=== PATIENT | male | born 1945 | race Caucasian/White ===

== ENCOUNTER → 2016-08-15 | Outpatient (CLI) | payer MEDICARE, BC ==
--- NOTE | 2016-08-15 13:26 | CT ---
EXAMINATION TYPE: CT chest wo con DATE OF EXAM: 08/15/2016 COMPARISON: NONE HISTORY: Excess calcium on coronary CT DLP: [address] of the chest was performed with lung and mediastinal window settings submitted. The la ck of contrast limits evaluation of the vascular, mediastinal and parenchymal structures including th e upper abdomen. LUNGS: The lungs are clear and free of infiltrate. No atelectasis. No pulmonary nodule or mass is de tected. No pleural effusion. No CT evidence of interstitial lung disease. MEDIASTINUM/ED: Thoracic aorta is of normal caliber with limited evaluation given lack of contrast . Mild atheromatous change of the thoracic aorta. No aneurysm. The heart is not enlarged. Mild LAD calcification is noted. No evidence for mediastinal mass. No lymph nodes greater than 1cm. UPPER ABDOMEN: No significant abnormality is seen. OTHER: No significant other abnormality. IMPRESSION: 1. No significant abnormality.
== END | disposition home or self-care (01) ==
LOC: RADCTMAIN 12:49
PROVIDERS: ATTEND Family Medicine
DX: I77.89 Other specified disorders of arteries and arterioles (principal)
CPT/HCPCS: 71250

== ENCOUNTER 2017-08-09 13:50 | Observation (INO) | payer MEDICARE, BC ==
[2017-08-09] MEDS ORDERED: SODIUM CHLORIDE 0.9% 500 ML IV STA (14:56)
[2017-08-09] MEDS ORDERED: ONDANSETRON 4 MG/2 ML VIAL IVP STA (14:56)
--- NOTE | 2017-08-09 15:01 | ED ---
General Adult HPI - General Chief complaint: Abdominal Pain Stated complaint: Abd Pain Time Seen by Provider: 08/09/17 14:22 Source: patient, family, RN notes reviewed, old records reviewed Mode of arrival: ambulatory Limitations: no limitations - History of Present Illness Initial comments: Chief complaint and history of present illness is a 71-year-old male here with his . The patient reports that for the past 5 days been on Cipro because he thought he had diverticulitis and was prescribed by his family physician. Patient states that he had 2 bowel movements today. No blood in the bowel movement and was not dark. He reports did not have a bowel movement and one half days prior to this. He also complains of some flank pain on the left side. This time minimal to no pain. Appetite decreased secondary nausea but no vomiting. - Related Data Home Medications Medication Instructions Recorded Confirmed Ciprofloxacin HCl [Cipro] 500 mg PO BID 08/09/17 08/09/17 Allergies Allergy/AdvReac Type Severity Reaction Status Date / Time Tetracyclines Allergy Rash/Hives Verified 08/09/17 17:19 erythromycin base AdvReac Nausea & Verified 08/09/17 17:19 Vomiting hydromorphone [From Dilaudid] AdvReac hallucinati Verified 08/09/17 17:19 on morphine AdvReac hallunicati Verified 08/09/17 17:19 on oxycodone AdvReac Nausea & Verified 08/09/17 17:19 Vomiting Review of Systems ROS Statement: Those systems with pertinent positive or pertinent negative responses have been documented in the HPI. Review of systems patient denies any headache or visual acuity changes no chest pain or shortness of breath. He has discomfort on again off again from the left lateral abdomen to the mid abdomen lower left quadrant. No vomiting but he has been mildly nauseated. He had 2 bowel movements today. Denies any change in color of the stool or urine. Denies previous kidney stones or kidney pathology. Patient has had diverticulitis multiple times. At one time he had to have 8 inches of colon removed because of an abscess associated with his diverticulitis. All systems are reviewed. Past medical problems diverticulitis. Surgeries left total knee and 8 inches of his colon associated with diverticulitis and abscess. Family history his father had prostate cancer when he was in his 90s. The patient has ALLERGIES to tetracycline causes a rash. Erythromycin base hydromorphone morphine and oxycodone cause nausea. Patient does not smoke drink alcohol very rarely socially. ROS Other: All systems not noted in ROS Statement are negative. Past Medical History Additional Past Medical History / Comment(s): diverticultis History of Any Multi-Drug Resistant Organisms: None Reported Past Surgical History: Joint Replacement Additional Past Surgical History / Comment(s): colon resection Past Psychological History: No Psychological Hx Reported Smoking Status: Current every day smoker Past Alcohol Use History: None Reported Past Drug Use History: None Reported General Exam - General Exam Comments Initial Comments: General: The patient is awake and alert, here because discomfort comes and goes to the left flank area and left lower quadrant. Being treated for the past 5 days for diverticulitis. Vital signs shows temperature 98.2 pulse 75 respiratory rate 18 pulse ox 97% room air blood pressure 138/75 Eye: Pupils are equal, round and reactive to light, extra-ocular movements are intact ; there is normal conjunctiva bilaterally. No signs of icterus. Ears, nose, mouth and throat: There are moist mucous membranes and no oral lesions. Neck: The neck is supple, there is no tenderness, no anterior cervical lymphadenopathy. Cardiovascular: There is a regular rate and rhythm. No murmur, rub or gallop is appreciated. Respiratory: Lungs are clear to auscultation, respirations are non-labored, breath sounds are equal. No wheezes, stridor, rales, or rhonchi. Gastrointestinal: Soft, states he feels slightly bloated, minimally tender abdomen without masses or organomegaly noted. There is no rebound or guarding present. No CVA tenderness. Bowel sounds are unremarkable. Back: There is no tenderness to palpation in the midline. There is no obvious deformity. No rashes noted. Musculoskeletal: Normal ROM, no tenderness, There is no pedal edema. There is no calf tenderness or swelling. Sensation intact. Neurological: No complaint of a neuro deficits, no balance problems. Alert and oriented Skin: Skin is warm and dry and no rashes or lesions are noted. Psychiatric: Cooperative, appropriate mood & affect, normal judgment. Limitations: no limitations Course Vital Signs 08/09/17 14:08 Temperature 98.2 F Pulse Rate 75 Respiratory 18 Rate Blood Pressure 138/75 O2 Sat by Pulse 97 Oximetry Medical Decision Making - Medical Decision Making Medical decision making; this is a 71-year-old male here with his . The patient's been on 5 days of Cipro for a possible diagnosis of diverticulitis. Patient came in today because he had left flank area pain. Nausea but no sweats no vomiting. Possibility of kidney stone is being entertained as well as diverticulitis. The patient's labs show white count of 8.3 hemoglobin 15 hematocrit 44 with a potassium 4.0. BUN 26 creatinine 1.1 GFR 67. Glucose 99. Urine shows small amount of blood and [address] abdomen without IV oral contrast rule out the possibility of kidney stone. X-rays of the abdomen were done and reviewed by radiologist his final impression is unremarkable abdomen. As read by Dr. Daniel CT of the abdomen was done without contrast because the patient had possibility of a kidney stone. The radiologist's impressions include kidneys no masses are evident. No hydronephrosis is present. Minimal left hydroureter may be present. This appears more prominent on the coronal plane images.This of present renal stones are not identified. Loops of bowel within the abdomen and pelvis are normal. Appendix normal as visualized. Urinary bladder there is a 4 mm calcification within the posterior lateral left a urinary bladder. Some wall thickening through this region is not excluded. Additional workup was recommended. Prostate appears unremarkable. Impression; suggestion of mild left hydroureter with a ureteral vesicle junction stone measuring 0.4 cm. Number to the ureteral vesicle junction stone appears to be within an area of asymmetric urinary bladder wall thickening. Additional workup was recommended. Underlying neoplasm should be considered. As read by Dr. Daniel I discussed the case with Dr. Zhong. Patient be admitted to his service for rehydration, IV antibiotics for presumptive diverticulitis. Dr. Zhong states he will decide when to consult urology for the radiologist's report after his examination. - Lab Data Result diagrams: 08/09/17 15:15 08/09/17 15:15 Lab Results 08/09/17 08/09/17 08/09/17 Range/Units 15:15 15:15 15:15 WBC 8.3 (3.8-10.6) k/uL RBC 4.86 (4.30-5.90) m/uL Hgb 15.0 (13.0-17.5) gm/dL Hct 44.7 (39.0-53.0) % MCV 92.0 (80.0-100.0) fL MCH 30.9 (25.0-35.0) pg MCHC 33.6 (31.0-37.0) g/dL RDW 13.5 (11.5-15.5) % Plt Count 246 (150-450) k/uL Neutrophils % 63 % Lymphocytes % 24 % Monocytes % 7 % Eosinophils % 4 % Basophils % 1 % Neutrophils # 5.3 (1.3-7.7) k/uL Lymphocytes # 2.0 (1.0-4.8) k/uL Monocytes # 0.6 (0-1.0) k/uL Eosinophils # 0.3 (0-0.7) k/uL Basophils # 0.1 (0-0.2) k/uL Sodium 143 (137-145) mmol/L Potassium 4.0 (3.5-5.1) mmol/L Chloride 109 H (98-107) mmol/L Carbon Dioxide 21 L (22-30) mmol/L Anion Gap 13 mmol/L BUN 26 H (9-20) mg/dL Creatinine 1.10 (0.66-1.25) mg/dL Est GFR (CKD-EPI)AfAm 77 (>60 ml/min/1.73 sqM) Est GFR (CKD-EPI)NonAf 67 (>60 ml/min/1.73 sqM) Glucose 99 (74-99) mg/dL Plasma Lactic Acid Maxime 0.8 (0.7-2.0) mmol/L Calcium 9.3 (8.4-10.2) mg/dL Total Bilirubin 0.5 (0.2-1.3) mg/dL AST 28 (17-59) U/L ALT 25 (21-72) U/L Alkaline Phosphatase 69 (38-126) U/L Total Protein 7.0 (6.3-8.2) g/dL Albumin 4.1 (3.5-5.0) g/dL Amylase 54 (30-110) U/L Lipase 127 (23-300) U/L Urine Color Urine Appearance (Clear) Urine pH (5.0-8.0) Ur Specific [place] (1.001-1.035) Urine Protein (Negative) Urine Glucose (UA) (Negative) Urine Ketones (Negative) Urine Blood (Negative) Urine Nitrite (Negative) Urine Bilirubin (Negative) Urine Urobilinogen (<2.0) mg/dL Ur Leukocyte Esterase (Negative) Urine RBC (0-5) /hpf Urine WBC (0-5) /hpf Urine Mucus (None) /hpf 08/09/17 Range/Units 15:33 WBC (3.8-10.6) k/uL RBC (4.30-5.90) m/uL Hgb (13.0-17.5) gm/dL Hct (39.0-53.0) % MCV (80.0-100.0) fL MCH (25.0-35.0) pg MCHC (31.0-37.0) g/dL RDW (11.5-15.5) % Plt Count (150-450) k/uL Neutrophils % % Lymphocytes % % Monocytes % % Eosinophils % % Basophils % % Neutrophils # (1.3-7.7) k/uL Lymphocytes # (1.0-4.8) k/uL Monocytes # (0-1.0) k/uL Eosinophils # (0-0.7) k/uL Basophils # (0-0.2) k/uL Sodium (137-145) mmol/L Potassium (3.5-5.1) mmol/L Chloride (98-107) mmol/L Carbon Dioxide (22-30) mmol/L Anion Gap mmol/L BUN (9-20) mg/dL Creatinine (0.66-1.25) mg/dL Est GFR (CKD-EPI)AfAm (>60 ml/min/1.73 sqM) Est GFR (CKD-EPI)NonAf (>60 ml/min/1.73 sqM) Glucose (74-99) mg/dL Plasma Lactic Acid Maxime (0.7-2.0) mmol/L Calcium (8.4-10.2) mg/dL Total Bilirubin (0.2-1.3) mg/dL AST (17-59) U/L ALT (21-72) U/L Alkaline Phosphatase (38-126) U/L Total Protein (6.3-8.2) g/dL Albumin (3.5-5.0) g/dL Amylase (30-110) U/L Lipase (23-300) U/L Urine Color Yellow Urine Appearance Clear (Clear) Urine pH 5.5 (5.0-8.0) Ur Specific [place] 1.010 (1.001-1.035) Urine Protein Negative (Negative) Urine Glucose (UA) Negative (Negative) Urine Ketones Negative (Negative) Urine Blood Small H (Negative) Urine Nitrite Negative (Negative) Urine Bilirubin Negative (Negative) Urine Urobilinogen <2.0 (<2.0) mg/dL Ur Leukocyte Esterase Negative (Negative) Urine RBC 7 H (0-5) /hpf Urine WBC 1 (0-5) /hpf Urine Mucus Rare H (None) /hpf Disposition Clinical Impression: Ureterolithiasis, History of diverticulitis of colon Disposition: ADMITTED IP TO THIS HOSP Condition: Stable Is patient prescribed a controlled substance at d/c from ED?: No Referrals: Gucci Zhong MD [Primary Care Provider] - 1-2 days
[2017-08-09 15:30] LABS: Basophils # (A) 0.1 k/uL (0-0.2); Basophils % (A) 1 %; Eosinophils # (A) 0.3 k/uL (0-0.7); Eosinophils % (A) 4 %; HCT 44.7 % (39.0-53.0); Lymphocytes % (A) 24 %; MCH 30.9 pg (25.0-35.0); MCHC 33.6 g/dL (31.0-37.0); Mean Platelet Volume 6.5; Monocytes # (A) 0.6 k/uL (0-1.0); Monocytes % (A) 7 %; Neutrophils # (A) 5.3 k/uL (1.3-7.7); Neutrophils % (A) 63 %; Platelet Count 246 k/uL (150-450); RBC 4.86 m/uL (4.30-5.90); RDW 13.5 % (11.5-15.5); WBC 8.3 k/uL (3.8-10.6)
[2017-08-09 15:39] LABS: Albumin 4.1 g/dL (3.5-5.0); Calcium 9.3 mg/dL (8.4-10.2); Total Bilirubin 0.5 mg/dL (0.2-1.3)
[2017-08-09 15:50] LABS: Appearance,Urine Clear (Clear); Bilirubin,Urine Negative (Negative); Blood,Urine Small (Negative); Color,Urine Yellow; Glucose,Urine (UA) Negative (Negative); Ketones,Urine Negative (Negative); Leukocyte Esterase,Urine Negative (Negative); Mucus,Urine Rare /hpf; Nitrite,Urine Negative (Negative); PH, Urine 5.5 (5.0-8.0); Protein,Urine Negative (Negative); RBC,Urine 7 /hpf (0-5); Urobilinogen,Urine <2.0 mg/dL (<2.0); WBC,Urine 1 /hpf (0-5)
--- NOTE | 2017-08-09 16:08 | XR ---
EXAMINATION TYPE: XR abdomen 2V DATE OF EXAM: 08/09/2017 COMPARISON: NONE INDICATION: Abdominal pain history of diverticulitis TECHNIQUE: Single view abdomen upright view FINDINGS: There is a normal bowel gas pattern. Psoas margins are normal. No suspicious air-fluid levels or differential air-fluid levels are present . No free air is evident. Some nonspecific small bowel gas is present. No organomegaly is present. IMPRESSION: 1. Unremarkable Abdomen
--- NOTE | 2017-08-09 16:42 | CT ---
EXAMINATION TYPE: CT abdomen pelvis wo con DATE OF EXAM: 08/09/2017 COMPARISON: NONE INDICATION: Lower abdominal pain, hematuria DLP: 426.8 mGycm, Automated exposure control for dose reduction was used. CONTRAST: 0 mL of Isovue 300. Study performed without Oral Contrast TECHNIQUE: Axial images were obtained from above the diaphragm to the pubic rami in the axial plane a t 5 mm thick sections. Reconstructed images are reviewed on the computer in the coronal plane. FINDINGS: Limited CT sections are obtained the lung bases. The lung bases are clear. CT ABDOMEN: Liver: Normal Spleen: Normal Pancreas: Normal Adrenal glands: The adrenal glands are normal. Gallbladder: Normal Kidneys: No masses are evident. No hydronephrosis is present. Minimal left hydroureter may be present . This appears more prominent on the coronal plane images. No cysts are present. Renal stones are n ot identified. Aorta: Vascular calcification is within the aorta. Inferior vena cava: Normal. CT PELVIS: Loops of bowel within the abdomen and pelvis are normal. Postsurgical changes are evident within the lower sigmoid colon. Few scattered diverticuli are present within the sigmoid colon. Study is darden ited without oral contrast. Appendix: Normal as visualized. Urinary bladder: There is a 0.4 cm calcification within the posterior lateral left urinary bladder. S ome wall thickening through this region is not excluded. Additional workup is recommended. Genitourinary structures: Prostate appears unremarkable. Osseous structures: No suspicious lytic or sclerotic lesions. IMPRESSIONS: 1. Suggestion of mild left hydroureter with a ureteral vesicle junction stone measuring 0.4 cm. 2. The ureteral vesicle junction stone appears to be within an area of asymmetric urinary bladder wal l thickening. Additional workup is recommended. Underlying neoplasm should be considered.
[2017-08-09] MEDS ORDERED: ONDANSETRON 4 MG/2 ML VIAL IVP PRN (18:14)
[2017-08-09] MEDS ORDERED: KETOROLAC 30 MG/ML 1 ML VIAL IVP PRN (18:14)
[2017-08-09] MEDS ORDERED: NALOXONE 0.4 MG/ML 1 ML VIAL IV PRN (18:14)
[2017-08-09] MEDS ORDERED: ACETAMINOPHEN TAB 325 MG TAB PO PRN (18:14)
[2017-08-09] MEDS ORDERED: LEVOFLOXACIN 500MG-D5W PMX 500 MG in DEXTROSE/WATER 1 100ML.BAG IVPB SCH (20:00)
[2017-08-09] MEDS: metroNIDAZOLE-NS PMX 500 MG in SALINE 1 100ML.BAG IVPB SCH (22:11)
[2017-08-10] MEDS: metroNIDAZOLE-NS PMX 500 MG in SALINE 1 100ML.BAG IVPB SCH ×2 (01:39→08:03)
[2017-08-10] MEDS: SODIUM CHLORIDE 0.9% 1,000 ML IV SCH ×2 (06:55→15:23)
[2017-08-10 07:39] VITALS: RESP 16
[2017-08-10 12:09] VITALS: BP 135/65; PULSE 67; TEMP 97.9
--- NOTE | 2017-08-10 23:27 | HP ---
HISTORY AND PHYSICAL CHIEF COMPLAINT: 71-year-old white male with acute left flank pain. HISTORY OF PRESENT ILLNESS: 71-year-old white male with acute left flank pain. Been on Cipro for diverticulitis colitis for the last 5 days. Brought to the hospital. He has had 2 bowel movements. No blood in the stools. Some pain in the left side. CT of the abdomen showed ureteral stone 0.4 mm possible block in the with mild hydronephrosis admitted for acute renal colic and hydronephrosis. IV fluids were given overnight. The patient stabilized, possibly passed stone overnight. He has been taking Cipro at home at home 500 mg b.i.d. ALLERGIES: TETRACYCLINE AND ERYTHROMYCIN, DILAUDID, MORPHINE, OXYCODONE, NAUSEA. REVIEW OF SYSTEMS: Fourteen point review of systems negative except for mentioned in HPI. SOCIAL HISTORY: Does not smoke. Drinks socially alcohol. PAST MEDICAL HISTORY: Joint replacement, diverticulitis. Current everyday smoker. PHYSICAL EXAM: The pain is left flank pain on GI exam. CARDIOVASCULAR S1-S2. LUNGS: Clear. HEMATOLOGY negative Homans. PSYCH: Fair mood and affect. NEUROLOGIC: Alert and oriented x3. INTEGUMENT: Does not look he has any rashes. Fair skin turgor. ABDOMEN: Benign. LABORATORY DATA: BUN 26, creatinine 1.1, GFR 67, UA shows 7 red blood cells. ASSESSMENT: 1. Mild left hydronephrosis. 2. Ureteral vesicular junction stone. 3. Abnormal CT scan with bladder wall thickening. Follow up with Urology as an outpatient. Underlying neoplasm needs to be ruled out. He will have a cystoscopy with Urology as an outpatient. The patient understands this and will make appoint with urologist as soon as possible. As mentioned negative. passed renal stone overnight. He will discharged home to follow up as outpatient. MMODL / IJN: [id number] /
== END 2017-08-10 15:57 | disposition home or self-care (01) ==
LOC: EC 13:50 → 4MS4W 18:15 → 3OBS 08-10 11:26
PROVIDERS: ADMIT Family Medicine; ATTEND Family Medicine
DX: N13.2 Hydronephrosis with renal and ureteral calculous obstruction (principal); N32.89 Other specified disorders of bladder; K57.92 Diverticulitis of intestine, part unspecified, without perforation or abscess without bleeding; F17.200 Nicotine dependence, unspecified, uncomplicated; Z88.1 Allergy status to other antibiotic agents; Z88.5 Allergy status to narcotic agent; Z80.42 Family history of malignant neoplasm of prostate
CPT/HCPCS: 99285; 96375 ×2; 96361 ×2; 96365; 96366; 36415; 80053; 82150; 83605; 83690; 85025; 81001; 87086; 74019; 74176; G0378 ×2; J2405; J1956

== ENCOUNTER 2017-11-14 12:08 | Emergency (ER) | payer MEDICARE, BC ==
[2017-11-14 12:25] VITALS: RESP 16
--- NOTE | 2017-11-14 12:47 | ED ---
General Adult HPI - General Chief complaint: Extremity Problem,Nontraumatic Stated complaint: finger infection Time Seen by Provider: 11/14/17 12:29 Source: patient, RN notes reviewed Mode of arrival: ambulatory Limitations: no limitations - History of Present Illness Initial comments: Patient is a 71-year-old male presented to the emergency room today with a chief complaint of increased redness and some swelling to the left index finger. Patient states that he has a history of having a arthritic cyst to this area. He states he saw a revenue research analyst who drained. Patient states that 3 days ago woke up he noticed some swelling beginning to this finger. States it was worse than previous. He had gone back to his revenue research analyst who started him on some antibiotics. States that they did try to drain but not a lot of drainage came out. Patient states that the area of redness swelling has decreased now just below the DIP joint. Patient denies any other complaints on antibiotics of Keflex. Patient denies any recent fever, chills, shortness of breath, chest pain, back pain, numbness or tingling, headaches or visual changes , or any other complaints. - Related Data Home Medications Medication Instructions Recorded Confirmed Cephalexin [Keflex] 500 mg PO Q8HR 11/14/17 11/14/17 Previous Rx's Medication Instructions Recorded Sulfamethox-Tmp 800-160Mg [Bactrim 1 tab PO Q12HR #20 tab 11/14/17 DS 800-160 mg] Allergies Allergy/AdvReac Type Severity Reaction Status Date / Time Tetracyclines Allergy Rash/Hives Verified 11/14/17 12:25 erythromycin base AdvReac Nausea & Verified 11/14/17 12:25 Vomiting hydromorphone [From Dilaudid] AdvReac hallucinati Verified 11/14/17 12:25 on morphine AdvReac hallunicati Verified 11/14/17 12:25 on oxycodone AdvReac Nausea & Verified 11/14/17 12:25 Vomiting Review of Systems ROS Statement: Those systems with pertinent positive or pertinent negative responses have been documented in the HPI. ROS Other: All systems not noted in ROS Statement are negative. Past Medical History Past Medical History: Osteoarthritis (OA) Additional Past Medical History / Comment(s): diverticultis History of Any Multi-Drug Resistant Organisms: None Reported Past Surgical History: Joint Replacement Additional Past Surgical History / Comment(s): colon resection knee replace Past Anesthesia/Blood Transfusion Reactions: Postoperative Nausea & Vomiting ( PONV) Past Psychological History: No Psychological Hx Reported Smoking Status: Never smoker Past Alcohol Use History: None Reported Past Drug Use History: None Reported General Exam - General Exam Comments Initial Comments: General: The patient is awake and alert, in no distress, and does not appear acutely ill. Neck: The neck is supple, there is no tenderness or JVD. Cardiovascular: There is a regular rate and rhythm. No murmur, rub or gallop is appreciated. Respiratory: Lungs are clear to auscultation, respirations are non-labored, breath sounds are equal. No wheezes, stridor, rales, or rhonchi. Musculoskeletal/skin: Patient does have redness and erythema below the DIP joint of the second digit left hand consistent with a paronychia. Local tenderness. Cap refill less than 2 seconds. Sensations intact. Strength 5/5. No lymphangitic streaking. Neurological: A&O x 3. CN II-XII intact, There are no obvious motor or sensory deficits. Coordination appears grossly intact. Speech is normal. Psychiatric: Normal mood and affect. Limitations: no limitations Course Vital Signs 11/14/17 12:22 Temperature 97.4 F L Pulse Rate 73 Respiratory 16 Rate Blood Pressure 120/79 O2 Sat by Pulse 97 Oximetry Procedures - Procedures Initial comment: Patient's left index finger was prepped and cleaned with Betadine. An 11 blade was used to make small incision running parallel to the nail bed. Small amount of purulent drainage was removed. Patient tolerated procedure well. Medical Decision Making - Medical Decision Making The patient's x-ray reviewed negative for any acute abnormalities. Results were discussed with the patient. Patient said paronychia on exam was drained here in the emergency room. Patient tolerated well. Patient advised continue Keflex will be started on Bactrim. He is advised to do warm soaks or warm compresses over the next 2-3 days. Advised following up with family doctor return if symptoms increase or worsen. Disposition Clinical Impression: Paronychia Disposition: HOME SELF-CARE Condition: Good Instructions: Paronychia (ED) Additional Instructions: Please use medication as discussed. Please continue warm soaks or compresses as discussed. Please follow-up with family doctor in the next 2 days of symptoms have not improved. Please return to emergency room if the symptoms increase or worsen or for any other concerns. Prescriptions: Sulfamethox-Tmp 800-160Mg [Bactrim DS 800-160 mg] 1 tab PO Q12HR #20 tab Is patient prescribed a controlled substance at d/c from ED?: No Referrals: Gucci Zhong MD [Primary Care Provider] - 1-2 days Time of Disposition: 13:55
--- NOTE | 2017-11-14 13:05 | XR ---
EXAMINATION TYPE: XR finger LT DATE OF EXAM: 11/14/2017 COMPARISON: NONE HISTORY: 71-year-old male with redness and swelling, DIP joint, pain TECHNIQUE: 3 views coned down left second digit FINDINGS: There is degenerative joint space narrowing at the second DIP joint with soft tissue swelling. No mar ginal erosions or soft tissue calcifications. IMPRESSION: Degenerative joint space narrowing in the second DIP joint. Additional soft tissue swelling. No acute osseous abnormality seen.
[2017-11-14 14:07] VITALS: BP 115/79; PULSE 79; TEMP 97.8
== END 2017-11-14 14:06 | disposition home or self-care (01) ==
LOC: EC 12:08
DX: L03.012 Cellulitis of left finger (principal); Z88.1 Allergy status to other antibiotic agents; Z88.5 Allergy status to narcotic agent
CPT/HCPCS: 10060; 99284

== ENCOUNTER 2018-06-23 12:06 | Observation (INO) | payer MEDICARE, BC ==
[2018-06-23 13:32] VITALS: BMI 24.5
[2018-06-23] MEDS ORDERED: BISMUTH SUBSALICYLATE 4,192 MG/240 ML BOTTLE PO PRN (14:45)
--- NOTE | 2018-06-23 15:13 | XR ---
EXAMINATION TYPE: XR chest 2V DATE OF EXAM: 06/23/2018 COMPARISON: Chest CT August 15, 2016 HISTORY: Chest pain. TECHNIQUE: Frontal and lateral views of the chest are obtained. FINDINGS: There is no focal air space opacity, pleural effusion, or pneumothorax seen. The cardiac silhouette size is within normal limits. The osseous structures are intact. IMPRESSION: No acute process.
[2018-06-23 16:03] LABS: Basophils # (A) 0.1 k/uL (0-0.2); Basophils % (A) 1 %; Eosinophils # (A) 0.2 k/uL (0-0.7); Eosinophils % (A) 3 %; HCT 50.4 % (39.0-53.0); HGB 15.8 gm/dL (13.0-17.5); Lymphocytes # (A) 1.8 k/uL (1.0-4.8); Lymphocytes % (A) 24 %; MCH 29.8 pg (25.0-35.0); MCHC 31.4 g/dL (31.0-37.0); Mean Platelet Volume 6.6; Monocytes # (A) 0.4 k/uL (0-1.0); Monocytes % (A) 5 %; Neutrophils # (A) 4.9 k/uL (1.3-7.7); Neutrophils % (A) 66 %; Platelet Count 244 k/uL (150-450); RBC 5.31 m/uL (4.30-5.90); RDW 13.4 % (11.5-15.5); WBC 7.5 k/uL (3.8-10.6)
[2018-06-23] MEDS: SODIUM CHLORIDE 0.9% 1,000 ML IV SCH (16:20)
[2018-06-23] MEDS: IOPAMIDOL-300 CONTRAST 30 ML VIAL (ORAL USE) PO PRN ×2 (16:20→17:15)
[2018-06-23 16:38] LABS: Albumin 4.1 g/dL (3.5-5.0); Calcium 9.5 mg/dL (8.4-10.2); Potassium 4.2 mmol/L (3.5-5.1); Total Bilirubin 0.5 mg/dL (0.2-1.3); Total Protein 7.4 g/dL (6.3-8.2)
[2018-06-23 16:48] LABS: Appearance,Urine Clear (Clear); Bilirubin,Urine Negative (Negative); Blood,Urine Negative (Negative); Color,Urine Yellow; Glucose,Urine (UA) Negative (Negative); Ketones,Urine Negative (Negative); Leukocyte Esterase,Urine Negative (Negative); Nitrite,Urine Negative (Negative); PH, Urine 5.5 (5.0-8.0); Protein,Urine Negative (Negative); Urobilinogen,Urine <2.0 mg/dL (<2.0)
--- NOTE | 2018-06-23 18:23 | CT ---
EXAMINATION TYPE: CT abdomen pelvis wo con DATE OF EXAM: 06/23/2018 COMPARISON: 08/02/1717 HISTORY: Abdominal pain and diarrhea. CT DLP: 484.6 mGycm Automated exposure control for dose reduction was used. TECHNIQUE: Helical acquisition of images was performed from the lung bases through the pelvis. FINDINGS: Lung bases are clear. There is no pleural effusion. Heart size is normal. There is no pericardial eff usion. Liver shows no focal defect. Gallbladder appears normal. Bile ducts are not dilated. Spleen appears n ormal. Stomach appears normal. There is no evidence of pancreatic mass. There is no adrenal mass. Kidneys have normal size and contour. There is no hydronephrosis. There is no retroperitoneal adenopathy. Bladder distends smoothly. There is no free fluid in the pelvis. There is anastomosis in the rectosigmoid colon. There is no evidence of a bowel obstruction. There is no f ree air. There is no mesenteric edema. There is no inguinal hernia. Appendix is not definitely seen. There is no evidence of a thickened appendix. There is no free air. There is no ascites. There is no sign of a bowel obstruction. The bony structur es appear intact. IMPRESSION: NEGATIVE CT SCAN ABDOMEN AND PELVIS. THERE IS CLEARING OF THE SMALL CALCULUS IN THE DISTAL LEFT URETE R COMPARED TO OLD EXAM. NO HYDRONEPHROSIS. THERE IS CLEARING OF MILD LEFT-SIDED HYDRONEPHROSIS COMPAR ED TO OLD EXAM.
[2018-06-24 00:33] LABS: Cancer Antigen 19-9 7.1 U/mL (0.0-34.9)
[2018-06-24 00:40] LABS: Gliadin AB IgA, Unit <0.2 U/mL
[2018-06-24] MEDS: SODIUM CHLORIDE 0.9% 1,000 ML IV SCH ×2 (07:05→16:24)
[2018-06-24 07:19] LABS: Basophils # (A) 0.1 k/uL (0-0.2); Basophils % (A) 1 %; Eosinophils # (A) 0.4 k/uL (0-0.7); Eosinophils % (A) 5 %; HCT 45.7 % (39.0-53.0); HGB 14.4 gm/dL (13.0-17.5); Lymphocytes # (A) 2.1 k/uL (1.0-4.8); Lymphocytes % (A) 29 %; MCH 29.9 pg (25.0-35.0); MCHC 31.6 g/dL (31.0-37.0); MCV 94.7 fL (80.0-100.0); Mean Platelet Volume 6.3; Monocytes # (A) 0.4 k/uL (0-1.0); Monocytes % (A) 6 %; Neutrophils # (A) 4.1 k/uL (1.3-7.7); Neutrophils % (A) 56 %; Platelet Count 239 k/uL (150-450); RBC 4.82 m/uL (4.30-5.90); RDW 13.4 % (11.5-15.5); WBC 7.3 k/uL (3.8-10.6)
[2018-06-24 07:29] LABS: Albumin 3.6 g/dL (3.5-5.0); Calcium 8.9 mg/dL (8.4-10.2); Total Bilirubin 0.8 mg/dL (0.2-1.3); Total Protein 6.5 g/dL (6.3-8.2)
--- NOTE | 2018-06-24 12:06 | P.GSCN ---
<Sary Oliver - Last Filed: 06/24/18 12:02> History of Present Illness Consult date: 06/24/18 Reason for Consult: EGD colonoscopy worsening diarrhea Requesting physician: Gucci Zhong History of present illness: CHIEF COMPLAINT: nausea, diarrhea HISTORY OF PRESENT ILLNESS: 72-year-old male who was directed admitted from Dr. Rizvi office yesterday due to nausea and diarrhea. Patient reports nonbloody diarrhea x 1 week. He states he has been having intermittent diarrhea for the last 6 months. Denies any trigger foods with the exception of red sauces . He reports nausea over the past week as well but denies episodes of emesis. He reports a history of reflux and takes Zantac PRN. Denies hematemesis, hematochezia, or melena. He reports history of a bowel resection approximately 4 years ago at [facility] due to a colonic abscess. He reports his last colonoscopy was approximately 4 years ago revealing diverticulosis. PAST MEDICAL HISTORY: See list. PAST SURGICAL HISTORY: See list. SOCIAL HISTORY: No illicit drug use. REVIEW OF SYSTEMS: CONSTITUTIONAL: Denies fever or chills. HEENT: Denies blurred vision, vision changes, or eye pain. Denies hemoptysis CARDIOVASCULAR: Denies chest pain or pressure. RESPIRATORY: No shortness of breath. GASTROINTESTINAL: Refer to HPI for pertinent findings HEMATOLOGIC: Denies bleeding disorders. GENITOURINARY: Denies any blood in urine. SKIN: Denies pruitis. Denies rash. PHYSICAL EXAM: VITAL SIGNS: Reviewed. GENERAL: Well-developed in no acute distress. HEENT: No sclera icterus. Extraocular movements grossly intact. Moist buccal mucosa. Head is atraumatic, normocephalic. ABDOMEN: Soft. Nondistended. Tenderness upon palpation of left lower quadrant. NEUROLOGIC: Alert and oriented. Cranial nerves II through XII grossly intact. IMAGING: CT abdomen and pelvis: No free fluid in the pelvis. There is anastomosis in the rectosigmoid colon. No evidence of bowel obstruction. No free air. No mesenteric edema. No inguinal hernia. ASSESSMENT: 1. Diarrhea x 1 week, with intermittent episodes x 6 months 2. Nausea without emesis 3. GERD 4. History of diverticulosis 5. history of bowel resection due to abscess approximately 4 years ago PLAN: 1. Clear liquid diet. NPO after midnight 2. GoLYTELY bowel prep 3. Continue IV fluids 4. Protonix 40 mg IV daily 5. EGD/colonoscopy tomorrow Nurse practitioner note has been reviewed by physician. Signing provider agrees with the documented findings, assessment, and plan of care. Past Medical History Past Medical History: GERD/Reflux, Hyperlipidemia, Osteoarthritis (OA), Pneumonia, Renal Disease Additional Past Medical History / Comment(s): Diverticultis, L nephrolithiasis with mild hydronephrosis-pt states he passed stone on his own, occasional sinus headache. History of Any Multi-Drug Resistant Organisms: None Reported Past Surgical History: Bowel Resection, Hernia Repair, Joint Replacement Additional Past Surgical History / Comment(s): Colon resection d/t abscess/necrotic bowel, colonoscopy, L total knee replacement, bilateral inguinal hernia repairs. Past Anesthesia/Blood Transfusion Reactions: Postoperative Nausea & Vomiting (PONV) Additional Past Anesthesia/Blood Transfusion Reaction / Comm: Pt received blood with bowel resection without reaction. Smoking Status: Never smoker - Past Family History Mother Family Medical History: Cancer, CVA/TIA Additional Family Medical History / Comment(s): Mother had skin cancer in her groin area and a pacemaker and had a cardiac valve replaced. She at the age of 98yrs. Father Family Medical History: Dementia Additional Family Medical History / Comment(s): Father at the age of 91 yrs from alzheimer's. Medications and Allergies Home Medications Medication Instructions Recorded Confirmed Type No Known Home Medications 06/23/18 06/23/18 History Allergies Allergy/AdvReac Type Severity Reaction Status Date / Time Tetracyclines Allergy Rash/Hives Verified 06/23/18 13:06 erythromycin base AdvReac Nausea & Verified 06/23/18 13:06 Vomiting hydromorphone [From Dilaudid] AdvReac hallucinati Verified 06/23/18 13:06 on morphine AdvReac hallunicati Verified 06/23/18 13:06 on oxycodone AdvReac Nausea & Verified 06/23/18 13:06 Vomiting Surgical - Exam Vital Signs Temp Pulse Resp BP Pulse Ox 97.6 F 71 18 130/84 98 06/23/18 12:47 06/23/18 12:47 06/23/18 12:47 06/23/18 12:47 06/23/18 12:47 Results - Labs 06/24/18 06:55 06/24/18 06:55 Abnormal Lab Results - Last 24 Hours (Table) 06/23/18 06/24/18 Range/Units 15:23 06:55 Chloride 108 H 112 H (98-107) mmol/L Glucose 101 H (74-99) mg/dL Lipase 446 H (23-300) U/L Microbiology - Last 24 Hours (Table) 06/23/18 17:36 Stool Culture - Preliminary Stool Diabetes panel 06/23/18 06/24/18 Range/Units 15:23 06:55 Sodium 140 140 (137-145) mmol/L Potassium 4.2 4.0 (3.5-5.1) mmol/L Chloride 108 H 112 H (98-107) mmol/L Carbon Dioxide 24 23 (22-30) mmol/L BUN 20 15 (9-20) mg/dL Creatinine 1.03 1.01 (0.66-1.25) mg/dL Glucose 101 H 91 (74-99) mg/dL Calcium 9.5 8.9 (8.4-10.2) mg/dL AST 23 21 (17-59) U/L ALT 21 31 (21-72) U/L Alkaline Phosphatase 69 60 (38-126) U/L Total Protein 7.4 6.5 (6.3-8.2) g/dL Albumin 4.1 3.6 (3.5-5.0) g/dL Thyroid panel 06/23/18 Range/Units 15:23 TSH 2.540 (0.465-4.680) mIU/L Calcium panel 06/23/18 06/24/18 Range/Units 15:23 06:55 Calcium 9.5 8.9 (8.4-10.2) mg/dL Albumin 4.1 3.6 (3.5-5.0) g/dL Pituitary panel 06/23/18 06/24/18 Range/Units 15:23 06:55 Sodium 140 140 (137-145) mmol/L Potassium 4.2 4.0 (3.5-5.1) mmol/L Chloride 108 H 112 H (98-107) mmol/L Carbon Dioxide 24 23 (22-30) mmol/L BUN 20 15 (9-20) mg/dL Creatinine 1.03 1.01 (0.66-1.25) mg/dL Glucose 101 H 91 (74-99) mg/dL Calcium 9.5 8.9 (8.4-10.2) mg/dL TSH 2.540 (0.465-4.680) mIU/L Adrenal panel 06/23/18 06/24/18 Range/Units 15:23 06:55 Sodium 140 140 (137-145) mmol/L Potassium 4.2 4.0 (3.5-5.1) mmol/L Chloride 108 H 112 H (98-107) mmol/L Carbon Dioxide 24 23 (22-30) mmol/L BUN 20 15 (9-20) mg/dL Creatinine 1.03 1.01 (0.66-1.25) mg/dL Glucose 101 H 91 (74-99) mg/dL Calcium 9.5 8.9 (8.4-10.2) mg/dL Total Bilirubin 0.5 0.8 (0.2-1.3) mg/dL AST 23 21 (17-59) U/L ALT 21 31 (21-72) U/L Alkaline Phosphatase 69 60 (38-126) U/L Total Protein 7.4 6.5 (6.3-8.2) g/dL Albumin 4.1 3.6 (3.5-5.0) g/dL <Ricky Sebastian - Last Filed: 06/24/18 17:21> History of Present Illness History of present illness: As above. Patient with intermittent diarrhea and worsening reflux symptoms. The patient states when his diarrhea is quite bad he will go up to 20 times per day. Denies rectal bleeding or melena. We'll proceed with upper and lower endoscopy tomorrow. CAT scan reviewed and shows no definite abnormalities. Surgical - Exam Vital Signs Temp Pulse Resp BP Pulse Ox 97.6 F 71 18 130/84 98 06/23/18 12:47 06/23/18 12:47 06/23/18 12:47 06/23/18 12:47 06/23/18 12:47 Results - Labs 06/24/18 06:55 06/24/18 06:55 Abnormal Lab Results - Last 24 Hours (Table) 06/24/18 Range/Units 06:55 Chloride 112 H (98-107) mmol/L Microbiology - Last 24 Hours (Table) 06/23/18 17:36 Stool Culture - Preliminary Stool Diabetes panel 06/24/18 Range/Units 06:55 Sodium 140 (137-145) mmol/L Potassium 4.0 (3.5-5.1) mmol/L Chloride 112 H (98-107) mmol/L Carbon Dioxide 23 (22-30) mmol/L BUN 15 (9-20) mg/dL Creatinine 1.01 (0.66-1.25) mg/dL Glucose 91 (74-99) mg/dL Calcium 8.9 (8.4-10.2) mg/dL AST 21 (17-59) U/L ALT 31 (21-72) U/L Alkaline Phosphatase 60 (38-126) U/L Total Protein 6.5 (6.3-8.2) g/dL Albumin 3.6 (3.5-5.0) g/dL Calcium panel 06/24/18 Range/Units 06:55 Calcium 8.9 (8.4-10.2) mg/dL Albumin 3.6 (3.5-5.0) g/dL Pituitary panel 06/24/18 Range/Units 06:55 Sodium 140 (137-145) mmol/L Potassium 4.0 (3.5-5.1) mmol/L Chloride 112 H (98-107) mmol/L Carbon Dioxide 23 (22-30) mmol/L BUN 15 (9-20) mg/dL Creatinine 1.01 (0.66-1.25) mg/dL Glucose 91 (74-99) mg/dL Calcium 8.9 (8.4-10.2) mg/dL Adrenal panel 06/24/18 Range/Units 06:55 Sodium 140 (137-145) mmol/L Potassium 4.0 (3.5-5.1) mmol/L Chloride 112 H (98-107) mmol/L Carbon Dioxide 23 (22-30) mmol/L BUN 15 (9-20) mg/dL Creatinine 1.01 (0.66-1.25) mg/dL Glucose 91 (74-99) mg/dL Calcium 8.9 (8.4-10.2) mg/dL Total Bilirubin 0.8 (0.2-1.3) mg/dL AST 21 (17-59) U/L ALT 31 (21-72) U/L Alkaline Phosphatase 60 (38-126) U/L Total Protein 6.5 (6.3-8.2) g/dL Albumin 3.6 (3.5-5.0) g/dL
[2018-06-24] MEDS: PANTOPRAZOLE 40 MG/10 ML VIAL IVP SCH (13:08)
[2018-06-24] MEDS ORDERED: PEG 3350-NA SULF,BICARB,CL/KCL 4,000 ML BOTTLE PO ONE (14:00)
--- NOTE | 2018-06-24 16:07 | HP ---
HISTORY AND PHYSICAL Aldo Brown is a 72-year-old male who presented to [facility]. He had been seen by Dr. Zhong in his office and had been having diarrhea off and on for a few months. This time he had been having it for about 4 days. He subsequently was seen and admitted for further evaluation and management. He has been having some nausea, but denies episodes of emesis. PAST MEDICAL HISTORY: Negative for COPD or asthma. She had a history of diverticulitis and previously underwent resection of part I believe of his large colon because of diverticulitis and abscess formation. He did not need an ostomy at that time. He has also had previous orthopedic surgery. SOCIAL HISTORY: Patient is a nonsmoker. Does not drink alcohol excessively. Family history is noncontributory. REVIEW OF SYSTEMS: Is negative other than for what is described in the history of present illness and past medical history. MEDICATIONS: Prior to admission were not known. ALLERGIC: TO TETRACYCLINE AND ERYTHROMYCIN, DILAUDID, MORPHINE, AND OXYCODONE. PHYSICAL EXAMINATION: Respiratory rate is 18, pulse rate is 75, temperature 97.6, blood pressure 152/81, O2 saturation on room air is 98%. HEENT: Unremarkable. Chest is clear. Cardiovascular system is S1, S2. Abdomen is soft. There is no edema. LABORATORY DATA: White count of 7.3, hemoglobin of 14.4. Sodium 140, potassium 4, chloride 112, bicarb 23, BUN 15, creatinine of 1.01. Abdominal and pelvis CT shows evidence of clearing of the previous small calculus in the distal left ureter with clearing of the left-sided hydronephrosis, but otherwise no specific abnormality. Chest x-ray shows no acute process. IMPRESSION: At this time: 1. Abdominal pain, etiology which is unclear. 2. Diarrhea which seems to be somewhat chronic, though would manifest intermittently. At this point in time, the patient has been seen by surgery. The plan is for bowel prep and EGD and colonoscopy within the next 18 hours. Surgery has been consulted and we appreciate their input. Depending on how he does we should make further changes to his care as an. MMODL / IJN: [id number] /
[2018-06-25] MEDS: SODIUM CHLORIDE 0.9% 1,000 ML IV SCH ×2 (06:18→14:34)
[2018-06-25] MEDS: PANTOPRAZOLE 40 MG/10 ML VIAL IVP SCH (07:33)
[2018-06-25] MEDS ORDERED: LIDOCAINE 1% INJ 10MG/ML (20 ML MDV) ONE (13:28)
[2018-06-25] MEDS ORDERED: IV FLUID CONTINUATION 1,000 ML IV ONE (13:28)
[2018-06-25] MEDS ORDERED: PROPOFOL 10 MG/ML 20 ML VIAL IV ONE (13:28)
--- NOTE | 2018-06-25 14:14 | P.PCN ---
Date of Procedure: 06/25/18 Procedure(s) Performed: PREOPERATIVE DIAGNOSIS: GERD, intractable diarrhea, change in bowel habits POSTOPERATIVE DIAGNOSIS: Mild duodenitis, small hiatal hernia, mild distal esophagitis, minimal gastritis, diverticulosis PROCEDURE: 1. EGD with biopsy 2. Colonoscopy with random biopsy [place] [facility] [place] [place]: Ricky Sebastian M.D. SPECIMENS: Duodenum, antrum, distal esophagus, random colon ENDOSCOPIC PROCEDURE: The patient was on the endoscopy table in the left decubitus position. The Olympus gastroscope was inserted into the oropharynx and passed under direct visualization to the region of the third portion of the duodenum. From that point the scope was slowly withdrawn inspecting all surfaces carefully. There was mild duodenitis present. A biopsy took place. No ulcers were seen. The pylorus was widely patent. Minimal gastritis was identified. Retroflexion revealed a small sliding hiatal hernia. There was distal esophagitis present. Non-circumferential linear ulcerations were seen measuring less than 1 cm. The remainder the esophagus appear normal. The patient was kept on the endoscopy table in the left decubitus position. The Olympus colonoscope was inserted into the anus and passed under direct visualization to the base of the cecum. The appendiceal orifice was visualized. From that point the scope was slowly withdrawn inspecting all surfaces carefully. There were no neoplastic inflammatory or polypoid lesions throughout the cecum, ascending, transverse, descending, and rectum. The colorectal anastomosis was widely patent. The patient had minimal diverticulosis present in the colon. There were no inflammatory changes. Random colon biopsies took place. Stool sample was obtained for culture, C. diff, ova and parasites. Digital rectal examination was normal. The patient was taken to the recovery room in stable condition per anesthesia guidelines. RECOMMENDATIONS: Resume diet. May discharge today. Begin antiacid therapy. Follow-up in the outpatient setting 2-3 weeks.
[2018-06-25 14:24] VITALS: BP 133/76; PULSE 64; RESP 18; TEMP 98.9
[2018-06-25] MEDS ORDERED: FAMOTIDINE 20 MG/2 ML VIAL IV SCH (21:00)
--- NOTE | 2018-06-26 06:53 | DS ---
DISCHARGE SUMMARY Gómez Brown is a 72-year-old male who presented to [facility] with some abdominal pain, diarrhea off and on for a few months, but worse for 4 days. Past medical history is positive for diverticulitis, previously underwent resection of part of his large colon because of diverticulitis and abscess formation. Social history: Patient is a nonsmoker. On physical examination, vitals were stable. He is afebrile. His chest was clear. Cardiovascular system is S1, S2. Abdomen is soft. There is no edema. INITIAL IMPRESSION: 1. Abdominal pain. 2. Diarrhea. The patient was admitted, underwent a bowel prep, subsequently underwent an EGD and colonoscopy by Dr. Ricky Sebastian from surgery. Postoperatively, patient was thought to have mild duodenitis with hiatal hernia. Mild distal esophagitis and minimal gastritis with diverticulosis. He did undergo EGD with biopsy as well as colonoscopy with random biopsy. The patient was doing well today postprocedure. He is hemodynamically stable. He has no complaints and will be discharged. On physical examination, vitals were stable. He is afebrile. His chest was clear. Cardiovascular system is S1, S2. Abdomen is soft. There is no edema. The patient was discharged home. DISCHARGE DIAGNOSES: 1. Gastritis. 2. Esophagitis. 3. Gastroenteritis. CONDITION: Stable. DIET: Regular. ACTIVITY: Was as tolerated. He was to resume his home medications and follow up with Dr. Gucci Zhong in 1 weeks time. MMODL / IJN: [id number] /
== END 2018-06-25 16:11 | disposition home or self-care (01) ==
LOC: OBSVTOIN 12:27 → 4MS4W 12:27 → INTOOBSV 12:27
PROVIDERS: ADMIT Family Medicine; ATTEND Family Medicine
DX: K29.50 Unspecified chronic gastritis without bleeding (principal); K21.0 Gastro-esophageal reflux disease with esophagitis; K52.9 Noninfective gastroenteritis and colitis, unspecified; Z90.49 Acquired absence of other specified parts of digestive tract; E78.5 Hyperlipidemia, unspecified; M19.90 Unspecified osteoarthritis, unspecified site; K57.90 Diverticulosis of intestine, part unspecified, without perforation or abscess without bleeding; K29.80 Duodenitis without bleeding; K44.9 Diaphragmatic hernia without obstruction or gangrene; Z87.01 Personal history of pneumonia (recurrent); Z87.442 Personal history of urinary calculi; Z87.19 Personal history of other diseases of the digestive system; Z88.1 Allergy status to other antibiotic agents; Z88.5 Allergy status to narcotic agent; Z80.8 Family history of malignant neoplasm of other organs or systems; Z82.49 Family history of ischemic heart disease and other diseases of the circulatory system; Z82.0 Family history of epilepsy and other diseases of the nervous system; Z82.3 Family history of stroke
CPT/HCPCS: 96360; 96361 ×2; 93005; 88305; 80053 ×2; 84443; 83690; 85025 ×2; 81003; 87324; 82105; 86301; 83516 ×4; 87045 ×2; 87329; 87328; 87046 ×2; 71046; 74176; 45380; 43239; G0379; G0378 ×3; J2001; J2704; C9113 ×2; 96374

== ENCOUNTER → 2018-07-09 | Outpatient (CLI) | payer MEDICARE, BC ==
--- NOTE | 2018-07-10 10:06 | NM ---
EXAMINATION TYPE: NM hepatobiliary w EF DATE OF EXAM: 07/09/2018 COMPARISON: CT 06/23/2018 HISTORY: Right upper quadrant pain TECHNIQUE: After the intravenous administration of 5.01 mCi Tc 99m Mebrofenin hepatobiliary scintigra phy is performed. Immediate images post injection. FINDINGS: There is satisfactory initial accumulation of tracer by the liver. The gallbladder is visualized wit hin 12 minutes. The small bowel activity is noted within 8 minutes. At one hour 8 ounces of oral en sure plus is given to mimic CCK and gallbladder ejection fraction is calculated at 69 %, in the leny l range. Therefore there is no scintigraphic evidence of cystic or common bile duct obstruction to s uggest acute cholecystitis or gallbladder dyskinesia. IMPRESSION: Exam is within normal limits.
== END | disposition home or self-care (01) ==
LOC: RADNMMAIN 14:44
PROVIDERS: ATTEND Family Medicine
DX: R10.11 Right upper quadrant pain (principal)
CPT/HCPCS: 78226; A9537

== ENCOUNTER 2019-04-01 03:04 | Inpatient (IN) | payer MEDICARE, BC ==
[2019-04-01] MEDS ORDERED: ASPIRIN 81 MG PO STA (03:20)
[2019-04-01] MEDS ORDERED: NITROGLYCERIN SL TABS 0.4 MG TAB SUBLINGUAL PRN ×2 (03:20→05:41)
[2019-04-01] MEDS ORDERED: HEPARIN SODIUM,PORCINE 5,000 UNIT/ML 1 ML VIAL IV ONE (03:27)
[2019-04-01] MEDS ORDERED: HEPARIN SODIUM,PORCINE 5,000 UNIT/ML 1 ML VIAL IV PRN (03:27)
[2019-04-01] MEDS ORDERED: NITROGLYCERIN OINT 1 INCH/GM PACKET TOPICAL STA (03:27)
[2019-04-01] MEDS ORDERED: HEPARIN SOD,PORK IN 0.45% NACL 25,000 UNIT in 0.45% NACL 1 250ML.BAG IV SCH (03:30)
[2019-04-01] MEDS ORDERED: ATORVASTATIN 80 MG TAB PO STA (03:32)
--- NOTE | 2019-04-01 03:32 | ED ---
Chest Pain HPI - General Chief Complaint: Chest Pain Stated Complaint: Chest Pain Source: patient, family Mode of arrival: ambulatory Limitations: no limitations - History of Present Illness Initial Comments: This patient is a 73-year-old man who presents to be evaluated for chest pain that woke him from sleep approximately 30 minutes before he came in. Patient describes it as a heavy or aching. It is constant. He is also feeling short of breath. He did have nausea and vomited once. MD Complaint: chest pain Onset/Timin -: minutes(s) Onset: awoke with symptoms Pain Location: substernal Pain Radiation: jaw/teeth Severity: severe Quality: aching Consistency: constant Improves With: nothing Worsens With: nothing Anginal Symptoms: nausea, vomiting, dyspnea Treatments Prior to Arrival: none - Related Data Home Medications Medication Instructions Recorded Confirmed No Known Home Medications 06/23/18 06/23/18 Allergies Allergy/AdvReac Type Severity Reaction Status Date / Time Tetracyclines Allergy Rash/Hives Verified 04/01/19 03:09 erythromycin base AdvReac Nausea & Verified 04/01/19 03:09 Vomiting hydromorphone [From Dilaudid] AdvReac hallucinati Verified 04/01/19 03:09 on morphine AdvReac hallunicati Verified 04/01/19 03:09 on oxycodone AdvReac Nausea & Verified 04/01/19 03:09 Vomiting Review of Systems ROS Statement: Those systems with pertinent positive or pertinent negative responses have been documented in the HPI. ROS Other: All systems not noted in ROS Statement are negative. Constitutional: Denies: fever, chills Respiratory: Reports: as per HPI, dyspnea. Denies: cough, hemoptysis Cardiovascular: Reports: as per HPI, chest pain. Denies: palpitations, edema, syncope Gastrointestinal: Reports: nausea, vomiting. Denies: abdominal pain, diarrhea, melena, hematochezia Genitourinary: Denies: dysuria, hematuria Musculoskeletal: Denies: back pain Skin: Denies: rash Neurological: Denies: headache, weakness, numbness EKG Findings - EKG Results: EKG: interpreted by LAURENT, sinus rhythm (Rate 64 bpm), normal axis, normal QRS - NH, Pacemaker, Normal: Myocardial infarction: anterior NH (acute or recent) Past Medical History Past Medical History: GERD/Reflux, Hyperlipidemia, Osteoarthritis (OA), Pneumonia, Renal Disease Additional Past Medical History / Comment(s): Diverticultis, L nephrolithiasis with mild hydronephrosis-pt states he passed stone on his own, occasional sinus headache. History of Any Multi-Drug Resistant Organisms: None Reported Past Surgical History: Bowel Resection, Hernia Repair, Joint Replacement Additional Past Surgical History / Comment(s): Colon resection d/t abscess /necrotic bowel, colonoscopy, L total knee replacement, bilateral inguinal hernia repairs. Past Anesthesia/Blood Transfusion Reactions: Postoperative Nausea & Vomiting (PONV) Additional Past Anesthesia/Blood Transfusion Reaction / Comment(s): Pt received blood with bowel resection without reaction. Past Psychological History: No Psychological Hx Reported Smoking Status: Never smoker Past Alcohol Use History: None Reported Past Drug Use History: None Reported - Past Family History Mother Family Medical History: Cancer, CVA/TIA Additional Family Medical History / Comment(s): Mother had skin cancer in her groin area and a pacemaker and had a cardiac valve replaced. She at the age of 98yrs. Father Family Medical History: Dementia Additional Family Medical History / Comment(s): Father at the age of 91 yrs from alzheimer's. General Exam Limitations: no limitations General appearance: alert, in no apparent distress Head exam: Present: atraumatic, normocephalic Eye exam: Present: normal appearance. Absent: scleral icterus, conjunctival injection Neck exam: Present: normal inspection Respiratory exam: Present: normal lung sounds bilaterally. Absent: respiratory distress, wheezes, rales, rhonchi, stridor Cardiovascular Exam: Present: regular rate, normal rhythm, normal heart sounds. Absent: systolic murmur, diastolic murmur, rubs, gallop GI/Abdominal exam: Present: soft. Absent: distended, tenderness, guarding, rebound, rigid, mass Extremities exam: Present: normal inspection, normal capillary refill. Absent: pedal edema, calf tenderness Back exam: Present: normal inspection. Absent: CVA tenderness (R), CVA tender ness (L) Neurological exam: Present: alert Skin exam: Present: warm, dry, intact, normal color. Absent: rash Course Vital Signs 04/01/19 04/01/19 04/01/19 03:08 03:27 03:29 Temperature 97.2 F L Pulse Rate 61 Pulse Rate [ 73 Retail Sales Associate ] Respiratory 20 Rate Blood Pressure 111/69 O2 Sat by Pulse 100 Oximetry 04/01/19 04/01/19 03:41 03:55 Temperature Pulse Rate 63 64 Pulse Rate [ Retail Sales Associate ] Respiratory 18 18 Rate Blood Pressure 101/74 104/67 O2 Sat by Pulse 99 100 Oximetry Critical Care Time Critical Care Time: Yes (45 minutes) Disposition Clinical Impression: ST elevation myocardial infarction (STEMI) Disposition: ADMITTED IP TO [facility] Condition: Critical Is patient prescribed a controlled substance at d/c from ED?: No Referrals: Gucci Zhong MD [Primary Care Provider] - 1-2 days
[2019-04-01] MEDS ORDERED: NITROGLYCERIN SL TABS 0.4 MG TAB SUBLINGUAL STA (03:33)
[2019-04-01] MEDS ORDERED: SODIUM CHLORIDE 0.9% 500 ML 500 ML IV STA (03:34)
[2019-04-01 03:37] LABS: Basophils # (A) 0.2 k/uL (0-0.2); Basophils % (A) 2 %; Eosinophils # (A) 0.8 k/uL (0-0.7); Eosinophils % (A) 6 %; HCT 45.4 % (39.0-53.0); HGB 14.8 gm/dL (13.0-17.5); Lymphocytes # (A) 4.8 k/uL (1.0-4.8); Lymphocytes % (A) 42 %; MCH 30.3 pg (25.0-35.0); MCHC 32.6 g/dL (31.0-37.0); MCV 93.1 fL (80.0-100.0); Mean Platelet Volume 7.3; Monocytes # (A) 0.6 k/uL (0-1.0); Monocytes % (A) 5 %; Neutrophils # (A) 4.9 k/uL (1.3-7.7); Neutrophils % (A) 42 %; Platelet Count 266 k/uL (150-450); RBC 4.87 m/uL (4.30-5.90); RDW 13.7 % (11.5-15.5); WBC 11.6 k/uL (3.8-10.6)
[2019-04-01 03:44] LABS: Albumin 4.1 g/dL (3.5-5.0); Potassium 3.5 mmol/L (3.5-5.1); Total Bilirubin 0.4 mg/dL (0.2-1.3); Total Protein 7.4 g/dL (6.3-8.2)
[2019-04-01 03:45] LABS: Prothrombin Time 10.2 sec (9.0-12.0)
--- NOTE | 2019-04-01 03:57 | XR ---
EXAMINATION TYPE: XR chest 1V portable DATE OF EXAM: 04/01/2019 COMPARISON: 06/23/2018 HISTORY: Chest pain TECHNIQUE: FINDINGS: Heart is normal. There is some linear density at the left lung base. There is no hilar mass es. There are chest leads. Bony thorax is intact. IMPRESSION: There is some minimal subsegmental atelectasis left lung base that is new compared to ol d exam. Normal heart.
[2019-04-01 04:06] LABS: Creatine Kinase MB 2.3 ng/mL (0.0-2.4)
[2019-04-01] MEDS ORDERED: LIDOCAINE 1% INJ 10MG/ML (20 ML MDV) ONE (04:13)
[2019-04-01 04:16] LABS: Troponin I 0.166 ng/mL (0.000-0.034)
[2019-04-01] MEDS ORDERED: LIDOCAINE 1% INJ 10MG/ML (20 ML MDV) SQ ONE ×2 (04:16→04:17)
[2019-04-01] MEDS ORDERED: MIDAZOLAM 2 MG/2 ML VIAL IVP ONE (04:16)
[2019-04-01] MEDS ORDERED: BIVALIRUDIN BOLUS 250 MG/50 ML IV ONE (04:27)
[2019-04-01] MEDS ORDERED: IV FLUID CONTINUATION 1,000 ML IV ONE (04:27)
[2019-04-01] MEDS ORDERED: BIVALIRUDIN 250 MG in SODIUM CHLORIDE 0.9% 50 ML IV ONE (04:27)
[2019-04-01] MEDS ORDERED: FUROSEMIDE 10 MG/ML 4 ML VIAL IV ONE ×2 (04:40→05:46)
[2019-04-01] MEDS ORDERED: ATROPINE SULFATE 0.1 MG/ML 10ML SYRINGE IV ONE (04:53)
[2019-04-01] MEDS ORDERED: DOPamine DRIP 800 MG in DEXTROSE/WATER 1 250ML.BAG IV ONE (04:53)
[2019-04-01] MEDS ORDERED: ONDANSETRON 4 MG/2 ML VIAL IVP ONE (04:53)
[2019-04-01] MEDS ORDERED: ONDANSETRON 4 MG/2 ML VIAL ONE (04:54)
[2019-04-01] MEDS ORDERED: FUROSEMIDE 10 MG/ML 4 ML VIAL ONE ×2 (04:54→05:29)
[2019-04-01] MEDS ORDERED: NOREPINEPHRINE 4 MG in SODIUM CHLORIDE 0.9% 250 ML IV ONE (05:04)
[2019-04-01] MEDS ORDERED: IOPAMIDOL-370 125ML BTL INJ ONE (05:06)
[2019-04-01] MEDS ORDERED: TICAGRELOR 90 MG TAB ONE (05:07)
[2019-04-01] MEDS ORDERED: TICAGRELOR 90 MG TAB PO ONE (05:10)
[2019-04-01] MEDS ORDERED: HEPARIN SODIUM 1,000 UN/ML (10ML VL) ONE (05:34)
[2019-04-01] MEDS ORDERED: ZOLPIDEM 5 MG TAB PO PRN (05:41)
[2019-04-01] MEDS ORDERED: ATROPINE SULFATE 0.1 MG/ML 10ML SYRINGE IV PRN (05:41)
[2019-04-01] MEDS ORDERED: RX INFO: IV CONTRAST WAS GIVEN 1 EACH MISC MISCELLANE PRN (05:41)
[2019-04-01] MEDS ORDERED: SODIUM CHLORIDE 0.9% 1,000 ML IV SCH (05:45)
[2019-04-01] MEDS ORDERED: IV FLUID CONTINUATION 500 ML IV ONE (05:46)
[2019-04-01] MEDS ORDERED: IOPAMIDOL-370 100ML BTL INJ ONE (05:46)
--- NOTE | 2019-04-01 06:32 | CONS ---
CONSULTATION CHIEF COMPLAINT: Chest pain. Gómez is a 73-year-old gentleman with no significant past medical history who presented to hospital complaining of chest pain. He describes it as a moderate to severe precordial chest pressure that woke him up from sleep an hour ago. The patient has had similar intensity chest pain yesterday morning that lasted for a short time and resolved spontaneously. EKG done in the ER shows sinus rhythm with ST-segment elevation from V2 to V6. This is very subtle ST elevation. At the time of my evaluation in the labor trainer, patient is still having chest pain, but comfort appears comfortable at rest. Hemodynamically is stable and is not in respiratory distress. There is no prior cardiac history. The patient has history of dyslipidemia, but does not take any medications. MEDICATIONS: None. ALLERGIES: None. FAMILY HISTORY: Negative for premature coronary artery disease. SOCIAL HISTORY: Negative for current smoking, EtOH abuse or drug abuse. REVIEW OF SYSTEMS: HEENT is unremarkable. CARDIAC: As described above. RESPIRATORY: Negative. GI: Negative. GENITOURINARY: Negative. ALLERGY/IMMUNOLOGY: Negative. SKIN: Negative. MUSCULOSKELETAL: Significant for arthritis. PSYCHOSOCIAL: Negative. ENDOCRINE: Negative. HEMATOLOGICAL: Negative. DERM: Negative. CONSTITUTIONAL: Negative. ONCOLOGICAL: Negative. ELECTROMECHANICAL EQUIPMENT ASSEMBLER: Negative. Rest of the system review is not relevant. PHYSICAL EXAMINATION: On exam, patient is comfortable at rest. Vital signs are stable. There is no jugular venous distention. Carotid upstroke is normal. There is no bruit. Chest exam reveals good air entry bilaterally. Heart exam reveals first and second heart sounds. No gallop. No murmur. No rub. Abdomen is soft, nontender. Examination of extremities did not reveal any edema. Peripheral pulses are felt. ELECTROMECHANICAL EQUIPMENT ASSEMBLER exam did not reveal focal neurological deficits. EKG is as described above. Labs are pending. ASSESSMENT: Acute anterior wall myocardial infarction. PLAN: Patient will undergo emergent cardiac catheterization with the to performing primary angioplasty. MMODL / IJN: [id number] /
--- NOTE | 2019-04-01 06:35 | LTR ---
April 01, 2019 Re: Gómez Brown Dear Gucci: I performed cardiac catheterization on Gómez Brown. A detailed catheterization note is enclosed for your records. In brief, this gentleman presents to hospital with acute anterior wall myocardial infarction and has subtotal occlusion of the proximal LAD with significant ostial left main stenosis. The patient will undergo angioplasty of the LAD and if necessary, the left main. Thank you for giving us the privilege to participate in the care of this pleasant gentleman. Sincerely, MD MALCOM Moss / BERNABE: [id number] /
--- NOTE | 2019-04-01 06:35 | CC ---
CARDIAC CATHETERIZATION REPORT INDICATION: Acute anterior wall myocardial infarction. PROCEDURE NOTE: After obtaining informed consent, left heart catheterization and coronary angiogram were performed via the right femoral artery using standard Enriqueta catheters. The patient tolerated the procedure well without any obvious immediate complications. Patient was somewhat hypotensive during this study, but otherwise tolerated the procedure well. FINDINGS: 1. HEMODYNAMICS: Left ventricular end-diastolic pressure is 18 mm. There is no significant gradient across the aortic valve. 2. LEFT VENTRICULOGRAM: Left ventriculogram is not performed. 3. ANGIOGRAPHIC DATA: Left main coronary artery has more than 50% ostial stenosis. There is damping of the pressure wave on engaging the left main. LAD has a 95% stenosis in the proximal part with delayed filling of the mid to distal LAD. Circumflex coronary artery shows a 50% to 60% stenosis. It is a nondominant vessel. Right coronary artery shows mild nonobstructive disease in its midportion. There was damping on engaging the right coronary artery. CONCLUSION: Significant ostial left main stenosis with subtotal occlusion of the proximal left anterior descending artery. PLAN: Patient will undergo angioplasty of the LAD and if necessary, patient may undergo stenting of the left main. Dr. Gupta, the on-call orthopaedic general is here and will proceed with surgery expeditiously. Patient received moderate conscious sedation. Total sedation time was 11 minutes. MMODL / IJN: [id number] /
[2019-04-01 06:52] LABS: Glucose,Whole Blood 100 mg/dL (75-99)
--- NOTE | 2019-04-01 06:56 | PTCA ---
PERCUTANEOUSTRANS CORORONARY ANGIOGRAPHY DATE OF SERVICE: April 01, 2019. PERFORMING PHYSICIAN: Eleuterio Gupta MD. PROCEDURE PERFORMED: 1. Aspiration thrombectomy. 2. Successful stenting of the proximal left anterior descending artery using 3.5 x 18 mm and 3.5 x 12 mm Xience KG with excellent angiographic results and reduction of stenosis from 100% to 0%. 3. Successful stenting of the mid left anterior descending artery using 3.0 x 12 mm Xience KG with an excellent angiographic results and reduction of stenosis from 100% to 0%. 4. Intravascular ultrasound, IVUS, of the left anterior descending artery and left main coronary artery. 5. Left heart catheterization. INDICATION: This is a 73-year-old gentleman with no prior medical history, who presented to the hospital with chest discomfort. The EKG revealed acute anterior ST-elevation myocardial infarction. He was seen and evaluated by Dr. Mcclure who performed an emergent heart catheterization on the patient and that revealed intermediate to severe disease involving the ostial left main with occluded LAD in the proximal portion. The decision was made toward percutaneous coronary intervention. APPROACH: Right common femoral artery. COMPLICATION: None. LEVEL OF SEDATION: Moderate with sedation length of 1 hour and 10 minutes. Door to balloon is 92 minutes. PROCEDURE DESCRIPTION: Please refer to diagnostic heart catheterization that was performed by Dr. Mcclure earlier today. Anticoagulation was initiated using Angiomax. Subsequently the left main was engaged using JL4 with a short tip guide. I did wire the left main and then the wire advanced to the LAD where I crossed acute total occlusion using a run-through wire. The wire was positioned in the very distal portion of the LAD. After that I did an aspiration thrombectomy from the left anterior descending artery using the [place] catheter with extraction of thrombus. Subsequently, I did balloon angioplasty of the LAD using 3.0 x 12 mm balloon which was inflated under 14 atmospheres for 20 seconds. After that I placed in the ostial/proximal LAD 3.5 x 18 mm Xience KG where the stent was positioned under fluoroscopy guidance and deployed under about 12 atmospheres for 20 seconds. The following angiogram showed an area distal to the stent appeared to be hazy and likely represent edge dissection and because of that I decided to cover that area with another short stent. I deployed 3.5 x 12 mm Xience just distal to the first stent. The area of overlap between the 2 stents was dilated using stent balloon. At that point, the following angiogram revealed no flow in the LAD. The flow was stopped just distal to the second stent. Because of that I decided to place another stent distal to the second one. I placed 3 0 x 12 mm Xience KG with about 2 mm overlap between the second and third stents. The third stent was deployed under 10 atmospheres for 20 seconds. Then the area of overlap was dilated using stent balloon. The following angiogram showed good angiographic results, but I had some suspicious that the very first stent was not well apposed to the wall and because of the left main disease as well, I did decide to pursue with the intravascular ultrasound. I did perform an intravascular ultrasound, IVUS, of the LAD and left main coronary artery. The intravascular ultrasound of the LAD revealed good position of the second and third stent in the LAD, but the very proximal stent appeared to be not well apposed to the wall. Because of that, I post dilated the stent using 3.75 x 12 mm NC balloon which was inflated under 20 atmospheres for 20 seconds. The following angiogram showed excellent angiographic results. The intravascular ultrasound, IVUS, of the left main revealed a minimal luminal area of 6.1 mm2 with an area stenosis of 51%. By the end, we achieved ZO 2 flow in the ZO 2 to ZO 3 flow in the LAD and the procedure was completed without any complication. After that I did advance a pigtail catheter to the left ventricle just to assess the LVEDP because the patient was desatting and I was suspecting that the EDP to be elevated and at that point, the EDP came into be at 28 mmHg. We gave the patient a total of 80 mg of Lasix IV and Gilliam catheter was placed. Throughout the procedure, the patient was hypotensive and we gave the patient Levophed with improvement in the blood pressure. CONCLUSION: 1. Acute anterior ST-elevation myocardial infarction complicated by cardiogenic shock and pulmonary edema. 2. Successful stenting of the proximal and mid left anterior descending artery as described above. 3. Intravascular ultrasound, IVUS, of the left main revealed minimal luminal area of 6.1 mm2 and area of stenosis of 51%. POSTPROCEDURE MANAGEMENT: 1. Dual antiplatelet therapy. 2. Try to wean the patient from vasopressors. 3. Start the patient on a small dose of beta jose luis as well as MITZY inhibitor. 4. Aggressive cholesterol control with high intensity statin. 5. Echocardiogram with Doppler to assess the LV function. 6. Address the left main coronary artery down the line. 7. ICU admission. 8. Follow up with the patient. MALCOM / ISHANN: [id number] /
--- NOTE | 2019-04-01 07:02 | LTR ---
April 01, 2019 Re: Gómez Brown Dear Dr. Zhong: MrJade Brown presented to the hospital with chest discomfort and was diagnosed with acute anterior ST-elevation myocardial infarction. An emergent heart catheterization was performed by Dr. Mcclure and that revealed acute total occlusion of the LAD which I did perform successful stenting on it. I want to thank you for allowing us to participate in his care and please do not hesitate to call if you have any question or concern. Sincerely, MD MALCOM Otero / ISHANN: [id number] /
[2019-04-01] MEDS: MAG HYDROX/AL HYDROX/SIMETH 30 ML CUP PO PRN (08:16)
[2019-04-01] MEDS ORDERED: LISINOPRIL 10 MG TAB PO SCH (09:00)
[2019-04-01] MEDS ORDERED: METOPROLOL TARTRATE 25 MG TAB PO SCH (09:00)
[2019-04-01] MEDS ORDERED: Potassium Replacement Protocol 1 EACH MISC MISCELLANE PRN (09:07)
--- NOTE | 2019-04-01 09:41 | PN ---
PROGRESS NOTE Mr. Brown is a gentleman who had an acute anterior GA, underwent stenting of LAD performed by Dr. Gupta. The patient was seen by Dr. Mcclure. Also has an ostial left main, but the left main apparently is long. I will review the films. He is hemodynamically stable, resting comfortably. He is on a very small dose of Levophed. Vitals are stable. The sheath in the groin will be pulled shortly. S1, S2 heard normally. No significant rub, murmur or gallop. Lungs revealed decent air entry. Abdomen and lower extremity exam is unchanged. Plan is to continue current medications. I will review the angiograms and will then make further recommendations. MMODL / IJN: [id number] /
[2019-04-01] MEDS: ASPIRIN 81 MG PO SCH (09:54)
[2019-04-01] MEDS: POTASSIUM CHLORIDE ER 20 MEQ TAB.ER PO SCH ×2 (09:54→11:46)
[2019-04-01] MEDS: TICAGRELOR 90 MG TAB PO SCH ×2 (09:54→21:34)
[2019-04-01] MEDS: METOPROLOL TARTRATE 25 MG TAB PO SCH ×2 (09:55→21:34)
[2019-04-01] MEDS: ONDANSETRON 4 MG/2 ML VIAL IVP PRN (11:46)
--- NOTE | 2019-04-01 12:01 | ECHOF ---
Referral Reason:STEMI MEASUREMENTS -------- HEIGHT: 180.3 cm WEIGHT: 81.6 kg BP: RVIDd: 2.7 cm (< 3.3) IVSd: 1.0 cm (0.6 - 1.1) LVIDd: 4.3 cm (3.9 - 5.3) LVPWd: 1.0 cm (0.6 - 1.1) IVSs: 1.0 cm LVIDs: 3.2 cm LVPWs: 0.8 cm Ao Diam: 2.4 cm (2.0 - 3.7) AV Cusp: 1.6 cm (1.5 - 2.6) LA Diam: 2.3 cm (2.7 - 3.8) MV EXCURSION: 13.550 mm (> 18.000) MV EF SLOPE: 98 mm/s (70 - 150) EPSS: 1.2 cm MV E Ovidio: 0.58 m/s MV DecT: 130 ms MV A Ovidio: 0.85 m/s MV E/A Ratio: 0.68 AR PHT: 579 ms RAP: 5.00 mmHg RVSP: 9.82 mmHg FINDINGS -------- Sinus rhythm. This was a technically difficult study with suboptimal views. The left ventricular size is normal. Left ventricular wall thickness is normal. There is severe g lobal hypokinesis of LV . Overall left ventricular systolic function is severely impaired with, an EF between 20 - 25 %. Mid to basal inferiorlateral moving only. The right ventricle is normal in size. The left atrial size is normal. The right atrial size is normal. 5.0mg of Lumason was utilized for enhancement of images The aortic valve is trileaflet and appears structurally normal. Trace amount of aortic regurgitatio n. The mitral valve is normal. There is trace mitral regurgitation. The tricuspid valve appears structurally normal. Trace tricuspid regurgitation present. Right karolina tricular systolic pressure is normal at < 35 mmHg. There is no pulmonic regurgitation present. The aortic root size is normal. Normal inferior vena cava with normal inspiratory collapse consistent with estimated right atrial pre ssure of 5 mmHg. There is no pericardial effusion. CONCLUSIONS -------- 1. Sinus rhythm. 2. This was a technically difficult study with suboptimal views. 3. The left ventricular size is normal. 4. Left ventricular wall thickness is normal. 5. There is severe global hypokinesis of LV . 6. Overall left ventricular systolic function is severely impaired with, an EF between 20 - 25 %. 7. Mid to basal inferiorlateral moving only. 8. The right ventricle is normal in size. 9. The left atrial size is normal. 10. The right atrial size is normal. 11. 5.0mg of Lumason was utilized for enhancement of images 12. The aortic valve is trileaflet and appears structurally normal. 13. Trace amount of aortic regurgitation. 14. The mitral valve is normal. 15. There is trace mitral regurgitation. 16. The tricuspid valve appears structurally normal. 17. Trace tricuspid regurgitation present. 18. Right ventricular systolic pressure is normal at < 35 mmHg. 19. There is no pulmonic regurgitation present. 20. The aortic root size is normal. 21. Normal inferior vena cava with normal inspiratory collapse consistent with estimated right atrial pressure of 5 mmHg. 22. There is no pericardial effusion. FARE COLLECTOR: Kenna Drake RDCS
[2019-04-01] MEDS ORDERED: PROCHLORPERAZINE 5 MG TAB PO PRN (14:37)
--- NOTE | 2019-04-01 14:47 | P.HPIM ---
History of Present Illness Patient a pleasant 73-year-old male came with complaints of chest pressure like sensation started yesterday AV aching along with the excessive sweating patient had an EKG which showed ST elevation myocardial infarction in the anterior leads found to have occlusion of LAD patient underwent stenting of LAD patient had an EF of 20-25% patient is not in heart failure exacerbation was on norepinephrine which was discontinued subsequently was started on low-dose of lisinopril. Patient is having severe nausea and vomiting. Patient was already received Zofran patient was started on Protonix and the patient will be symptomatically treated with Compazine as well for nausea. I'll obtain abdominal x-ray to make sure patient doesn't have a bowel obstruction bowel sounds are sluggish and exam. Review of Systems REVIEW OF SYSTEMS: CONSTITUTIONAL: No fever, no malaise, no fatigue. HEENT: No recent visual problems or hearing problems. Denied any sore throat. CARDIOVASCULAR: No PND, no palpitations, no syncope. PULMONARY: No shortness of breath, no cough, no hemoptysis. GASTROINTESTINAL: As mentioned in HPI NEUROLOGICAL: No headaches, no weakness, no numbness. HEMATOLOGICAL: Denies any bleeding or petechiae. GENITOURINARY: Denies any burning micturition, frequency, or urgency. MUSCULOSKELETAL/RHEUMATOLOGICAL: Denies any joint pain, swelling, or any muscle pain. ENDOCRINE: Denies any polyuria or polydipsia. The rest of the 14-point review of systems is negative. Past Medical History Past Medical History: GERD/Reflux, Hyperlipidemia, Osteoarthritis (OA), Pneumonia Additional Past Medical History / Comment(s): Diverticultis, L nephrolithiasis with mild hydronephrosis-pt states he passed stone on his own, occasional sinus headache. History of Any Multi-Drug Resistant Organisms: None Reported Past Surgical History: Bowel Resection, Hernia Repair, Joint Replacement Additional Past Surgical History / Comment(s): Colon resection d/t absce ss/necrotic bowel, colonoscopy, L total knee replacement, bilateral inguinal hernia repairs. Past Anesthesia/Blood Transfusion Reactions: Postoperative Nausea & Vomiting (PONV) Additional Past Anesthesia/Blood Transfusion Reaction / Comment(s): Pt received blood with bowel resection without reaction. Past Psychological History: No Psychological Hx Reported Additional Psychological History / Comment(s): Pt resides with his spouse. He is independent. Smoking Status: Never smoker Past Alcohol Use History: None Reported Past Drug Use History: None Reported - Past Family History Mother Family Medical History: Cancer, CVA/TIA Additional Family Medical History / Comment(s): Mother had skin cancer in her groin area and a pacemaker and had a cardiac valve replaced. She at the age of 98yrs. Father Family Medical History: Dementia Additional Family Medical History / Comment(s): Father at the age of 91 yrs from alzheimer's. Medications and Allergies Home Medications Medication Instructions Recorded Confirmed Type Omeprazole [PriLOSEC] 20 mg PO DAILY 04/01/19 04/01/19 History Allergies Allergy/AdvReac Type Severity Reaction Status Date / Time Tetracyclines Allergy Rash/Hives Verified 04/01/19 08:03 erythromycin base AdvReac Nausea & Verified 04/01/19 08:03 Vomiting hydromorphone [From Dilaudid] AdvReac hallucinati Verified 04/01/19 08:03 on morphine AdvReac hallunicati Verified 04/01/19 08:03 on oxycodone AdvReac Nausea & Verified 04/01/19 08:03 Vomiting Physical Exam Vitals: Vital Signs Temp Pulse Pulse Resp BP Pulse Ox 04/01/19 14:00 78 15 100/69 96 04/01/19 13:01 100 15 101/69 97 04/01/19 12:00 98.2 F 93 14 97/66 96 04/01/19 11:15 88 11 L 97/66 97 04/01/19 10:45 85 21 98/40 95 04/01/19 10:30 19 92/57 92 L 04/01/19 10:15 86 21 92/57 94 L 04/01/19 10:00 103 H 18 107/66 96 04/01/19 09:45 105 H 14 107/76 95 04/01/19 09:30 85 21 101/72 92 L 04/01/19 09:15 81 21 109/79 94 L 04/01/19 09:00 106 H 21 117/66 96 04/01/19 08:45 108 H 22 110/74 96 04/01/19 08:30 87 15 112/68 93 L 04/01/19 08:15 103 H 16 107/87 93 L 04/01/19 08:00 98.1 F 101 H 12 116/68 92 L 04/01/19 07:45 104 H 14 114/82 95 04/01/19 07:30 96 22 101/73 93 L 04/01/19 07:15 98 22 110/84 93 L 04/01/19 07:00 104 H 18 123/73 93 L 04/01/19 06:45 90 21 117/80 93 L 04/01/19 06:30 96 19 103/71 97 04/01/19 05:16 97.8 F 18 95 04/01/19 04:00 61 10 L 104/67 100 04/01/19 03:55 64 18 104/67 100 04/01/19 03:45 68 10 L 101/74 99 04/01/19 03:41 63 18 101/74 99 04/01/19 03:30 67 11 L 118/84 04/01/19 03:29 97.2 F L 04/01/19 03:27 73 04/01/19 03:24 110/75 04/01/19 03:08 61 20 111/69 100 Intake and Output 03/31/19 04/01/19 04/01/19 22:59 06:59 14:59 Intake Total 649 247.03 Output Total 1600 2575 Balance -361 -7382.97 Intake: IV 649 200 Sodium Chloride 0.9% 1, 200 000 ml @ 50 mls/hr IV . Q20H NUNU Rx#:[id number] Intake, IV Titration 47.03 Amount Heparin Sod,Pork in 0.45% 47.03 NaCl 25,000 unit In 0.45 % NaCl 1 250ml.bag @ 12 UNITS/KG/HR 9.798 mls/hr IV .Q24H NUNU Rx#: [id number] Output: Urine 1600 2575 Other: Weight 82 kg 82 kg PHYSICAL EXAMINATION: GENERAL: The patient is alert and oriented x3, patient is in distress because of nausea. Well developed, well nourished. HEENT: Pupils are round and equally reacting to light. EOMI. No scleral icterus. No conjunctival pallor. Normocephalic, atraumatic. No pharyngeal erythema. No thyromegaly. CARDIOVASCULAR: S1 and S2 present. No murmurs, rubs, or gallops. PULMONARY: Chest is clear to auscultation, no wheezing or crackles. ABDOMEN: Soft, nontender, nondistended, bowel sounds are sluggish. No palpable organomegaly. MUSCULOSKELETAL: No joint swelling or deformity. EXTREMITIES: No cyanosis, clubbing, or pedal edema. NEUROLOGICAL: Gross neurological examination did not reveal any focal deficits. SKIN: No rashes. Results CBC & Chem 7: 04/01/19 03:27 04/01/19 03:27 Labs: Abnormal Lab Results - Last 24 Hours (Table) 04/01/19 04/01/19 04/01/19 Range/Units 03:27 03:27 03:27 WBC 11.6 H (3.8-10.6) k/uL Eosinophils # 0.8 H (0-0.7) k/uL Chloride 109 H (98-107) mmol/L BUN 24 H (9-20) mg/dL Creatinine 1.40 H (0.66-1.25) mg/dL Glucose 117 H (74-99) mg/dL POC Glucose (mg/dL) (75-99) mg/dL Troponin I 0.166 H* (0.000-0.034) ng/mL 04/01/19 Range/Units 06:30 WBC (3.8-10.6) k/uL Eosinophils # (0-0.7) k/uL Chloride (98-107) mmol/L BUN (9-20) mg/dL Creatinine (0.66-1.25) mg/dL Glucose (74-99) mg/dL POC Glucose (mg/dL) 100 H (75-99) mg/dL Troponin I (0.000-0.034) ng/mL Thrombosis Risk Factor Assmnt - Choose All That Apply Each Risk Factor Represents 2 Points: Age 61-74 years Thrombosis Risk Factor Assessment Total Risk Factor Score: 2 Thrombosis Risk Factor Assessment Level: Low Risk Assessment and Plan Plan: -Acute ST elevation microinfarction: Patient is status post radical catheterization and stenting of LAD continued dual antiplatelet therapy beta jose luis lisinopril low-dose -Acute systolic dysfunction, heart failure not in heart failure exacerbation. Continue with lisinopril patient presently doesn't require any Lasix -Nausea vomiting we'll rule out bowel obstruction probably secondary to medications and stress-induced ulcerations patient will be started on Protonix and Compazine -Hyperlipidemia -Gastroesophageal reflux disease
[2019-04-01] MEDS: LISINOPRIL 2.5 MG TAB PO SCH (15:03)
--- NOTE | 2019-04-01 15:25 | XR ---
EXAMINATION TYPE: XR abdomen acute w cxr DATE OF EXAM: 04/01/2019 COMPARISON: 04/01/2019 chest x-ray HISTORY: Chest pain TECHNIQUE: Chest is examined in the frontal projection. Abdomen is examined in the upright and supine views. FINDINGS: Heart size is normal. Pulmonary vasculature is normal. There is some blunting left costophr enic angle. A small left pleural effusion could be considered. Lungs are otherwise clear. No free air is under the diaphragm Normal colonic bowel gas is present. Postsurgical changes are within the pelvis. Catheter is present within the urinary bladder. Psoas margins are normal. Organomegaly is not evident. No mass effect is evident. IMPRESSION: 1. Minimal left pleural effusion. 2. Nonspecific abdomen
--- NOTE | 2019-04-01 17:06 | CT ---
EXAMINATION TYPE: CT abdomen pelvis wo con DATE OF EXAM: 04/01/2019 COMPARISON: 06/23/2018 HISTORY: Abdominal pain, nausea and vomiting. Post heart cath. CT DLP: 570.7 mGycm Automated exposure control for dose reduction was used. Multiple axial sections were obtained from the diaphragm to the floor the pelvis with no contrast. There is some patchy atelectasis at the lung bases. Heart size is normal. There is no pericardial eff usion. There is small hiatal hernia. There is contrast in the gallbladder. Liver shows no focal defec t. Spleen is intact. There is no pancreatic mass. There is no adrenal mass. There is contrast in the kidneys. There is no hydronephrosis. Ureters are n ot dilated. There is no retroperitoneal adenopathy. Bladder distends smoothly without contrast. There is no inguinal hernia there is no free fluid in the pelvis. There is no mesenteric edema. There is n o ascites or free air. There is no sign of a bowel obstruction. Lumbar vertebra have normal alignment . There is no compression fracture. Posterior elements are intact. Bony pelvis appears intact. There is very small appendix. Impression: There are new small pleural effusions and basilar pleural reaction and atelectasis compared to old ex am. There is contrast in the urinary tract and gallbladder consistent with recent contrast injection. No acute abnormality within the abdomen pelvis.
--- NOTE | 2019-04-01 18:51 | P.GSCN ---
History of Present Illness Consult date: 04/01/19 Reason for Consult: Acute ST elevation myocardial infarction this admission, multivessel coronary artery disease, evaluation for myocardial revascularization surgery. Requesting physician: Maria Fernanda Pineda History of present illness: This is a 73-year-old gentleman who is followed by Dr. Gucci Zhong on an outpatient basis. He has a past medical history significant for hyperlipidemia, gastroesophageal reflux disease, diverticulitis with history of bowel resection, hard of hearing, osteoarthritis, remote history of pneumonia, bladder cysts and kidney stones. The patient presented to the emergency room this morning around 2 AM as he woke up from a deep sleep with complaints of chest pain which radiated to his jaw and to his bilateral upper extremities, became very diaphoretic and was also associated with some shortness of breath. The patient denies any complaints of nausea, vomiting, presyncope, syncope or palpitations. He also reports that yesterday , 03/31/2020 you got out of bed he did have some generalized discomfort over his whole body which was self-limiting, and reports he did have a few episodes throughout the day similar to the episode in the morning. The patient states that he has been having some generalized feeling of fatigue over the past 2 or 3 months but just related to his age. A chest x-ray was completed in the emergency department which showed some minimal segmental atelectasis to his left lung base. A 12-lead EKG was completed which showed normal sinus rhythm with ST elevation to his anterior lateral leads with a heart rate of 64 BPM. His initial lab results showed a WBC count of 11.6, hemoglobin 14.8, BUN 24, creatinine 1.40, random glucose 117 and positive troponin of 0.166. Due to his presenting symptoms, 12-lead EKG results and positive troponins a consult was placed to Dr. Cowan from [facility]. Subsequently, the patient was taken to the cardiac catheterization lab where he underwent a cardiac catheterization which demonstrated a 50% ostial stenosis to his left main coronary artery, a 95% stenosis to his proximal left anterior descending coronary artery, a 50-60% stenosis to his circumflex coronary artery and mild nonobstructive disease to its midportion of the right coronary artery. The due to the cardiac catheterization results the patient underwent a successful stenting of the proximal left anterior descending coronary artery and mid left anterior descending coronary artery performed by Dr. Simon. Also during heart catheterization and intravascular ultrasound was completed of the left main which revealed minimal luminal area of 6.1 mm and an area of stenosis of 51%. For further evaluation a 2-D echocardiogram was completed which showed him to have an overall left ventricular systolic function to be severely impa ired with an ejection fraction between 20 and 25%, trace aortic valve regurgitation, trace mitral valve regurgitation, trace tricuspid valve regurgitation and normal pulmonic valve regurgitation. Subsequently due to the patient's presenting symptoms and cardiac catheterization findings a consult was placed to Dr. Aldo Reyes from cardiothoracic surgery for further evaluation and treatment recommendations for possible myocardial revascularization surgery. Review of Systems A 14 point review of systems was completed and was negative except as mentioned in the HPI. Past Medical History Past Medical History: GERD/Reflux, Hyperlipidemia, Osteoarthritis (OA), Pneumonia Additional Past Medical History / Comment(s): Diverticultis with previous bowel resection, L nephrolithiasis with mild hydronephrosis-pt states he passed stone on his own, occasional sinus headache. History of bladder cyst. History of Any Multi-Drug Resistant Organisms: None Reported Past Surgical History: Bowel Resection, Hernia Repair, Joint Replacement Additional Past Surgical History / Comment(s): Colon resection d/t abscess/necrotic bowel, colonoscopy, L total knee replacement, bilateral inguinal hernia repairs. Past Anesthesia/Blood Transfusion Reactions: Postoperative Nausea & Vomiting (PONV) Additional Past Anesthesia/Blood Transfusion Reaction / Comm: Pt received blood with bowel resection without reaction. Past Psychological History: No Psychological Hx Reported Additional Psychological History / Comment(s): Pt resides with his spouse. He is independent. Smoking Status: Never smoker Past Alcohol Use History: Rare Past Drug Use History: None Reported - Past Family History Mother Family Medical History: Cancer, CVA/TIA Additional Family Medical History / Comment(s): Mother had skin cancer in her groin area and a pacemaker and had a cardiac valve replaced. She at the age of 98yrs. Father Family Medical History: Dementia Additional Family Medical History / Comment(s): Father at the age of 91 yrs from alzheimer's. Medications and Allergies Home Medications Medication Instructions Recorded Confirmed Type Omeprazole [PriLOSEC] 20 mg PO DAILY 04/01/19 04/01/19 History Allergies Allergy/AdvReac Type Severity Reaction Status Date / Time Tetracyclines Allergy Rash/Hives Verified 04/01/19 08:03 erythromycin base AdvReac Nausea & Verified 04/01/19 08:03 Vomiting hydromorphone [From Dilaudid] AdvReac hallucinati Verified 04/01/19 08:03 on morphine AdvReac hallunicati Verified 04/01/19 08:03 on oxycodone AdvReac Nausea & Verified 04/01/19 08:03 Vomiting Surgical - Exam Vital Signs Pulse Resp BP Pulse Ox 61 20 111/69 100 04/01/19 03:08 04/01/19 03:08 04/01/19 03:08 04/01/19 03:08 - General well developed, well nourished, no distress, no pain - Eyes PERRL, normal ocular movement - ENT normal pinna, normal nares, normal mucosa, no hearing loss, no congestion, poor long-term - Neck Neck is supple, no lymphadenopathy. no masses, no bruits, trachea midline, no venous distension - Respiratory Lung sounds are essentially clear throughout. No wheezes, rhonchi or crackles present. Respirations are symmetrical and nonlabored. - Cardiovascular Regular rhythm and rate. S1 and S2 present, negative for S3, gallop or murmur. - Abdomen Abdomen is soft, nontender and nondistended. Active bowel sounds present all 4 abdominal quadrants. No guarding or rigidity. No palpable organomegaly. - Genitourinary Deferred - Rectum Deferred - Integumentary no rash, no growths, no abnormal pigmentation - Neurologic Cranial nerves II through XII intact. No gross neurological deficits. normal coordination, normal sensation - Musculoskeletal normal gait, normal posture - Psychiatric oriented to time, oriented to person, oriented to place, speech is normal, memory intact Results - Labs 04/01/19 03:27 04/01/19 14:15 Abnormal Lab Results - Last 24 Hours (Table) 04/01/19 04/01/19 04/01/19 Range/Units 03:27 03:27 03:27 WBC 11.6 H (3.8-10.6) k/uL Eosinophils # 0.8 H (0-0.7) k/uL Chloride 109 H (98-107) mmol/L BUN 24 H (9-20) mg/dL Creatinine 1.40 H (0.66-1.25) mg/dL Glucose 117 H (74-99) mg/dL POC Glucose (mg/dL) (75-99) mg/dL Troponin I 0.166 H* (0.000-0.034) ng/mL 04/01/19 Range/Units 06:30 WBC (3.8-10.6) k/uL Eosinophils # (0-0.7) k/uL Chloride (98-107) mmol/L BUN (9-20) mg/dL Creatinine (0.66-1.25) mg/dL Glucose (74-99) mg/dL POC Glucose (mg/dL) 100 H (75-99) mg/dL Troponin I (0.000-0.034) ng/mL Diabetes panel 04/01/19 04/01/19 Range/Units 03:27 14:15 Sodium 139 (137-145) mmol/L Potassium 3.5 4.1 (3.5-5.1) mmol/L Chloride 109 H (98-107) mmol/L Carbon Dioxide 22 (22-30) mmol/L BUN 24 H (9-20) mg/dL Creatinine 1.40 H (0.66-1.25) mg/dL Glucose 117 H (74-99) mg/dL Calcium 9.0 (8.4-10.2) mg/dL AST 26 (17-59) U/L ALT 13 (4-49) U/L Alkaline Phosphatase 66 (38-126) U/L Total Protein 7.4 (6.3-8.2) g/dL Albumin 4.1 (3.5-5.0) g/dL Calcium panel 04/01/19 Range/Units 03:27 Calcium 9.0 (8.4-10.2) mg/dL Albumin 4.1 (3.5-5.0) g/dL Pituitary panel 04/01/19 04/01/19 Range/Units 03:27 14:15 Sodium 139 (137-145) mmol/L Potassium 3.5 4.1 (3.5-5.1) mmol/L Chloride 109 H (98-107) mmol/L Carbon Dioxide 22 (22-30) mmol/L BUN 24 H (9-20) mg/dL Creatinine 1.40 H (0.66-1.25) mg/dL Glucose 117 H (74-99) mg/dL Calcium 9.0 (8.4-10.2) mg/dL Adrenal panel 04/01/19 04/01/19 Range/Units 03:27 14:15 Sodium 139 (137-145) mmol/L Potassium 3.5 4.1 (3.5-5.1) mmol/L Chloride 109 H (98-107) mmol/L Carbon Dioxide 22 (22-30) mmol/L BUN 24 H (9-20) mg/dL Creatinine 1.40 H (0.66-1.25) mg/dL Glucose 117 H (74-99) mg/dL Calcium 9.0 (8.4-10.2) mg/dL Total Bilirubin 0.4 (0.2-1.3) mg/dL AST 26 (17-59) U/L ALT 13 (4-49) U/L Alkaline Phosphatase 66 (38-126) U/L Total Protein 7.4 (6.3-8.2) g/dL Albumin 4.1 (3.5-5.0) g/dL - Imaging Chest x-ray: report reviewed, image reviewed EKG: image reviewed Additional studies: Cardiac catheterization films reviewed by Dr. Aldo Reyes along with Dr. AIMEE Pineda from cardiology. Assessment and Plan Assessment: 1. Coronary artery disease with left main disease, status post successful stent placement to his proximal left anterior descending coronary artery and his mid left anterior descending coronary artery 2. Acute anterior ST elevation myocardial infarction complicated by cardiogenic shock and pulmonary edema 3. Acute systolic dysfunction, with an ejection fraction of 20-25% per 2-D echocardiogram 4. Hyperlipidemia 5. Gastroesophageal reflux disease 6. Elevated creatinine on admission of 1.40 Plan: The patient was seen and examined at his bedside in the intensive care unit. His chart diagnostics were reviewed. His case was discussed in detail with Dr. Aldo Reyes from cardiothoracic surgery. Dr. Reyes and Dr. Pineda both reviewed the cardiac catheterization films together. Due to the patient's eleva chip troponins with diagnosis of ST elevated myocardial infarction with stent placement to his proximal and mid left anterior descending coronary artery this admission, we will allow him to recover from this event and follow the patient for possible PCI versus myocardial revascularization surgery. Continue to maximize his medical management with aspirin, statin, beta jose luis and MITZY inhibitor. Medical management and other comorbidities per primary care service and cardiology. Thank you Dr. Pineda for this consult and we will look forward to working with you in the care of this patient. Time with Patient: Greater than 30
[2019-04-01] MEDS ORDERED: PANTOPRAZOLE 40 MG/10 ML VIAL IVP SCH (21:00)
[2019-04-01] MEDS: ATORVASTATIN 80 MG TAB PO SCH (21:34)
[2019-04-02 01:41] LABS: Glucose,Whole Blood 141 mg/dL (75-99)
[2019-04-02] MEDS ORDERED: SODIUM CHLORIDE 0.9% 500 ML 500 ML IV ONE (04:27)
[2019-04-02] MEDS: SODIUM CHLORIDE 0.9% 1,000 ML IV SCH ×3 (05:19→16:45)
[2019-04-02 05:44] LABS: Basophils % (A) 0 %; Eosinophils # (A) 0.1 k/uL (0-0.7); Eosinophils % (A) 0 %; HCT 41.3 % (39.0-53.0); HGB 13.8 gm/dL (13.0-17.5); Lymphocytes # (A) 1.5 k/uL (1.0-4.8); Lymphocytes % (A) 8 %; MCH 31.4 pg (25.0-35.0); MCHC 33.5 g/dL (31.0-37.0); MCV 93.8 fL (80.0-100.0); Mean Platelet Volume 7.2; Monocytes # (A) 1.2 k/uL (0-1.0); Monocytes % (A) 7 %; Neutrophils # (A) 14.2 k/uL (1.3-7.7); Neutrophils % (A) 83 %; Platelet Count 245 k/uL (150-450); RDW 13.8 % (11.5-15.5); WBC 17.2 k/uL (3.8-10.6)
[2019-04-02 05:57] LABS: Albumin 3.5 g/dL (3.5-5.0); Calcium 8.4 mg/dL (8.4-10.2); Potassium 4.1 mmol/L (3.5-5.1); Total Protein 6.5 g/dL (6.3-8.2)
[2019-04-02] MEDS: NOREPINEPHRINE 4 MG in SODIUM CHLORIDE 0.9% 250 ML IV SCH ×3 (06:29→16:45)
[2019-04-02] MEDS ORDERED: DEXTROSE/WATER 1 250ML.BAG with DOPamine DRIP 800 MG IV SCH (06:30)
[2019-04-02] MEDS: TICAGRELOR 90 MG TAB PO SCH ×2 (08:38→21:23)
[2019-04-02] MEDS: PANTOPRAZOLE 40 MG/10 ML VIAL IVP SCH (08:39)
[2019-04-02] MEDS: ASPIRIN 81 MG PO SCH (08:39)
[2019-04-02 08:41] LABS: Appearance,Urine Cloudy (Clear); Bilirubin,Urine Negative (Negative); Blood,Urine Moderate (Negative); Color,Urine Yellow; Glucose,Urine (UA) Negative (Negative); Ketones,Urine Trace (Negative); Leukocyte Esterase,Urine Moderate (Negative); Mucus,Urine Many /hpf; Nitrite,Urine Negative (Negative); PH, Urine 5.5 (5.0-8.0); Protein,Urine 1+ (Negative); RBC,Urine 11 /hpf (0-5); Urobilinogen,Urine <2.0 mg/dL (<2.0); WBC,Urine 13 /hpf (0-5)
[2019-04-02] MEDS: METOPROLOL TARTRATE 25 MG TAB PO SCH (08:42)
[2019-04-02] MEDS: LISINOPRIL 2.5 MG TAB PO SCH (08:42)
[2019-04-02 08:47] LABS: Specific Gravity,Urine 1.049 (1.001-1.035)
--- NOTE | 2019-04-02 12:08 | XR ---
EXAMINATION TYPE: XR chest 1V portable DATE OF EXAM: 04/02/2019 HISTORY: crackles heard in lung bases. REFERENCE: Previous study dated 04/01/2019. FINDINGS: There is some scarring in the left lung base. The lungs are otherwise clear. Pleural space are clear. Heart size upper limits of normal. IMPRESSION: SCARRING VERSUS ATELECTASIS, LEFT LUNG BASE.
--- NOTE | 2019-04-02 13:13 | P.PN ---
Subjective Progress Note Date: 04/02/19 Principal diagnosis: Acute coronary syndrome This is a pleasant 73-year-old gentleman who presented to the hospital with chest discomfort and was diagnosed with acute anterior ST vision myocardial infarction. An emergent heart catheterization was performed by Dr. Mcclure and that revealed subtotally occluded LAD in the proximal portion with intermediate to severe disease involving the ostial/proximal left main coronary artery as well as severe disease involving the left circumflex and RCA. The patient underwent successful stenting of the LAD with an excellent angiographic results and without any complications. He was seen this morning. Clinically he is looking good and he is asymptomatic. Hemodynamically he continues to be unstable and requiring small dose of norepi nephrine. I asked the nurse to hold the metoprolol as well as lisinopril and to continue dual antiplatelet therapy along with high intensity statin and try to wean the patient from the norepinephrine. If we are unable, we might need to bring the patient back to the cardiac brine room laborer to place and [place] with or without stenting of the left main coronary artery at this stage. The creatinine continues to be stable. Also I would get the chest x-ray and also BNP. Objective - Vital Signs Vital signs: Vital Signs Temp 97.7 F 04/02/19 12:00 Pulse 61 04/02/19 13:00 Resp 24 04/02/19 13:00 BP 92/67 04/02/19 13:00 Pulse Ox 97 04/02/19 13:00 Intake & Output 04/01/19 04/02/19 04/02/19 18:59 06:59 18:59 Intake Total 347.03 707.174 1267.532 Output Total 2850 200 240 Balance -2502.97 381.728 942.532 Weight 82 kg 81.5 kg Intake: IV 300 75 700 Sodium Chloride 0.9% 1, 75 700 000 ml @ 100 mls/hr IV . Q10H [facility] Rx#:[id number] Sodium Chloride 0.9% 1, 300 000 ml @ 50 mls/hr IV . Q20H [facility] Rx#:[id number] Intake, IV Titration 47.03 506.728 182.532 Amount Heparin Sod,Pork in 0.45% 47.03 NaCl 25,000 unit In 0.45 % NaCl 1 250ml.bag @ 12 UNITS/KG/HR 9.798 mls/hr IV .Q24H [facility] Rx#: [id number] Norepinephrine 4 mg In 6.728 182.532 Sodium Chloride 0.9% 250 ml @ 0.05 MCG/KG/MIN 15. 526 mls/hr IV .[id number] [facility] Rx#:[id number] Sodium Chloride 0.9% 500 500 ml 500 ml @ 999 mls/hr IV .Q31M [facility] Rx#:[id number] Oral 300 Output: Urine 2850 200 240 Other: Voiding Method Urinal Urinal Indwelling Catheter # Bowel Movements 1 - Constitutional General appearance: Present: no acute distress - Respiratory Respiratory: bilateral: CTA - Cardiovascular Rhythm: regular Heart sounds: normal: S1, S2 - Labs CBC & Chem 7: 04/02/19 05:12 04/02/19 05:12 Labs: Abnormal Lab Results - Last 24 Hours (Table) 04/02/19 04/02/19 04/02/19 Range/Units 01:26 05:12 05:12 WBC 17.2 H (3.8-10.6) k/uL Neutrophils # 14.2 H (1.3-7.7) k/uL Monocytes # 1.2 H (0-1.0) k/uL BUN 30 H (9-20) mg/dL Creatinine 1.31 H (0.66-1.25) mg/dL Glucose 119 H (74-99) mg/dL POC Glucose (mg/dL) 141 H (75-99) mg/dL AST 501 H (17-59) U/L ALT 71 H (4-49) U/L Ur Specific [place] (1.001-1.035) Urine Protein (Negative) Urine Ketones (Negative) Urine Blood (Negative) Ur Leukocyte Esterase (Negative) Urine RBC (0-5) /hpf Urine WBC (0-5) /hpf Urine Mucus (None) /hpf 04/02/19 Range/Units 08:10 WBC (3.8-10.6) k/uL Neutrophils # (1.3-7.7) k/uL Monocytes # (0-1.0) k/uL BUN (9-20) mg/dL Creatinine (0.66-1.25) mg/dL Glucose (74-99) mg/dL POC Glucose (mg/dL) (75-99) mg/dL AST (17-59) U/L ALT (4-49) U/L Ur Specific [place] 1.049 H (1.001-1.035) Urine Protein 1+ H (Negative) Urine Ketones Trace H (Negative) Urine Blood Moderate H (Negative) Ur Leukocyte Esterase Moderate H (Negative) Urine RBC 11 H (0-5) /hpf Urine WBC 13 H (0-5) /hpf Urine Mucus Many H (None) /hpf Assessment and Plan Assessment: Assessment #[address] elevation myocardial infarction #2 severe disease involving the left main coronary artery and also severe triple-vessel CAD #3 severe cardiomyopathy #4 shock, likely to be cardiogenic, rule out sepsis as well #5 multiple comorbid conditions Plan #1 try to wean the patient from norepinephrine #2 continue dual antiplatelet therapy along with high intensity statin #3 continue holding the beta jose luis as well as MITZY inhibitor #4 monitor the kidney function and electrolytes #5 if he continues to be hypotensive I am going to bring the patient back to the [facility] Delivery System Maintainer to placed an Impella with or without stenting of the left main
[2019-04-02] MEDS ORDERED: FUROSEMIDE 10 MG/ML 2 ML VIAL IV ONE (14:20)
--- NOTE | 2019-04-02 14:27 | P.PN ---
Subjective 69-year-old male admitted the first elevation microinfarction underwent stenting of LAD patient had EF of 20-25% patient is hypotensive on Levophed at this time. Patient's lisinopril was discontinued patient doesn't have any urine output patient will be given 1 dose of Lasix patient BNP is elevated patient has elevated JVD on the chest x-ray did not show any pneumonic process. Although patient feels good Constitutional: Denied any fatigue denied any fever. Cardio vascular: denied any chest pain, palpitations Gastrointestinal denied any nausea vomiting Pulmonary: Denied any shortness of breath cough Neurologic denied any new focal deficits All inpatient medications were reviewed and appropriate changes in these medications as dictated in the interval history and assessment and plan. Objective - Vital Signs Vital signs: Vital Signs Temp 97.7 F 04/02/19 12:00 Pulse 61 04/02/19 13:00 Resp 24 04/02/19 13:00 BP 92/67 04/02/19 13:00 Pulse Ox 97 04/02/19 13:00 Intake & Output 04/01/19 04/02/19 04/02/19 18:59 06:59 18:59 Intake Total 347.03 117.633 0108.829 Output Total 2850 200 240 Balance -2502.97 381.728 980.829 Weight 82 kg 81.5 kg Intake: IV 300 75 700 Sodium Chloride 0.9% 1, 75 700 000 ml @ 100 mls/hr IV . Q10H [facility] Rx#:[id number] Sodium Chloride 0.9% 1, 300 000 ml @ 50 mls/hr IV . Q20H [facility] Rx#:[id number] Intake, IV Titration 47.03 506.728 220.829 Amount Heparin Sod,Pork in 0.45% 47.03 NaCl 25,000 unit In 0.45 % NaCl 1 250ml.bag @ 12 UNITS/KG/HR 9.798 mls/hr IV .Q24H [facility] Rx#: [id number] Norepinephrine 4 mg In 6.728 220.829 Sodium Chloride 0.9% 250 ml @ 0.05 MCG/KG/MIN 15. 526 mls/hr IV .[id number] [facility] Rx#:[id number] Sodium Chloride 0.9% 500 500 ml 500 ml @ 999 mls/hr IV .Q31M [facility] Rx#:[id number] Oral 300 Output: Urine 2850 200 240 Other: Voiding Method Urinal Urinal Indwelling Catheter # Bowel Movements 1 - Exam PHYSICAL EXAMINATION: GENERAL: The patient is alert and oriented x3, not in any acute distress. Well developed, well nourished. HEENT: Pupils are round and equally reacting to light. EOMI. No scleral icterus. No conjunctival pallor. Normocephalic, atraumatic. No pharyngeal erythema. No thyromegaly. CARDIOVASCULAR: S1 and S2 present. No murmurs, rubs, or gallops. Does have elevated JVD PULMONARY: Bibasilar crackles ABDOMEN: Soft, nontender, nondistended, normoactive bowel sounds. No palpable organomegaly. MUSCULOSKELETAL: No joint swelling or deformity. EXTREMITIES: No cyanosis, clubbing, or pedal edema. NEUROLOGICAL: Gross neurological examination did not reveal any focal deficits. SKIN: No rashes. - Labs CBC & Chem 7: 04/02/19 05:12 04/02/19 05:12 Labs: Abnormal Lab Results - Last 24 Hours (Table) 04/02/19 04/02/19 04/02/19 Range/Units 01:26 05:12 05:12 WBC 17.2 H (3.8-10.6) k/uL Neutrophils # 14.2 H (1.3-7.7) k/uL Monocytes # 1.2 H (0-1.0) k/uL BUN 30 H (9-20) mg/dL Creatinine 1.31 H (0.66-1.25) mg/dL Glucose 119 H (74-99) mg/dL POC Glucose (mg/dL) 141 H (75-99) mg/dL AST 501 H (17-59) U/L ALT 71 H (4-49) U/L Ur Specific [place] (1.001-1.035) Urine Protein (Negative) Urine Ketones (Negative) Urine Blood (Negative) Ur Leukocyte Esterase (Negative) Urine RBC (0-5) /hpf Urine WBC (0-5) /hpf Urine Mucus (None) /hpf 04/02/19 Range/Units 08:10 WBC (3.8-10.6) k/uL Neutrophils # (1.3-7.7) k/uL Monocytes # (0-1.0) k/uL BUN (9-20) mg/dL Creatinine (0.66-1.25) mg/dL Glucose (74-99) mg/dL POC Glucose (mg/dL) (75-99) mg/dL AST (17-59) U/L ALT (4-49) U/L Ur Specific [place] 1.049 H (1.001-1.035) Urine Protein 1+ H (Negative) Urine Ketones Trace H (Negative) Urine Blood Moderate H (Negative) Ur Leukocyte Esterase Moderate H (Negative) Urine RBC 11 H (0-5) /hpf Urine WBC 13 H (0-5) /hpf Urine Mucus Many H (None) /hpf Assessment and Plan Plan: -Acute ST elevation microinfarction: Patient is status post cardiac catheterization and stenting of LAD continued dual antiplatelet therapy beta jose luis lisinopril low-dose -Acute systolic dysfunction, heart failure not in heart failure exacerbation. Patient is hypotensive patient appears to be in mild pulmonary edema patient will be started on a single dose of Lasix patient doesn't have any urine output at this time, if needed we may need to consult nephrology. -Acute renal failure renal azotemia most probably from heart failure and myocardial infarction. Patient is presently anuric, patient will be given a dose of Lasix will monitor urine output -Hypotension, cardiac shock: Harjeet support as mentioned above -Nausea vomiting secondary to stress-induced gap gastritis which improved now nausea vomiting improved -Hyperlipidemia -Gastroesophageal reflux disease
[2019-04-02] MEDS: ATORVASTATIN 80 MG TAB PO SCH (21:23)
[2019-04-03] MEDS ORDERED: FUROSEMIDE 10 MG/ML 2 ML VIAL IV ONE (00:28)
[2019-04-03] MEDS: SODIUM CHLORIDE 0.9% 1,000 ML IV SCH ×2 (00:46→08:14)
[2019-04-03] MEDS: MAG HYDROX/AL HYDROX/SIMETH 30 ML CUP PO PRN (00:51)
[2019-04-03 05:32] LABS: Basophils # (A) 0.1 k/uL (0-0.2); Basophils % (A) 0 %; Eosinophils # (A) 0.2 k/uL (0-0.7); Eosinophils % (A) 1 %; HCT 39.7 % (39.0-53.0); HGB 13.3 gm/dL (13.0-17.5); Lymphocytes # (A) 2.1 k/uL (1.0-4.8); Lymphocytes % (A) 12 %; MCH 31.2 pg (25.0-35.0); MCHC 33.4 g/dL (31.0-37.0); MCV 93.3 fL (80.0-100.0); Mean Platelet Volume 7.4; Monocytes # (A) 1.3 k/uL (0-1.0); Monocytes % (A) 7 %; Neutrophils # (A) 14.4 k/uL (1.3-7.7); Neutrophils % (A) 79 %; Platelet Count 229 k/uL (150-450); RBC 4.26 m/uL (4.30-5.90); RDW 13.7 % (11.5-15.5); WBC 18.2 k/uL (3.8-10.6)
[2019-04-03 05:41] LABS: Potassium 3.9 mmol/L (3.5-5.1)
[2019-04-03] MEDS ORDERED: POTASSIUM CHLORIDE ER 20 MEQ TAB.ER PO STA (07:24)
--- NOTE | 2019-04-03 07:29 | P.PN ---
Subjective Progress Note Date: 04/03/19 Principal diagnosis: Acute coronary syndrome This is a pleasant 73-year-old gentleman who presented to the hospital with chest discomfort and was diagnosed with acute anterior ST vision myocardial infarction. An emergent heart catheterization was performed by Dr. Mcclure and that revealed subtotally occluded LAD in the proximal portion with intermediate to severe disease involving the ostial/proximal left main coronary artery as well as severe disease involving the left circumflex and RCA. The patient underwent successful stenting of the LAD with an excellent angiographic results and without any complications. The patient was seen this morning, April [id number]. Clinically he is asymptomatic from a cardiovascular standpoint overview. The urine output was marginal yesterday and he was given 20 mg IV Lasix with significant improvement in the urine output. The creatinine is back to normal. He continues to be on norepinephrine. The chest x-ray showed possible pneumonia. The urine analysis showed possible UTI. The WBC is elevated. I am concerned about a component of sepsis contributing to his low blood pressure and I will suggest consulting Dr. Arredondo to place to help us managing the patient. Otherwise he continues to be on dual antiplatelet therapy along with a statin. We are holding any beta jose luis or MITZY inhibitor at this point Objective - Vital Signs Vital signs: Vital Signs Temp 98 F 04/03/19 04:00 Pulse 73 04/03/19 07:15 Resp 16 04/03/19 07:15 BP 107/69 04/03/19 07:15 Pulse Ox 96 04/03/19 07:15 Intake & Output 04/02/19 04/03/19 04/03/19 18:59 06:59 18:59 Intake Total 2029.817 1203.623 100 Output Total 1260 1500 45 Balance 769.817 -296.377 55 Weight 84.1 kg Intake: IV 1200 1200 100 Sodium Chloride 0.9% 1, 1200 1200 100 000 ml @ 100 mls/hr IV . Q10H [facility] Rx#:[id number] Intake, IV Titration 329.817 3.623 Amount Norepinephrine 4 mg In 329.817 3.623 Sodium Chloride 0.9% 250 ml @ 0.05 MCG/KG/MIN 15. 526 mls/hr IV .[id number] [facility] Rx#:[id number] Oral 500 Output: Urine 1260 1500 45 Other: Voiding Method Indwelling Catheter Indwelling Catheter # Bowel Movements 1 - Constitutional General appearance: Present: no acute distress - Respiratory Respiratory: bilateral: CTA - Cardiovascular Rhythm: regular Heart sounds: normal: S1, S2 - Labs CBC & Chem 7: 04/03/19 05:18 04/03/19 05:18 Labs: Abnormal Lab Results - Last 24 Hours (Table) 04/02/19 04/03/19 04/03/19 Range/Units 08:10 05:18 05:18 WBC 18.2 H (3.8-10.6) k/uL RBC 4.26 L (4.30-5.90) m/uL Neutrophils # 14.4 H (1.3-7.7) k/uL Monocytes # 1.3 H (0-1.0) k/uL BUN 24 H (9-20) mg/dL Glucose 131 H (74-99) mg/dL Calcium 8.0 L (8.4-10.2) mg/dL Ur Specific [place] 1.049 H (1.001-1.035) Urine Protein 1+ H (Negative) Urine Ketones Trace H (Negative) Urine Blood Moderate H (Negative) Ur Leukocyte Esterase Moderate H (Negative) Urine RBC 11 H (0-5) /hpf Urine WBC 13 H (0-5) /hpf Urine Mucus Many H (None) /hpf Microbiology - Last 24 Hours (Table) 04/02/19 08:10 Urine Culture - Preliminary Urine,Voided Assessment and Plan Assessment: Assessment #[address] elevation myocardial infarction #2 severe disease involving the left main coronary artery and also severe triple-vessel CAD #3 severe cardiomyopathy #4 shock, likely to be cardiogenic, rule out sepsis as well #5 multiple comorbid conditions Plan #1 try to wean the patient from norepinephrine #2 continue dual antiplatelet therapy along with high intensity statin #3 continue holding the beta jose luis as well as MITZY inhibitor #4 monitor the kidney function and electrolytes #5 if he continues to be hypotensive I am going to bring the patient back to the Inside Sales Assistant to placed an Impella with or without stenting of the left main
[2019-04-03] MEDS: ASPIRIN 81 MG PO SCH (08:06)
[2019-04-03] MEDS: PANTOPRAZOLE 40 MG/10 ML VIAL IVP SCH (08:06)
[2019-04-03] MEDS: TICAGRELOR 90 MG TAB PO SCH ×2 (08:06→23:25)
[2019-04-03] MEDS: NOREPINEPHRINE 4 MG in SODIUM CHLORIDE 0.9% 250 ML IV SCH ×2 (08:12→12:20)
[2019-04-03] MEDS ORDERED: DEXTROSE 5% IN WATER 100 ML with AMIODARONE 150 MG IV ONE (10:16)
[2019-04-03] MEDS ORDERED: AMIODARONE 360 MG in DEXTROSE 5% IN WATER 200 ML IV ONE ×2 (10:16)
[2019-04-03] MEDS ORDERED: DILTIAZEM 125 MG in SODIUM CHLORIDE 0.9% 100 ML IV SCH (12:00)
--- NOTE | 2019-04-03 13:42 | P.PN ---
Subjective 69-year-old male admitted the first elevation microinfarction underwent stenting of LAD patient had EF of 20-25% patient is hypotensive on Levophed at this time. Patient's lisinopril was discontinued patient doesn't have any urine output patient will be given 1 dose of Lasix patient BNP is elevated patient has elevated JVD on the chest x-ray did not show any pneumonic process. Although patient feels good 04/03/2019 Patient is on Levothroid but we're able to will bring that the dose down today. Patient went into A. fib and up on amiodarone patient also received Cardizem briefly which was subsequently discontinued because of hypotension. Patient although denies any complains at this time feeling better Constitutional: Denied any fatigue denied any fever. Cardio vascular: denied any chest pain, palpitations Gastrointestinal denied any nausea vomiting Pulmonary: Denied any shortness of breath cough Neurologic denied any new focal deficits All inpatient medications were reviewed and appropriate changes in these medications as dictated in the interval history and assessment and plan. Objective - Vital Signs Vital signs: Vital Signs Temp 98 F 04/03/19 04:00 Pulse 73 04/03/19 07:15 Resp 16 04/03/19 07:15 BP 107/69 04/03/19 07:15 Pulse Ox 96 04/03/19 07:15 Intake & Output 04/02/19 04/03/19 04/03/19 18:59 06:59 18:59 Intake Total 2029.817 1203.623 409.583 Output Total 1260 1500 45 Balance 769.817 -296.377 364.583 Weight 84.1 kg Intake: IV 1200 1200 100 Sodium Chloride 0.9% 1, 1200 1200 100 000 ml @ 100 mls/hr IV . Q10H NUNU Rx#:[id number] Intake, IV Titration 329.817 3.623 309.583 Amount Norepinephrine 4 mg In 329.817 3.623 309.583 Sodium Chloride 0.9% 250 ml @ 0.05 MCG/KG/MIN 15. 526 mls/hr IV .[id number] NUNU Rx#:[id number] Oral 500 Output: Urine 1260 1500 45 Other: Voiding Method Indwelling Catheter Indwelling Catheter # Bowel Movements 1 - Exam PHYSICAL EXAMINATION: GENERAL: The patient is alert and oriented x3, not in any acute distress. Well developed, well nourished. HEENT: Pupils are round and equally reacting to light. EOMI. No scleral icterus. No conjunctival pallor. Normocephalic, atraumatic. No pharyngeal erythema. No thyromegaly. CARDIOVASCULAR: S1 and S2 present. No murmurs, rubs, or gallops. Does have elevated JVD PULMONARY: Bibasilar crackles ABDOMEN: Soft, nontender, nondistended, normoactive bowel sounds. No palpable organomegaly. MUSCULOSKELETAL: No joint swelling or deformity. EXTREMITIES: No cyanosis, clubbing, or pedal edema. NEUROLOGICAL: Gross neurological examination did not reveal any focal deficits. SKIN: No rashes. - Labs CBC & Chem 7: 04/03/19 05:18 04/03/19 05:18 Labs: Abnormal Lab Results - Last 24 Hours (Table) 04/03/19 04/03/19 Range/Units 05:18 05:18 WBC 18.2 H (3.8-10.6) k/uL RBC 4.26 L (4.30-5.90) m/uL Neutrophils # 14.4 H (1.3-7.7) k/uL Monocytes # 1.3 H (0-1.0) k/uL BUN 24 H (9-20) mg/dL Glucose 131 H (74-99) mg/dL Calcium 8.0 L (8.4-10.2) mg/dL Microbiology - Last 24 Hours (Table) 04/02/19 08:10 Urine Culture - Preliminary Urine,Voided Assessment and Plan Plan: -Acute ST elevation microinfarction: Patient is status post cardiac catheterization and stenting of LAD continued dual antiplatelet therapy lisinopril and beta ojse luis is on hold because of hypotension -New-onset atrial fibrillation: Patient is on IV amiodarone is also on Levothroid for the hypotension and cardiac shock. Patient received arterial line today -Acute systolic dysfunction, heart failure not in heart failure exacerbation. Patient is hypotensive patient is fairly euvolemic and patient has good urine output today creatinine improved to 1.05 -Acute renal failure renal azotemia most probably from heart failure and my ocardial infarction. -Hypotension, cardiac shock: Pressor support as mentioned above -Nausea vomiting secondary to stress-induced gap gastritis which improved now nausea vomiting improved -Hyperlipidemia -Gastroesophageal reflux disease
--- NOTE | 2019-04-03 13:55 | P.CNPUL ---
History of Present Illness Consult date: 04/03/19 Requesting physician: Eleuterio Gupta Reason for consult: other (ICU management.) Chief complaint: Chest pain History of present illness: This is a 73-year-old white male with history of multiple medical problems including hyperlipidemia, GERD, nephrolithiasis, remote history of pneumonia, patient presented to the ER on 04/01/2019, mostly with anginal symptoms/severe chest pain. Patient was diagnosed as having acute ST elevation myocardial infarction. And he was seen by cardiology on consultation. Patient underwent aspiration thrombectomy, successful stenting of proximal LAD, successful sten ting of mid LAD, and intravascular ultrasound of the left anterior descending artery and left main coronary artery. Echocardiogram showed severe LV dysfunction. Patient was also found to have the significant left main coronary artery lesion, and that is supposed to be addressed in the near future by cardiology. Since his cardiac catheterization, patient required pressors in the form of norepinephrine. He was placed on dual antiplatelet therapy, his beta blockers and MITZY inhibitor's remain on hold. The mechanical cad designer was concerned about the possibility of underlying sepsis, however the clinical history is mostly cardiac history. His urinalysis is suggestive of a minimal urinary tract infection, and a chest x-ray showed no evidence of infiltrate. Plus the patient had no symptoms to suggest pneumonia. His urinalysis showed 13 WBCs, and moderate urine leukocyte esterase. Patient had no active renal symptoms whatsoever. He had no active pulmonary symptoms whatsoever. His white count since admission was noted to rise, he presented with a WBC count of 11.6, and now it is 18.2. Considering the leukocytosis, and considering the concern of a possible urinary tract infection, I would recommend empirically Rocephin until cultures are available Review of Systems Constitutional: Denies fever chills or weight loss. Respiratory: Denies cough wheezing , denies hemoptysis. Cardiovascular: As noted in HPI. Gastrointestinal: Reports: nausea, vomiting. Denies: abdominal pain, diarrhea, melena, hematochezia Genitourinary: Denied dysuria frequency urgency hematuria. Musculoskeletal: Denies any limitation in range of motion, denies any pain. Except for his chest pain on presentation. Skin: Denies: rash denies pruritus. Neurological: Denies: headache, weakness, numbness Psychiatric: Denies symptoms of active depression. Hematologic: Denies clotting bleeding or bruising. Past Medical History Past Medical History: GERD/Reflux, Hyperlipidemia, Osteoarthritis (OA), Pneumoni a Additional Past Medical History / Comment(s): Diverticultis with previous bowel resection, L nephrolithiasis with mild hydronephrosis-pt states he passed stone on his own, occasional sinus headache. History of bladder cyst. History of Any Multi-Drug Resistant Organisms: None Reported Past Surgical History: Bowel Resection, Hernia Repair, Joint Replacement Additional Past Surgical History / Comment(s): Colon resection d/t abscess/necrotic bowel, colonoscopy, L total knee replacement, bilateral inguinal hernia repairs. Past Anesthesia/Blood Transfusion Reactions: Postoperative Nausea & Vomiting (PONV) Additional Past Anesthesia/Blood Transfusion Reaction / Comment(s): Pt received blood with bowel resection without reaction. Past Psychological History: No Psychological Hx Reported Additional Psychological History / Comment(s): Pt resides with his spouse. He is independent. Smoking Status: Never smoker Past Alcohol Use History: Rare Past Drug Use History: None Reported - Past Family History Mother Family Medical History: Cancer, CVA/TIA Additional Family Medical History / Comment(s): Mother had skin cancer in her groin area and a pacemaker and had a cardiac valve replaced. She at the age of 98yrs. Father Family Medical History: Dementia Additional Family Medical History / Comment(s): Father at the age of 91 yrs from alzheimer's. Medications and Allergies Home Medications Medication Instructions Recorded Confirmed Type Omeprazole [PriLOSEC] 20 mg PO DAILY 04/01/19 04/01/19 History Allergies Allergy/AdvReac Type Severity Reaction Status Date / Time Tetracyclines Allergy Rash/Hives Verified 04/01/19 08:03 erythromycin base AdvReac Nausea & Verified 04/01/19 08:03 Vomiting hydromorphone [From Dilaudid] AdvReac hallucinati Verified 04/01/19 08:03 on morphine AdvReac hallunicati Verified 04/01/19 08:03 on oxycodone AdvReac Nausea & Verified 04/01/19 08:03 Vomiting Physical Exam Vitals: Vital Signs Temp Pulse Resp BP Pulse Ox 04/03/19 07:15 73 16 107/69 96 04/03/19 07:00 90 13 108/74 94 L 04/03/19 06:45 72 19 98/69 95 04/03/19 06:30 66 20 115/62 97 04/03/19 06:15 56 L 26 H 101/69 96 04/03/19 06:00 60 20 114/58 98 04/03/19 05:45 61 23 104/72 96 04/03/19 05:30 71 22 107/63 95 04/03/19 05:15 81 16 107/65 97 04/03/19 05:00 83 20 103/70 96 04/03/19 04:45 58 L 16 95/62 97 04/03/19 04:30 70 20 104/58 95 04/03/19 04:15 58 L 26 H 94/53 98 04/03/19 04:00 98 F 66 27 H 105/54 96 04/03/19 03:45 61 12 91/69 98 04/03/19 03:30 63 6 L 99/59 99 04/03/19 03:15 56 L 25 H 105/61 98 04/03/19 03:00 71 21 105/60 97 04/03/19 02:45 70 24 113/54 95 04/03/19 02:30 66 5 L 98/55 96 04/03/19 02:15 64 25 H 114/59 96 04/03/19 02:00 64 14 117/63 98 04/03/19 01:45 71 12 107/77 98 04/03/19 01:30 64 12 108/70 96 04/03/19 01:15 70 16 125/72 98 04/03/19 01:00 72 16 108/72 97 04/03/19 00:45 76 9 L 109/72 97 04/03/19 00:30 64 7 L 113/61 98 04/03/19 00:15 64 19 104/64 97 04/03/19 00:00 98.2 F 68 14 93/61 97 04/02/19 23:45 60 25 H 105/65 97 04/02/19 23:30 69 15 110/66 99 04/02/19 23:20 84 7 L 110/66 98 04/02/19 23:15 78 9 L 107/67 99 04/02/19 23:00 13 92/65 95 04/02/19 22:45 67 8 L 97/64 95 04/02/19 22:30 68 11 L 99/68 95 04/02/19 22:15 80 15 105/67 96 04/02/19 22:00 81 12 100/70 96 1820 21:45 70 25 H 100/65 97 04/02/19 21:30 73 17 105/62 97 04/02/19 21:15 67 8 L 112/56 98 20 21:00 61 14 96/64 97 20 20:45 68 23 97/64 97 04/02/19 20:30 70 17 100/61 96 04/02/19 20:15 72 20 98/57 96 04/02/19 20:04 98 04/02/19 20:00 98.2 F 59 L 14 102/57 98 04/02/19 19:45 68 20 95/68 95 04/02/19 19:30 61 14 97/63 98 04/02/19 19:15 56 L 23 87/58 97 04/02/19 19:00 60 12 85/57 98 04/02/19 18:45 61 23 89/57 97 04/02/19 18:30 68 26 H 96/61 98 04/02/19 18:15 76 15 105/62 98 04/02/19 18:00 86 16 126/115 97 04/02/19 17:45 81 13 107/71 97 04/02/19 17:30 71 11 L 90/77 97 04/02/19 17:15 84 17 103/73 98 04/02/19 17:00 88 7 L 101/65 97 04/02/19 16:45 70 7 L 100/67 97 04/02/19 16:30 71 7 L 104/76 98 04/02/19 16:15 68 25 H 107/66 98 04/02/19 16:00 97.8 F 65 8 L 105/70 99 04/02/19 15:45 67 21 102/70 20 15:30 68 16 103/73 99 04/02/19 15:15 68 21 100/78 99 04/02/19 15:00 71 17 94/64 97 04/02/19 14:45 59 L 8 L 101/68 97 04/02/19 14:30 65 17 102/69 99 04/02/19 14:15 71 22 96/63 97 04/02/19 14:00 66 16 102/69 99 04/02/19 13:45 72 11 L 94/66 97 Intake and Output 04/02/19 04/03/19 04/03/19 22:59 06:59 14:59 Intake Total 1112.611 800 409.583 Output Total 1245 1255 45 Balance -132.389 -455 364.583 Intake: IV 800 800 100 Sodium Chloride 0.9% 1, 800 800 100 000 ml @ 100 mls/hr IV . Q10H NUNU Rx#:[id number] Intake, IV Titration 112.611 309.583 Amount Norepinephrine 4 mg In 112.611 309.583 Sodium Chloride 0.9% 250 ml @ 0.05 MCG/KG/MIN 15. 526 mls/hr IV .[id number] NUNU Rx#:[id number] Oral 200 Output: Urine 1245 1255 45 Other: Voiding Method Indwelling Catheter Indwelling Catheter Weight 84.1 kg General appearance: Revealed 73-year-old white male in no distress, very pleasant. Head exam: Present: atraumatic, normocephalic Eye exam: PERRLA, EOMI, no icterus, Neck exam: Present: normal inspection Respiratory exam: Present: normal lung sounds bilaterally. Absent: respiratory distress, wheezes, rales, rhonchi, stridor Cardiovascular Exam: Present: regular rate, normal rhythm, normal heart sounds. Absent: systolic murmur, diastolic murmur, rubs, gallop GI/Abdominal exam: Present: soft. Absent: distended, tenderness, guarding, rebound, rigid, mass Extremities exam: Present: normal inspection, normal capillary refill. Absent: pedal edema, calf tenderness Back exam: Present: normal inspection. Absent: CVA tenderness (R), CVA tenderness (L) Neurological exam: Present: alert Skin exam: Present: warm, dry, intact, normal color. Absent: rash Results - Laboratory Findings CBC and BMP: 04/03/19 05:18 04/03/19 05:18 PT/INR, D-dimer PT 10.2 sec (9.0-12.0) 04/01/19 03:27 INR 1.0 (<1.2) 04/01/19 03:27 Abnormal lab findings: Abnormal Labs 04/01/19 04/01/19 04/01/19 03:27 03:27 03:27 WBC 11.6 H RBC Neutrophils # Monocytes # Eosinophils # 0.8 H Chloride 109 H BUN 24 H Creatinine 1.40 H Glucose 117 H POC Glucose (mg/dL) Calcium AST ALT Troponin I 0.166 H* Ur Specific [place] Urine Protein Urine Ketones Urine Blood Ur Leukocyte Esterase Urine RBC Urine WBC Urine Mucus 04/01/19 04/02/19 04/02/19 06:30 01:26 05:12 WBC 17.2 H RBC Neutrophils # 14.2 H Monocytes # 1.2 H Eosinophils # Chloride BUN Creatinine Glucose POC Glucose (mg/dL) 100 H 141 H Calcium AST ALT Troponin I Ur Specific [place] Urine Protein Urine Ketones Urine Blood Ur Leukocyte Esterase Urine RBC Urine WBC Urine Mucus 04/02/19 04/02/19 04/03/19 05:12 08:10 05:18 WBC 18.2 H RBC 4.26 L Neutrophils # 14.4 H Monocytes # 1.3 H Eosinophils # Chloride BUN 30 H Creatinine 1.31 H Glucose 119 H POC Glucose (mg/dL) Calcium AST 501 H ALT 71 H Troponin I Ur Specific [place] 1.049 H Urine Protein 1+ H Urine Ketones Trace H Urine Blood Moderate H Ur Leukocyte Esterase Moderate H Urine RBC 11 H Urine WBC 13 H Urine Mucus Many H 04/03/19 05:18 WBC RBC Neutrophils # Monocytes # Eosinophils # Chloride BUN 24 H Creatinine Glucose 131 H POC Glucose (mg/dL) Calcium 8.0 L AST ALT Troponin I Ur Specific [place] Urine Protein Urine Ketones Urine Blood Ur Leukocyte Esterase Urine RBC Urine WBC Urine Mucus - Diagnostic Findings Chest x-ray: image reviewed (Chest x-ray showed mostly minimal left basilar atelectasis or scarring no evidence of infiltrate) Assessment and Plan Assessment: Impression: Acute anterior ST elevation myocardial infarction, status post stenting. Severe triple-vessel coronary artery disease. Including left main disease. Severe cardiomyopathy, most likely ischemic in nature. And severe LV dysfunction. Cardiogenic shock, clearly not septic in nature. Possible urinary tract infection, asymptomatic. Multiple comorbidities including GERD, dyslipidemia, acute kidney injury, degenerative joint disease, history of nephrolithiasis, Recommendation: Continue present treatment plan as per cardiology. Would recommend Rocephin empirically until the final urine culture is available. And then decide whether to continue or discontinue. Continue norepinephrine for hypotension. Continue duel antiplatelet therapy. Continue aspirin and statin therapy Start beta blockers and mitzy inhibitors once blood pressure allows. We'll continue to follow. Right radial arterial line was placed as requested by cardiology on the case this is mostly for hemodynamic monitoring Time with Patient: Greater than 30
[2019-04-03] MEDS: AMIODARONE 300 MG in DEXTROSE 5% IN WATER 250 ML IV SCH ×2 (16:25)
--- NOTE | 2019-04-03 16:59 | PCN ---
PROCEDURE NOTE OPERATIVE REPORT: Placement of a right radial arterial line. PREOPERATIVE DIAGNOSIS: Acute myocardial infarction and hypotension. POSTOPERATIVE DIAGNOSIS: Acute myocardial infarction and hypotension. ANESTHESIA: None deployed. PROCEDURE DESCRIPTION: The right wrist was prepared in sterile fashion and drapes were applied. Then, the right radial artery was palpated, cannulated, and a guidewire was placed. A Cook catheter was inserted over the guidewire, the guidewire was removed. Good blood flow and good waveform were noted. No evidence of any immediate complications. Line was secured using 3.0 silk sutures. MMODL / IJN: [id number] /
--- NOTE | 2019-04-03 17:00 | ECHOF ---
Referral Reason:hypotension MEASUREMENTS -------- HEIGHT: 182.9 cm WEIGHT: 81.6 kg BP: RVIDd: 3.2 cm (< 3.3) IVSd: 1.3 cm (0.6 - 1.1) LVIDd: 4.5 cm (3.9 - 5.3) LVPWd: 1.4 cm (0.6 - 1.1) IVSs: 1.4 cm LVIDs: 3.6 cm LVPWs: 1.8 cm LA Diam: 4.6 cm (2.7 - 3.8) LAESV Index (A-L): 30.47 ml/m Ao Diam: 3.1 cm (2.0 - 3.7) AV Cusp: 1.5 cm (1.5 - 2.6) LA Diam: 3.4 cm (2.7 - 3.8) MV EXCURSION: 18.048 mm (> 18.000) MV EF SLOPE: 140 mm/s (70 - 150) EPSS: 1.2 cm MV E Ovidio: 0.69 m/s MV DecT: 124 ms MV A Ovidio: 0.43 m/s MV E/A Ratio: 1.60 AR PHT: 482 ms RAP: 5.00 mmHg RVSP: 27.57 mmHg FINDINGS -------- Sinus rhythm. This was a technically good study. The left ventricular size is normal. There is mild concentric left ventricular hypertrophy. There is severe global hypokinesis of LV . Overall left ventricular systolic function is severely impair ed with, an EF < 20%. The right ventricle is normal in size. The left atrium is moderately dilated. LA is moderately dilated 34-39 ml/m2 The right atrial size is normal. There is mild aortic valve sclerosis. There is mild aortic regurgitation. Mild mitral annular calcification present. Mild mitral regurgitation is present. Mild tricuspid regurgitation present. Right ventricular systolic pressure is normal at < 35 mmHg. There is no evidence of pulmonary hypertension. Trace/mild (physiologic) pulmonic regurgitation. The aortic root size is normal. There is no pericardial effusion. CONCLUSIONS -------- 1. Sinus rhythm. 2. This was a technically good study. 3. The left ventricular size is normal. 4. There is mild concentric left ventricular hypertrophy. 5. There is severe global hypokinesis of LV . 6. Overall left ventricular systolic function is severely impaired with, an EF < 20%. 7. The right ventricle is normal in size. 8. The left atrium is moderately dilated. 9. LA is moderately dilated 34-39 ml/m2 10. The right atrial size is normal. 11. There is mild aortic valve sclerosis. 12. There is mild aortic regurgitation. 13. Mild mitral annular calcification present. 14. Mild mitral regurgitation is present. 15. Mild tricuspid regurgitation present. 16. Right ventricular systolic pressure is normal at < 35 mmHg. 17. There is no evidence of pulmonary hypertension. 18. Trace/mild (physiologic) pulmonic regurgitation. 19. The aortic root size is normal. 20. There is no pericardial effusion. CARD GRINDER: Ibis Morin RDCS
[2019-04-03] MEDS ORDERED: LIDOCAINE 1% INJ 10MG/ML (20 ML MDV) ONE ×2 (18:46→20:02)
[2019-04-03] MEDS ORDERED: fentaNYL (PF) 50 MCG/ML 2 ML AMP ONE (18:46)
[2019-04-03] MEDS ORDERED: ONDANSETRON 4 MG/2 ML VIAL ONE ×2 (18:55→19:10)
[2019-04-03] MEDS ORDERED: ONDANSETRON 4 MG/2 ML VIAL IVP ONE ×2 (19:05→19:11)
[2019-04-03] MEDS ORDERED: fentaNYL (PF) 50 MCG/ML 2 ML AMP IV ONE (19:08)
[2019-04-03] MEDS ORDERED: BENZOCAINE SPRAY 1 CAN MUCOUS MEM ONE (19:08)
[2019-04-03] MEDS ORDERED: MIDAZOLAM 2 MG/2 ML VIAL IVP ONE ×2 (19:08→19:12)
[2019-04-03] MEDS ORDERED: SODIUM CHLORIDE 0.9% 500 ML 500 ML IV ONE (19:11)
[2019-04-03] MEDS ORDERED: NOREPINEPHRINE IV ONE ×2 (19:24)
[2019-04-03] MEDS ORDERED: FLUID CONTINUATION IV ONE ×2 (19:24)
[2019-04-03] MEDS ORDERED: NOREPINEPHRINE 4 MG in SODIUM CHLORIDE 0.9% 250 ML IV ONE (19:27)
--- NOTE | 2019-04-03 19:43 | PN ---
PROGRESS NOTE DATE OF SERVICE: April 03, 2019. HISTORY: I was called by the nurse about 15 minutes ago to evaluate the patient again because he was not feeling well. Earlier today, he went into atrial fibrillation with RVR and was started on amiodarone IV with bolus and drip per protocol and apparently converted to normal sinus mechanism. For the last hour, we have been increasing the dose of norepinephrine because he is requiring more to support his blood pressure. I came into the room and evaluated the patient with his in the room. The patient stated that he is just not feeling well. He is not experiencing any symptoms of chest pain or chest discomfort but he is feeling more short of breath. I did a physical examination on him which revealed diminished breathing sounds in both lung castillo. Because he continues to be hemodynamically unstable and requiring more of vasopressors, I decided to take the patient back to the warehouse general laborer again to put an Impella from a groin approach and also to perform an angiogram with possible stenting of the left main coronary artery. The procedure in detail was explained to the patient and his . I also offered them for the patient to be transferred to [facility]. The patient and his preferred to stay here in this area because it is more convenient to them. Also on physical examination, I did not hear any murmur consistent with mitral regurgitation or ventricular septal defect. At this point, we are going to move forward with taking the patient to the cardiac warehouse general laborer to place an Impella from a groin approach as well as do an angiogram with stenting of the left main. MMODL / IJN: [id number] /
[2019-04-03] MEDS ORDERED: LIDOCAINE 1% INJ 10MG/ML (20 ML MDV) SQ ONE (19:46)
[2019-04-03] MEDS ORDERED: HEPARIN SODIUM,PORCINE 5,000 UNIT/ML 1 ML VIAL IV PRN ×2 (19:49→22:38)
[2019-04-03] MEDS ORDERED: HEPARIN SOD,PORK IN 0.45% NACL 25,000 UNIT in 0.45% NACL 1 250ML.BAG IV SCH ×2 (20:00→22:45)
[2019-04-03] MEDS ORDERED: SODIUM BICARB 8.4% 50 ML VIAL (1 MEQ/ML) IV ONE (20:10)
[2019-04-03] MEDS ORDERED: niCARdipine Syringe (1,000 mcg/10 mL) INTRAARTER ONE (20:31)
[2019-04-03] MEDS ORDERED: IOPAMIDOL-370 125ML BTL INJ ONE (20:48)
[2019-04-03] MEDS ORDERED: HEPARIN SODIUM 1,000 UN/ML (10ML VL) ONE (21:13)
[2019-04-03] MEDS ORDERED: RX INFO: IV CONTRAST WAS GIVEN 1 EACH MISC MISCELLANE PRN (21:27)
[2019-04-03] MEDS ORDERED: MAG HYDROX/AL HYDROX/SIMETH 30 ML CUP PO PRN (21:27)
[2019-04-03] MEDS ORDERED: ZOLPIDEM 5 MG TAB PO PRN (21:27)
[2019-04-03] MEDS ORDERED: NITROGLYCERIN SL TABS 0.4 MG TAB SUBLINGUAL PRN (21:27)
[2019-04-03] MEDS ORDERED: ATROPINE SULFATE 0.1 MG/ML 10ML SYRINGE IV PRN (21:27)
[2019-04-03] MEDS ORDERED: SODIUM CHLORIDE 0.9% 1,000 ML IV SCH (21:30)
[2019-04-03 22:49] LABS: Glucose,Whole Blood 115 mg/dL (75-99)
[2019-04-03 23:12] LABS: Basophils # (A) 0.1 k/uL (0-0.2); Basophils % (A) 0 %; Eosinophils # (A) 0.2 k/uL (0-0.7); Eosinophils % (A) 1 %; HCT 35.6 % (39.0-53.0); HGB 12.3 gm/dL (13.0-17.5); Lymphocytes # (A) 0.9 k/uL (1.0-4.8); Lymphocytes % (A) 7 %; MCH 31.9 pg (25.0-35.0); MCHC 34.6 g/dL (31.0-37.0); MCV 92.2 fL (80.0-100.0); Mean Platelet Volume 7.5; Monocytes # (A) 0.7 k/uL (0-1.0); Monocytes % (A) 5 %; Neutrophils # (A) 11.7 k/uL (1.3-7.7); Neutrophils % (A) 86 %; Platelet Count 188 k/uL (150-450); RBC 3.86 m/uL (4.30-5.90); RDW 13.6 % (11.5-15.5); WBC 13.6 k/uL (3.8-10.6)
[2019-04-03 23:22] LABS: African American GFR (CKD) >90 (>60 ml/min/1.73 sqM); Anion Gap 3 mmol/L; Blood Urea Nitrogen 18 mg/dL (9-20); Calcium 7.5 mg/dL (8.4-10.2); Carbon Dioxide 24 mmol/L (22-30); Chloride 109 mmol/L (98-107); Glucose 126 mg/dL (74-99); Magnesium 1.8 mg/dL (1.6-2.3); Non-African American GFR(CKD) 87 (>60 ml/min/1.73 sqM); Potassium 3.7 mmol/L (3.5-5.1); Sodium 136 mmol/L (137-145)
[2019-04-03] MEDS: HEPARIN SODIUM,PORCINE 12,500 UNIT in DEXTROSE 5% IN WATER 500 ML IV SCH ×2 (23:22)
[2019-04-03] MEDS: ATORVASTATIN 80 MG TAB PO SCH (23:29)
[2019-04-03 23:37] LABS: Partial Thromboplastin Time 77.4 sec (22.0-30.0); Prothrombin Time 10.6 sec (9.0-12.0)
--- NOTE | 2019-04-03 23:40 | PTCA ---
PERCUTANEOUSTRANS CORORONARY ANGIOGRAPHY DATE OF SERVICE: April 03, 2019. PERFORMING PHYSICIAN: Eleuterio Gupta MD. PROCEDURE PERFORMED: 1. Left heart catheterization. 2. Successful placement of Impella CP in the left ventricle. 3. Successful stenting of the first obtuse marginal branch of the left circumflex using 3.0 x 18 mm Xience KG with an excellent angiographic results. 4. Successful stenting of unprotected left main coronary artery using 4.0 x 18 and 4.0 x 8 mm Xience KG with an excellent angiographic results. 5. Intravascular ultrasound, IVUS of the left main. INDICATION: This is a 73-year-old gentleman with no previous medical history who was admitted to the hospital 2 days ago with acute anterior ST-elevation myocardial infarction and underwent a heart catheterization by Dr. Mcclure and that revealed occluded LAD and intermediate to severe disease involving the left main coronary artery. Also the patient was found to have severe disease involving the left circumflex coronary artery. He underwent successful angioplasty and stenting of the LAD. He continues to be hypotensive and in cardiogenic shock. Earlier today he was not feeling well. Because of that, he was brought today to undergo stenting of the left main and left circumflex with the support of Impella. APPROACH: Right and left common femoral arteries. COMPLICATION: None. LEVEL OF SEDATION: Moderate with sedation length of 85 minutes. PROCEDURE DESCRIPTION: After obtaining an informed consent, the patient was brought to the cardiac cathode ray tube assembler. The left common femoral artery was cannulated using micropuncture technique, the micropuncture wire passed easily. Then I placed a 6-[place] sheath in the left common femoral artery. Before that I did selective left common femoral artery angiogram to showed the exact location of the entry to the vessel. After that I did upgrade my sheath into 14-[place] sheath using 8-[place] dilator, 10-[place] dilator, and 12-[place] dilators. That was performed over stiff 035 wire. After that, anticoagulation was initiated using heparin with a bolus and continuous ACT monitoring. Subsequently, I did cross the left ventricle using 0.035 J-wire with a pigtail catheter. Then I did left heart catheterization which revealed elevated left ventricular end-diastolic pressure at 30 mmHg. After that, I did advance a 018 Impella wire through the pigtail catheter to the left ventricle. Then I pulled the pigtail catheter out. After that the Impella was advanced over the 018 wire to the left ventricle and we started pumping at that point. Subsequently, I took JL4 guide and the left main was engaged. I did wire the left circumflex using a run-through wire. After that I did balloon angioplasty using 2.5 x 12 mm balloon before I deployed a 3.0 x 18 mm Xience KG where the stent was positioned under fluoroscopy guidance and deployed under 14 atmospheres for 20 seconds with the following angiogram showing excellent angiographic results. For the left main coronary artery. I did redirect my wire into the LAD. After that I did balloon angioplasty using 3.5 x 12 mm balloon and then I deployed a 4.0 x 18 mm Xience KG where the stent was positioned under fluoroscopy guidance and deployed under 18 atmospheres for 20 seconds. The following angiogram showed an area at the distal edge of the stent concerning for edge dissection that was confirmed by and by intravascular ultrasound IVUS. Because of that I decided to cover that with a stent so I deployed 4.0 x 8 mm stent with which was overlapping the previous stent. The second stent was deployed under 14 atmospheres for 20 seconds. I post-dilated the 1st stent using 4.5 mm NC balloon. The final angiogram showed excellent angiographic results and the procedure was completed without any complication. POSTPROCEDURE MANAGEMENT: 1. Dual anti-platelet therapy. 2. Risk factors modifications. 3. Continue Impella support. 4. The norepinephrine was turned off. MALCOM / ISHANN: [id number] /
[2019-04-04] MEDS: AMIODARONE 300 MG in DEXTROSE 5% IN WATER 250 ML IV SCH ×2 (02:32)
[2019-04-04 03:35] LABS: Basophils % (A) 0 %; Eosinophils % (A) 0 %; HCT 34.8 % (39.0-53.0); HGB 11.9 gm/dL (13.0-17.5); Lymphocytes # (A) 1.3 k/uL (1.0-4.8); Lymphocytes % (A) 11 %; MCH 31.9 pg (25.0-35.0); MCHC 34.3 g/dL (31.0-37.0); MCV 92.9 fL (80.0-100.0); Mean Platelet Volume 7.6; Monocytes # (A) 0.9 k/uL (0-1.0); Monocytes % (A) 7 %; Neutrophils # (A) 9.6 k/uL (1.3-7.7); Neutrophils % (A) 80 %; Platelet Count 153 k/uL (150-450); RBC 3.74 m/uL (4.30-5.90); RDW 13.8 % (11.5-15.5); WBC 11.9 k/uL (3.8-10.6)
[2019-04-04] MEDS ORDERED: POTASSIUM CHLORIDE ER 20 MEQ TAB.ER PO SCH (05:00)
--- NOTE | 2019-04-04 05:02 | ECHOT ---
TRANSESOPHAGEAL ECHOCARDIOGRAM DATE OF SERVICE: April 03, 2019. PERFORMING PHYSICIAN: Eleuterio Gupta MD. PROCEDURE PERFORMED: Transesophageal echocardiogram. INDICATION: This is a very a pleasant 73-year-old gentleman who presented to the hospital 2 days ago with acute anterior ST-elevation myocardial infarction, where he underwent a heart catheterization by Dr. Mcclure and that revealed a subtotally occluded LAD in the ostial/proximal portion with severe disease involving the left main coronary artery as well as left circumflex coronary artery. At that point, the patient underwent successful percutaneous intervention on the LAD with an excellent angiographic results. He continues to be hypotensive and not feeling well and continues to require norepinephrine for blood pressure support. I was concerned about mitral regurgitation or ventricular septal defect. Because of that, he was brought today to undergo a ALTAF. COMPLICATION: None. LEVEL OF SEDATION: Moderate with sedation length of 10 minutes. PROCEDURE DESCRIPTION: After obtaining an informed consent, the patient was brought to the cardiac lab engineer. The patient was turned into left lateral position. A bite guard was placed after the patient's throat was sprayed using lidocaine. Subsequently the patient was given 2 mg of Versed. The transesophageal echocardiogram probe was advanced through the bite guard to the mid esophagus where 2D echocardiogram images, color Doppler images, continuous-wave Doppler images, and pulse-wave Doppler images were obtained. Particular attention was made toward the mitral valve as well as ventricular septum. The procedure was completed without any complication. FINDINGS: The left ventricular systolic function appeared to be severely impaired with EF between 30%-35%. Right ventricle appeared to be of normal size and function. The interventricular septum appeared to be intact without any evidence of VSD. The mitral valve appeared to be thickened with moderate MR. There was mild tricuspid regurgitation seen. The aortic valve appeared to be trileaflet valve without stenosis with mild insufficiency. CONCLUSION: 1. Severely impaired LV function with EF between 30%-35%. 2. No evidence of any ventricular septal defect seen. 3. Thickened anterior and posterior mitral leaflet with moderate MR. 4. Mild to moderate tricuspid regurgitation. 5. Trileaflet aortic valve without stenosis with mild insufficiency. 6. No evidence of pericardial effusion. MMODL / IJN: [id number] /
[2019-04-04 05:21] LABS: Partial Thromboplastin Time 40.9 sec (22.0-30.0)
[2019-04-04 05:28] LABS: African American GFR (CKD) >90 (>60 ml/min/1.73 sqM); Anion Gap 2 mmol/L; Blood Urea Nitrogen 19 mg/dL (9-20); Calcium 7.5 mg/dL (8.4-10.2); Carbon Dioxide 24 mmol/L (22-30); Chloride 109 mmol/L (98-107); Glucose 115 mg/dL (74-99); Magnesium 1.9 mg/dL (1.6-2.3); Non-African American GFR(CKD) 90 (>60 ml/min/1.73 sqM); Potassium 3.7 mmol/L (3.5-5.1); Sodium 135 mmol/L (137-145)
[2019-04-04 05:38] LABS: LDH 2468 U/L (313-618)
[2019-04-04] MEDS ORDERED: HEPARIN SODIUM,PORCINE 5,000 UNIT/ML 1 ML VIAL IV STA (07:29)
--- NOTE | 2019-04-04 08:18 | XR ---
EXAMINATION TYPE: XR chest 1V portable DATE OF EXAM: 04/04/2019 CLINICAL HISTORY: Difficulty breathing progress study. TECHNIQUE: Single AP portable supine view of the chest is obtained. COMPARISON: Chest x-ray from 2 days earlier. FINDINGS: Overlying EKG leads redemonstrated. Cardiac silhouette size is mildly enlarged on current study. Persistent left basilar linear scarring and/or atelectasis. No new suspicious focal airspace o pacity, pleural effusion, or pneumothorax seen bilaterally. Osseous structures are intact. IMPRESSION: Overall stable findings, mild cardiomegaly and left lateral basilar linear scarring and /or atelectasis. No new infiltrate.
[2019-04-04] MEDS: PANTOPRAZOLE 40 MG TABLET PO SCH (08:27)
[2019-04-04] MEDS: ASPIRIN 81 MG PO SCH (08:27)
[2019-04-04] MEDS: TICAGRELOR 90 MG TAB PO SCH ×2 (08:27→20:34)
[2019-04-04] MEDS ORDERED: Magnesium Replacement Protocol 1 EACH MISC MISCELLANE PRN (08:53)
[2019-04-04] MEDS ORDERED: LOSARTAN 25 MG TAB PO STA (09:40)
[2019-04-04] MEDS: MAGNESIUM SULFATE-D5W PMX 1 GM in DEXTROSE/WATER 1 100ML.BAG IVPB SCH ×2 (09:58→10:59)
--- NOTE | 2019-04-04 10:22 | P.PN ---
Subjective Progress Note Date: 04/04/19 Principal diagnosis: Acute ST segment elevation myocardial infarction status post stenting 3 to the LAD This is a 73-year-old white male with history of multiple medical problems including hyperlipidemia, GERD, nephrolithiasis, remote history of pneumonia, patient presented to the ER on 04/01/2019, mostly with anginal symptoms/severe chest pain. Patient was diagnosed as having acute ST elevation myocardial infarction. And he was seen by cardiology on consultation. Patient underwent aspiration thrombectomy, successful stenting of proximal LAD, successful stenting of mid LAD, and intravascular ultrasound of the left anterior descending artery and left main coronary artery. Echocardiogram showed severe LV dysfunction. Patient was also found to have the significant left main coronary artery lesion, and that is supposed to be addressed in the near future by cardiology. Since his cardiac catheterization, patient required pressors in the form of norepinephrine. He was placed on dual antiplatelet therapy, his beta blockers and MITZY inhibitor's remain on hold. The ambulance paramedic was concerned about the possibility of underlying sepsis, however the clinical history is mostly cardiac history. His urinalysis is suggestive of a minimal urinary tract infection, and a chest x-ray showed no evidence of infiltrate. Plus the patient had no symptoms to suggest pneumonia. His urinalysis showed 13 WBCs, and moderate urine leukocyte esterase. Patient had no active renal symptoms whatsoever. He had no active pulmonary symptoms whatsoever. His white count since admission was noted to rise, he presented with a WBC count of 11.6, and now it is 18.2. Considering the leukocytosis, and considering the concern of a possible urinary tract infection, I would recommend empirically Rocephin until cultures are available The patient is seen today 04/04/2019 in follow-up in the intensive care unit. Last evening he was not feeling quite well. He had been hemodynamically unstable requiring more vasopressors. Dr. Gupta took the patient back to the Fashion Coordinator and place and placed and Impella CP in the left ventricle, groin approach. He also performed successful stenting of the first obtuse marginal branch of the left circumflex, stenting of unprotected left main coronary artery, IVUS of the left main. He is seen today in follow-up in the intensive care unit. He is currently awake and alert in no acute distress. No current chest pain. He is maintaining O2 saturations in the 90s on 2 L/m per nasal cannula. He has a 0.9% normal saline running at 75 ML's per hour. Amiodarone drip at 0.5 mg/m. Heparin drip per weight base protocol. Norepinephrine is currently off. Chest x-ray reveals stable findings. Mild cardiomegaly and a left lateral basilar linear scarring/atelectasis. No new infiltrates. White count 11.9. Hemoglobin 11.9. Sodium 135. Potassium 3.7. Chloride 109. Creatinine 0.77. Magnesium 1.9. LDH 2468. He is currently on aspirin and Brilinta. Antibiotics in the form of ceftriaxone.. Objective - Vital Signs Vital signs: Vital Signs Temp 98.2 F 04/04/19 09:12 Pulse 78 04/04/19 09:00 Resp 20 04/04/19 09:00 BP 95/79 04/04/19 09:00 Pulse Ox 95 04/04/19 09:00 Intake & Output 04/03/19 04/04/19 04/04/19 18:59 06:59 18:59 Intake Total 2225.134 954.541 225 Output Total 905 835 320 Balance 1320.134 119.541 -95 Weight 84.2 kg Intake: IV 1200 675 225 Sodium Chloride 0.9% 1, 1200 675 225 000 ml @ 100 mls/hr IV . Q10H NUNU Rx#:[id number] Intake, IV Titration 525.134 279.541 Amount Amiodarone 300 mg In 250 Dextrose 5% in Water 250 ml @ 0.5 MG/MIN 25 mls/hr IV .Q10H NUNU Rx#: [id number] Heparin Sod,Pork in 0.45% 29.541 NaCl 25,000 unit In 0.45 % NaCl 1 250ml.bag @ Per Protocol IV .Q0M NUNU Rx#: [id number] Norepinephrine 4 mg In 525.134 Sodium Chloride 0.9% 250 ml @ 0.05 MCG/KG/MIN 15. 526 mls/hr IV .[id number] NUNU Rx#:[id number] Oral 500 Output: Urine 905 835 320 Other: Voiding Method Indwelling Catheter Indwelling Catheter Indwelling Catheter # Bowel Movements 1 ABP, PAP, CO, CI - Last Documented Arterial Blood Pressure 105/65 - Exam GENERAL EXAM: Alert, very pleasant 73-year-old gentleman, on 2 L nasal cannula, currently comfortable in no apparent distress. HEAD: Normocephalic. EYES: Normal reaction of pupils, equal size. NOSE: Clear with pink turbinates. THROAT: No erythema or exudates. NECK: No masses, no JVD. CHEST: No chest wall deformity. LUNGS: Equal air entry with no crackles, wheeze, rhonchi or dullness. CVS: S1 and S2 normal with no audible murmur, regular rhythm. ABDOMEN: No hepatosplenomegaly, normal bowel sounds, no guarding or rigidity. SPINE: No scoliosis or deformity SKIN: No rashes CENTRAL NERVOUS SYSTEM: No focal deficits, tone is normal in all 4 extremities. EXTREMITIES: There is no peripheral edema. No clubbing, no cyanosis. Doppler pulses.. - Labs CBC & Chem 7: 04/04/19 03:00 04/04/19 04:55 Labs: Abnormal Lab Results - Last 24 Hours (Table) 04/03/19 04/03/19 04/03/19 Range/Units 22:37 23:00 23:00 WBC 13.6 H (3.8-10.6) k/uL RBC 3.86 L (4.30-5.90) m/uL Hgb 12.3 L (13.0-17.5) gm/dL Hct 35.6 L (39.0-53.0) % Neutrophils # 11.7 H (1.3-7.7) k/uL Lymphocytes # 0.9 L (1.0-4.8) k/uL APTT 77.4 H (22.0-30.0) sec Fibrinogen 511 H (200-500) mg/dL Sodium (137-145) mmol/L Chloride (98-107) mmol/L Glucose (74-99) mg/dL POC Glucose (mg/dL) 115 H (75-99) mg/dL Calcium (8.4-10.2) mg/dL Lactate Dehydrogenase (313-618) U/L 04/03/19 04/03/19 04/04/19 Range/Units 23:00 23:00 03:00 WBC 11.9 H (3.8-10.6) k/uL RBC 3.74 L (4.30-5.90) m/uL Hgb 11.9 L (13.0-17.5) gm/dL Hct 34.8 L (39.0-53.0) % Neutrophils # 9.6 H (1.3-7.7) k/uL Lymphocytes # (1.0-4.8) k/uL APTT (22.0-30.0) sec Fibrinogen (200-500) mg/dL Sodium 136 L (137-145) mmol/L Chloride 109 H (98-107) mmol/L Glucose 126 H (74-99) mg/dL POC Glucose (mg/dL) (75-99) mg/dL Calcium 7.5 L (8.4-10.2) mg/dL Lactate Dehydrogenase 2199 H (313-618) U/L 04/04/19 04/04/19 04/04/19 Range/Units 03:00 03:25 04:55 WBC (3.8-10.6) k/uL RBC (4.30-5.90) m/uL Hgb (13.0-17.5) gm/dL Hct (39.0-53.0) % Neutrophils # (1.3-7.7) k/uL Lymphocytes # (1.0-4.8) k/uL APTT (22.0-30.0) sec Fibrinogen 601 H (200-500) mg/dL Sodium 135 L (137-145) mmol/L Chloride 109 H (98-107) mmol/L Glucose 115 H (74-99) mg/dL POC Glucose (mg/dL) (75-99) mg/dL Calcium 7.5 L (8.4-10.2) mg/dL Lactate Dehydrogenase 2344 H 2468 H (313-618) U/L 04/04/19 Range/Units 04:55 WBC (3.8-10.6) k/uL RBC (4.30-5.90) m/uL Hgb (13.0-17.5) gm/dL Hct (39.0-53.0) % Neutrophils # (1.3-7.7) k/uL Lymphocytes # (1.0-4.8) k/uL APTT 40.9 H (22.0-30.0) sec Fibrinogen 582 H (200-500) mg/dL Sodium (137-145) mmol/L Chloride (98-107) mmol/L Glucose (74-99) mg/dL POC Glucose (mg/dL) (75-99) mg/dL Calcium (8.4-10.2) mg/dL Lactate Dehydrogenase (313-618) U/L Microbiology - Last 24 Hours (Table) 04/02/19 08:10 Urine Culture - Final Urine,Voided Assessment and Plan Assessment: Impression: Acute anterior ST elevation myocardial infarction, status post stenting to the LAD Severe triple-vessel coronary artery disease. Including left main disease. Status post Impella placement and stenting to the left main and left circumflex Severe cardiomyopathy, most likely ischemic in nature. And severe LV dysfunction. Cardiogenic shock, clearly not septic in nature. Possible urinary tract infection, asymptomatic. Multiple comorbidities including GERD, dyslipidemia, acute kidney injury, degenerative joint disease, history of nephrolithiasis, Plan: The patient was seen and evaluated by Dr. Escudero. Chest x-ray and labs reviewed. He is currently off norepinephrine. Continued on IV amiodarone, IV heparin. Impella in place. On aspirin and Brilinta. No chest pain this morning. We'll continue to monitor him closely here in the intensive care unit and make further recommendations based on his clinical status. Critical care time 35 minutes. I, the cosigning physician, performed a history & physical examination of the patient. Lungs sounds with faint crackles in the posterior bases Maintaining good O2 saturations in the 90s on liters per minute per nasal cannula. I discussed the assessment and plan of care with my nurse practitioner, Juli Collazo. I attest to the above note as dictated by her. Time with Patient: Greater than 30
[2019-04-04] MEDS: AMIODARONE 200 MG TAB PO SCH ×2 (10:30→20:33)
[2019-04-04] MEDS: SODIUM CHLORIDE 0.9% 1,000 ML IV SCH ×2 (10:36→20:34)
--- NOTE | 2019-04-04 11:00 | ECHOF ---
Referral Reason:Impella MEASUREMENTS -------- HEIGHT: 182.9 cm WEIGHT: 83.9 kg BP: 106/76 RAP: 5.00 mmHg RVSP: 32.66 mmHg FINDINGS -------- Sinus rhythm. Limited Study Overall left ventricular systolic function is severely impaired with, an EF between 20 - 25 %. Mild tricuspid regurgitation present. Right ventricular systolic pressure is normal at < 35 mmHg. Normal inferior vena cava with normal inspiratory collapse consistent with estimated right atrial pre ssure of 5 mmHg. The inferior vena cava is mildly dilated. There is no pericardial effusion. CONCLUSIONS -------- 1. Sinus rhythm. 2. Limited Study 3. Overall left ventricular systolic function is severely impaired with, an EF between 20 - 25 %. 4. Mild tricuspid regurgitation present. 5. Right ventricular systolic pressure is normal at < 35 mmHg. 6. Normal inferior vena cava with normal inspiratory collapse consistent with estimated right atrial pressure of 5 mmHg. 7. The inferior vena cava is mildly dilated. 8. There is no pericardial effusion. TELESALES SUPERVISOR: Maday Dotson RDCS
[2019-04-04 12:05] LABS: Partial Thromboplastin Time 71.8 sec (22.0-30.0)
[2019-04-04 13:08] LABS: Basophils # (A) 0.1 k/uL (0-0.2); Basophils % (A) 0 %; Eosinophils # (A) 0.2 k/uL (0-0.7); Eosinophils % (A) 1 %; HCT 33.2 % (39.0-53.0); HGB 11.5 gm/dL (13.0-17.5); Lymphocytes # (A) 1.2 k/uL (1.0-4.8); Lymphocytes % (A) 11 %; MCH 32.1 pg (25.0-35.0); MCHC 34.7 g/dL (31.0-37.0); MCV 92.7 fL (80.0-100.0); Monocytes # (A) 0.7 k/uL (0-1.0); Monocytes % (A) 7 %; Neutrophils # (A) 8.9 k/uL (1.3-7.7); Neutrophils % (A) 80 %; Platelet Count 162 k/uL (150-450); RBC 3.58 m/uL (4.30-5.90); RDW 13.6 % (11.5-15.5); WBC 11.2 k/uL (3.8-10.6)
--- NOTE | 2019-04-04 14:02 | P.PN ---
Subjective This is Emely Fong PA-C dictating a progress note on this patient The patient was interviewed and examined by me as well as by Dr. Alaniz Case discussed with Dr. Alaniz and he agrees with the plan of care IMPRESSION / ASSESSMENT: Acute anterior ST elevation CA Cardiogenic shock s/p imella placement CAD status post stenting of the left main, LAD, and first OM Severe ischemic cardiomyopathy, most recent echo showing EF any to 25% PLAN: Switch to oral amiodarone 400 mg by mouth twice a day for one week then reduce the dose thereafter Start low-dose losartan Hold off starting beta blockers for now due to hypotension Continue dual antiplatelet therapy and atorvastatin HPI/interval history Patient is a 73-year-old male who presented with complaints of chest discomfort and was diagnosed with acute acute anterior ST elevation CA. He underwent emergent coronary angiogram and stenting to the LAD. Subsequent echocardiogram showed severe global hypokinesis, EF less than 20%. He remained hypotensive and was requiring higher doses of pressors. He underwent a ALTAF showing severely impaired EF, 30-35%, and moderate MR. No evidence of VSD. He subsequently underwent successful stenting of the first OM and left main as well as an impella placement yesterday. Patient seen and examined resting in bed. States he is feeling a little better. Denies any chest pain. Echocardiogram again today reveals EF 20-25%. EXAMINATION Patient is afebrile, pulse in the 70s, respirations 16, blood pressure 106/73, oxygen saturation 97% on room air Patient seen and examined resting in bed, in no acute distress Lungs are clear to auscultation bilaterally, no wheezing or rhonchi or crackles Heart is regular, normal S1 and S2, no audible murmurs No elevated JVD Right groin access site with FemStop in place Extremities warm, no edema REVIEW OF LABS, ECG WBC 11.2, hemoglobin 11.5, platelets 162, potassium 3.7, BUN 19 and creatinine 0 .77 Objective - Vital Signs Vital signs: Vital Signs Temp 98.2 F 04/04/19 09:12 Pulse 77 04/04/19 13:00 Resp 16 04/04/19 13:00 BP 106/73 04/04/19 13:00 Pulse Ox 97 04/04/19 13:00 Intake & Output 04/03/19 04/04/19 04/04/19 18:59 06:59 18:59 Intake Total 2225.134 954.541 767.917 Output Total 905 835 945 Balance 1320.134 119.541 -177.083 Weight 84.2 kg Intake: IV 1200 675 525 Sodium Chloride 0.9% 1, 1200 675 525 000 ml @ 100 mls/hr IV . Q10H NUNU Rx#:[id number] Intake, IV Titration 525.134 279.541 242.917 Amount Amiodarone 300 mg In 250 Dextrose 5% in Water 250 ml @ 0.5 MG/MIN 25 mls/hr IV .Q10H NUNU Rx#: [id number] Heparin Sod,Pork in 0.45% 29.541 42.917 NaCl 25,000 unit In 0.45 % NaCl 1 250ml.bag @ Per Protocol IV .Q0M NUNU Rx#: [id number] Magnesium Sulfate-D5w Pmx 200 1 gm In Dextrose/Water 1 100ml.bag @ 100 mls/hr IVPB Q1H NUNU Rx#: [id number] Norepinephrine 4 mg In 525.134 Sodium Chloride 0.9% 250 ml @ 0.05 MCG/KG/MIN 15. 526 mls/hr IV .[id number] NUNU Rx#:[id number] Oral 500 Output: Urine 905 835 945 Other: Voiding Method Indwelling Catheter Indwelling Catheter Indwelling Catheter # Bowel Movements 1 ABP, PAP, CO, CI - Last Documented Arterial Blood Pressure 102/65 - Labs CBC & Chem 7: 04/04/19 12:38 04/04/19 04:55 Labs: Abnormal Lab Results - Last 24 Hours (Table) 04/03/19 04/03/19 04/03/19 Range/Units 22:37 23:00 23:00 WBC 13.6 H (3.8-10.6) k/uL RBC 3.86 L (4.30-5.90) m/uL Hgb 12.3 L (13.0-17.5) gm/dL Hct 35.6 L (39.0-53.0) % Neutrophils # 11.7 H (1.3-7.7) k/uL Lymphocytes # 0.9 L (1.0-4.8) k/uL APTT 77.4 H (22.0-30.0) sec Fibrinogen 511 H (200-500) mg/dL Sodium (137-145) mmol/L Chloride (98-107) mmol/L Glucose (74-99) mg/dL POC Glucose (mg/dL) 115 H (75-99) mg/dL Calcium (8.4-10.2) mg/dL Lactate Dehydrogenase (313-618) U/L 04/03/19 04/03/19 04/04/19 Range/Units 23:00 23:00 03:00 WBC 11.9 H (3.8-10.6) k/uL RBC 3.74 L (4.30-5.90) m/uL Hgb 11.9 L (13.0-17.5) gm/dL Hct 34.8 L (39.0-53.0) % Neutrophils # 9.6 H (1.3-7.7) k/uL Lymphocytes # (1.0-4.8) k/uL APTT (22.0-30.0) sec Fibrinogen (200-500) mg/dL Sodium 136 L (137-145) mmol/L Chloride 109 H (98-107) mmol/L Glucose 126 H (74-99) mg/dL POC Glucose (mg/dL) (75-99) mg/dL Calcium 7.5 L (8.4-10.2) mg/dL Lactate Dehydrogenase 2199 H (313-618) U/L 04/04/19 04/04/19 04/04/19 Range/Units 03:00 03:25 04:55 WBC (3.8-10.6) k/uL RBC (4.30-5.90) m/uL Hgb (13.0-17.5) gm/dL Hct (39.0-53.0) % Neutrophils # (1.3-7.7) k/uL Lymphocytes # (1.0-4.8) k/uL APTT (22.0-30.0) sec Fibrinogen 601 H (200-500) mg/dL Sodium 135 L (137-145) mmol/L Chloride 109 H (98-107) mmol/L Glucose 115 H (74-99) mg/dL POC Glucose (mg/dL) (75-99) mg/dL Calcium 7.5 L (8.4-10.2) mg/dL Lactate Dehydrogenase 2344 H 2468 H (313-618) U/L 04/04/19 04/04/19 04/04/19 Range/Units 04:55 11:00 12:38 WBC 11.2 H (3.8-10.6) k/uL RBC 3.58 L (4.30-5.90) m/uL Hgb 11.5 L (13.0-17.5) gm/dL Hct 33.2 L (39.0-53.0) % Neutrophils # 8.9 H (1.3-7.7) k/uL Lymphocytes # (1.0-4.8) k/uL APTT 40.9 H 71.8 H (22.0-30.0) sec Fibrinogen 582 H 583 H (200-500) mg/dL Sodium (137-145) mmol/L Chloride (98-107) mmol/L Glucose (74-99) mg/dL POC Glucose (mg/dL) (75-99) mg/dL Calcium (8.4-10.2) mg/dL Lactate Dehydrogenase (313-618) U/L Microbiology - Last 24 Hours (Table) 04/02/19 08:10 Urine Culture - Final Urine,Voided
[2019-04-04 16:13] LABS: Potassium 4.1 mmol/L (3.5-5.1)
--- NOTE | 2019-04-04 17:11 | P.PN ---
Subjective Progress Note Date: 04/04/19 This is a 73-year-old gentleman admitted with acute STEMI status post cardiac catheterization with stenting of the LAD, new onset atrial fibrillation, acute renal failure and multiple other medical issues.. Maintained on dual antiplatelet therapy. Beta jose luis, lisinopril on hold secondary to hypotension . 04/04/2019 Last night, hypotensive, in cardiogenic shock, vasopressors increased-hemodynamically unstable. Patient returned to the Credit Product Analyst receiving Impella pump placement along with successful stenting of the first OM, left main.current echocardiogram reporting EF of 20-25%. Currently off Levophed. Denies chest pain, palpitations or shortness of breath. Denies lightheadedness, dizziness or focal deficits. IV amiodarone converted to oral. Chest x-ray stable, with no new infiltrates on IV Rocephin. Maintaining O2 sats in the low 90s on 2 L nasal cannula. Continues on gentle IV fluid hydration. Afebrile, WBC 11.2. Urine culture no growth. Hemoglobin 11.5. Objective - Vital Signs Vital signs: Vital Signs Temp 98.3 F 04/04/19 16:00 Pulse 92 04/04/19 16:00 Resp 17 04/04/19 16:00 BP 108/75 04/04/19 16:00 Pulse Ox 95 04/04/19 16:00 Intake & Output 04/03/19 04/04/19 04/04/19 18:59 06:59 18:59 Intake Total 2225.134 954.541 992.917 Output Total 151 206 4583 Balance 1320.134 119.541 -217.083 Weight 84.2 kg Intake: IV 1200 675 750 Sodium Chloride 0.9% 1, 1200 675 750 000 ml @ 100 mls/hr IV . Q10H [facility] Rx#:[id number] Intake, IV Titration 525.134 279.541 242.917 Amount Amiodarone 300 mg In 250 Dextrose 5% in Water 250 ml @ 0.5 MG/MIN 25 mls/hr IV .Q10H [facility] Rx#: [id number] Heparin Sod,Pork in 0.45% 29.541 42.917 NaCl 25,000 unit In 0.45 % NaCl 1 250ml.bag @ Per Protocol IV .Q0M [facility] Rx#: [id number] Magnesium Sulfate-D5w Pmx 200 1 gm In Dextrose/Water 1 100ml.bag @ 100 mls/hr IVPB Q1H [facility] Rx#: [id number] Norepinephrine 4 mg In 525.134 Sodium Chloride 0.9% 250 ml @ 0.05 MCG/KG/MIN 15. 526 mls/hr IV .[id number] [facility] Rx#:[id number] Oral 500 Output: Urine 036 099 3558 Other: Voiding Method Indwelling Catheter Indwelling Catheter Indwelling Catheter # Bowel Movements 1 ABP, PAP, CO, CI - Last Documented Arterial Blood Pressure 112/63 - Exam PHYSICAL EXAM: VITAL SIGNS: [As above] GENERAL: Sitting up in bed, no acute disease HEENT: Conjunctivae normal. eyes normal. Oral mucosa moist NECK: Elevated JVD. No thyroid enlargement. No LNs CARDIOVASCULAR: S1, S2 regular.. No murmur RESPIRATION: Breath sounds diminished in the bases. Fine basilar crackles, no rhonchi, no wheezing. ABDOMEN: Soft, nontender . No guarding. no masses palpable. No ascites, No hepatosplenomegaly.Bowel sounds heard. LEGS: No edema. no swelling. Doppler pulses. PSYCHIATRY: Alert and oriented X3, mood and affect normal. NERVOUS SYSTEM: Cranial N 2-12 grossly normal. Moves all 4 limbs. Diffuse weakness No focal deficits. Strength and sensation grossly intact.. Skin: no rash - Labs CBC & Chem 7: 04/04/19 12:38 04/04/19 15:04 Labs: Abnormal Lab Results - Last 24 Hours (Table) 04/03/19 04/03/19 04/03/19 Range/Units 22:37 23:00 23:00 WBC 13.6 H (3.8-10.6) k/uL RBC 3.86 L (4.30-5.90) m/uL Hgb 12.3 L (13.0-17.5) gm/dL Hct 35.6 L (39.0-53.0) % Neutrophils # 11.7 H (1.3-7.7) k/uL Lymphocytes # 0.9 L (1.0-4.8) k/uL APTT 77.4 H (22.0-30.0) sec Fibrinogen 511 H (200-500) mg/dL Sodium (137-145) mmol/L Chloride (98-107) mmol/L Glucose (74-99) mg/dL POC Glucose (mg/dL) 115 H (75-99) mg/dL Calcium (8.4-10.2) mg/dL Lactate Dehydrogenase (313-618) U/L 04/03/19 04/03/19 04/04/19 Range/Units 23:00 23:00 03:00 WBC 11.9 H (3.8-10.6) k/uL RBC 3.74 L (4.30-5.90) m/uL Hgb 11.9 L (13.0-17.5) gm/dL Hct 34.8 L (39.0-53.0) % Neutrophils # 9.6 H (1.3-7.7) k/uL Lymphocytes # (1.0-4.8) k/uL APTT (22.0-30.0) sec Fibrinogen (200-500) mg/dL Sodium 136 L (137-145) mmol/L Chloride 109 H (98-107) mmol/L Glucose 126 H (74-99) mg/dL POC Glucose (mg/dL) (75-99) mg/dL Calcium 7.5 L (8.4-10.2) mg/dL Lactate Dehydrogenase 2199 H (313-618) U/L 04/04/19 04/04/19 04/04/19 Range/Units 03:00 03:25 04:55 WBC (3.8-10.6) k/uL RBC (4.30-5.90) m/uL Hgb (13.0-17.5) gm/dL Hct (39.0-53.0) % Neutrophils # (1.3-7.7) k/uL Lymphocytes # (1.0-4.8) k/uL APTT (22.0-30.0) sec Fibrinogen 601 H (200-500) mg/dL Sodium 135 L (137-145) mmol/L Chloride 109 H (98-107) mmol/L Glucose 115 H (74-99) mg/dL POC Glucose (mg/dL) (75-99) mg/dL Calcium 7.5 L (8.4-10.2) mg/dL Lactate Dehydrogenase 2344 H 2468 H (313-618) U/L 01/04/04/19 04/04/19 Range/Units 04:55 11:00 11:00 WBC (3.8-10.6) k/uL RBC (4.30-5.90) m/uL Hgb (13.0-17.5) gm/dL Hct (39.0-53.0) % Neutrophils # (1.3-7.7) k/uL Lymphocytes # (1.0-4.8) k/uL APTT 40.9 H 71.8 H (22.0-30.0) sec Fibrinogen 582 H 583 H (200-500) mg/dL Sodium (137-145) mmol/L Chloride (98-107) mmol/L Glucose (74-99) mg/dL POC Glucose (mg/dL) (75-99) mg/dL Calcium (8.4-10.2) mg/dL Lactate Dehydrogenase 2908 H (313-618) U/L 04/04/19 04/04/19 Range/Units 12:38 15:04 WBC 11.2 H (3.8-10.6) k/uL RBC 3.58 L (4.30-5.90) m/uL Hgb 11.5 L (13.0-17.5) gm/dL Hct 33.2 L (39.0-53.0) % Neutrophils # 8.9 H (1.3-7.7) k/uL Lymphocytes # (1.0-4.8) k/uL APTT (22.0-30.0) sec Fibrinogen 612 H (200-500) mg/dL Sodium (137-145) mmol/L Chloride (98-107) mmol/L Glucose (74-99) mg/dL POC Glucose (mg/dL) (75-99) mg/dL Calcium (8.4-10.2) mg/dL Lactate Dehydrogenase (313-618) U/L Microbiology - Last 24 Hours (Table) 04/02/19 08:10 Urine Culture - Final Urine,Voided Assessment and Plan Assessment: -Acute ST elevation microinfarction: Patient is status post cardiac catheterization and stenting of LAD, -Severe triple vessel disease . Status post Impella placement with stenting of the left main and first OM of left circumflex -Severe ischemic cardiomyopathy, current EF 20-25%. -Moderate mitral regurgitation -New-onset atrial fibrillation -Acute systolic dysfunction, heart failure not in heart failure exacerbation. Patient is hypotensive patient is fairly euvolemic and patient has good urine output today creatinine improved to 1.05 -Acute renal failure renal azotemia most probably from heart failure and myocardial infarction. -Cardiogenic shock -Nausea vomiting secondary to stress-induced gastritis, improved -Hyperlipidemia -Gastroesophageal reflux disease Plan: Continue on current medication regime ,monitoring and symptomatic treatment. Dual antiplatelet therapy. Heparin protocol. Antihypertensives on hold secondary to hypotension. Oral amiodarone. Prognosis guarded given multiple complex medical issues. The impression and plan of care has been dictated as directed. : I performed a history and examination of this patient, discussed the same with the dictator. I agree with the dictator's note ,documented as a scribe. Any additional findings or plans will be noted.
[2019-04-04] MEDS: ATORVASTATIN 80 MG TAB PO SCH (20:33)
[2019-04-04] MEDS ORDERED: METOPROLOL TARTRATE 5 MG/5 ML VIAL IVP STA (21:55)
[2019-04-04] MEDS ORDERED: METOPROLOL TARTRATE 5 MG/5 ML VIAL IVP ONE ×2 (21:56→22:59)
[2019-04-04] MEDS ORDERED: DEXTROSE 5% IN WATER 100 ML with AMIODARONE 150 MG IV ONE (22:00)
[2019-04-04] MEDS ORDERED: AMIODARONE 360 MG in DEXTROSE 5% IN WATER 200 ML IV ONE ×2 (22:15)
[2019-04-04 23:33] LABS: Basophils # (A) 0.1 k/uL (0-0.2); Basophils % (A) 1 %; Eosinophils # (A) 0.2 k/uL (0-0.7); Eosinophils % (A) 2 %; HGB 11.4 gm/dL (13.0-17.5); Lymphocytes # (A) 1.3 k/uL (1.0-4.8); Lymphocytes % (A) 11 %; MCH 30.4 pg (25.0-35.0); MCHC 32.7 g/dL (31.0-37.0); Mean Platelet Volume 7.7; Monocytes # (A) 0.7 k/uL (0-1.0); Monocytes % (A) 6 %; Neutrophils # (A) 9.3 k/uL (1.3-7.7); Neutrophils % (A) 80 %; Platelet Count 140 k/uL (150-450); RBC 3.76 m/uL (4.30-5.90); RDW 13.6 % (11.5-15.5); WBC 11.6 k/uL (3.8-10.6)
[2019-04-05] MEDS ORDERED: BISACODYL 10 MG SUPP RECTAL STA (00:59)
[2019-04-05] MEDS: HEPARIN SODIUM,PORCINE 12,500 UNIT in DEXTROSE 5% IN WATER 500 ML IV SCH ×2 (01:02)
[2019-04-05 01:22] LABS: ALT 40 U/L (4-49); AST 152 U/L (17-59); African American GFR (CKD) >90 (>60 ml/min/1.73 sqM); Albumin 2.6 g/dL (3.5-5.0); Alkaline Phosphatase 67 U/L (38-126); Anion Gap 3 mmol/L; Blood Urea Nitrogen 18 mg/dL (9-20); Calcium 7.3 mg/dL (8.4-10.2); Carbon Dioxide 21 mmol/L (22-30); Chloride 110 mmol/L (98-107); Glucose 113 mg/dL (74-99); Magnesium 2.1 mg/dL (1.6-2.3); Non-African American GFR(CKD) 86 (>60 ml/min/1.73 sqM); Potassium 3.9 mmol/L (3.5-5.1); Sodium 134 mmol/L (137-145); Total Bilirubin 1.3 mg/dL (0.2-1.3); Total Protein 5.4 g/dL (6.3-8.2)
[2019-04-05] MEDS: AMIODARONE 300 MG in DEXTROSE 5% IN WATER 250 ML IV SCH ×4 (04:14→15:12)
[2019-04-05 04:35] LABS: Basophils % (A) 0 %; Eosinophils # (A) 0.2 k/uL (0-0.7); Eosinophils % (A) 2 %; HCT 33.1 % (39.0-53.0); HGB 10.8 gm/dL (13.0-17.5); Lymphocytes % (A) 9 %; MCH 30.4 pg (25.0-35.0); MCHC 32.6 g/dL (31.0-37.0); MCV 93.2 fL (80.0-100.0); Mean Platelet Volume 7.8; Monocytes # (A) 0.8 k/uL (0-1.0); Monocytes % (A) 7 %; Neutrophils # (A) 9.5 k/uL (1.3-7.7); Neutrophils % (A) 81 %; Platelet Count 142 k/uL (150-450); RBC 3.55 m/uL (4.30-5.90); RDW 13.7 % (11.5-15.5); WBC 11.7 k/uL (3.8-10.6)
[2019-04-05 05:15] LABS: African American GFR (CKD) >90 (>60 ml/min/1.73 sqM); Anion Gap 1 mmol/L; Blood Urea Nitrogen 18 mg/dL (9-20); Calcium 7.4 mg/dL (8.4-10.2); Carbon Dioxide 24 mmol/L (22-30); Chloride 108 mmol/L (98-107); Glucose 115 mg/dL (74-99); Magnesium 2.2 mg/dL (1.6-2.3); Non-African American GFR(CKD) 86 (>60 ml/min/1.73 sqM); Potassium 3.8 mmol/L (3.5-5.1); Sodium 133 mmol/L (137-145)
[2019-04-05 05:22] LABS: LDH 2831 U/L (313-618)
[2019-04-05] MEDS ORDERED: POTASSIUM CHLORIDE ER 20 MEQ TAB.ER PO SCH (06:00)
[2019-04-05] MEDS: SODIUM CHLORIDE 0.9% 1,000 ML IV SCH ×2 (06:24→16:17)
[2019-04-05] MEDS ORDERED: ALPRAZolam 0.25 MG TAB PO STA (07:53)
[2019-04-05 08:18] LABS: Partial Thromboplastin Time 69.4 sec (22.0-30.0)
[2019-04-05] MEDS: ASPIRIN 81 MG PO SCH (08:21)
[2019-04-05] MEDS: TICAGRELOR 90 MG TAB PO SCH ×2 (08:21→20:31)
[2019-04-05] MEDS: PANTOPRAZOLE 40 MG TABLET PO SCH (08:21)
--- NOTE | 2019-04-05 08:41 | XR ---
EXAMINATION TYPE: XR chest 1V DATE OF EXAM: 04/05/2019 COMPARISON: 04/04/2019 HISTORY: Difficulty breathing TECHNIQUE: Single frontal view of the chest is obtained. FINDINGS: Subsegmental changes at the bases persist. No interstitial edema or pneumothorax. Biapical pleural thickening. Heart size normal. IMPRESSION: Basilar atelectasis favored over pneumonia. Findings stable
--- NOTE | 2019-04-05 09:24 | P.PN ---
Subjective Progress Note Date: 04/05/19 Principal diagnosis: Acute ST segment elevated myocardial infarction status post stenting 3 to the LAD and insertion of Impella This is a 73-year-old white male with history of multiple medical problems including hyperlipidemia, GERD, nephrolithiasis, remote history of pneumonia, patient presented to the ER on 04/01/2019, mostly with anginal symptoms/severe chest pain. Patient was diagnosed as having acute ST elevation myocardial infarction. And he was seen by cardiology on consultation. Patient underwent aspiration thrombectomy, successful stenting of proximal LAD, successful stenting of mid LAD, and intravascular ultrasound of the left anterior descending artery and left main coronary artery. Echocardiogram showed severe LV dysfunction. Patient was also found to have the significant left main coronary artery lesion, and that is supposed to be addressed in the near future by cardiology. Since his cardiac catheterization, patient required pressors in the form of norepinephrine. He was placed on dual antiplatelet therapy, his beta blockers and MITZY inhibitor's remain on hold. The basketballs and footballs reverser was concerned about the possibility of underlying sepsis, however the clinical history is mostly cardiac history. His urinalysis is suggestive of a minimal urinary tract infection, and a chest x-ray showed no evidence of infiltrate. Plus the patient had no symptoms to suggest pneumonia. His urinalysis showed 13 WBCs, and moderate urine leukocyte esterase. Patient had no active renal symptoms whatsoever. He had no active pulmonary symptoms whatsoever. His white count since admission was noted to rise, he presented with a WBC count of 11.6, and now it is 18.2. Considering the leukocytosis, and considering the concern of a possible urinary tract infection, I would recommend empirically Rocephin until cultures are available The patient is seen today 04/04/2019 in follow-up in the intensive care unit. Last evening he was not feeling quite well. He had been hemodynamically unstable requiring more vasopressors. Dr. Gupta took the patient back to the Doughnut Machine Operator and place and placed and Impella CP in the left ventricle, groin approach. He also performed successful stenting of the first obtuse marginal branch of the left circumflex, stenting of unprotected left main coronary artery, IVUS of the left main. He is seen today in follow-up in the intensive care unit. He is currently awake and alert in no acute distress. No current chest pain. He is maintaining O2 saturations in the 90s on 2 L/m per nasal cannula. He has a 0.9% normal saline running at 75 ML's per hour. Amiodarone drip at 0.5 mg/m. Heparin drip per weight base protocol. Norepinephrine is currently off. Chest x-ray reveals stable findings. Mild cardiomegaly and a l eft lateral basilar linear scarring/atelectasis. No new infiltrates. White count 11.9. Hemoglobin 11.9. Sodium 135. Potassium 3.7. Chloride 109. Creatinine 0.77. Magnesium 1.9. LDH 2468. He is currently on aspirin and Brilinta. Antibiotics in the form of ceftriaxone.. On 04/05/2019 patient seen in follow-up in intensive care unit, he is resting comfortably in bed, reports no difficulty breathing, no chest pain, he is on room air, his pulse ox is 92-95%, hemodynamically patient is stable, Levothroid is on hold, maintenance IV fluids 0.9 normal saline at a rate of 100, heparin infusion per weight-based protocol. Amiodarone drip is a 0.5 mg/m, patient is sinus rhythm the controlled rate. His labs have been reviewed, white blood cell count is 11.7, hemoglobin is 10.8, sodium is 133, potassium 3.8, chloride is 108, CO2 is 24, BUN is 18 creatinine 0.86, LDH was 2831. Hemodynamically patient had remained stable overnight, no complaints of chest pain, and cardiology is planning on removing the in [place] device today at noon. She remains on Brilinta and aspirin for dual antiplatelet therapy. Objective - Vital Signs Vital signs: Vital Signs Temp 98.3 F 04/05/19 08:00 Pulse 74 04/05/19 09:00 Resp 21 04/05/19 09:00 BP 96/60 04/05/19 09:00 Pulse Ox 92 L 04/05/19 09:00 Intake & Output 04/04/19 04/05/19 04/05/19 18:59 06:59 18:59 Intake Total 4815.000 8642.926 253.647 Output Total 1585 1200 250 Balance -367.083 -28.074 3.647 Weight 85 kg Intake: IV 975 1100 200 Sodium Chloride 0.9% 1, 975 1100 200 000 ml @ 100 mls/hr IV . Q10H [facility] Rx#:[id number] Intake, IV Titration 242.917 71.926 53.647 Amount Heparin Sod,Pork in 0.45% 42.917 71.926 53.647 NaCl 25,000 unit In 0.45 % NaCl 1 250ml.bag @ Per Protocol IV .Q0M [facility] Rx#: [id number] Magnesium Sulfate-D5w Pmx 200 1 gm In Dextrose/Water 1 100ml.bag @ 100 mls/hr IVPB Q1H [facility] Rx#: [id number] Output: Urine 1585 1200 250 Other: Voiding Method Indwelling Catheter Indwelling Catheter Indwelling Catheter # Bowel Movements 1 ABP, PAP, CO, CI - Last Documented Arterial Blood Pressure 100/49 - Exam GENERAL EXAM: Alert, pleasant, 73-year-old white male, on room air comfortable in no apparent distress. HEAD: Normocephalic/atraumatic. EYES: Normal reaction of pupils, equal size. Conjunctiva pink, sclera white. NOSE: Clear with pink turbinates. THROAT: No erythema or exudates. NECK: No masses, no JVD, no thyroid enlargement, no adenopathy. CHEST: No chest wall deformity. Symmetrical expansion. LUNGS: Equal air entry with no crackles, wheeze, rhonchi or dullness. CVS: Regular rate and rhythm, normal S1 and S2, no gallops, no murmurs, no rubs ABDOMEN: Soft, nontender. No hepatosplenomegaly, normal bowel sounds, no guarding or rigidity. EXTREMITIES: No clubbing, no edema, no cyanosis, 2+ pulses and upper and lower extremities. Left groin sheath with impeller device clean dry and intact, right groin puncture CDI, bruised MUSCULOSKELETAL: Muscle strength and tone normal. SPINE: No scoliosis or deformity SKIN: No rashes CENTRAL NERVOUS SYSTEM: Alert and oriented -3. No focal deficits, tone is normal in all 4 extremities. PSYCHIATRIC: Alert and oriented -3. Appropriate affect. Intact judgment and insight. - Labs CBC & Chem 7: 04/05/19 04:15 04/05/19 04:15 Labs: Abnormal Lab Results - Last 24 Hours (Table) 04/04/19 04/04/19 04/04/19 Range/Units 11:00 11:00 12:38 WBC 11.2 H (3.8-10.6) k/uL RBC 3.58 L (4.30-5.90) m/uL Hgb 11.5 L (13.0-17.5) gm/dL Hct 33.2 L (39.0-53.0) % Plt Count (150-450) k/uL Neutrophils # 8.9 H (1.3-7.7) k/uL APTT 71.8 H (22.0-30.0) sec Fibrinogen 583 H (200-500) mg/dL Sodium (137-145) mmol/L Chloride (98-107) mmol/L Carbon Dioxide (22-30) mmol/L Glucose (74-99) mg/dL Calcium (8.4-10.2) mg/dL AST (17-59) U/L Lactate Dehydrogenase 2908 H (313-618) U/L Total Protein (6.3-8.2) g/dL Albumin (3.5-5.0) g/dL 04/04/19 04/04/19 04/04/19 Range/Units 15:04 15:04 18:16 WBC (3.8-10.6) k/uL RBC (4.30-5.90) m/uL Hgb (13.0-17.5) gm/dL Hct (39.0-53.0) % Plt Count (150-450) k/uL Neutrophils # (1.3-7.7) k/uL APTT 35.8 H (22.0-30.0) sec Fibrinogen 612 H (200-500) mg/dL Sodium (137-145) mmol/L Chloride (98-107) mmol/L Carbon Dioxide (22-30) mmol/L Glucose (74-99) mg/dL Calcium (8.4-10.2) mg/dL AST (17-59) U/L Lactate Dehydrogenase 2864 H (313-618) U/L Total Protein (6.3-8.2) g/dL Albumin (3.5-5.0) g/dL 04/04/19 04/04/19 04/05/19 Range/Units 23:00 23:15 00:50 WBC 11.6 H (3.8-10.6) k/uL RBC 3.76 L (4.30-5.90) m/uL Hgb 11.4 L (13.0-17.5) gm/dL Hct 35.0 L (39.0-53.0) % Plt Count 140 L (150-450) k/uL Neutrophils # 9.3 H (1.3-7.7) k/uL APTT 41.6 H (22.0-30.0) sec Fibrinogen 667 H (200-500) mg/dL Sodium (137-145) mmol/L Chloride (98-107) mmol/L Carbon Dioxide (22-30) mmol/L Glucose (74-99) mg/dL Calcium (8.4-10.2) mg/dL AST (17-59) U/L Lactate Dehydrogenase (313-618) U/L Total Protein (6.3-8.2) g/dL Albumin (3.5-5.0) g/dL 04/05/19 04/05/19 04/05/19 Range/Units 00:50 04:15 04:15 WBC 11.7 H (3.8-10.6) k/uL RBC 3.55 L (4.30-5.90) m/uL Hgb 10.8 L (13.0-17.5) gm/dL Hct 33.1 L (39.0-53.0) % Plt Count 142 L (150-450) k/uL Neutrophils # 9.5 H (1.3-7.7) k/uL APTT (22.0-30.0) sec Fibrinogen (200-500) mg/dL Sodium 134 L 133 L (137-145) mmol/L Chloride 110 H 108 H (98-107) mmol/L Carbon Dioxide 21 L (22-30) mmol/L Glucose 113 H 115 H (74-99) mg/dL Calcium 7.3 L 7.4 L (8.4-10.2) mg/dL AST 152 H (17-59) U/L Lactate Dehydrogenase 2831 H (313-618) U/L Total Protein 5.4 L (6.3-8.2) g/dL Albumin 2.6 L (3.5-5.0) g/dL 04/05/19 Range/Units 07:55 WBC (3.8-10.6) k/uL RBC (4.30-5.90) m/uL Hgb (13.0-17.5) gm/dL Hct (39.0-53.0) % Plt Count (150-450) k/uL Neutrophils # (1.3-7.7) k/uL APTT 69.4 H (22.0-30.0) sec Fibrinogen 585 H (200-500) mg/dL Sodium (137-145) mmol/L Chloride (98-107) mmol/L Carbon Dioxide (22-30) mmol/L Glucose (74-99) mg/dL Calcium (8.4-10.2) mg/dL AST (17-59) U/L Lactate Dehydrogenase (313-618) U/L Total Protein (6.3-8.2) g/dL Albumin (3.5-5.0) g/dL Assessment and Plan Plan: Assessment: #1. Acute anterior ST elevated myocardial infarction, status post stenting to the LAD 3 #2. Acute cardiogenic shock status post in [place] placement in stenting to the left main and left circumflex #3. Triple-vessel coronary artery disease including left main stenosis #4. Possible urinary tract infection, negative urine culture #5. Multiple comorbidities including GERD/[place], dyslipidemia, acute kidney injury, degenerative joint disease, and history of nephrolithiasis Plan: Hemodynamic patient remains stable, no couplets of chest pain or shortness of breath, no vasoactive drips, today's chest x-ray has been reviewed showing basilar atelectasis. Stable oxygenation on room air, today's labs have been reviewed, no acute events overnight, remains on Brilinta and aspirin for dual antiplatelet therapy, remains on heparin infusion, anticipate removal of the Impella device today. Will continue to follow continue to monitor in the intensive care unit I performed a history & physical examination of the patient and discussed their management with my nurse practitioner, Hailey Blackman. I reviewed the nurse practitioner's note and agree with the documented findings and plan of care. Lung sounds are positive for clear breath sounds. The findings and the impression was discussed with the patient. I attest to the documentation by the nurse practitioner. Time with Patient: Less than 30
--- NOTE | 2019-04-05 11:13 | CDI ---
Documentation Clarification Form Date: 04/05/2019 10:19:22 AM From: Corrie Villa RN, CCDS Admit Date: 04/01/2019 04:38:00 AM Patient Name: Gómez Brown Visit Number: [id number] Discharge Date: ATTENTION: The Clinical Documentation Specialists (CDI) and [facility] Coding Staff appreciate your assistance in clarifying documentation. Please respond to the clarification below the line at the bottom and electronically sign. The CDI & [facility] Coding staff will review the response and follow-up if needed. Please note: Queries are made part of the Legal Health Record. If you have any questions, please contact the author of this message via ITS. Dr. Eleuterio Gupta New onset atrial fibrillation with RVR is documented in the ongoing progress notes starting on 04/03/19. It is also documented that the patient has been ruled in for an acute STEMI and is post cardiac catheterization with stenting of the left anterior descending artery, and further clarification is needed for the new onset atrial fibrillation following a procedure. Patients Admitting Diagnosis: Acute anterior ST-elevation myocardial infarction Post-Operative Diagnosis: Same Procedure performed: Drug eluting stent of the proximal left anterior descending artery, drug eluting stent of the mid left anterior descending artery History/Risk Factors: Hypertension, Clinical Indicators: 73-year-old male presented on 04/01/19, with chest discomfort and was diagnosed with ac anterior STEMI. An emergent heart catheterization was preformed and stenting of the LAD. On 04/03/19 he went into new onset atrial fibrillation with RVR. Vital signs on 04/03/19 at 11:00 showing heart rate of 146, blood pressure 99/57. He was started on amiodarone IV with bolus and drip and converted to normal sinus mechanism. Treatment: ICU/Telemetry monitoring Amiodarone IV with bolus and drip per protocol Norepinephrine Bitartrate @ 15.526 mls/hr IV Heparin IV per protocol In order to accurately reflect this patients severity of illness, please clarify if the post-operative diagnosis new onset atrial fibrillation is: An expected post-procedural or post-surgical condition An unexpected post-procedural or post-surgical condition related to surgical care (a complication of care) An unexpected post-procedural or post-surgical condition, related to the patients underlying medical co morbidities Other, please specify Unable to determine (Last Revision: June 2018) An unexpected post-procedure condition related to the patient underlying medical co-morbidities. MTDD
[2019-04-05] MEDS ORDERED: IV FLUID CONTINUATION 1,000 ML IV ONE (11:30)
[2019-04-05] MEDS: fentaNYL (PF) 50 MCG/ML 2 ML AMP IVP ONE ×4 (12:19→13:19)
[2019-04-05] MEDS ORDERED: LIDOCAINE 1% INJ 10MG/ML (20 ML MDV) SQ ONE (12:39)
[2019-04-05] MEDS ORDERED: RX INFO: IV CONTRAST WAS GIVEN 1 EACH MISC MISCELLANE PRN (13:31)
[2019-04-05] MEDS ORDERED: SODIUM CHLORIDE 0.9% 1,000 ML IV SCH (13:45)
[2019-04-05 14:15] LABS: Basophils % (A) 0 %; Eosinophils # (A) 0.3 k/uL (0-0.7); Eosinophils % (A) 3 %; HGB 10.2 gm/dL (13.0-17.5); Lymphocytes # (A) 1.1 k/uL (1.0-4.8); Lymphocytes % (A) 10 %; MCH 30.8 pg (25.0-35.0); MCHC 32.9 g/dL (31.0-37.0); MCV 93.4 fL (80.0-100.0); Mean Platelet Volume 7.7; Monocytes # (A) 0.6 k/uL (0-1.0); Monocytes % (A) 5 %; Neutrophils # (A) 8.4 k/uL (1.3-7.7); Neutrophils % (A) 80 %; Platelet Count 142 k/uL (150-450); RBC 3.32 m/uL (4.30-5.90); RDW 13.8 % (11.5-15.5); WBC 10.6 k/uL (3.8-10.6)
--- NOTE | 2019-04-05 14:28 | AN ---
ANGIOGRAPHY REPORT ADMISSION DATE: 2019 PERFORMING PHYSICIAN: Eleuterio Gupta MD. PROCEDURE PERFORMED: 1. Impella removal from the left common femoral artery. 2. Bilateral common femoral artery angiogram. INDICATION: This is a 73-year-old gentleman who presented to the hospital a few days ago with acute anterior ST-elevation myocardial infarction complicated by cardiogenic shock. Impella was placed on in the left ventricle and I did perform successful angioplasty of the left main as well as left circumflex. Angioplasty of the LAD was performed few days before. He was brought today to for Impella removal. COMPLICATION: None. LEVEL OF SEDATION: Moderate with sedation length of 64 minutes. PROCEDURE DESCRIPTION: After obtaining an informed consent, the patient was brought to the cardiac photonic laboratory technician. Both groins were prepped and draped in the usual sterile fashion. The local analgesia was achieved by injecting 2% lidocaine subcutaneously into both groins. Subsequently, the heparin was turned off in the room. After that, we weaned down the Impella. Then it was pulled manually and the sheath was left in the left groin. Initially, my plan was to perform and placed 2 Perclose in the left groin, but the Impella sheath was thrombosed and I did not want to take the risk of distal embolization. Because of that, I decided to come up and over and do balloon x1 of the left common/left external iliac artery. Having said that, I did access the right groin using micropuncture technique under ultrasound guidance, the micropuncture wire passed easily, then I placed a 6-Moroccan sheath 11 cm in the right common femoral artery. After that, I did select the left SFA using 0.035 Isabel Advantage wire with the backup showed support of 5-Moroccan Rim catheter. After that, I did exchange my short 11 cm sheath into long 55 cm 6-Moroccan Raabe sheath using the 0.035 Isabel Advantage wire. The tip of the sheath was positioned in the left external iliac artery. After that, I did tamponade of the left external/left common femoral artery using 8 x 40 mm 0.035 balloon which was inflated for about 30 minutes. After the balloon was deflated, we did achieve successful tamponade and hemostasis of the left common femoral artery. After that I did exchange my long sheath into short sheath using 0.035 wire. Subsequently, I did place a short sheath in the right common femoral artery. I did selective right common femoral artery angiogram which showed good placement of the sheath. Because of that, I was able to close the right groin using the Perclose. Also, please note that I did perform selective left common femoral artery angiogram through the long sheath. The procedure was completed without any complication. POSTPROCEDURE MANAGEMENT: 1. Continue dual anti-platelet therapy. 2. DC heparin permanently. 3. Continue watching both groins. 4. FemoStop on the left groin. 5. Follow up with the patient. MMODL / IJN: [id number] /
--- NOTE | 2019-04-05 14:54 | IR ---
Fluoroscopy HISTORY: Peripheral vascular occlusive disease 4.7 minutes fluoroscopy time supplied to the referring clinician. 193 intraoperative C-arm images do cument the procedure. See dictated report from cardiology.
[2019-04-05] MEDS: METOPROLOL TARTRATE 12.5 MG TAB PO SCH ×2 (15:11→20:31)
[2019-04-05] MEDS: NOREPINEPHRINE 4 MG in SODIUM CHLORIDE 0.9% 250 ML IV SCH (15:55)
--- NOTE | 2019-04-05 16:20 | P.PN ---
Subjective This is Emely Fong PA-C dictating a progress note on this patient The patient was interviewed and examined by me as well as by Dr. Alaniz Case discussed with Dr. Alaniz and he agrees with the plan of care IMPRESSION / ASSESSMENT: Acute anterior ST elevation [place] Cardiogenic shock s/p imella placement CAD status post stenting of the left main, LAD, and first OM Severe ischemic cardiomyopathy, most recent echo showing EF any to 25% Paroxysmal atrial fibrillation currently in sinus rhythm PLAN: Plan is to remove impella today start low-dose metoprolol 12.5 mg twice daily Convert to oral amiodarone 400 mg twice daily for one week and then reduce the dose thereafter Continue low-dose losartan at noon to avoid hypotension Continue dual antiplatelet therapy and atorvastatin Anticoagulation is indicated, triple therapy for one month, then discontinue aspirin, will start anticoagulation tomorrow HPI/interval history Patient is a 73-year-old male who presented with complaints of chest discomfort and was diagnosed with acute acute anterior ST elevation [place]. He underwent emergent coronary angiogram and stenting to the LAD. echocardiogram showed severe global hypokinesis, EF less than 20%. He subsequently underwent successful stenting of the first OM and left main as well as an impella placement. Last night he went into atrial fibrillation and was started on IV amiodarone again. He converted to sinus rhythm this morning. Patient seen and examined resting in bed. No chest pain. He did feel palpitations when he went into atrial fibrillation but his symptoms have resolved. No dizziness. EXAMINATION Patient is afebrile, pulse in the 80s, respirations 15, blood pressure in the 100s over 60s, oxygen saturation 95% on room air Patient seen and examined resting in bed, in no acute distress Lungs are clear to auscultation bilaterally, no wheezing or rhonchi or crackles Heart is regular, normal S1 and S2, no audible murmurs No elevated JVD Extremities warm, no edema REVIEW OF LABS, ECG WBC 10.6, hemoglobin 10.2, platelets 142, potassium 3.8, BUN 18, creatinine 0.86 Objective - Vital Signs Vital signs: Vital Signs Temp 97.6 F 04/05/19 16:00 Pulse 80 04/05/19 16:00 Resp 18 04/05/19 16:00 BP 90/73 04/05/19 16:00 Pulse Ox 96 04/05/19 16:00 Intake & Output 04/04/19 04/05/19 04/05/19 18:59 06:59 18:59 Intake Total 0965.564 2254.926 1328.647 Output Total 1585 1200 1425 Balance -367.083 -28.074 -96.353 Weight 85 kg Intake: IV 975 1100 975 Sodium Chloride 0.9% 1, 975 1100 800 000 ml @ 100 mls/hr IV . Q10H NUNU Rx#:[id number] Intake, IV Titration 242.917 71.926 353.647 Amount Amiodarone 300 mg In 250 Dextrose 5% in Water 250 ml @ 0.5 MG/MIN 25 mls/hr IV .Q10H NUNU Rx#: [id number] Heparin Sod,Pork in 0.45% 42.917 71.926 53.647 NaCl 25,000 unit In 0.45 % NaCl 1 250ml.bag @ Per Protocol IV .Q0M NUNU Rx#: [id number] Magnesium Sulfate-D5w Pmx 200 1 gm In Dextrose/Water 1 100ml.bag @ 100 mls/hr IVPB Q1H NUNU Rx#: [id number] cefTRIAXone 1 gm In 50 Sodium Chloride 0.9% 50 ml @ 100 mls/hr IVPB Q24HR NUNU Rx#:[id number] Output: Urine 1585 1200 1425 Other: Voiding Method Indwelling Catheter Indwelling Catheter Indwelling Catheter # Bowel Movements 1 1 ABP, PAP, CO, CI - Last Documented Arterial Blood Pressure 117/64 - Labs CBC & Chem 7: 04/05/19 14:00 04/05/19 04:15 Labs: Abnormal Lab Results - Last 24 Hours (Table) 04/04/19 04/04/19 04/04/19 Range/Units 15:04 18:16 23:00 WBC (3.8-10.6) k/uL RBC (4.30-5.90) m/uL Hgb (13.0-17.5) gm/dL Hct (39.0-53.0) % Plt Count (150-450) k/uL Neutrophils # (1.3-7.7) k/uL APTT 35.8 H (22.0-30.0) sec Fibrinogen 667 H (200-500) mg/dL Sodium (137-145) mmol/L Chloride (98-107) mmol/L Carbon Dioxide (22-30) mmol/L Glucose (74-99) mg/dL Calcium (8.4-10.2) mg/dL AST (17-59) U/L Lactate Dehydrogenase 2864 H (313-618) U/L Total Protein (6.3-8.2) g/dL Albumin (3.5-5.0) g/dL 04/04/19 04/05/19 04/05/19 Range/Units 23:15 00:50 00:50 WBC 11.6 H (3.8-10.6) k/uL RBC 3.76 L (4.30-5.90) m/uL Hgb 11.4 L (13.0-17.5) gm/dL Hct 35.0 L (39.0-53.0) % Plt Count 140 L (150-450) k/uL Neutrophils # 9.3 H (1.3-7.7) k/uL APTT 41.6 H (22.0-30.0) sec Fibrinogen (200-500) mg/dL Sodium 134 L (137-145) mmol/L Chloride 110 H (98-107) mmol/L Carbon Dioxide 21 L (22-30) mmol/L Glucose 113 H (74-99) mg/dL Calcium 7.3 L (8.4-10.2) mg/dL AST 152 H (17-59) U/L Lactate Dehydrogenase (313-618) U/L Total Protein 5.4 L (6.3-8.2) g/dL Albumin 2.6 L (3.5-5.0) g/dL 04/05/19 04/05/19 04/05/19 Range/Units 04:15 04:15 07:55 WBC 11.7 H (3.8-10.6) k/uL RBC 3.55 L (4.30-5.90) m/uL Hgb 10.8 L (13.0-17.5) gm/dL Hct 33.1 L (39.0-53.0) % Plt Count 142 L (150-450) k/uL Neutrophils # 9.5 H (1.3-7.7) k/uL APTT 69.4 H (22.0-30.0) sec Fibrinogen 585 H (200-500) mg/dL Sodium 133 L (137-145) mmol/L Chloride 108 H (98-107) mmol/L Carbon Dioxide (22-30) mmol/L Glucose 115 H (74-99) mg/dL Calcium 7.4 L (8.4-10.2) mg/dL AST (17-59) U/L Lactate Dehydrogenase 2831 H (313-618) U/L Total Protein (6.3-8.2) g/dL Albumin (3.5-5.0) g/dL 04/05/19 Range/Units 14:00 WBC (3.8-10.6) k/uL RBC 3.32 L (4.30-5.90) m/uL Hgb 10.2 L (13.0-17.5) gm/dL Hct 31.0 L (39.0-53.0) % Plt Count 142 L (150-450) k/uL Neutrophils # 8.4 H (1.3-7.7) k/uL APTT (22.0-30.0) sec Fibrinogen (200-500) mg/dL Sodium (137-145) mmol/L Chloride (98-107) mmol/L Carbon Dioxide (22-30) mmol/L Glucose (74-99) mg/dL Calcium (8.4-10.2) mg/dL AST (17-59) U/L Lactate Dehydrogenase (313-618) U/L Total Protein (6.3-8.2) g/dL Albumin (3.5-5.0) g/dL
[2019-04-05] MEDS ORDERED: ALPRAZolam 0.5 MG TAB PO PRN (16:51)
[2019-04-05] MEDS: ALPRAZolam 0.25 MG TAB PO PRN (17:17)
[2019-04-05] MEDS ORDERED: ALPRAZolam 0.25 MG TAB PO SCH (18:00)
[2019-04-05] MEDS: ATORVASTATIN 80 MG TAB PO SCH (20:31)
[2019-04-05] MEDS: AMIODARONE 200 MG TAB PO SCH (20:31)
[2019-04-05] MEDS: IPRATROPIUM BROMIDE 0.06% NASAL SPRAY (15 ML) NASAL SCH (22:22)
--- NOTE | 2019-04-05 23:07 | PN ---
PROGRESS NOTE This is a 73-year-old white male with STEMI, PTCA to LAD. Discussed the case with Dr. Gupta, who will send the patient home on medications after PTCA of the LAD. He will come in next week for right coronary angioplasty. Risk factor modifications, including nicotine patch, quitting smoking, no smoke exposure. Risk factor modification. The patient had a Wilber procedure and heart catheterization today to take out the catheter in the heart, status post LAD PTCA. He is complaining of severe anxiety, for which Xanax has been ordered. He has also nasal congestion, for which we ordered Atrovent nasal spray. CARDIOVASCULAR: S1, S2. Lungs are clear. GI soft. HEMATOLOGY: Negative Homans. ASSESSMENT: 1. ST-elevation myocardial infarction. 2. Percutaneous transluminal coronary angioplasty. 3. Coronary artery disease, left anterior descending coronary artery. 4. Ischemic cardiomyopathy with 30% to 35% ejection fraction. Risk factor modification. Xanax/Ativan for anxiety. Atrovent nasal spray for nasal congestion. Please follow up with him tomorrow. ICU time 30 minutes. MMODL / IJN: [id number] /
[2019-04-06 04:27] LABS: Basophils % (A) 0 %; Eosinophils # (A) 0.4 k/uL (0-0.7); Eosinophils % (A) 4 %; HGB 8.9 gm/dL (13.0-17.5); Lymphocytes # (A) 1.2 k/uL (1.0-4.8); Lymphocytes % (A) 12 %; MCH 30.8 pg (25.0-35.0); MCHC 32.8 g/dL (31.0-37.0); MCV 93.8 fL (80.0-100.0); Mean Platelet Volume 8.6; Monocytes # (A) 0.7 k/uL (0-1.0); Monocytes % (A) 7 %; Neutrophils # (A) 7.4 k/uL (1.3-7.7); Neutrophils % (A) 76 %; Platelet Count 133 k/uL (150-450); RBC 2.88 m/uL (4.30-5.90); RDW 13.8 % (11.5-15.5); WBC 9.8 k/uL (3.8-10.6)
[2019-04-06 04:36] LABS: African American GFR (CKD) >90 (>60 ml/min/1.73 sqM); Anion Gap 1 mmol/L; Blood Urea Nitrogen 16 mg/dL (9-20); Calcium 7.1 mg/dL (8.4-10.2); Carbon Dioxide 23 mmol/L (22-30); Chloride 111 mmol/L (98-107); Glucose 97 mg/dL (74-99); Non-African American GFR(CKD) 87 (>60 ml/min/1.73 sqM); Potassium 3.9 mmol/L (3.5-5.1); Sodium 135 mmol/L (137-145)
[2019-04-06] MEDS ORDERED: POTASSIUM CHLORIDE ER 20 MEQ TAB.ER PO SCH (06:00)
[2019-04-06] MEDS: SODIUM CHLORIDE 0.9% 1,000 ML IV SCH (06:07)
[2019-04-06] MEDS: NOREPINEPHRINE 4 MG in SODIUM CHLORIDE 0.9% 250 ML IV SCH (07:18)
--- NOTE | 2019-04-06 07:47 | XR ---
EXAMINATION TYPE: XR chest 1V DATE OF EXAM: 04/06/2019 CLINICAL HISTORY: Difficulty breathing progress study. TECHNIQUE: Single AP portable upright view of the chest is obtained. COMPARISON: Chest x-ray from one day earlier and older studies FINDINGS: Overlying EKG leads redemonstrated. Cardiac silhouette size is stable and mildly enlarged. Developing bibasilar opacities from background left lateral linear scarring and/or atelectasis. Susp ect developing small left pleural effusion. Osseous structures are intact. IMPRESSION: Mild cardiomegaly with developing patchy bibasilar acute atelectasis and/or infiltrate an d suspected new small tiny left pleural effusion.
--- NOTE | 2019-04-06 08:44 | P.PN ---
Subjective Progress Note Date: 04/06/19 Principal diagnosis: Acute ST segment elevated myocardial infarction status post stenting 3 to the LAD and insertion of Impella This is a 73-year-old white male with history of multiple medical problems including hyperlipidemia, GERD, nephrolithiasis, remote history of pneumonia, patient presented to the ER on 04/01/2019, mostly with anginal symptoms/severe chest pain. Patient was diagnosed as having acute ST elevation myocardial infarction. And he was seen by cardiology on consultation. Patient underwent aspiration thrombectomy, successful stenting of proximal LAD, successful stenting of mid LAD, and intravascular ultrasound of the left anterior descending artery and left main coronary artery. Echocardiogram showed severe LV dysfunction. Patient was also found to have the significant left main coronary artery lesion, and that is supposed to be addressed in the near future by cardiology. Since his cardiac catheterization, patient required pressors in the form of norepinephrine. He was placed on dual antiplatelet therapy, his beta blockers and MITZY inhibitor's remain on hold. The head of marketing adometry was concerned about the possibility of underlying sepsis, however the clinical history is mostly cardiac history. His urinalysis is suggestive of a minimal urinary tract infection, and a chest x-ray showed no evidence of infiltrate. Plus the patient had no symptoms to suggest pneumonia. His urinalysis showed 13 WBCs, and moderate urine leukocyte esterase. Patient had no active renal symptoms whatsoever. He had no active pulmonary symptoms whatsoever. His white count since admission was noted to rise, he presented with a WBC count of 11.6, and now it is 18.2. Considering the leukocytosis, and considering the concern of a possible urinary tract infection, I would recommend empirically Rocephin until cultures are available The patient is seen today 04/04/2019 in follow-up in the intensive care unit. Last evening he was not feeling quite well. He had been hemodynamically unstable requiring more vasopressors. Dr. Gupta took the patient back to the [facility] place and placed and Impella CP in the left ventricle, groin approach. He also performed successful stenting of the first obtuse marginal branch of the left circumflex, stenting of unprotected left main coronary artery, IVUS of the left main. He is seen today in follow-up in the intensive care unit. He is currently awake and alert in no acute distress. No current chest pain. He is maintaining O2 saturations in the 90s on 2 L/m per nasal cannula. He has a 0.9% normal saline running at 75 ML's per hour. Amiodarone drip at 0.5 mg/m. Heparin drip per weight base protocol. Norepinephrine is currently off. Chest x-ray reveals stable findings. Mild cardiomegaly and a l eft lateral basilar linear scarring/atelectasis. No new infiltrates. White count 11.9. Hemoglobin 11.9. Sodium 135. Potassium 3.7. Chloride 109. Creatinine 0.77. Magnesium 1.9. LDH 2468. He is currently on aspirin and Brilinta. Antibiotics in the form of ceftriaxone.. On 04/05/2019 patient seen in follow-up in intensive care unit, he is resting comfortably in bed, reports no difficulty breathing, no chest pain, he is on room air, his pulse ox is 92-95%, hemodynamically patient is stable, Levothroid is on hold, maintenance IV fluids 0.9 normal saline at a rate of 100, heparin infusion per weight-based protocol. Amiodarone drip is a 0.5 mg/m, patient is sinus rhythm the controlled rate. His labs have been reviewed, white blood cell count is 11.7, hemoglobin is 10.8, sodium is 133, potassium 3.8, chloride is 108, CO2 is 24, BUN is 18 creatinine 0.86, LDH was 2831. Hemodynamically patient had remained stable overnight, no complaints of chest pain, and cardiology is planning on removing the in [place] device today at noon. he remains on Brilinta and aspirin for dual antiplatelet therapy. On 04/06/2019 patient seen in follow-up in intensive care unit, he sitting up in the recliner, in no acute distress, yesterday his ImPella device was removed, patient did have a left groin hematoma and some oozing from the right groin left groin hematoma has been reduced, is clean dry and soft this morning, right groin oozing was controlled, heparin drip has been discontinued, some mild bruising at the right groin, distal pulses are obtained through the Doppler, hemodynamically patient remains stable, denies any chest pain denies any shortness of breath, sinus mechanism with a controlled rate on the monitor, 0.9 normal saline at a rate of 100 ML per hour, room air pulse ox is 96%. Labs have been reviewed, patient's hemoglobin is 8.9, white blood cell count is 9.8, sodium is 135, potassium is 3.9, chloride is 111, renal profile is within normal limits. Is on dual antiplatelet therapy with Brilinta and aspirin, his amiodarone drip has been discontinued and patient is now transitioned to oral amiodarone. Fever or chills, remains on empiric antibiotics for a possible urinary tract infection although urine cultures have shown no growth. We will repeat urinalysis today Objective - Vital Signs Vital signs: Vital Signs Temp 97.2 F L 04/06/19 08:00 Pulse 96 04/06/19 08:00 Resp 16 04/06/19 08:00 BP 100/64 04/06/19 08:00 Pulse Ox 96 04/06/19 08:00 Intake & Output 04/05/19 04/06/19 04/06/19 18:59 06:59 18:59 Intake Total 0395.451 4191 200 Output Total 1525 730 80 Balance 3.647 710 120 Weight 86 kg Intake: IV 1175 1200 200 Sodium Chloride 0.9% 1, 1000 1200 200 000 ml @ 100 mls/hr IV . Q10H NUNU Rx#:[id number] Intake, IV Titration 353.647 Amount Amiodarone 300 mg In 250 Dextrose 5% in Water 250 ml @ 0.5 MG/MIN 25 mls/hr IV .Q10H NUNU Rx#: [id number] Heparin Sod,Pork in 0.45% 53.647 NaCl 25,000 unit In 0.45 % NaCl 1 250ml.bag @ Per Protocol IV .Q0M NUNU Rx#: [id number] cefTRIAXone 1 gm In 50 Sodium Chloride 0.9% 50 ml @ 100 mls/hr IVPB Q24HR NUNU Rx#:[id number] Oral 240 Output: Urine 1525 730 80 Other: Voiding Method Indwelling Catheter Indwelling Catheter Indwelling Catheter # Bowel Movements 1 ABP, PAP, CO, CI - Last Documented Arterial Blood Pressure 95/48 - Exam GENERAL EXAM: Alert, pleasant, 73-year-old white male, on room air comfortable in no apparent distress. HEAD: Normocephalic/atraumatic. EYES: Normal reaction of pupils, equal size. Conjunctiva pink, sclera white. NOSE: Clear with pink turbinates. THROAT: No erythema or exudates. NECK: No masses, no JVD, no thyroid enlargement, no adenopathy. CHEST: No chest wall deformity. Symmetrical expansion. LUNGS: Equal air entry with no crackles, wheeze, rhonchi or dullness. CVS: Regular rate and rhythm, normal S1 and S2, no gallops, no murmurs, no rubs ABDOMEN: Soft, nontender. No hepatosplenomegaly, normal bowel sounds, no guarding or rigidity. EXTREMITIES: No clubbing, no edema, no cyanosis, 2+ pulses and upper and lower extremities. Left groin sheath with impeller device clean dry and intact, right groin puncture CDI, bruised MUSCULOSKELETAL: Muscle strength and tone normal. SPINE: No scoliosis or deformity SKIN: No rashes CENTRAL NERVOUS SYSTEM: Alert and oriented -3. No focal deficits, tone is normal in all 4 extremities. PSYCHIATRIC: Alert and oriented -3. Appropriate affect. Intact judgment and insight. - Labs CBC & Chem 7: 04/06/19 04:10 04/06/19 04:10 Labs: Abnormal Lab Results - Last 24 Hours (Table) 04/05/19 04/06/19 04/06/19 Range/Units 14:00 04:10 04:10 RBC 3.32 L 2.88 L (4.30-5.90) m/uL Hgb 10.2 L 8.9 L (13.0-17.5) gm/dL Hct 31.0 L 27.0 L (39.0-53.0) % Plt Count 142 L 133 L (150-450) k/uL Neutrophils # 8.4 H (1.3-7.7) k/uL Sodium 135 L (137-145) mmol/L Chloride 111 H (98-107) mmol/L Calcium 7.1 L (8.4-10.2) mg/dL Assessment and Plan Plan: Assessment: #1. Acute anterior ST elevated myocardial infarction, status post stenting to the LAD 3 #2. Acute cardiogenic shock status post ImPella placement in stenting to the left main and left circumflex #3. Triple-vessel coronary artery disease including left main stenosis #4. Possible urinary tract infection, negative urine culture #5. Multiple comorbidities including GERD/[place], dyslipidemia, acute kidney in jury, degenerative joint disease, and history of nephrolithiasis Plan: Patient is doing well, no complaints of chest pain, no shortness of breath, in sinus mechanism no recurrence of A. fib, has been transitioned to oral amiodarone, heparin drip has been discontinued, and palate device has been di scontinued, hemodynamically patient is stable, left groin hematoma has been reduced, is clean dry and soft this morning, right groin losing has been controlled, no acute events overnight, remains on dual antiplatelet therapy, cardiology is following, increase activity as tolerated. I performed a history & physical examination of the patient and discussed their management with my nurse practitioner, Hailey Blackman. I reviewed the nurse practitioner's note and agree with the documented findings and plan of care. Lung sounds are positive for clear breath sounds. The findings and the impressi on was discussed with the patient. I attest to the documentation by the nurse practitioner. Time with Patient: Less than 30
[2019-04-06] MEDS: AMIODARONE 200 MG TAB PO SCH ×2 (09:04→21:09)
[2019-04-06] MEDS: METOPROLOL TARTRATE 12.5 MG TAB PO SCH ×2 (09:04→21:09)
[2019-04-06] MEDS: ASPIRIN 81 MG PO SCH (09:04)
[2019-04-06] MEDS: TICAGRELOR 90 MG TAB PO SCH ×2 (09:05→21:09)
[2019-04-06] MEDS: PANTOPRAZOLE 40 MG TABLET PO SCH (09:05)
[2019-04-06] MEDS: IPRATROPIUM BROMIDE 0.06% NASAL SPRAY (15 ML) NASAL SCH ×2 (12:36→21:09)
[2019-04-06] MEDS: LOSARTAN 25 MG TAB PO SCH (12:37)
--- NOTE | 2019-04-06 14:26 | P.PN ---
Subjective This is Emely Fong PA-C dictating a progress note on this patient The patient was interviewed and examined by me as well as by Dr. Alaniz Case discussed with Dr. Alaniz and he agrees with the plan of care IMPRESSION / ASSESSMENT: Acute anterior ST elevation [place] Cardiogenic shock, impella has been removed, BP trending low but stable CAD status post stenting of the left main, LAD, and first OM Severe ischemic cardiomyopathy, EF 20 to 25% Paroxysmal atrial fibrillation, maintaining sinus rhythm Anemia PLAN: continue low-dose metoprolol 12.5 mg twice daily continue oral amiodarone 400 mg twice daily for one week and then reduce the dose thereafter Continue low-dose losartan at noon to avoid hypotension Continue dual antiplatelet therapy and atorvastatin Anticoagulation is indicated, however he is on Brillinta and had an issue with a hematoma after the impella was removed, hemoglobin is 8.9, in light of this we will hold off on anticoagulation for now, if he continues to have long paroxysms of atrial fibrillation, we will switch to Plavix and do triple therapy for one month, then discontinue aspirin HPI/interval history Patient is a 73-year-old male who presented with complaints of chest discomfort and was diagnosed with acute acute anterior ST elevation [place]. He underwent emergent coronary angiogram and stenting to the LAD. echocardiogram showed severe global hypokinesis, EF less than 20%. He subsequently underwent successful stenting of the first OM and left main as well as an impella placement for cardiogenic shock. Afterwards he has had 2 episodes of atrial fibrillation so he was started on amiodarone. Yesterday his impala was removed and he did develop a hematoma. He has been maintaining sinus rhythm. We started him on low-dose metoprolol and losartan and he his blood pressure has been running in the 90s over 60s but stable. Patient seen and examined sitting up in the chair. Denies any chest pain or shortness of breath. No dizziness. EXAMINATION Patient is afebrile, pulse in the 80s, respirations 20, blood pressure in the 90s to 100s over 60s to 80s, oxygen saturation 96% on room air Patient seen and examined sitting up in the chair, in no acute distress Lungs are clear to auscultation bilaterally Heart is regular, normal S1 and S2, no audible murmurs No elevated JVD Extremities warm, no edema REVIEW OF LABS, ECG WBC 9.8, hemoglobin 8.9, platelets 133, potassium 3.9, BUN 16, creatinine 0.83 Objective - Vital Signs Vital signs: Vital Signs Temp 98.4 F 04/06/19 12:00 Pulse 99 04/06/19 12:00 Resp 13 04/06/19 12:00 BP 110/64 04/06/19 12:00 Pulse Ox 97 04/06/19 12:00 Intake & Output 04/05/19 04/06/19 04/06/19 18:59 06:59 18:59 Intake Total 7505.575 7026 610 Output Total 1525 730 315 Balance 3.647 710 295 Weight 86 kg Intake: IV 1175 1200 250 Sodium Chloride 0.9% 1, 1000 1200 200 000 ml @ 100 mls/hr IV . Q10H NUNU Rx#:[id number] cefTRIAXone 1 gm In 50 Sodium Chloride 0.9% 50 ml @ 100 mls/hr IVPB Q24HR NUNU Rx#:[id number] Intake, IV Titration 353.647 Amount Amiodarone 300 mg In 250 Dextrose 5% in Water 250 ml @ 0.5 MG/MIN 25 mls/hr IV .Q10H NUNU Rx#: [id number] Heparin Sod,Pork in 0.45% 53.647 NaCl 25,000 unit In 0.45 % NaCl 1 250ml.bag @ Per Protocol IV .Q0M NUNU Rx#: [id number] cefTRIAXone 1 gm In 50 Sodium Chloride 0.9% 50 ml @ 100 mls/hr IVPB Q24HR NUNU Rx#:[id number] Oral 240 360 Output: Urine 1525 730 315 Other: Voiding Method Indwelling Catheter Indwelling Catheter Indwelling Catheter # Bowel Movements 1 ABP, PAP, CO, CI - Last Documented Arterial Blood Pressure 102/95 - Labs CBC & Chem 7: 04/06/19 04:10 04/06/19 04:10 Labs: Abnormal Lab Results - Last 24 Hours (Table) 04/06/19 04/06/19 Range/Units 04:10 04:10 RBC 2.88 L (4.30-5.90) m/uL Hgb 8.9 L (13.0-17.5) gm/dL Hct 27.0 L (39.0-53.0) % Plt Count 133 L (150-450) k/uL Sodium 135 L (137-145) mmol/L Chloride 111 H (98-107) mmol/L Calcium 7.1 L (8.4-10.2) mg/dL
[2019-04-06] MEDS: ALPRAZolam 0.25 MG TAB PO PRN (14:28)
--- NOTE | 2019-04-06 14:29 | P.PN ---
Subjective Progress Note Date: 04/06/19 This is a 73-year-old gentleman admitted with acute STEMI status post cardiac catheterization with stenting of the LAD, new onset atrial fibrillation, acute renal failure and multiple other medical issues.. Maintained on dual antiplatelet therapy. Beta jose luis, lisinopril on hold secondary to hypotension . 04/04/2019 Last night, hypotensive, in cardiogenic shock, vasopressors increased-hemodynamically unstable. Patient returned to the [facility] receiving Impella pump placement along with successful stenting of the first OM, left main.current echocardiogram reporting EF of 20-25%. Currently off Levophed. Denies chest pain, palpitations or shortness of breath. Denies lightheadedness, dizziness or focal deficits. IV amiodarone converted to oral. Chest x-ray stable, with no new infiltrates on IV Rocephin. Maintaining O2 sats in the low 90s on 2 L nasal cannula. Continues on gentle IV fluid hydration. Afebrile, WBC 11.2. Urine culture no growth. Hemoglobin 11.5. 04/06/2019 yesterday returned to the [facility] to have impella pump removed, developed right groin hematoma-which has been reduced. Hemoglobin 8.9. He ambulated around the ICU with walker, with PT reporting no shortness of breath. Amiodarone drip converted to oral. Telemetry sinus rhythm. Maintaining O2 sats in the high 90s on room air. Maintained on dual antiplatelet therapy, aspirin, Brilenta. Continues on empiric antibiotics. Objective - Vital Signs Vital signs: Vital Signs Temp 98.4 F 04/06/19 12:00 Pulse 99 04/06/19 12:00 Resp 13 04/06/19 12:00 BP 110/64 04/06/19 12:00 Pulse Ox 97 04/06/19 12:00 Intake & Output 04/05/19 04/06/19 04/06/19 18:59 06:59 18:59 Intake Total 6165.798 2609 610 Output Total 1525 730 315 Balance 3.647 710 295 Weight 86 kg Intake: IV 1175 1200 250 Sodium Chloride 0.9% 1, 1000 1200 200 000 ml @ 100 mls/hr IV . Q10H NUNU Rx#:[id number] cefTRIAXone 1 gm In 50 Sodium Chloride 0.9% 50 ml @ 100 mls/hr IVPB Q24HR NUNU Rx#:[id number] Intake, IV Titration 353.647 Amount Amiodarone 300 mg In 250 Dextrose 5% in Water 250 ml @ 0.5 MG/MIN 25 mls/hr IV .Q10H NUNU Rx#: [id number] Heparin Sod,Pork in 0.45% 53.647 NaCl 25,000 unit In 0.45 % NaCl 1 250ml.bag @ Per Protocol IV .Q0M NUNU Rx#: [id number] cefTRIAXone 1 gm In 50 Sodium Chloride 0.9% 50 ml @ 100 mls/hr IVPB Q24HR NUNU Rx#:[id number] Oral 240 360 Output: Urine 1525 730 315 Other: Voiding Method Indwelling Catheter Indwelling Catheter Indwelling Catheter # Bowel Movements 1 ABP, PAP, CO, CI - Last Documented Arterial Blood Pressure 102/95 - Exam PHYSICAL EXAM: VITAL SIGNS: [As above] GENERAL: Sitting up in chair, no acute disease HEENT: Conjunctivae normal. eyes normal. Oral mucosa moist NECK: Elevated JVD. No thyroid enlargement. No LNs CARDIOVASCULAR: S1, S2 regular.. No murmur, no gallops. RESPIRATION: Breath sounds diminished in the bases. No rhonchi, crackles, no wheezes ABDOMEN: Soft, nontender . No guarding. no masses palpable. Positive Bowel sounds . LEGS: right groin hematoma No edema. no swelling. Doppler pulses. PSYCHIATRY: Alert and oriented X3, mood and affect normal. NERVOUS SYSTEM: Cranial N 2-12 grossly normal. Moves all 4 limbs. Diffuse weakness No focal deficits. Strength and sensation grossly intact.. Skin: no rash Microbiology 04/02/19 08:10 Urine,Voided Urine Culture - Final - Labs CBC & Chem 7: 04/06/19 04:10 04/06/19 04:10 Labs: Abnormal Lab Results - Last 24 Hours (Table) 04/05/19 04/06/19 04/06/19 Range/Units 14:00 04:10 04:10 RBC 3.32 L 2.88 L (4.30-5.90) m/uL Hgb 10.2 L 8.9 L (13.0-17.5) gm/dL Hct 31.0 L 27.0 L (39.0-53.0) % Plt Count 142 L 133 L (150-450) k/uL Neutrophils # 8.4 H (1.3-7.7) k/uL Sodium 135 L (137-145) mmol/L Chloride 111 H (98-107) mmol/L Calcium 7.1 L (8.4-10.2) mg/dL Assessment and Plan Assessment: -Acute ST elevation microinfarction: Patient is status post cardiac catheterization and stenting of LAD, -Acute Cardiogenic shock, status post Impella, status post stenting of the left main and first OM of left circumflex -Severe triple vessel disease -Severe ischemic cardiomyopathy, current EF 20-25%. -Moderate mitral regurgitation -New-onset atrial fibrillation -Acute systolic dysfunction, heart failure not in heart failure exacerbation. Patient is hypotensive patient is fairly euvolemic and patient has good urine output today creatinine improved to 1.05 -Acute renal failure renal azotemia most probably from heart failure and myocardial infarction. -Nausea vomiting secondary to stress-induced gastritis, improved -Hyperlipidemia -Gastroesophageal reflux disease Plan: Continue on current medication regime ,monitoring and symptomatic treatment. Continue dual antiplatelet therapy,oral antiarrhythmics/amiodarone as per cardiology. Cleared By cardiology for transfer to telemetry unit. Gilliam catheter is discontinued, monitor for urinary retention, post void residuals. Repeat urine culture pending. Prognosis guarded given multiple complex medical issues. The impression and plan of care has been dictated as directed. : I performed a history and examination of this patient, discussed the same with the dictator. I agree with the dictator's note ,documented as a scribe. Any additional findings or plans will be noted.
[2019-04-06] MEDS: TAMSULOSIN 0.4 MG CAP.ER.24H PO SCH (17:59)
[2019-04-06] MEDS: ATORVASTATIN 80 MG TAB PO SCH (21:08)
[2019-04-07] MEDS: ALPRAZolam 0.25 MG TAB PO PRN (02:03)
[2019-04-07] MEDS: BENZOCAINE/MENTHOL LOZENG 1 EACH LOZENGE MUCOUS MEM PRN ×2 (02:16→18:24)
[2019-04-07] MEDS: ASPIRIN 81 MG PO SCH (09:10)
[2019-04-07] MEDS: PANTOPRAZOLE 40 MG TABLET PO SCH (09:10)
[2019-04-07] MEDS: METOPROLOL TARTRATE 12.5 MG TAB PO SCH (09:10)
[2019-04-07] MEDS: TICAGRELOR 90 MG TAB PO SCH ×2 (09:11→20:26)
[2019-04-07] MEDS: IPRATROPIUM BROMIDE 0.06% NASAL SPRAY (15 ML) NASAL SCH ×2 (09:11→20:26)
[2019-04-07] MEDS: AMIODARONE 200 MG TAB PO SCH ×2 (09:11→20:26)
[2019-04-07] MEDS: LOSARTAN 25 MG TAB PO SCH (11:26)
--- NOTE | 2019-04-07 12:31 | P.PN ---
Subjective Progress Note Date: 04/07/19 Principal diagnosis: Acute ST segment elevated myocardial infarction status post stenting 3 to the LAD and insertion of Impella This is a 73-year-old white male with history of multiple medical problems including hyperlipidemia, GERD, nephrolithiasis, remote history of pneumonia, patient presented to the ER on 04/01/2019, mostly with anginal symptoms/severe chest pain. Patient was diagnosed as having acute ST elevation myocardial infarction. And he was seen by cardiology on consultation. Patient underwent aspiration thrombectomy, successful stenting of proximal LAD, successful stenting of mid LAD, and intravascular ultrasound of the left anterior descending artery and left main coronary artery. Echocardiogram showed severe LV dysfunction. Patient was also found to have the significant left main coronary artery lesion, and that is supposed to be addressed in the near future by cardiology. Since his cardiac catheterization, patient required pressors in the form of norepinephrine. He was placed on dual antiplatelet therapy, his beta blockers and MITZY inhibitor's remain on hold. The manager of radiology was concerned about the possibility of underlying sepsis, however the clinical history is mostly cardiac history. His urinalysis is suggestive of a minimal urinary tract infection, and a chest x-ray showed no evidence of infiltrate. Plus the patient had no symptoms to suggest pneumonia. His urinalysis showed 13 WBCs, and moderate urine leukocyte esterase. Patient had no active renal symptoms whatsoever. He had no active pulmonary symptoms whatsoever. His white count since admission was noted to rise, he presented with a WBC count of 11.6, and now it is 18.2. Considering the leukocytosis, and considering the concern of a possible urinary tract infection, I would recommend empirically Rocephin until cultures are available The patient is seen today 04/04/2019 in follow-up in the intensive care unit. Last evening he was not feeling quite well. He had been hemodynamically unstable requiring more vasopressors. Dr. Gupta took the patient back to the Vamp Throater and place and placed and Impella CP in the left ventricle, groin approach. He also performed successful stenting of the first obtuse marginal branch of the left circumflex, stenting of unprotected left main coronary artery, IVUS of the left main. He is seen today in follow-up in the intensive care unit. He is currently awake and alert in no acute distress. No current chest pain. He is maintaining O2 saturations in the 90s on 2 L/m per nasal cannula. He has a 0.9% normal saline running at 75 ML's per hour. Amiodarone drip at 0.5 mg/m. Heparin drip per weight base protocol. Norepinephrine is currently off. Chest x-ray reveals stable findings. Mild cardiomegaly and a l eft lateral basilar linear scarring/atelectasis. No new infiltrates. White count 11.9. Hemoglobin 11.9. Sodium 135. Potassium 3.7. Chloride 109. Creatinine 0.77. Magnesium 1.9. LDH 2468. He is currently on aspirin and Brilinta. Antibiotics in the form of ceftriaxone.. On 04/05/2019 patient seen in follow-up in intensive care unit, he is resting comfortably in bed, reports no difficulty breathing, no chest pain, he is on room air, his pulse ox is 92-95%, hemodynamically patient is stable, Levothroid is on hold, maintenance IV fluids 0.9 normal saline at a rate of 100, heparin infusion per weight-based protocol. Amiodarone drip is a 0.5 mg/m, patient is sinus rhythm the controlled rate. His labs have been reviewed, white blood cell count is 11.7, hemoglobin is 10.8, sodium is 133, potassium 3.8, chloride is 108, CO2 is 24, BUN is 18 creatinine 0.86, LDH was 2831. Hemodynamically patient had remained stable overnight, no complaints of chest pain, and cardiology is planning on removing the in [place] device today at noon. he remains on Brilinta and aspirin for dual antiplatelet therapy. On 04/06/2019 patient seen in follow-up in intensive care unit, he sitting up in the recliner, in no acute distress, yesterday his ImPella device was removed, patient did have a left groin hematoma and some oozing from the right groin left groin hematoma has been reduced, is clean dry and soft this morning, right groin oozing was controlled, heparin drip has been discontinued, some mild bruising at the right groin, distal pulses are obtained through the Doppler, hemodynamically patient remains stable, denies any chest pain denies any shortness of breath, sinus mechanism with a controlled rate on the monitor, 0.9 normal saline at a rate of 100 ML per hour, room air pulse ox is 96%. Labs have been reviewed, patient's hemoglobin is 8.9, white blood cell count is 9.8, sodium is 135, potassium is 3.9, chloride is 111, renal profile is within normal limits. Is on dual antiplatelet therapy with Brilinta and aspirin, his amiodarone drip has been discontinued and patient is now transitioned to oral amiodarone. Fever or chills, remains on empiric antibiotics for a possible urinary tract infection although urine cultures have shown no growth. We will repeat urinalysis today. On 04/07/2019 patient seen in follow-up on selective care unit, he is awake and alert, in no acute distress, resting comfortably in bed, doesn't chest pain, denies any shortness of breath, lung sounds are clear, he is on room air, his pulse ox is 95-96%, respirations are nonlabored, he is afebrile, no plans of chest pain. No new labs today. Urine culture showed no growth, he remains on Rocephin for possibility of UTI Objective - Vital Signs Vital signs: Vital Signs Temp 98.1 F 04/07/19 07:53 Pulse 100 04/07/19 07:53 Resp 18 04/07/19 07:53 BP 104/65 04/07/19 07:53 Pulse Ox 95 04/07/19 08:23 Intake & Output 04/06/19 04/07/19 04/07/19 18:59 06:59 18:59 Intake Total 1330 240 Output Total 990 Balance 340 240 Weight 83.2 kg Intake: IV 250 Sodium Chloride 0.9% 1, 200 000 ml @ 100 mls/hr IV . Q10H NUNU Rx#:[id number] cefTRIAXone 1 gm In 50 Sodium Chloride 0.9% 50 ml @ 100 mls/hr IVPB Q24HR NUNU Rx#:[id number] Oral 1080 240 Output: Urine 990 Other: Voiding Method Bedside Commode Toilet # Voids 2 ABP, PAP, CO, CI - Last Documented Arterial Blood Pressure 102/95 - Exam GENERAL EXAM: Alert, pleasant, 73-year-old white male, on room air comfortable in no apparent distress. HEAD: Normocephalic/atraumatic. EYES: Normal reaction of pupils, equal size. Conjunctiva pink, sclera white. NOSE: Clear with pink turbinates. THROAT: No erythema or exudates. NECK: No masses, no JVD, no thyroid enlargement, no adenopathy. CHEST: No chest wall deformity. Symmetrical expansion. LUNGS: Equal air entry with no crackles, wheeze, rhonchi or dullness. CVS: Regular rate and rhythm, normal S1 and S2, no gallops, no murmurs, no rubs ABDOMEN: Soft, nontender. No hepatosplenomegaly, normal bowel sounds, no guarding or rigidity. EXTREMITIES: No clubbing, no edema, no cyanosis, 2+ pulses and upper and lower extremities. Left groin sheath with impeller device clean dry and intact, right groin puncture CDI, bruised MUSCULOSKELETAL: Muscle strength and tone normal. SPINE: No scoliosis or deformity SKIN: No rashes CENTRAL NERVOUS SYSTEM: Alert and oriented -3. No focal deficits, tone is normal in all 4 extremities. PSYCHIATRIC: Alert and oriented -3. Appropriate affect. Intact judgment and insight. - Labs CBC & Chem 7: 04/06/19 04:10 04/06/19 04:10 Assessment and Plan Plan: Assessment: #1. Acute anterior ST elevated myocardial infarction, status post stenting to the LAD 3 #2. Acute cardiogenic shock status post ImPella placement in stenting to the left main and left circumflex #3. Triple-vessel coronary artery disease including left main stenosis #4. Possible urinary tract infection, negative urine culture #5. Multiple comorbidities including GERD/[place], dyslipidemia, acute kidney injury, degenerative joint disease, and history of nephrolithiasis Plan: Patient is doing well, no shortness of breath, no chest pain, remains on aspirin and Brilinta, denies any shortness of breath, lung sounds are clear, no new left chest x-rays, is activity as tolerated, can discontinue the Rocephin, urine culture was negative, patient is afebrile I performed a history & physical examination of the patient and discussed their management with my nurse practitioner, Hailey Blackman. I reviewed the nurse practitioner's note and agree with the documented findings and plan of care. Lung sounds are positive for clear breath sounds. The findings and the impression was discussed with the patient. I attest to the documentation by the nurse practitioner. Time with Patient: Less than 30
--- NOTE | 2019-04-07 14:24 | P.PN ---
Subjective Patient is doing very well. He has no chest discomfort dizziness lightheadedness or palpitations He has not had any further episodes of atrial fibrillation either Afebrile 97.9F pulse rate 100 beats a minute blood pressure 137/65 and 104/65 mmHg normal respirations Breath sounds are clear no rhonchi no crackles No orthopnea Heart sounds S1 and S2 are normal no murmurs or gallops no rub Abdomen soft nontender Extremity is warm no edema Hemoglobin 8.9 which is reduced from 10.8, sodium 135 potassium 3.9 BUN 16, creatinine 0.[address] elevation [place] an ache shock initially Status post [place]ala Moderate MR Stenting to the left main LAD and first obtuse marginal Severe ischemic cardiomyopathy ejection fraction 20-25% Few episodes of paroxysmal atrial fibrillation but now maintaining sinus rhythm for the last 48 hours Anemia Currently in Brilinta Suggest I would hold off on anticoagulation even though he's had short bursts of atrial fibrillation. For the last 48 hours he's had none did he is on Brilinta and aspirin and I would avoid anticoagulation along with Brilinta If he has further episodes of atrial fibrillation then we will consider switching to Plavix along with anti-coordination In addition he is anemic Maximize heart failure medications Increase metoprolol to 25 mg twice daily Continue losartan and add spironolactone Severe LV dysfunction Consider LifeVest Objective - Vital Signs Vital signs: Vital Signs Temp 97.9 F 04/07/19 12:00 Pulse 105 H 04/07/19 12:00 Resp 18 04/07/19 12:00 BP 127/65 04/07/19 12:00 Pulse Ox 98 04/07/19 12:00 Intake & Output 04/06/19 04/07/19 04/07/19 18:59 06:59 18:59 Intake Total 1330 240 Output Total 990 Balance 340 240 Weight 83.2 kg Intake: IV 250 Sodium Chloride 0.9% 1, 200 000 ml @ 100 mls/hr IV . Q10H NUNU Rx#:[id number] cefTRIAXone 1 gm In 50 Sodium Chloride 0.9% 50 ml @ 100 mls/hr IVPB Q24HR NUNU Rx#:[id number] Oral 1080 240 Output: Urine 990 Other: Voiding Method Bedside Commode Toilet # Voids 2 ABP, PAP, CO, CI - Last Documented Arterial Blood Pressure 102/95 - Labs CBC & Chem 7: 04/06/19 04:10 04/06/19 04:10
--- NOTE | 2019-04-07 16:11 | P.PN ---
Subjective Progress Note Date: 04/07/19 This is a 73-year-old gentleman admitted with acute STEMI status post cardiac catheterization with stenting of the LAD, new onset atrial fibrillation, acute renal failure and multiple other medical issues.. Maintained on dual antiplatelet therapy. Beta jose luis, lisinopril on hold secondary to hypotension . 04/04/2019 Last night, hypotensive, in cardiogenic shock, vasopressors increased-hemodynamically unstable. Patient returned to the [facility] Cal[facility] receiving Impella pump placement along with successful stenting of the first OM, left main.current echocardiogram reporting EF of 20-25%. Currently off Levophed. Denies chest pain, palpitations or shortness of breath. Denies lightheadedness, dizziness or focal deficits. IV amiodarone converted to oral. Chest x-ray stable, with no new infiltrates on IV Rocephin. Maintaining O2 sats in the low 90s on 2 L nasal cannula. Continues on gentle IV fluid hydration. Afebrile, WBC 11.2. Urine culture no growth. Hemoglobin 11.5. 04/06/2019 yesterday returned to the [facility] Cal[facility] to have impella pump removed, developed right groin hematoma-which has been reduced. Hemoglobin 8.9. He ambulated around the ICU with walker, with PT reporting no shortness of breath. Amiodarone drip converted to oral. Telemetry sinus rhythm. Maintaining O2 sats in the high 90s on room air. Maintained on dual antiplatelet therapy, aspirin, Brilenta. Continues on empiric antibiotics. 04/07/2019 maintained on Brilenta and aspirin, with no further burst/runs of a trial fibrillation. Telemetry sinus rhythm. Maintain mild tachycardia, heart rate in the low 100s, beta jose luis increased. Continues on Aldactone and losartan. Hemoglobin 8.9. Afebrile. Denies chest pain, palpitations or increased shortness of breath. Objective - Vital Signs Vital signs: Vital Signs Temp 97.9 F 04/07/19 12:00 Pulse 105 H 04/07/19 12:00 Resp 18 04/07/19 12:00 BP 127/65 04/07/19 12:00 Pulse Ox 98 04/07/19 12:00 Intake & Output 04/06/19 04/07/19 04/07/19 18:59 06:59 18:59 Intake Total 1330 290 Output Total 990 Balance 340 290 Weight 83.2 kg 83.2 kg Intake: IV 250 50 Sodium Chloride 0.9% 1, 200 000 ml @ 100 mls/hr IV . Q10H NUNU Rx#:[id number] cefTRIAXone 1 gm In 50 50 Sodium Chloride 0.9% 50 ml @ 100 mls/hr IVPB Q24HR NUNU Rx#:[id number] Oral 1080 240 Output: Urine 990 Other: Voiding Method Bedside Commode Toilet # Voids 2 ABP, PAP, CO, CI - Last Documented Arterial Blood Pressure 102/95 - Exam PHYSICAL EXAM: VITAL SIGNS: [As above] GENERAL: Sitting up in bed, no acute disease HEENT: Conjunctivae normal. eyes normal. Oral mucosa moist NECK: Elevated JVD. No thyroid enlargement. No LNs CARDIOVASCULAR: S1, S2 regular.. No murmur, no gallops. RESPIRATION: Breath sounds diminished in the bases. No rhonchi, crackles, no wheezes ABDOMEN: Soft, nontender . No guarding. no masses palpable. Positive Bowel sounds . LEGS: No edema. no swelling. Doppler pulses. PSYCHIATRY: Alert and oriented X3, mood and affect normal. NERVOUS SYSTEM: Cranial N 2-12 grossly normal. Moves all 4 limbs. Diffuse weakness No focal deficits. Strength and sensation grossly intact.. Skin: no rash Microbiology 04/02/19 08:10 Urine,Voided Urine Culture - Final - Labs CBC & Chem 7: 04/06/19 04:10 04/06/19 04:10 Assessment and Plan Assessment: -Acute anterior wall STEMI, Patient is status post cardiac catheterization and stenting of LAD, -Acute Cardiogenic shock, status post Impella, status post stenting of the left main and first OM of left circumflex -CAD, Severe triple vessel disease -Severe ischemic cardiomyopathy, current EF 20-25%. -Moderate mitral regurgitation -New-onset paroxysmal atrial fibrillation -Acute renal failure renal azotemia most probably from heart failure and myocardial infarction. -Anemia -Nausea vomiting secondary to stress-induced gastritis, improved -Hyperlipidemia -Gastroesophageal reflux disease Plan: Continue on current medication regime ,monitoring and symptomatic treatment. Continue on aspirin, Brilenta. Cardiology discussing life vest. Beta jose luis increased, continue monitoring overnight. Increase ambulation as tolerated. Possible discharge home tomorrow pending cardiology clearance. The impression and plan of care has been dictated as directed. : I performed a history and examination of this patient, discussed the same with the dictator. I agree with the dictator's note ,documented as a scribe. Any additional findings or plans will be noted.
[2019-04-07] MEDS: TAMSULOSIN 0.4 MG CAP.ER.24H PO SCH (17:53)
[2019-04-07] MEDS: METOPROLOL TARTRATE 25 MG TAB PO SCH (20:26)
[2019-04-07] MEDS: ATORVASTATIN 80 MG TAB PO SCH (20:26)
[2019-04-08 06:46] LABS: Basophils % (A) 0 %; Eosinophils # (A) 0.6 k/uL (0-0.7); Eosinophils % (A) 6 %; HCT 24.7 % (39.0-53.0); HGB 8.4 gm/dL (13.0-17.5); Lymphocytes % (A) 20 %; MCH 31.8 pg (25.0-35.0); MCHC 33.9 g/dL (31.0-37.0); Mean Platelet Volume 8.7; Monocytes # (A) 0.6 k/uL (0-1.0); Monocytes % (A) 6 %; Neutrophils # (A) 6.9 k/uL (1.3-7.7); Neutrophils % (A) 66 %; Platelet Count 194 k/uL (150-450); RBC 2.63 m/uL (4.30-5.90); RDW 13.9 % (11.5-15.5); WBC 10.4 k/uL (3.8-10.6)
[2019-04-08 06:57] LABS: Calcium 7.8 mg/dL (8.4-10.2); Potassium 3.6 mmol/L (3.5-5.1)
[2019-04-08] MEDS: PANTOPRAZOLE 40 MG TABLET PO SCH (08:19)
[2019-04-08] MEDS: AMIODARONE 200 MG TAB PO SCH ×2 (08:20→20:35)
[2019-04-08] MEDS: TICAGRELOR 90 MG TAB PO SCH ×2 (08:20→20:36)
[2019-04-08] MEDS: ASPIRIN 81 MG PO SCH (08:20)
[2019-04-08] MEDS: SPIRONOLACTONE 25 MG TAB PO SCH (08:21)
[2019-04-08] MEDS: METOPROLOL TARTRATE 25 MG TAB PO SCH ×2 (08:21→20:36)
[2019-04-08] MEDS: IPRATROPIUM BROMIDE 0.06% NASAL SPRAY (15 ML) NASAL SCH (08:23)
--- NOTE | 2019-04-08 10:10 | P.DS ---
Providers Date of admission: 04/01/19 04:38 Expected date of discharge: 04/08/19 Attending physician: Gucci Zhong Consults: 04/01/19 03:20 Consult Physician Stat Consulting Provider: Charles Rehman Consult Reason/Comments: STEMI ACTIVATION COMPLETE Do you want consulting provider notified?: Yes 04/01/19 05:41 Consult Physician Routine Consulting Provider: Charles Rehman Consult Reason/Comments: Post Interventional patient Do you want consulting provider notified?: Already Contacted 04/01/19 11:58 Consult Physician Routine Consulting Provider: Alod Reyes Consult Reason/Comments: evaluate for CABG Do you want consulting provider notified?: Already Contacted 04/03/19 07:21 Consult Physician Routine Consulting Provider: Tomas Arredondo Consult Reason/Comments: ICU management Do you want consulting provider notified?: Yes, Notify in am 04/03/19 21:27 Consult Physician Routine Consulting Provider: Charles Rehman Consult Reason/Comments: Post Interventional patient Do you want consulting provider notified?: Already Contacted Primary care physician: [facility] Course: Final Diagnoses: -Acute anterior wall STEMI, Patient is status post cardiac catheterization and stenting of LAD, -Acute Cardiogenic shock, status post Impella, status post stenting of the left main and first OM of left circumflex -CAD, Severe triple vessel disease -Severe ischemic cardiomyopathy, current EF 20-25%. LifeVest pending -Moderate mitral regurgitation -New-onset paroxysmal atrial fibrillation -Acute renal failure renal azotemia most probably from heart failure and myocardial infarction. -Anemia -Nausea vomiting secondary to stress-induced gastritis, improved -Hyperlipidemia -Gastroesophageal reflux disease Hospital course:This is a 73-year-old gentleman admitted with acute STEMI status post cardiac catheterization with stenting of the LAD, new onset atrial fibrillation, acute renal failure and multiple other medical issues.. Maintained on dual antiplatelet therapy. Beta jose luis, lisinopril on hold secondary to hypotension. 04/04/2019 Last night, hypotensive, in cardiogenic shock, vasopressors increased-hemodynamically unstable. Patient returned to the Marketing [facility] receiving Impella pump placement along with successful stenting of the first OM, left main.current echocardiogram reporting EF of 20-25%. Currently off Levophed. Denies chest pain, palpitations or shortness of breath. Denies lightheadedness, dizziness or focal deficits. IV amiodarone converted to oral. Chest x-ray stable, with no new infiltrates on IV Rocephin. Maintaining O2 sats in the low 90s on 2 L nasal cannula. Continues on gentle IV fluid hydration. Afebrile, WBC 11.2. Urine culture no growth. Hemoglobin 11.5. 04/06/2019 yesterday returned to the [facility] to have impella pump removed, developed right groin hematoma-which has been reduced. Hemoglobin 8.9. He ambulated around the ICU with walker, with PT reporting no shortness of breath. Amiodarone drip converted to oral. Telemetry sinus rhythm. Maintaining O2 sats in the high 90s on room air. Maintained on dual antiplatelet therapy, aspirin, Brilenta. Continues on empiric antibiotics. 04/07/2019 maintained on Brilenta and aspirin, with no further burst/runs of atrial fibrillation. Telemetry sinus rhythm. Maintain mild tachycardia, heart rate in the low 100s, beta jose luis increased. Continues on Aldactone and losartan. Hemoglobin 8.9. Afebrile. Denies chest pain, palpitations or increased shortness of breath. Significant clinical improvement. LifeVest being obtained. Cleared by cardiology for discharge. Patient being discharged home in a stable condition with guarded prognosis. EXAM: GENERAL: Alert and oriented 3, no acute disease CARDIOVASCULAR: S1, S2 regular.. No murmur, no gallops. RESPIRATION: Breath sounds diminished in the bases. ABDOMEN: Soft, nontender . No guarding. no masses palpable. Positive Bowel sounds . NERVOUS SYSTEM: No focal deficits. The impression and plan of care has been dictated as directed. : I performed a history and examination of this patient, discussed the same with the dictator. I agree with the dictator's note ,documented as a scribe. Any additional findings or plans will be noted. Patient Condition at Discharge: Stable Plan - Discharge Summary Discharge Rx Participant: Yes New Discharge Prescriptions: New Spironolactone [Aldactone] 25 mg PO DAILY #30 tab Ticagrelor [Brilinta] 90 mg PO BID #60 tab Losartan [Cozaar] 12.5 mg PO Q24H #30 tab Aspirin EC [Ecotrin Low Dose] 81 mg PO DAILY #30 tablet. Tamsulosin [Flomax] 0.4 mg PO PC-SUPPER #30 cap.er.24h Atorvastatin [Lipitor] 80 mg PO HS #30 tab Metoprolol Tartrate [Lopressor] 25 mg PO BID #60 tab Nitroglycerin Sl Tabs [Nitrostat] 0.4 mg SUBLINGUAL Q5M PRN #100 tab PRN Reason: Chest Pain Continue Omeprazole [PriLOSEC] 20 mg PO DAILY Discharge Medication List Omeprazole [PriLOSEC] 20 mg PO DAILY 04/01/19 [History] Aspirin EC [Ecotrin Low Dose] 81 mg PO DAILY #30 tablet.dr 04/08/19 [Rx] Atorvastatin [Lipitor] 80 mg PO HS #30 tab 04/08/19 [Rx] Losartan [Cozaar] 12.5 mg PO Q24H #30 tab 04/08/19 [Rx] Metoprolol Tartrate [Lopressor] 25 mg PO BID #60 tab 04/08/19 [Rx] Nitroglycerin Sl Tabs [Nitrostat] 0.4 mg SUBLINGUAL Q5M PRN #100 tab 04/08/19 [Rx] Spironolactone [Aldactone] 25 mg PO DAILY #30 tab 04/08/19 [Rx] Tamsulosin [Flomax] 0.4 mg PO PC-SUPPER #30 cap.er.24h 04/08/19 [Rx] Ticagrelor [Brilinta] 90 mg PO BID #60 tab 04/08/19 [Rx] Follow up Appointment(s)/Referral(s): Gucci Zhong MD [Primary Care Provider] - 04/13/19 9:15 am Chevy Mcclure MD [STAFF PHYSICIAN] - 04/14/19 10:45 am [facility] Visiting Nurse, [NON-STAFF] - 1-2 Days Ambulatory/Diagnostic Orders: Complete Blood Count w/diff [LAB.AMB] Time Frame: 3 Days, Location: None Selected Patient Instructions/Handouts: Heart Attack (DC), Heart Healthy Diet (DC), Coronary Intravascular Stent Placement (DC) Activity/Diet/Wound Care/Special Instructions: Amiodarone taper RX as per cardiology. Lifevest pending. Cardiology final dc rec, clearance pending
--- NOTE | 2019-04-08 11:50 | P.PN ---
Subjective This is Emely Fong PA-C dictating a progress note on this patient The patient was interviewed and examined by me as well as by Dr. Alaniz Case discussed with Dr. Alaniz and he agrees with the plan of care HPI/interval history Patient is a 73-year-old male who presented with an acute anterior ST elevation OK and underwent emergent stenting to the LAD. He developed cardiogenic shock requiring impella and subsequently underwent stenting to the OM and left main. While in the ICU he did go into atrial fibrillation twice and was started on amiodarone. Maintaining sinus rhythm. Patient seen and examined in his room. States his breathing has improved but he did have some shortness of breath overnight. He has been walking around on the floor without any dizziness. No chest pain. EXAMINATION pt is afebrile, pulse 100, respirations 14, blood pressure 103/66, oxygen saturation 100% on room air Patient seen and examined sitting in the chair, in no acute distress Lungs clear to auscultation bilaterally Heart is regular, no audible murmurs No lower extremity edema REVIEW OF LABS, ECG Labs reviewed, WBC 10.4, hemoglobin 8.4, platelets 194, potassium 3.6, BUN 15, creatinine 1.08 IMPRESSION / ASSESSMENT: Acute anterior ST elevation OK this admission Cardiogenic shock requiring placement Impella placement, improved, impella removed Severe ischemic cardiomyopathy, EF 20-25% by recent echo CAD status post stenting to the left main, LAD and OM Few episodes of paroxysmal atrial fibrillation, maintaining sinus rhythm, on a miodarone PLAN: Given the patient's severely reduced EF, he is at risk for sudden cardiac , would recommend LifeVest and reassessment of his LV function after 3 months, if it does not improve, consideration for an AICD Continue amiodarone 400 mg daily for one month and reduced the dose thereafter Continue aspirin and Brillinta, if he continues to have sustained episodes of atrial fibrillation, we will have to start anticoagulation and switched to Plavix, triple therapy for one month and then stop the aspirin Continue low-dose losartan and metoprolol, maximize cardiomyopathy medications a s his blood pressure tolerates Continue spironolactone Objective - Vital Signs Vital signs: Vital Signs Temp 97.6 F 04/08/19 08:00 Pulse 100 04/08/19 08:00 Resp 14 04/08/19 08:00 BP 103/66 04/08/19 08:00 Pulse Ox 100 04/08/19 08:00 Intake & Output 04/07/19 04/08/19 04/08/19 18:59 06:59 18:59 Intake Total 410 600 Balance 410 600 Weight 83.2 kg 80.5 kg Intake: IV 50 cefTRIAXone 1 gm In 50 Sodium Chloride 0.9% 50 ml @ 100 mls/hr IVPB Q24HR [facility] Rx#:[id number] Oral 360 600 Other: Voiding Method Toilet Toilet Toilet # Voids 2 ABP, PAP, CO, CI - Last Documented Arterial Blood Pressure 102/95 - Labs CBC & Chem 7: 04/08/19 06:19 04/08/19 06:19 Labs: Abnormal Lab Results - Last 24 Hours (Table) 04/08/19 04/08/19 Range/Units 06:19 06:19 RBC 2.63 L (4.30-5.90) m/uL Hgb 8.4 L (13.0-17.5) gm/dL Hct 24.7 L (39.0-53.0) % Chloride 110 H (98-107) mmol/L Carbon Dioxide 21 L (22-30) mmol/L Glucose 103 H (74-99) mg/dL Calcium 7.8 L (8.4-10.2) mg/dL
[2019-04-08] MEDS: LOSARTAN 25 MG TAB PO SCH (12:47)
--- NOTE | 2019-04-08 16:44 | US ---
EXAMINATION TYPE: US retroperitoneal limited DATE OF EXAM: 04/08/2019 COMPARISON: NONE CLINICAL HISTORY: r/o retroperitoneal bleed. Patient stated had multiple bilateral groin cardiac cath eterizations within past 2 weeks; decreased hemoglobin per patient's RN No retroperitoneal bleed is noted by US. IMPRESSION: The right kidney measures 10.3 cm in length. Left kidney measures 10.6 cm. There is no hy dronephrosis. There is no perinephric fluid. There is no evidence of a renal mass. Urinary bladder wa s not evaluated. There is no evidence of retroperitoneal hemorrhage at the kidneys.
[2019-04-08] MEDS: TAMSULOSIN 0.4 MG CAP.ER.24H PO SCH (17:49)
--- NOTE | 2019-04-08 18:18 | US ---
EXAMINATION TYPE: US lower ext pseudo artery BI DATE OF EXAM: 04/08/2019 COMPARISON: NONE CLINICAL HISTORY: r/o pseudo. Multiple cardiac catheterizations via bilateral groin in past 10 days; bilateral groin ecchymosis is noted by US technologist. EXAM PERFORMED: Grayscale and color Doppler duplex imaging performed of the groin, post cardiac lynsey ter to assess for pseudoaneurysm. SIDE PERFORMED: bilateral Color and Waveform Doppler performed to assess for the presence of pseudoaneurysm; Is there ultrasound evidence of a pseudoaneurysm: no Is there evidence of AV shunting: no Is there a fluid collection present: yes, anterior to right PLANT SCIENCES PROFESSOR is hypoechoic area = 3.6 x 1.2 x 0.6c m and is suggestive of hematoma. IMPRESSION: No pseudoaneurysm seen. There is a subcutaneous fluid collection suggestive of hematoma that measures 36 x 10 mm.
[2019-04-08] MEDS ORDERED: FERROUS SULFATE 325 MG TAB PO STA (19:26)
[2019-04-08] MEDS: ATORVASTATIN 80 MG TAB PO SCH (20:36)
[2019-04-08] MEDS: ONDANSETRON 4 MG/2 ML VIAL IVP PRN (22:20)
[2019-04-08] MEDS: BENZOCAINE/MENTHOL LOZENG 1 EACH LOZENGE MUCOUS MEM PRN (23:15)
[2019-04-09] MEDS: IPRATROPIUM BROMIDE 0.06% NASAL SPRAY (15 ML) NASAL SCH ×3 (00:29→21:11)
[2019-04-09] MEDS: ALPRAZolam 0.25 MG TAB PO PRN ×2 (01:18→23:42)
[2019-04-09 06:51] LABS: Basophils % (A) 0 %; Eosinophils # (A) 0.5 k/uL (0-0.7); Eosinophils % (A) 5 %; HCT 24.9 % (39.0-53.0); HGB 8.1 gm/dL (13.0-17.5); Lymphocytes # (A) 2.1 k/uL (1.0-4.8); Lymphocytes % (A) 21 %; MCH 30.5 pg (25.0-35.0); MCHC 32.4 g/dL (31.0-37.0); MCV 94.2 fL (80.0-100.0); Mean Platelet Volume 8.5; Monocytes # (A) 0.6 k/uL (0-1.0); Monocytes % (A) 6 %; Neutrophils # (A) 6.6 k/uL (1.3-7.7); Neutrophils % (A) 67 %; Platelet Count 266 k/uL (150-450); RBC 2.65 m/uL (4.30-5.90); RDW 13.9 % (11.5-15.5); WBC 9.9 k/uL (3.8-10.6)
--- NOTE | 2019-04-09 07:17 | PN ---
PROGRESS NOTE A 73-year-old white male with a STEMI PTCA, coronary artery disease, waiting for vest to be placed for defibrillation, risk as he goes home. Also ultrasound has been ordered due to decrease in his hemoglobin. Possibly, rule out for GI bleed, near future. CARDIOVASCULAR: S1-S2. LUNGS: Clear. Sitting up. Psych happy, talking to his friends, sitting up in a chair. PSYCH: Fair mood and affect. HEMATOLOGY: Negative Homans. ASSESSMENT: STEMI PTCA, coronary artery disease, anemia. Ultrasound of the abdomen pending. Cardioversion vest pending. Please see further orders. MMODL / IJN: [id number] /
[2019-04-09 07:19] LABS: Calcium 8.1 mg/dL (8.4-10.2)
[2019-04-09] MEDS: TICAGRELOR 90 MG TAB PO SCH ×2 (10:28→21:03)
[2019-04-09] MEDS: ASPIRIN 81 MG PO SCH (10:28)
[2019-04-09] MEDS: AMIODARONE 200 MG TAB PO SCH ×2 (10:28→21:03)
[2019-04-09] MEDS: METOPROLOL TARTRATE 25 MG TAB PO SCH ×2 (10:28→21:03)
[2019-04-09] MEDS: SPIRONOLACTONE 25 MG TAB PO SCH (10:28)
[2019-04-09] MEDS: PANTOPRAZOLE 40 MG TABLET PO SCH (10:28)
[2019-04-09] MEDS: FERROUS SULFATE 325 MG TAB PO SCH (10:28)
--- NOTE | 2019-04-09 12:33 | PN ---
PROGRESS NOTE A 73-year-old white male who is back to his normal baseline, mental status is, he has limited pain. He has been up ambulating. He is having in the mid-to-high 90s on room air. Dementia, delirium improved since he has been off that RISK CONTROL OFFICER pump. Vital signs are reviewed. CARDIOVASCULAR: S1, S2. LUNGS: Clear. Range of motion of the arms over his head with limited rib pain. PLAN: I suspect he could be discharged home. He wants to go home. He is stable to go home. Continue his home medicines including Lipitor, aspirin, Cordarone, Xanax, Atrovent nasal spray, Cozaar, Lopressor for hypertension, Protonix for GERD, Aldactone for CHF, Flomax for BPH, Brilinta for CHF and statins, Ambien for sleep and will follow up in office in less than a week. MALCOM / BERNABE: [id number] /
--- NOTE | 2019-04-09 12:36 | PN ---
PROGRESS NOTE A 73-year-old white male, status post LAD PTCAs x2. We are waiting for defibrillator vest for the patient. In the meantime, his hemoglobin has dropped way down, discussed case with Dr. Kelley, caustic plant worker. His hemoglobin went from 10.2 to 8.1. Possibly give some iron and possibly be discharged when he gets his vest in the next 24-48 hours as long as his blood count stabilizes. Will give him some iron today, check it in the morning. 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 He has had a colonoscopy apparently 3-4 years ago, which showed some diverticulitis with some bleeding. He looks a little pale, cachectic. LUNGS: Clear. CARDIOVASCULAR: S1, S2. ASSESSMENT: Anemia dropped from 10 to 8.1, multifactorial, possible small hematoma in the pseudoaneurysm where he had a heart catheterization, also possibly some AVM malformations in his GI tract. As long as hemoglobin stabilized, stays above 8 we can possibly discharged him home tomorrow. Discussed case with Dr. Kelley. Wait for defibrillator vest. MMODL / IJN: [id number] /
--- NOTE | 2019-04-09 13:10 | P.PN ---
Subjective Progress Note Date: 04/09/19 the patient is currently lying comfortably in bed. He denies any chest pain, chest pressure, palpitations, dyspnea, dizziness, or vertigo. He states he is eager to be discharged home. he has been noted to be dropping his hemoglobin over the last several days. Ultrasound the abdomen was negative for retroperitoneal bleed. Bilateral groin ultrasound shows a moderate size hematoma to the right CHIEF CUSTOMER OFFICER. GENERAL: Well-appearing, well-nourished and in no acute distress. NECK: Supple without JVD or thyromegaly. LUNGS: Breath sounds clear to auscultation bilaterally. Respiration equal and unlabored. No wheezes, rales or rhonchi. HEART: Regular rate and rhythm without murmurs, rubs or gallops. S1 and S2 heard. EXTREMITIES: Normal range of motion, no edema. No clubbing or cyanosis. Peripheral pulses intact and strong. Labs: WBC 9.9, Hgb 8.1, hematocrit 24.9, platelet 266, sodium 138, potassium 4.0, BUN 20, creatinine 1.18 Impression: #1 acute anterior STEMI #2 coronary artery disease status post stenting of the left main, LAD, and OM #3 severe ischemic cardiomyopathy, EF 20-25 #4 cardiogenic shock requiring Impella device #5 paroxysmal atrial fibrillation, currently maintaining sinus rhythm #6 anemia #7 postoperative hematoma, right CHIEF CUSTOMER OFFICER Plan: Patient may be discharged home from the cardiac standpoint as soon as LifeVest has been provided. No changes to current medication regimen. Objective - Vital Signs Vital signs: Vital Signs Temp 97.9 F 04/09/19 04:00 Pulse 89 04/09/19 04:00 Resp 17 04/09/19 04:00 BP 95/54 04/09/19 04:00 Pulse Ox 100 04/09/19 04:00 Intake & Output 04/08/19 04/09/19 04/09/19 18:59 06:59 18:59 Intake Total 1320 500 240 Output Total 700 Balance 1320 -200 240 Weight 80.6 kg Intake: IV 20 0.9 20 Oral 1320 480 240 Output: Urine 700 Other: Voiding Method Toilet Toilet # Voids 2 4 # Bowel Movements 2 ABP, PAP, CO, CI - Last Documented Arterial Blood Pressure 102/95 - Labs CBC & Chem 7: 04/09/19 05:59 04/09/19 05:59 Labs: Abnormal Lab Results - Last 24 Hours (Table) 04/09/19 04/09/19 Range/Units 05:59 05:59 RBC 2.65 L (4.30-5.90) m/uL Hgb 8.1 L (13.0-17.5) gm/dL Hct 24.9 L (39.0-53.0) % Glucose 100 H (74-99) mg/dL Calcium 8.1 L (8.4-10.2) mg/dL
[2019-04-09] MEDS: SODIUM FERRIC GLUCONAT-SUCROSE 125 MG in SODIUM CHLORIDE 0.9% 100 ML IVPB SCH (13:50)
[2019-04-09] MEDS: LOSARTAN 25 MG TAB PO SCH (13:50)
[2019-04-09] MEDS: TAMSULOSIN 0.4 MG CAP.ER.24H PO SCH (18:15)
[2019-04-09] MEDS: BENZOCAINE/MENTHOL LOZENG 1 EACH LOZENGE MUCOUS MEM PRN (21:03)
[2019-04-09] MEDS: ATORVASTATIN 80 MG TAB PO SCH ×2 (21:03→21:11)
[2019-04-10] MEDS: TICAGRELOR 90 MG TAB PO SCH (10:02)
[2019-04-10] MEDS: AMIODARONE 200 MG TAB PO SCH (10:02)
[2019-04-10] MEDS: METOPROLOL TARTRATE 25 MG TAB PO SCH (10:03)
[2019-04-10] MEDS: ASPIRIN 81 MG PO SCH (10:03)
[2019-04-10] MEDS: SPIRONOLACTONE 25 MG TAB PO SCH (10:03)
[2019-04-10] MEDS: PANTOPRAZOLE 40 MG TABLET PO SCH (10:03)
[2019-04-10] MEDS: FERROUS SULFATE 325 MG TAB PO SCH (10:03)
[2019-04-10] MEDS: IPRATROPIUM BROMIDE 0.06% NASAL SPRAY (15 ML) NASAL SCH (10:04)
[2019-04-10 12:14] VITALS: BMI 24.3
--- NOTE | 2019-04-10 13:22 | P.PN ---
Subjective Progress Note Date: 04/10/19 Patient is currently sitting up in chair. Unfortunately there is some technical difficulties with requiring the LifeVest. Patient is very eager to be discharged from the hospital as he is feeling well. He denies any chest pain, chest pressure, palpitations, dyspnea, dizziness, or vertigo. He has been a mbulating the halls without issue. 04/09/2019 the patient is currently lying comfortably in bed. He denies any chest pain, chest pressure, palpitations, dyspnea, dizziness, or vertigo. He states he is eager to be discharged home. Hhe has been noted to be dropping his hemoglobin over the last several days. Ultrasound the abdomen was negative for retroperitoneal bleed. Bilateral groin ultrasound shows a moderate size hematoma to the right PROGRAM ENGAGEMENT DIRECTOR. Patient states he has a history of anemia. GENERAL: Well-appearing, well-nourished and in no acute distress. NECK: Supple without JVD or thyromegaly. LUNGS: Breath sounds clear to auscultation bilaterally. Respiration equal and u nlabored. No wheezes, rales or rhonchi. HEART: Regular rate and rhythm without murmurs, rubs or gallops. S1 and S2 heard. EXTREMITIES: Normal range of motion, no edema. No clubbing or cyanosis. Andreea pheral pulses intact and strong. Labs on 04/09/2019: WBC 9.9, Hgb 8.1, hematocrit 24.9, platelet 266, sodium 138, potassium 4.0, BUN 20, creatinine 1.18 Impression: #1 acute anterior STEMI #2 coronary artery disease status post stenting of the left main, LAD, and OM #3 severe ischemic cardiomyopathy, EF 20-25 #4 cardiogenic shock requiring Impella device #5 paroxysmal atrial fibrillation, currently maintaining sinus rhythm #6 anemia #7 postoperative hematoma, right PROGRAM ENGAGEMENT DIRECTOR Plan: Patient may be discharged home from the cardiac standpoint as soon as LifeVest has been provided. No changes to current medication regimen. If LifeVest is not required Thursday morning, patient will be discharged home with outpatient follow-up. Objective - Vital Signs Vital signs: Vital Signs Temp 98.8 F 04/10/19 04:00 Pulse 103 H 04/10/19 08:00 Resp 17 04/10/19 08:00 BP 112/63 04/10/19 08:00 Pulse Ox 97 04/10/19 08:00 Intake & Output 04/09/19 04/10/19 04/10/19 18:59 06:59 18:59 Intake Total 540 10 120 Output Total 600 Balance 540 -590 120 Weight 81.5 kg 81.5 kg Intake: IV 10 0.9 10 Oral 540 120 Output: Urine 600 Other: Voiding Method Toilet Toilet # Voids 1 ABP, PAP, CO, CI - Last Documented Arterial Blood Pressure 102/95 - Labs CBC & Chem 7: 04/09/19 05:59 04/09/19 05:59
[2019-04-10] MEDS: LOSARTAN 25 MG TAB PO SCH (13:58)
[2019-04-10] MEDS: SODIUM FERRIC GLUCONAT-SUCROSE 125 MG in SODIUM CHLORIDE 0.9% 100 ML IVPB SCH (13:58)
[2019-04-10 14:06] VITALS: BP 99/57; PULSE 69; RESP 19; TEMP 98.1
--- NOTE | 2019-04-10 16:23 | P.CONS ---
History of Present Illness - Reason for Consult Consult date: 04/10/19 Anemia Requesting physician: Gucci Zhong - Chief Complaint Chest pain - History of Present Illness 73-year-old male with a medical history significant for osteoarthritis, GERD, dyslipidemia, diverticulosis, prior episode of diverticulitis with abscess formation proximally 5 years ago requiring a colonic resection who presented to the hospital with complaints of chest pain and was found to have acute ST elevation myocardial infarction status post cardiac catheterization with stent placement. The patient is also being treated for new onset atrial fibrillation, acute kidney failure as well as a depressed ejection fraction. The patient was found to be anemic during his stay with hemoglobin initially being found to be 11.4 on presentation is trended down to 8.4 yesterday and a 0.1 today on repeat blood draw. The patient denies any signs or symptoms of GI bleeding. He does report significant bruising in his groin and pelvic region secondary to vascular access attempts during previous interventions. He reports that bruising does appear that it has improved. The patient did have an Impella placed for left ventricular assistance and was found to have elevated lactate dehydrogenase greater than 2000. Bowel movements have remained stable with no blood or black tarry stool noted. No nausea, vomiting or hematemesis. The patient previously has undergone EGD and colonoscopy less than 1 year ago in 06/25/2018 with findings of duodenitis, hiatal hernia, gastritis and esophagitis on EGD and diverticulosis on colonoscopy. He is tolerating a diet. Review of Systems REVIEW OF SYSTEMS: CONSTITUTIONAL: Denies any fevers, chills, weight change or fatigue. CARDIOVASCULAR: Denies any chest pain, palpitations high or low blood pressures RESPIRATORY: Denies any shortness of breath, hemoptysis or cough. GENITOURINARY: No dysuria or hematuria, but does report frequency of urine due to IV fluids. MUSCULOSKELETAL: No weakness reported. SKIN: Denies any new rashes or lesions, jaundice or pallor. PSYCHIATRIC: Denies any depression or anxiety. NEUROLOGY: Denies headache, denies any new focal deficits. EARS/NOSE/THROAT: No recent hearing change, congestion, nasal discharge or sore throat. EYES: No pain in eyes, discharge or change in vision. GASTROINTESTINAL: As per HPI. Past Medical History Past Medical History: GERD/Reflux, Hyperlipidemia, Osteoarthritis (OA), Pneumonia Additional Past Medical History / Comment(s): Diverticultis with previous bowel resection, L nephrolithiasis with mild hydronephrosis-pt states he passed stone on his own, occasional sinus headache. History of bladder cyst. History of Any Multi-Drug Resistant Organisms: None Reported Past Surgical History: Bowel Resection, Hernia Repair, Joint Replacement Additional Past Surgical History / Comment(s): Colon resection d/t abscess/necrotic bowel, colonoscopy, L total knee replacement, bilateral inguinal hernia repairs. Past Anesthesia/Blood Transfusion Reactions: Postoperative Nausea & Vomiting (PONV) Additional Past Anesthesia/Blood Transfusion Reaction / Comm: Pt received blood with bowel resection without reaction. Past Psychological History: No Psychological Hx Reported Additional Psychological History / Comment(s): Pt resides with his spouse. He is independent. Smoking Status: Never smoker Past Alcohol Use History: Rare Past Drug Use History: None Reported - Past Family History Mother Family Medical History: Cancer, CVA/TIA Additional Family Medical History / Comment(s): Mother had skin cancer in her groin area and a pacemaker and had a cardiac valve replaced. She at the age of 98yrs. Father Family Medical History: Dementia Additional Family Medical History / Comment(s): Father at the age of 91 yrs from alzheimer's. Medications and Allergies Home Medications Medication Instructions Recorded Confirmed Type Omeprazole [PriLOSEC] 20 mg PO DAILY 04/01/19 04/01/19 History Amiodarone [Cordarone] 400 mg PO DAILY #30 tablet 04/08/19 Rx Aspirin EC [Ecotrin Low Dose] 81 mg PO DAILY #30 tablet. 04/08/19 Rx Atorvastatin [Lipitor] 80 mg PO HS #30 tab 04/08/19 Rx Losartan [Cozaar] 12.5 mg PO Q24H #30 tab 04/08/19 Rx Metoprolol Tartrate [Lopressor] 25 mg PO BID #60 tab 04/08/19 Rx Nitroglycerin Sl Tabs [Nitrostat] 0.4 mg SUBLINGUAL Q5M PRN #100 tab 04/08/19 Rx Spironolactone [Aldactone] 25 mg PO DAILY #30 tab 04/08/19 Rx Tamsulosin [Flomax] 0.4 mg PO PC-SUPPER #30 cap.er.24h 04/08/19 Rx Ticagrelor [Brilinta] 90 mg PO BID #60 tab 04/08/19 Rx Allergies Allergy/AdvReac Type Severity Reaction Status Date / Time Tetracyclines Allergy Rash/Hives Verified 04/01/19 08:03 erythromycin base AdvReac Nausea & Verified 04/01/19 08:03 Vomiting hydromorphone [From Dilaudid] AdvReac hallucinati Verified 04/01/19 08:03 on morphine AdvReac hallunicati Verified 04/01/19 08:03 on oxycodone AdvReac Nausea & Verified 04/01/19 08:03 Vomiting Physical Exam Vitals: Vital Signs Temp Pulse Resp BP Pulse Ox 04/10/19 04:00 98.8 F 77 18 98/62 98 04/10/19 00:00 98.4 F 72 18 95/57 88 L 04/09/19 20:00 97.9 F 90 17 107/53 99 04/09/19 16:00 98.2 F 79 106/59 95 04/09/19 12:00 98.1 F 69 19 99/57 98 Intake and Output 04/09/19 04/10/19 04/10/19 22:59 06:59 14:59 Intake Total 10 120 Output Total 600 Balance -600 10 120 Intake: IV 10 0.9 10 Oral 120 Output: Urine 600 Other: Voiding Method Toilet Toilet # Voids 1 Weight 81.5 kg On physical examination, patient appears comfortable in no apparent distress. HEAD: Normocephalic, atraumatic. EYES: No scleral icterus. No conjunctival injection. MOUTH: No lesions, tongue midline. NECK: Trachea midline, no gross abnormalities. CHEST: Clear to auscultation with no wheezing or rhonchi appreciated. HEART: S1-S2 appreciated. ABDOMEN: Soft, nontender to palpation. Bowel sounds are positive. No organomegaly. No guarding or rigidity. EXTREMITIES: No pedal edema. SKIN: No rashes, no jaundice, significant bruising on the patient's groin. NEUROLOGIC: Alert and oriented x3. No focal deficits. Results CBC & Chem 7: 04/09/19 05:59 04/09/19 05:59 Chest x-ray: report reviewed (Mild cardiomegaly seen on chest x-ray) Assessment and Plan (1) Normocytic normochromic anemia Narrative/Plan: 73-year-old male with multiple medical comorbidities who presented to the hospital secondary to an acute ST elevation myocardial infarction status post cardiac catheterization with stent placement the patient temporarily had an Impella placed with significant bruising in the groin secondary to trauma during above-mentioned interventions. The patient was noted to be anemic with hemoglobin 8.1 from 11.4 on presentation, however overall it has remained stable with normocytic indices over the past few days. He denies any signs or symptoms of GI bleeding. He did previously have both EGD and colonoscopy in 06/2018 with findings of gastritis, duodenitis, esophagitis, hiatal hernia and diverticulosis. Suspicion is for blood loss secondary to the above-mentioned interventions and possible hemolysis from the Impella which has been removed. Current Visit: Yes Status: Acute Code(s): D64.9 - ANEMIA, UNSPECIFIED SNOMED Code(s): 81171790 (2) ST elevation myocardial infarction (STEMI) Current Visit: Yes Status: Acute Code(s): I21.3 - ST ELEVATION (STEMI) MYOCARDIAL INFARCTION OF [facility] SITE SNOMED Code(s): 78861579 (3) History of diverticulitis of colon Current Visit: No Status: Acute Code(s): Z87.19 - PERSONAL HISTORY OF OTHER DISEASES OF THE DIGESTIVE SYSTEM SNOMED Code(s): 002445473430748 Plan: Supportive care Okay for diet Continue PPI therapy, patient on home omeprazole initiated after findings of gastritis and duodenitis during EGD on 06/2018 Reports from a prior endoscopy both with colonoscopy showing diverticulosis and EGD showing a hiatal hernia, esophagitis, gastritis and duodenitis on 06/2018 reviewed Continue to monitor stool output and 4 other signs or symptoms of GI bleeding, however at this time patient denies any lightheadedness, dizziness or other symptoms No plans for endoscopic evaluation at this time Agree with hematology consultation Thank you for allowing us to participate in the care of the patient
--- NOTE | 2019-04-10 17:35 | DS ---
DISCHARGE SUMMARY DISCHARGE DATE: 04/10/2019. DISCHARGE MEDICATIONS: 1. Aldactone 25 mg daily. 2. 90 mg b.i.d. 3. Cozaar 12.5 p.o. daily. 4. Aspirin 81 mg daily. 5. Flomax 0.4 mg daily. 6. Lipitor 80 mg daily. 7. Lopressor 25 mg b.i.d. 8. Nitroglycerin sublingual p.r.n. 9. Cordarone 400 mg daily. 10.Prilosec 20 mg daily. CONDITION: Stable. PROGNOSIS: Guarded. Ambulate as tolerated. He has a Life Vest on. DISCHARGE DIAGNOSES: 1. ST segment elevation myocardial infarction. 2. Coronary artery disease. 3. PTCA. 4. Chronic diarrhea. 5. Normocytic normochromic anemia. 6. Hypertension. 7. Dyslipidemia. 8. Benign prostatic hypertrophy. The patient came to the hospital with a STEMI. He was placed on heparin drip. He was taken to the pit laborer for which stents were placed in the left anterior descending. The patient stabilized and was sent home on medicines as mentioned above. MMODL / IJN: [id number] /
--- NOTE | 2019-04-10 22:25 | P.CONS ---
History of Present Illness - Reason for Consult Consult date: 04/09/19 Progressive anemia - History of Present Illness The patient is a 73-year-old white male with generally well controlled medical problems prior to his current admission. He was admitted with an acute PA, and underwent PTCA with stent to the left anterior descending. He was placed and was antiplatelet therapy. At the time of admission hemoglobin was normal in the 14 range. Since then it has different down into the 8 range today. Consult was therefore placed for further evaluation and recommendations. The patient stated that he had a drop in his blood counts previously about 4 years ago when he was admitted with diverticular abscess and acute diverticulitis for which she ultimately required surgery. He denied any obvious bleeding. He states that he has had a GI workup with upper and lower endoscopies. He feels that the most recent one was in the earlier part of 2019. He denied any history of iron supplementation. Review of Systems Constitutional: Reports weakness Eyes: denies blurred vision, denies pain Ears: deny: decreased hearing, ear discharge, earache, tinnitus Ears, nose, mouth and throat: Denies headache, Denies sore throat Cardiovascular: Reports chest pain, Reports decreased exercise tolerance, Reports shortness of breath Respiratory: Reports dyspnea Gastrointestinal: Denies abdominal pain, Denies diarrhea, Denies nausea, Denies vomiting Genitourinary: Reports as per HPI Musculoskeletal: Reports muscle weakness Integumentary: Denies pruritus, Denies rash Neurological: Reports weakness, Denies numbness Psychiatric: Denies anxiety, Denies depression Endocrine: Reports fatigue Hematologic/Lymphatic: Reports as per HPI Past Medical History Past Medical History: GERD/Reflux, Hyperlipidemia, Osteoarthritis (OA), Pneumonia Additional Past Medical History / Comment(s): Diverticultis with previous bowel resection, L nephrolithiasis with mild hydronephrosis-pt states he passed stone on his own, occasional sinus headache. History of bladder cyst. History of Any Multi-Drug Resistant Organisms: None Reported Past Surgical History: Bowel Resection, Hernia Repair, Joint Replacement Additional Past Surgical History / Comment(s): Colon resection d/t abscess/necrotic bowel, colonoscopy, L total knee replacement, bilateral inguinal hernia repairs. Past Anesthesia/Blood Transfusion Reactions: Postoperative Nausea & Vomiting (PONV) Additional Past Anesthesia/Blood Transfusion Reaction / Comm: Pt received blood with bowel resection without reaction. Past Psychological History: No Psychological Hx Reported Additional Psychological History / Comment(s): Pt resides with his spouse. He is independent. Smoking Status: Never smoker Past Alcohol Use History: Rare Past Drug Use History: None Reported - Past Family History Mother Family Medical History: Cancer, CVA/TIA Additional Family Medical History / Comment(s): Mother had skin cancer in her groin area and a pacemaker and had a cardiac valve replaced. She at the age of 98yrs. Father Family Medical History: Dementia Additional Family Medical History / Comment(s): Father at the age of 91 yrs from alzheimer's. Medications and Allergies Home Medications Medication Instructions Recorded Confirmed Type Omeprazole [PriLOSEC] 20 mg PO DAILY 04/01/19 04/01/19 History Amiodarone [Cordarone] 400 mg PO DAILY #30 tablet 04/08/19 Rx Aspirin EC [Ecotrin Low Dose] 81 mg PO DAILY #30 tablet. 04/08/19 Rx Atorvastatin [Lipitor] 80 mg PO HS #30 tab 04/08/19 Rx Losartan [Cozaar] 12.5 mg PO Q24H #30 tab 04/08/19 Rx Metoprolol Tartrate [Lopressor] 25 mg PO BID #60 tab 04/08/19 Rx Nitroglycerin Sl Tabs [Nitrostat] 0.4 mg SUBLINGUAL Q5M PRN #100 tab 04/08/19 Rx Spironolactone [Aldactone] 25 mg PO DAILY #30 tab 04/08/19 Rx Tamsulosin [Flomax] 0.4 mg PO PC-SUPPER #30 cap.er.24h 04/08/19 Rx Ticagrelor [Brilinta] 90 mg PO BID #60 tab 04/08/19 Rx Allergies Allergy/AdvReac Type Severity Reaction Status Date / Time Tetracyclines Allergy Rash/Hives Verified 04/01/19 08:03 erythromycin base AdvReac Nausea & Verified 04/01/19 08:03 Vomiting hydromorphone [From Dilaudid] AdvReac hallucinati Verified 04/01/19 08:03 on morphine AdvReac hallunicati Verified 04/01/19 08:03 on oxycodone AdvReac Nausea & Verified 04/01/19 08:03 Vomiting Physical Exam Vitals: Vital Signs Temp Pulse Pulse Resp BP Pulse Ox 04/09/19 04:00 97.9 F 89 89 17 95/54 100 04/09/19 00:00 98.0 F 71 76 18 96/52 96 04/08/19 20:00 97.5 F L 88 17 112/64 100 04/08/19 16:00 97.0 F L 77 17 145/88 100 Intake and Output 04/08/19 04/09/19 04/09/19 22:59 06:59 14:59 Intake Total 730 250 240 Output Total 500 200 Balance 230 50 240 Intake: IV 10 10 0.9 10 10 Oral 720 240 240 Output: Urine 500 200 Other: Voiding Method Toilet Toilet # Voids 1 4 # Bowel Movements 2 Weight 80.6 kg - Constitutional General appearance: no acute distress - EENT Eyes: EOMI, PERRLA ENT: hearing grossly normal, normal oropharynx - Neck Neck: no lymphadenopathy Thyroid: bilateral: normal size - Respiratory Respiratory: bilateral: CTA - Cardiovascular Rhythm: regular Heart sounds: normal: S1, S2 Abnormal Heart Sounds: S3 Gallop - Gastrointestinal General gastrointestinal: normal bowel sounds, soft - Integumentary Integumentary: normal - Neurologic Neurologic: CNII-XII intact - Musculoskeletal Musculoskeletal: strength equal bilaterally - Psychiatric Psychiatric: A&O x's 3, appropriate affect Results CBC & Chem 7: 04/09/19 05:59 04/09/19 05:59 Labs: Abnormal Lab Results - Last 24 Hours (Table) 04/09/19 04/09/19 Range/Units 05:59 05:59 RBC 2.65 L (4.30-5.90) m/uL Hgb 8.1 L (13.0-17.5) gm/dL Hct 24.9 L (39.0-53.0) % Glucose 100 H (74-99) mg/dL Calcium 8.1 L (8.4-10.2) mg/dL Comments: arterial US /ECHO/ENTRY PROCESSOR reports reviewed Chest x-ray: report reviewed CT scan - abdomen: report reviewed CT scan - pelvis: report reviewed US - abdomen: report reviewed Assessment and Plan (1) Anemia Narrative/Plan: The patient's hemoglobin was normal on presentation and has shown a downward drift since admission. Given the clinical presentation blood loss is the most likely etiology. The patient has had imaging that has ruled out procedure related blood loss. He had an EGD and colonoscopy in 07/02 that did not show any major abnormality. Therefore at this time the main concern is for small bowel AVMs, with blood loss due to initiation of antiplatelet therapy/anticoagulation. Other causes are not ruled out at this time. Anemia workup will be ordered. If the above clinical impression is confirmed, the patient will be started on iron supplementation, with plan for close follow- up as an outpatient, and aggressive iron supplementation, as the patient will remain at risk due to ongoing antiplatelet therapy which he requires in the current setting due to his new stent. Above clinical impression, and plan discussed in detail with the admitting service Status: Acute Code(s): D64.9 - ANEMIA, UNSPECIFIED SNOMED Code(s): 578870695 (2) ST elevation myocardial infarction (STEMI) Narrative/Plan: The patient is status post stent placement in the LAD. He is now on double antiplatelet therapy as required. Continue same, as this is required for his cardiac issues. Even if the patient has small bowel AVMs related nauseous, most often hemoglobin can be maintained in a safe range with close monitoring and aggressive iron supplementation Defer to cardiology and the admitting service for additional management Status: Acute Code(s): I21.3 - ST ELEVATION (STEMI) MYOCARDIAL INFARCTION OF [facility] SITE SNOMED Code(s): 40510819 Plan: Defer to the admitting service and other consultants for management of his other medical problems
== END 2019-04-10 17:10 | disposition home or self-care (01) | DRG 215 ==
LOC: EC 03:04 → 2SICU 04:38 → 3SCARD 04-06 18:17
PROVIDERS: ADMIT Family Medicine; ATTEND Family Medicine
PROC: 4A023N7 Measurement of Cardiac Sampling and Pressure, Left Heart, Percutaneous Approach (ICD-10-PCS; 2019-04-01)
PROC: B2111ZZ Fluoroscopy of Multiple Coronary Arteries using Low Osmolar Contrast (ICD-10-PCS; 2019-04-01)
PROC: 02C03ZZ Extirpation of Matter from Coronary Artery, One Artery, Percutaneous Approach (ICD-10-PCS; 2019-04-01 03:54)
PROC: 03HY32Z Insertion of Monitoring Device into Upper Artery, Percutaneous Approach (ICD-10-PCS; 2019-04-03)
PROC: 4A133B1 Monitoring of Arterial Pressure, Peripheral, Percutaneous Approach (ICD-10-PCS; 2019-04-03)
PROC: 4A133J1 Monitoring of Arterial Pulse, Peripheral, Percutaneous Approach (ICD-10-PCS; 2019-04-03)
PROC: B246ZZ4 Ultrasonography of Right and Left Heart, Transesophageal (ICD-10-PCS; 2019-04-03)
PROC: 4A023N7 Measurement of Cardiac Sampling and Pressure, Left Heart, Percutaneous Approach (ICD-10-PCS; 2019-04-03)
PROC: B2111ZZ Fluoroscopy of Multiple Coronary Arteries using Low Osmolar Contrast (ICD-10-PCS; 2019-04-03)
PROC: 02HA3RZ Insertion of Short-term External Heart Assist System into Heart, Percutaneous Approach (ICD-10-PCS; principal; 2019-04-03 17:43)
PROC: 027036Z Dilation of Coronary Artery, One Artery with Three Drug-eluting Intraluminal Devices, Percutaneous Approach (ICD-10-PCS; 2019-04-03 17:43)
PROC: 5A0221D Assistance with Cardiac Output using Impeller Pump, Continuous (ICD-10-PCS; 2019-04-03 17:43)
PROC: 027136Z Dilation of Coronary Artery, Two Arteries with Three Drug-eluting Intraluminal Devices, Percutaneous Approach (ICD-10-PCS; 2019-04-03 17:43)
PROC: 02PA3RZ Removal of Short-term External Heart Assist System from Heart, Percutaneous Approach (ICD-10-PCS; 2019-04-05)
DX: I21.02 ST elevation (STEMI) myocardial infarction involving left anterior descending coronary artery (principal); I50.23 Acute on chronic systolic (congestive) heart failure; N17.0 Acute kidney failure with tubular necrosis; R57.0 Cardiogenic shock; J98.11 Atelectasis; R64 Cachexia; D62 Acute posthemorrhagic anemia; I97.638 Postprocedural hematoma of a circulatory system organ or structure following other circulatory system procedure; E78.5 Hyperlipidemia, unspecified; F03.90 Unspecified dementia, unspecified severity, without behavioral disturbance, psychotic disturbance, mood disturbance, and anxiety; F41.9 Anxiety disorder, unspecified; H91.90 Unspecified hearing loss, unspecified ear; I11.0 Hypertensive heart disease with heart failure; I25.10 Atherosclerotic heart disease of native coronary artery without angina pectoris; I25.5 Ischemic cardiomyopathy; I34.0 Nonrheumatic mitral (valve) insufficiency; I48.0 Paroxysmal atrial fibrillation; K21.0 Gastro-esophageal reflux disease with esophagitis; K44.9 Diaphragmatic hernia without obstruction or gangrene; K52.9 Noninfective gastroenteritis and colitis, unspecified; K57.90 Diverticulosis of intestine, part unspecified, without perforation or abscess without bleeding; M19.90 Unspecified osteoarthritis, unspecified site; N40.0 Benign prostatic hyperplasia without lower urinary tract symptoms; Z79.02 Long term (current) use of antithrombotics/antiplatelets; Z79.82 Long term (current) use of aspirin; Z79.899 Other long term (current) drug therapy; Z80.8 Family history of malignant neoplasm of other organs or systems; Z82.0 Family history of epilepsy and other diseases of the nervous system; Z87.01 Personal history of pneumonia (recurrent); Z87.442 Personal history of urinary calculi; Z90.49 Acquired absence of other specified parts of digestive tract; Z95.5 Presence of coronary angioplasty implant and graft; Z96.652 Presence of left artificial knee joint; I70.209 Unspecified atherosclerosis of native arteries of extremities, unspecified extremity; Z88.1 Allergy status to other antibiotic agents; Z88.5 Allergy status to narcotic agent; Z82.3 Family history of stroke
CPT/HCPCS: 33992; 36415; 71045; 74022; 74176; 76775; 80048; 80053; 81001; 82550; 82553; 83010; 83615; 83735; 83880; 84132; 84484; 85025; 85347; 85384; 85610; 85730; 86850; 86900; 86901; 87086; 92978; 93306; 93308; 93312; 93320; 93325; 93458; 93925; 93975; 94760; 96365; 96376; 99291; C1874

== ENCOUNTER 2019-05-06 21:06 | Emergency (ER) | payer MEDICARE, BC ==
--- NOTE | 2019-05-06 21:49 | XR ---
EXAMINATION TYPE: XR chest 2V DATE OF EXAM: 05/06/2019 COMPARISON: 04/06/2019 HISTORY: Cough TECHNIQUE: FINDINGS: There is small linear density at the left cardiac border. There is no heart failure. Heart size is normal. There are no hilar masses. Bony thorax is intact. IMPRESSION: Mild scarring or subsegmental atelectasis in the lingula. There is improved aeration of b oth lungs and clearing of lower lobe pulmonary infiltrates compared to old exam. No heart failure see n.
[2019-05-06] MEDS ORDERED: IPRATROPIUM-ALBUTEROL 3 ML NEB INHALATION STA (21:53)
[2019-05-06 22:28] LABS: Basophils # (A) 0.1 k/uL (0-0.2); Basophils % (A) 1 %; Eosinophils # (A) 0.7 k/uL (0-0.7); Eosinophils % (A) 8 %; HCT 41.3 % (39.0-53.0); Lymphocytes # (A) 1.2 k/uL (1.0-4.8); Lymphocytes % (A) 13 %; MCH 30.7 pg (25.0-35.0); MCHC 32.4 g/dL (31.0-37.0); MCV 94.8 fL (80.0-100.0); Mean Platelet Volume 7.5; Monocytes # (A) 0.5 k/uL (0-1.0); Monocytes % (A) 5 %; Neutrophils # (A) 6.7 k/uL (1.3-7.7); Neutrophils % (A) 71 %; Platelet Count 260 k/uL (150-450); RBC 4.35 m/uL (4.30-5.90); RDW 14.1 % (11.5-15.5); WBC 9.4 k/uL (3.8-10.6)
[2019-05-06 22:37] LABS: HGB 13.4 gm/dL (13.0-17.5); Prothrombin Time 10.7 sec (9.0-12.0)
[2019-05-06 22:42] LABS: Albumin 4.2 g/dL (3.5-5.0); Calcium 9.3 mg/dL (8.4-10.2); Total Bilirubin 0.7 mg/dL (0.2-1.3); Total Protein 7.8 g/dL (6.3-8.2)
[2019-05-06 22:46] LABS: Potassium 4.4 mmol/L (3.5-5.1)
[2019-05-06 22:49] LABS: Partial Thromboplastin Time 21.2 sec (22.0-30.0)
[2019-05-06] MEDS ORDERED: methylPREDNISolone SOD SUCCI 125 MG/2 ML VIAL IV STA (23:27)
--- NOTE | 2019-05-06 23:27 | ED ---
URI HPI - General Chief Complaint: Upper Respiratory Infection Stated Complaint: Cough Time Seen by Provider: 05/06/19 21:20 Source: patient Mode of arrival: ambulatory Limitations: no limitations - History of Present Illness Initial Comments: The patient is a 73-year-old male with past medical history of coronary artery disease, recent STEMI, cardio myopathy with LifeVest to presents emergency room with reported cough and congestion. at bedside provides the history. She states that her was hospitalized last month after he had a heart attack. 2 catheterizations were performed where he received 4 stents total. He was discharged home with a LifeVest. States he is placed on a much new medications. Prior to discharge from the hospital he did develop a small cough. They state that the cough has gotten worse in the patient has significant coughing fits at home. He is unsure of the medications that he can take with his new heart medications and therefore he has only been taking Claritin. He states he feels as if the Claritin makes his symptoms worse. Cough is worse at night. It is mildly productive. He denies any associated chest pain. Denies any shortness of breath. No ripping or tearing sensation to his back. Denies any lower extremity swelling. No history of DVT or PE. He is on Brilinta. Denies any sick contacts or recent travel. There are no alleviating, precipitating or modifying factors - Related Data Home Medications Medication Instructions Recorded Confirmed Omeprazole [PriLOSEC] 20 mg PO DAILY 04/01/19 04/01/19 Previous Rx's Medication Instructions Recorded Amiodarone [Cordarone] 400 mg PO DAILY #30 tablet 04/08/19 Aspirin EC [Ecotrin Low Dose] 81 mg PO DAILY #30 tablet. 04/08/19 Atorvastatin [Lipitor] 80 mg PO HS #30 tab 04/08/19 Losartan [Cozaar] 12.5 mg PO Q24H #30 tab 04/08/19 Metoprolol Tartrate [Lopressor] 25 mg PO BID #60 tab 04/08/19 Nitroglycerin Sl Tabs [Nitrostat] 0.4 mg SUBLINGUAL Q5M PRN #100 tab 04/08/19 Spironolactone [Aldactone] 25 mg PO DAILY #30 tab 04/08/19 Tamsulosin [Flomax] 0.4 mg PO PC-SUPPER #30 cap.er.24h 04/08/19 Ticagrelor [Brilinta] 90 mg PO BID #60 tab 04/08/19 Albuterol Sulfate [Proair Hfa] 1 - 2 puff INHALATION Q4HR PRN #1 05/06/19 inhaler guaiFENesin-Coden 100-10MG/5ML 10 ml PO Q6HR PRN 3 Days #120 ml 05/06/19 [Robitussin AC] predniSONE [Deltasone] 20 mg PO BID #10 tab 05/06/19 Allergies Allergy/AdvReac Type Severity Reaction Status Date / Time Tetracyclines Allergy Rash/Hives Verified 05/06/19 21:20 erythromycin base AdvReac Nausea & Verified 05/06/19 21:20 Vomiting hydromorphone [From Dilaudid] AdvReac hallucinati Verified 05/06/19 21:20 on morphine AdvReac hallunicati Verified 05/06/19 21:20 on oxycodone AdvReac Nausea & Verified 05/06/19 21:20 Vomiting Review of Systems ROS Statement: Those systems with pertinent positive or pertinent negative responses have been documented in the HPI. ROS Other: All systems not noted in ROS Statement are negative. Past Medical History Past Medical History: Coronary Artery Disease (CAD), GERD/Reflux, Hyperlipidemia , Myocardial Infarction ([place]), Osteoarthritis (OA), Pneumonia Additional Past Medical History / Comment(s): Diverticultis with previous bowel resection, L nephrolithiasis with mild hydronephrosis-pt states he passed stone on his own, occasional sinus headache. History of bladder cyst. History of Any Multi-Drug Resistant Organisms: None Reported Past Surgical History: Bowel Resection, Heart Catheterization With Stent, Hernia Repair, Joint Replacement Additional Past Surgical History / Comment(s): Colon resection d/t abscess/necrotic bowel, colonoscopy, L total knee replacement, bilateral inguin al hernia repairs. Past Anesthesia/Blood Transfusion Reactions: Postoperative Nausea & Vomiting (PONV) Additional Past Anesthesia/Blood Transfusion Reaction / Comment(s): Pt received blood with bowel resection without reaction. Past Psychological History: No Psychological Hx Reported Smoking Status: Never smoker Past Alcohol Use History: Rare Past Drug Use History: None Reported - Past Family History Mother Family Medical History: Cancer, CVA/TIA Additional Family Medical History / Comment(s): Mother had skin cancer in her groin area and a pacemaker and had a cardiac valve replaced. She at the age of 98yrs. Father Family Medical History: Dementia Additional Family Medical History / Comment(s): Father at the age of 91 yrs from alzheimer's. General Exam Limitations: no limitations General appearance: alert, in no apparent distress Head exam: Present: atraumatic, normocephalic, normal inspection Eye exam: Present: normal appearance, PERRL, EOMI. Absent: scleral icterus, conjunctival injection, periorbital swelling ENT exam: Present: normal exam, mucous membranes moist Neck exam: Present: normal inspection. Absent: tenderness, meningismus, lymphadenopathy Respiratory exam: Present: normal lung sounds bilaterally, other (bronchospastic cough). Absent: respiratory distress, wheezes, rales, rhonchi, stridor Cardiovascular Exam: Present: normal rhythm, tachycardia, normal heart sounds, other (live vest present). Absent: systolic murmur, diastolic murmur, rubs, gallop, clicks GI/Abdominal exam: Present: soft, normal bowel sounds. Absent: distended, tenderness, guarding, rebound, rigid Extremities exam: Present: normal inspection, full ROM, normal capillary refill. Absent: tenderness, pedal edema, joint swelling, calf tenderness Back exam: Present: normal inspection Neurological exam: Present: alert, oriented X3, CN II-XII intact Psychiatric exam: Present: normal affect, normal mood Skin exam: Present: warm, dry, intact, normal color. Absent: rash Course Vital Signs 05/06/19 05/06/19 05/06/19 21:17 21:36 22:10 Temperature 98.0 F Pulse Rate 102 H 106 H Respiratory 22 20 18 Rate Blood Pressure 123/82 O2 Sat by Pulse 100 Oximetry 05/06/19 05/06/19 05/06/19 22:11 22:16 22:20 Temperature Pulse Rate 98 87 Respiratory 18 16 Rate Blood Pressure 121/84 O2 Sat by Pulse 98 98 Oximetry 05/06/19 05/06/19 22:30 23:34 Temperature 97.8 F Pulse Rate 105 H 100 Respiratory 17 18 Rate Blood Pressure 121/84 121/78 O2 Sat by Pulse 98 99 Oximetry Medical Decision Making - Medical Decision Making Upon arrival the patient was placed into room 27. Thorough history and physical exam was performed. I did recommend laboratory studies, influenza testing and a chest x-ray. Laboratory studies demonstrated a stable hemoglobin at 13.4. Coagulation studies are normal. BNP is elevated at 2180 however this is improved compared to the patient's previous value. Influenza A and B are not detected. Chest x-ray demonstrates mild sign or atelectasis in the lingula. Improved aeration of both lungs and clearing of a lower lobe pulmonary infiltrate. I did provide the patient with a DuoNeb breathing treatment. I did recommend treatment at home with an inhaler, steroid burst and Robitussin-AC. The patient is made aware of the side effects of the Robitussin-AC. He does sign and opioids start talking form. I did give him Solu-Medrol 125 mg in the emergency department. He'll be discharged home and needs to follow up with his primary care physician. He does have an appointment with the slat basket top maker next week. Return to the emergency room for any new or worsening symptoms. The patient was discharged home in stable condition - Lab Data Result diagrams: 05/06/19 22:08 05/06/19 22:08 Lab Results 05/06/19 05/06/19 05/06/19 Range/Units 21:35 22:08 22:08 WBC 9.4 (3.8-10.6) k/uL RBC 4.35 (4.30-5.90) m/uL Hgb 13.4 D (13.0-17.5) gm/dL Hct 41.3 (39.0-53.0) % MCV 94.8 (80.0-100.0) fL MCH 30.7 (25.0-35.0) pg MCHC 32.4 (31.0-37.0) g/dL RDW 14.1 (11.5-15.5) % Plt Count 260 (150-450) k/uL Neutrophils % 71 % Lymphocytes % 13 % Monocytes % 5 % Eosinophils % 8 % Basophils % 1 % Neutrophils # 6.7 (1.3-7.7) k/uL Lymphocytes # 1.2 (1.0-4.8) k/uL Monocytes # 0.5 (0-1.0) k/uL Eosinophils # 0.7 (0-0.7) k/uL Basophils # 0.1 (0-0.2) k/uL PT (9.0-12.0) sec INR (<1.2) APTT (22.0-30.0) sec Sodium 137 (137-145) mmol/L Potassium 4.4 (3.5-5.1) mmol/L Chloride 105 (98-107) mmol/L Carbon Dioxide 20 L (22-30) mmol/L Anion Gap 12 mmol/L BUN 25 H (9-20) mg/dL Creatinine 1.23 (0.66-1.25) mg/dL Est GFR (CKD-EPI)AfAm 67 (>60 ml/min/1.73 sqM) Est GFR (CKD-EPI)NonAf 58 (>60 ml/min/1.73 sqM) Glucose 109 H (74-99) mg/dL Plasma Lactic Acid Maxime (0.7-2.0) mmol/L Calcium 9.3 (8.4-10.2) mg/dL Total Bilirubin 0.7 (0.2-1.3) mg/dL AST 46 (17-59) U/L ALT 48 (4-49) U/L Alkaline Phosphatase 124 (38-126) U/L NT-Pro-B Natriuret Pep pg/mL Total Protein 7.8 (6.3-8.2) g/dL Albumin 4.2 (3.5-5.0) g/dL Influenza Type A RNA Not Detected (Not Detectd) Influenza Type B (PCR) Not Detected (Not Detectd) 05/06/19 05/06/19 05/06/19 Range/Units 22:08 22:08 22:08 WBC (3.8-10.6) k/uL RBC (4.30-5.90) m/uL Hgb (13.0-17.5) gm/dL Hct (39.0-53.0) % MCV (80.0-100.0) fL MCH (25.0-35.0) pg MCHC (31.0-37.0) g/dL RDW (11.5-15.5) % Plt Count (150-450) k/uL Neutrophils % % Lymphocytes % % Monocytes % % Eosinophils % % Basophils % % Neutrophils # (1.3-7.7) k/uL Lymphocytes # (1.0-4.8) k/uL Monocytes # (0-1.0) k/uL Eosinophils # (0-0.7) k/uL Basophils # (0-0.2) k/uL PT 10.7 (9.0-12.0) sec INR 1.0 (<1.2) APTT 21.2 L (22.0-30.0) sec Sodium (137-145) mmol/L Potassium (3.5-5.1) mmol/L Chloride (98-107) mmol/L Carbon Dioxide (22-30) mmol/L Anion Gap mmol/L BUN (9-20) mg/dL Creatinine (0.66-1.25) mg/dL Est GFR (CKD-EPI)AfAm (>60 ml/min/1.73 sqM) Est GFR (CKD-EPI)NonAf (>60 ml/min/1.73 sqM) Glucose (74-99) mg/dL Plasma Lactic Acid Maxime 1.1 (0.7-2.0) mmol/L Calcium (8.4-10.2) mg/dL Total Bilirubin (0.2-1.3) mg/dL AST (17-59) U/L ALT (4-49) U/L Alkaline Phosphatase (38-126) U/L NT-Pro-B Natriuret Pep 2180 pg/mL Total Protein (6.3-8.2) g/dL Albumin (3.5-5.0) g/dL Influenza Type A RNA (Not Detectd) Influenza Type B (PCR) (Not Detectd) - EKG Data EKG Comments: EKG demonstrates a sinus rhythm with a ventricular rate of 100. Frequent PVCs. AK interval 132. QRS 86. QTC of 443. No acute ST segment elevations. EKG compared to previous EKG and is improved. Disposition Clinical Impression: Cough Disposition: HOME SELF-CARE Condition: Stable Instructions (If sedation given, give patient instructions): Upper Respiratory Infection (ED) Additional Instructions: Please follow-up with your primary care doctor in 2-4 days. Return to the emergency room for any new or worsening symptoms Prescriptions: predniSONE [Deltasone] 20 mg PO BID #10 tab Albuterol Sulfate [Proair Hfa] 1 - 2 puff INHALATION Q4HR PRN #1 inhaler PRN Reason: difficulty in breathing guaiFENesin-Coden 100-10MG/5ML [Robitussin AC] 10 ml PO Q6HR PRN 3 Days #120 ml PRN Reason: Cough Is patient prescribed a controlled substance at d/c from ED?: Yes When asked, does pt state using other controlled substances?: No If prescribed controlled substance>3 days was MAPS reviewed?: Prescribed <3 Days If opioid is for acute pain is fill amount 7 days or less?: Yes If Rx opioid, was Start Talking consent form obtained?: Yes Referrals: Gucci Zhong MD [Primary Care Provider] - 1-2 days Time of Disposition: 23:27
[2019-05-06 23:36] VITALS: BP 121/78; PULSE 100; RESP 18; TEMP 97.8
== END 2019-05-06 23:39 | disposition home or self-care (01) ==
LOC: EC 21:06
DX: R05 Cough (principal); R79.89 Other specified abnormal findings of blood chemistry; R91.8 Other nonspecific abnormal finding of lung field; I25.10 Atherosclerotic heart disease of native coronary artery without angina pectoris; K21.9 Gastro-esophageal reflux disease without esophagitis; I25.2 Old myocardial infarction; M19.90 Unspecified osteoarthritis, unspecified site; Z88.1 Allergy status to other antibiotic agents; Z88.5 Allergy status to narcotic agent; Z95.5 Presence of coronary angioplasty implant and graft; Z96.652 Presence of left artificial knee joint; Z79.899 Other long term (current) drug therapy
CPT/HCPCS: 36415; 94640; 93005; 83880; 80053; 83605; 85025; 85610; 85730; 87502; 71046; 99284; 96374; J2930

== ENCOUNTER → 2019-05-26 | Outpatient (CLI) | payer MEDICARE, BC ==
[2019-05-27 00:01] LABS: T4, Free (Free Thyroxine) 1.5 ng/dL (0.80-1.80)
[2019-05-27 00:20] LABS: African American GFR (CKD) 68.6 (60.0-200.0); Anion Gap 9.6 mmol/L (4.00-12.00); Carbon Dioxide 24.4 mmol/L (21.6-31.8); Non-African American GFR(CKD) 59.2 (60.0-200.0); Potassium 4.5 mmol/L (3.5-5.5)
== END | disposition home or self-care (01) ==
LOC: LABWHC1 15:20
PROVIDERS: ATTEND Internal Medicine Cardiovascular Disease
DX: I25.5 Ischemic cardiomyopathy (principal)
CPT/HCPCS: 36415; 80051; 82565; 84439; 84443; 84450; 84460; 84520

== ENCOUNTER → 2019-08-16 | Outpatient (CLI) | payer MEDICARE, BC | END | disposition home or self-care (01) | LOC: LABWHC1 14:45 | PROVIDERS: ATTEND Internal Medicine Clinical Cardiac Electrophysiology | DX: Z11.59 Encounter for screening for other viral diseases (principal) ==

== ENCOUNTER 2019-08-18 06:00 | Day surgery (SDC) | payer MEDICARE, BC ==
[2019-08-17 09:01] VITALS: BMI 23.4
[~2019-08-18 06:00] MED LIST: CLINDAMYCIN 600 MG in SODIUM CHLORIDE 0.9% IRRIGATIO 250 ML IRRIGATION ONE; CLINDAMYCIN 900 MG in DEXTROSE 5% IN WATER 50 ML IVPB ONE; LACTATED RINGERS 1,000 ML IV SCH; SODIUM CHLORIDE 0.9% 1,000 ML IV SCH
[2019-08-18 06:36] LABS: Basophils # (A) 0.1 k/uL (0-0.2); Basophils % (A) 1 %; Eosinophils # (A) 0.6 k/uL (0-0.7); Eosinophils % (A) 7 %; HCT 46.3 % (39.0-53.0); HGB 15.3 gm/dL (13.0-17.5); Lymphocytes # (A) 2.4 k/uL (1.0-4.8); Lymphocytes % (A) 26 %; MCH 30.9 pg (25.0-35.0); MCHC 33.2 g/dL (31.0-37.0); MCV 93.1 fL (80.0-100.0); Mean Platelet Volume 7.3; Monocytes # (A) 0.7 k/uL (0-1.0); Monocytes % (A) 8 %; Neutrophils # (A) 5.1 k/uL (1.3-7.7); Neutrophils % (A) 57 %; Platelet Count 297 k/uL (150-450); RBC 4.97 m/uL (4.30-5.90); WBC 8.9 k/uL (3.8-10.6)
[2019-08-18 06:42] VITALS: RESP 16; TEMP 97.5
[2019-08-18 06:44] LABS: Calcium 9.3 mg/dL (8.4-10.2); Potassium 4.4 mmol/L (3.5-5.1)
[2019-08-18] MEDS ORDERED: SCOPOLAMINE 1.5MG/72HR PATCH TRANSDERM STA (07:00)
[2019-08-18] MEDS ORDERED: DEXAMETHASONE SOD PHOSPHATE 4 MG/ML 1 ML VIAL IV STA (07:00)
[2019-08-18] MEDS ORDERED: ONDANSETRON 4 MG/2 ML VIAL ONE (07:01)
[2019-08-18] MEDS ORDERED: fentaNYL (PF) 50 MCG/ML 2 ML AMP ONE (07:20)
[2019-08-18] MEDS ORDERED: ETOMIDATE 2 MG/ML 10 ML VIAL ONE (07:20)
[2019-08-18] MEDS ORDERED: MIDAZOLAM 2 MG/2 ML VIAL ONE (07:20)
[2019-08-18] MEDS ORDERED: LIDOCAINE 1% INJ 10MG/ML (20 ML MDV) SQ ONE (08:03)
[2019-08-18] MEDS ORDERED: ACETAMINOPHEN TAB 325 MG TAB PO PRN (09:05)
--- NOTE | 2019-08-18 09:21 | P.HPCAR ---
History of Present Illness Diagnosis Coronary artery disease Old large NH Access for atrial fibrillation Severe ischemic cardiomyopathy Class II CHF Patient was prescribed atorvastatin, losartan, spironolactone, metoprolol and dual antiplatelet therapy Noncompliance Suggest Restart statins, losartan, spinal lactone, Continue metoprolol and dual antiplatelet therapy Patient is status post single chamber ICD today, successful No acute complications Physical Exam Vitals: Vital Signs Temp Pulse Resp BP Pulse Ox 08/18/19 09:15 75 16 109/67 97 08/18/19 06:41 97.5 F L 58 L 16 122/73 99 Intake and Output 08/17/19 08/18/19 08/18/19 22:59 06:59 14:59 Intake Total 60 236 Balance 60 236 Intake: IV 60 236 Other: Weight 79 kg Past Medical History Past Medical History: GERD/Reflux, Hyperlipidemia, Myocardial Infarction ([place]), Pneumonia, Skin Disorder Additional Past Medical History / Comment(s): Diverticultis, kidney stones, occasional sinus headache. History of bladder cyst. has life vest on, IBS, contact dermatitis, Last Myocardial Infarction Date:: 05/01/19 History of Any Multi-Drug Resistant Organisms: None Reported Past Surgical History: Bowel Resection, Heart Catheterization With Stent, Hernia Repair, Joint Replacement Additional Past Surgical History / Comment(s): Colon resection d/t abscess/necrotic bowel, colonoscopy, L total knee replacement, bilateral inguinal hernia repairs. 4 cardiac stents Past Anesthesia/Blood Transfusion Reactions: Postoperative Nausea & Vomiting (PONV) Additional Past Anesthesia/Blood Transfusion Reaction / Comment(s): Pt received blood with bowel resection without reaction. Date of Last Stent Placement:: 03/2019 Smoking Status: Never smoker - Past Family History Mother Family Medical History: Cancer, CVA/TIA Additional Family Medical History / Comment(s): Mother had skin cancer in her groin area and a pacemaker and had a cardiac valve replaced. She at the age of 98yrs. Father Family Medical History: Dementia Additional Family Medical History / Comment(s): Father at the age of 91 yrs from alzheimer's. Sister(s) Family Medical History: Cancer Physical Examination Vital Signs Temp Pulse Resp BP Pulse Ox 08/18/19 09:15 75 16 109/67 97 08/18/19 06:41 97.5 F L 58 L 16 122/73 99 Intake and Output 08/17/19 08/18/19 08/18/19 22:59 06:59 14:59 Intake Total 60 236 Balance 60 236 Intake: IV 60 236 Other: Weight 79 kg Results 08/18/19 06:20 08/18/19 06:20 CBC 08/18/19 Range/Units 06:20 WBC 8.9 (3.8-10.6) k/uL RBC 4.97 (4.30-5.90) m/uL Hgb 15.3 (13.0-17.5) gm/dL Hct 46.3 (39.0-53.0) % Plt Count 297 (150-450) k/uL Comprehensive Metabolic Panel 08/18/19 Range/Units 06:20 Sodium 141 (137-145) mmol/L Potassium 4.4 (3.5-5.1) mmol/L Chloride 111 H (98-107) mmol/L Carbon Dioxide 21 L (22-30) mmol/L BUN 41 H (9-20) mg/dL Creatinine 1.45 H (0.66-1.25) mg/dL Glucose 91 (74-99) mg/dL Calcium 9.3 (8.4-10.2) mg/dL Current Medications Generic Name Dose Route Start Last Admin Trade Name Freq PRN Reason Stop Dose Admin Acetaminophen 650 mg 08/18/19 09:05 Tylenol Tab PO Q6HR PRN Mild Pain Aspirin 81 mg 08/19/19 09:00 Aspirin PO DAILY NUNU Lactated Ringer's 1,000 mls @ 20 mls/hr 08/18/19 05:47 Lactated Ringers IV .Q24H NUNU Clindamycin Phosphate 900 mg/ 56 mls @ 50 mls/hr 08/18/19 14:00 Dextrose/Water IVPB 08/18/19 15:08 Q6H NUNU Metoprolol Tartrate 12.5 mg 08/18/19 21:00 Lopressor PO BID NUNU Sodium Chloride 10 ml 08/18/19 21:00 Saline Flush IV Q12HR NUNU Ticagrelor 90 mg 08/18/19 21:00 Brilinta PO BID NUNU Intake and Output 08/17/19 08/18/19 08/18/19 22:59 06:59 14:59 Intake Total 60 236 Balance 60 236 Intake: IV 60 236 Other: Weight 79 kg 08/18/19 06:20 08/18/19 06:20
[2019-08-18] MEDS ORDERED: ACETAMINOPHEN IV (For NPO) 1,000 MG in EMPTY BAG 1 BAG IVPB STA (09:54)
--- NOTE | 2019-08-18 12:27 | XR ---
EXAMINATION TYPE: XR chest 2V DATE OF EXAM: 08/18/2019 COMPARISON: 05/06/2019 INDICATION: Lead placement check TECHNIQUE: Frontal and lateral views of the chest are obtained. FINDINGS: The heart size is normal. The pulmonary vasculature is normal. Some minimal atelectasis improving is at the left base. Pacemaker overlies left chest. Single lead i s present directed towards the left ventricle IMPRESSION: 1. No pneumothorax post pacemaker placement. 2. Minimal plate atelectasis left base
[2019-08-18] MEDS ORDERED: CLINDAMYCIN 900 MG in DEXTROSE 5% IN WATER 50 ML IVPB SCH ×2 (14:00)
[2019-08-18 14:32] VITALS: BP 110/62; PULSE 68
--- NOTE | 2019-08-18 20:28 | PCN ---
PROCEDURE NOTE This is a 73-year-old male patient who has severe ischemic cardiomyopathy with severe LV dysfunction and old anterior wall infarct. He was given a LifeVest. He has been on appropriate medical treatment per Dr. Mcclure, who is his primary pie baker. His LV function has not improved despite several months of treatment. He is brought in for single-chamber ICD implantation for primary prevention of sudden cardiac , following which the LifeVest will be discontinued. Patient was brought to the EP lab in a fasting state. Written informed consent was obtained prior to the procedure. The left shoulder area was prepped and draped as per protocol. Lidocaine 1% was used for local anesthesia. A 4 cm incision was made parallel to the deltopectoral groove, about 1.5 cm medial to it. The incision was carried down to the level of the pectoralis muscle. A subfascial pocket was made. Hemostasis was assured. The left axillary vein was accessed at a single point under fluoroscopy, and via an appropriately sized introducer sheath, a single-coil [employer] lead engineer was positioned in the mid RV septum. This was model number [id number], 58 cm in length, and serial number [id number]. R-waves were greater than 5 mV. Pacing impedance 630 ohms, pacing threshold 0.25 V at 0.5 milliseconds. Ten-volt test was negative. The lead was secured to the underlying pectoralis fascia using 2 nonabsorbable sutures. Pocket was irrigated with antibiotic solution. Lead was connected to the generator ([employer] model number [id number], serial number [id number]. Lead and the generator were then placed in the subfascial pocket. The wound was closed in 3 layers and dressed per protocol. RESULT: Successful single-chamber ICD implantation for primary prevention of sudden cardiac in a patient with severe ischemic cardiomyopathy following an acute anterior wall infarction in March. The ICD was programmed to VVI 40 beats per minute for back-up pacing, sensitivity 0.5 mV and MADIT RIT programming for tachyarrhythmias. PLAN: Continue beta blockers, spironolactone, losartan, statins and dual anti-platelet therapy. Follow up with Dr. Mcclure and the [facility]. MMODL / IJN: [id number] /
[2019-08-18] MEDS ORDERED: TICAGRELOR 90 MG TAB PO SCH (21:00)
[2019-08-18] MEDS ORDERED: METOPROLOL TARTRATE 12.5 MG TAB PO SCH (21:00)
[2019-08-19] MEDS ORDERED: ASPIRIN 81 MG PO SCH (09:00)
== END 2019-08-18 14:40 | disposition home or self-care (01) ==
LOC: CATHEP 06:00
PROVIDERS: ATTEND Internal Medicine Clinical Cardiac Electrophysiology
DX: I25.5 Ischemic cardiomyopathy (principal); I25.10 Atherosclerotic heart disease of native coronary artery without angina pectoris; E78.2 Mixed hyperlipidemia; I25.2 Old myocardial infarction; I25.9 Chronic ischemic heart disease, unspecified; I11.0 Hypertensive heart disease with heart failure; I50.1 Left ventricular failure, unspecified; I48.19 Other persistent atrial fibrillation; K21.9 Gastro-esophageal reflux disease without esophagitis; K57.90 Diverticulosis of intestine, part unspecified, without perforation or abscess without bleeding; K58.9 Irritable bowel syndrome, unspecified; F41.9 Anxiety disorder, unspecified; Z95.811 Presence of heart assist device; Z79.899 Other long term (current) drug therapy; Z79.82 Long term (current) use of aspirin; Z79.02 Long term (current) use of antithrombotics/antiplatelets; Z88.1 Allergy status to other antibiotic agents; Z88.5 Allergy status to narcotic agent; Z88.8 Allergy status to other drugs, medicaments and biological substances; Z95.5 Presence of coronary angioplasty implant and graft; Z87.2 Personal history of diseases of the skin and subcutaneous tissue; Z91.14 Patient's other noncompliance with medication regimen; Z87.01 Personal history of pneumonia (recurrent); Z87.442 Personal history of urinary calculi; Z87.09 Personal history of other diseases of the respiratory system; Z87.448 Personal history of other diseases of urinary system; Z90.49 Acquired absence of other specified parts of digestive tract; Z98.890 Other specified postprocedural states; Z96.652 Presence of left artificial knee joint; Z91.89 Other specified personal risk factors, not elsewhere classified; Z82.49 Family history of ischemic heart disease and other diseases of the circulatory system; Z80.8 Family history of malignant neoplasm of other organs or systems; Z82.3 Family history of stroke; Z81.8 Family history of other mental and behavioral disorders; Z80.9 Family history of malignant neoplasm, unspecified
CPT/HCPCS: 33249; 80048; 85025; 71046; C1769; C1892; C1722; C1777; J2250; J1100; J2405; J2001; J3010; J0131

== ENCOUNTER → 2019-11-10 | Outpatient (CLI) | payer MEDICARE, BC ==
[2019-11-10 17:01] LABS: Chol/HDL Ratio 4.15; LDL Cholesterol,Calculated 188.6 mg/dL (0.0-131.0); VLDL Calculation 25.4 mg/dL (5.00-40.00)
== END | disposition home or self-care (01) ==
LOC: LABWHC1 10:33
PROVIDERS: ATTEND Internal Medicine Cardiovascular Disease
DX: E78.2 Mixed hyperlipidemia (principal)
CPT/HCPCS: 36415; 80061; 84450; 84460

== ENCOUNTER 2020-07-07 04:02 | Observation (INO) | payer MEDICARE, BC ==
--- NOTE | 2020-07-07 04:48 | ED ---
Chest Pain HPI - General Chief Complaint: Chest Pain Stated Complaint: Right Shoulder Pain Time Seen by Provider: 07/07/20 04:31 Source: patient, family, RN notes reviewed, old records reviewed Mode of arrival: wheelchair Limitations: no limitations - History of Present Illness Initial Comments: This is a 74-year-old male to the ER for evaluation patient presents today for evaluation regards to chest pain. Patient has history of MO. Patient states pain patient currently is just a prior MO. Patient having jaw pain some shortness of breath and symptoms FROM SLEEP. MD Complaint: chest pain -: days(s) Onset: during rest, during exertion Pain Location: substernal, left chest Pain Radiation: LUE Severity: moderate Severity scale (1-10): 7 Quality: tightness, heaviness Consistency: constant Improves With: nothing Worsens With: nothing Anginal Symptoms: nausea, sense of impending doom Other Symptoms: palpitations Treatments Prior to Arrival: none - Related Data Home Medications Medication Instructions Recorded Confirmed ALPRAZolam [Xanax] 0.5 mg PO HS 08/17/19 07/07/20 Metoprolol Tartrate [Lopressor] 12.5 mg PO BID 08/17/19 07/07/20 Ascorbic Acid [Vitamin C] 500 mg PO DAILY 07/07/20 07/07/20 Beta-Carotene [Beta Carotene] 25,000 unit PO DAILY 07/07/20 07/07/20 Cholecalciferol [Vitamin D3 (25 25 mcg PO DAILY 07/07/20 07/07/20 Mcg = 1000 Iu)] Fluvastatin Sodium [Lescol] 40 mg PO DAILY 07/07/20 07/07/20 Previous Rx's Medication Instructions Recorded Aspirin EC [Ecotrin Low Dose] 81 mg PO DAILY #30 tablet.dr 04/08/19 Nitroglycerin Sl Tabs [Nitrostat] 0.4 mg SUBLINGUAL Q5M PRN #100 tab 04/08/19 Ticagrelor [Brilinta] 90 mg PO BID #60 tab 04/08/19 Allergies Allergy/AdvReac Type Severity Reaction Status Date / Time Tetracyclines Allergy Rash/Hives Verified 07/07/20 07:52 erythromycin base AdvReac Nausea & Verified 07/07/20 07:52 Vomiting hydromorphone [From Dilaudid] AdvReac hallucinati Verified 07/07/20 07:52 on morphine AdvReac hallunicati Verified 07/07/20 07:52 on oxycodone AdvReac Nausea & Verified 07/07/20 07:52 Vomiting Review of Systems ROS Statement: Those systems with pertinent positive or pertinent negative responses have been documented in the HPI. ROS Other: All systems not noted in ROS Statement are negative. EKG Findings - EKG Comments: EKG Findings:: EKG shows sinus rhythm 60 AK 128 QRS 76 QTC 427 Past Medical History Past Medical History: Coronary Artery Disease (CAD), GERD/Reflux, Hyperlipidemia, Myocardial Infarction (MO), Osteoarthritis (OA), Pneumonia Additional Past Medical History / Comment(s): Diverticultis with previous bowel resection, L nephrolithiasis with mild hydronephrosis-pt states he passed stone on his own, occasional sinus headache. History of bladder cyst. History of Any Multi-Drug Resistant Organisms: None Reported Past Surgical History: Heart Catheterization, Heart Catheterization With Stent, Orthopedic Surgery Additional Past Surgical History / Comment(s): Colon resection d/t abscess/necro tic bowel, colonoscopy, L total knee replacement, bilateral inguinal hernia repairs. 4 stents Past Anesthesia/Blood Transfusion Reactions: Postoperative Nausea & Vomiting (PONV) Additional Past Anesthesia/Blood Transfusion Reaction / Comment(s): Pt received blood with bowel resection without reaction. Past Psychological History: No Psychological Hx Reported Past Alcohol Use History: Rare Past Drug Use History: None Reported - Past Family History Mother Family Medical History: Cancer, CVA/TIA Additional Family Medical History / Comment(s): Mother had skin cancer in her groin area and a pacemaker and had a cardiac valve replaced. She at the age of 98yrs. Father Family Medical History: Dementia Additional Family Medical History / Comment(s): Father at the age of 91 yrs from alzheimer's. Sister(s) Family Medical History: Cancer General Exam Limitations: no limitations General appearance: alert, in no apparent distress Head exam: Present: atraumatic, normocephalic, normal inspection Eye exam: Present: normal appearance, PERRL, EOMI. Absent: scleral icterus, conjunctival injection, periorbital swelling ENT exam: Present: normal exam, mucous membranes moist Neck exam: Present: normal inspection. Absent: tenderness, meningismus, lymphadenopathy Respiratory exam: Present: normal lung sounds bilaterally. Absent: respiratory distress, wheezes, rales, rhonchi, stridor Cardiovascular Exam: Present: regular rate, normal rhythm, normal heart sounds. Absent: systolic murmur, diastolic murmur, rubs, gallop, clicks GI/Abdominal exam: Present: soft, normal bowel sounds. Absent: distended, tenderness, guarding, rebound, rigid Extremities exam: Present: normal inspection, full ROM, normal capillary refill. Absent: tenderness, pedal edema, joint swelling, calf tenderness Back exam: Present: normal inspection Neurological exam: Present: alert, oriented X3, CN II-XII intact Psychiatric exam: Present: normal affect, normal mood Skin exam: Present: warm, dry, intact, normal color. Absent: rash Course Vital Signs 07/07/20 07/07/20 07/07/20 04:09 08:48 10:35 Temperature 97.7 F Pulse Rate 81 56 L 68 Respiratory 22 18 20 Rate Blood Pressure 127/87 119/78 116/77 O2 Sat by Pulse 98 99 Oximetry 07/07/20 07/07/20 13:06 14:42 Temperature 98.2 F Pulse Rate 76 65 Respiratory 20 20 Rate Blood Pressure 132/86 114/60 O2 Sat by Pulse 99 99 Oximetry - Reevaluation(s) Reevaluation #1: Medical record is reviewed Patient symptoms are significantly improved here in the emergency department Patient family informed of results, questions answered Chest Pain MDM - MDM 74 male DF for evaluation of chest pain chest pain and feels a prior MO. Patient will be admitted for cardiac observation Disposition Clinical Impression: Atypical chest pain, Chest pain Disposition: ADMITTED IP TO THIS HOSP Condition: Fair Is patient prescribed a controlled substance at d/c from ED?: No
[2020-07-07 05:29] LABS: Basophils % (A) 1 %; Eosinophils # (A) 0.4 k/uL (0-0.7); Eosinophils % (A) 7 %; HCT 43.6 % (39.0-53.0); Lymphocytes # (A) 2.1 k/uL (1.0-4.8); Lymphocytes % (A) 37 %; MCH 32.2 pg (25.0-35.0); MCHC 34.5 g/dL (31.0-37.0); MCV 93.5 fL (80.0-100.0); Mean Platelet Volume 7.2; Monocytes # (A) 0.5 k/uL (0-1.0); Monocytes % (A) 8 %; Neutrophils # (A) 2.6 k/uL (1.3-7.7); Neutrophils % (A) 45 %; Platelet Count 201 k/uL (150-450); RBC 4.66 m/uL (4.30-5.90); RDW 13.5 % (11.5-15.5); WBC 5.6 k/uL (3.8-10.6)
[2020-07-07 05:36] LABS: Albumin 4.1 g/dL (3.5-5.0); Calcium 9.1 mg/dL (8.4-10.2); Magnesium 1.8 mg/dL (1.6-2.3); Total Bilirubin 0.3 mg/dL (0.2-1.3); Total Protein 7.3 g/dL (6.3-8.2)
--- NOTE | 2020-07-07 05:39 | XR ---
EXAM: XR Chest, 2 Views CLINICAL HISTORY: Chest Pain TECHNIQUE: Frontal and lateral views of the chest. COMPARISON: 08/18/2019. FINDINGS: Lungs: Unremarkable. No consolidation. Pleural space: Unremarkable. No pneumothorax. Heart: Unremarkable. No cardiomegaly. Mediastinum: Unremarkable. Bones/joints: Unremarkable. Tubes, lines and devices: Left-sided chest wall pacemaker and lead tip is unchanged. IMPRESSION: No radiographic evidence of acute cardiopulmonary process without significant interval change.
[2020-07-07 05:41] LABS: INR 0.9 (<1.2); Partial Thromboplastin Time 25.1 sec (22.0-30.0); Prothrombin Time 9.8 sec (9.0-12.0)
[2020-07-07] MEDS ORDERED: NITROGLYCERIN SL TABS 0.4 MG TAB SUBLINGUAL PRN (06:51)
[2020-07-07] MEDS ORDERED: ASPIRIN 81 MG PO STA (06:51)
[2020-07-07] MEDS ORDERED: HEPARIN SODIUM 1,000 UN/ML (10ML VL) IV ONE (06:51)
[2020-07-07] MEDS ORDERED: HEPARIN SOD,PORK IN 0.45% NACL 25,000 UNIT in 0.45% NACL 1 250ML.BAG IV SCH (07:00)
[2020-07-07] MEDS ORDERED: SODIUM CHLORIDE 0.9% 1,000 ML IV SCH (07:00)
[2020-07-07 10:38] VITALS: RESP 20
--- NOTE | 2020-07-07 14:13 | P.CRDCN ---
History of Present Illness History of present illness: HISTORY OF PRESENTING ILLNESS Patient is a pleasant 74-year-old male with history of hyper tension, hyperlipidemia, GERD, nephrolithiasis, coronary artery disease, ischemic cardiomyopathy status post AICD, reported atrial fibrillation who presents secondary to left arm pain. Patient had presented August or 2019 with anterior STEMI and had successful PCI of LAD with and pelvis support. Unfortunately suffered a myocardial infarction with ischemic cardiomyopathy, ejection fraction 20-25% and was treated with heart failure regimen however still had decreased ejection fraction and AICD was placed. Patient had done fairly well over the last few months and follows with Dr. Gupta in office. Unfortunately he had left arm pain which radiated into her shoulder which occurred yesterday a few hours. He states this is somewhat similar to an episode he had 3 weeks prior to his myocardial infarction however feels nothing similar to his myocardial infarction. He is concerned as he felt that that may have been a warning 3 weeks before his STEMI however with his STEMI he had crushing substernal chest pressure, numbness in his chest and numbness in his teeth and felt nothing similar to his current symptoms. He has been doing well at home and no decrease in exercise tolerance, shortness breath. He has been maintained on aspirin and Brilinta. No recent changes to his medications. He has been up walking around today and feels well. He admits he took a nitroglycerin however this did not help. Currently his left arm pain is completely resolved. He denies any neck pain or radiculopathy. REVIEW OF SYSTEMS At the time of my exam: CONSTITUTIONAL: Denies fever or chills. CARDIOVASCULAR: +chest pain/ left arm pain, no shortness of breath, orthopnea, PND or palpitations. RESPIRATORY: Denies cough. GASTROINTESTINAL: Denies abdominal pain, diarrhea, constipation, nausea or vomiting. MUSCULOSKELETAL: Denies myalgias. NEUROLOGIC: Denies numbness, tingling or weakness. ENDOCRINE: Denies fatigue, weight change, polydipsia or polyurina. GENITOURINARY: Denies burning, hematuria or urgency with micturation. HEMATOLOGIC: Denies history of anemia or bleeding. PHYSICAL EXAMINATION Vital signs reviewed. CONSTITUTIONAL: No apparent distress. HEENT: Head is normocephalic. Pupils are equal, round. Sclerae anicteric. Mucous membranes of the mouth are moist. No JVD. No carotid bruit. CHEST EXAMINATION: Lungs are clear to auscultation. No chest wall tenderness is noted on palpation or with deep breathing. HEART EXAMINATION: Regular rate and rhythm. S1, S2 heard. No murmurs, gallops or rub. ABDOMEN: Soft, nontender. Positive bowel sounds. EXTREMITIES: 2+ peripheral pulses, no lower extremity edema and no calf tenderness. NEUROLOGIC EXAMINATION: Patient is awake, alert and oriented x3. ASSESSMENT 1. Atypical left arm, chest pain. Troponin negative 3, EKG without ischemic changes 2. Coronary artery disease status post PCI LAD March 2019 3. Hypertension 4. Hyperlipidemia 5. Ischemic cardiomyopathy status post AICD, last ejection fraction 25-30% PLAN Echocardiogram repeated and ejection fraction appears unchanged with prior ischemic cardiomyopathy. His chest pain appears atypical and although they did resemble some symptoms 3 weeksprior to his heart attack in 03/2019, they are not similar to all to his angina he had with his STEMI. EKG without ischemic changes, troponins normal 3 and chest pain has resolved and patient is feeling well today. Discussed that symptoms are not similar to his angina and unlikely cardiac in nature. Continue with dual antiplatelets and current cardiac medications. Discussed possible stress testing on Thursday or discharge with outpatient follow-up and patient would like to be discharged with outpatient follow-up with Dr. Gupta in 1 week. Stable for discharge home from a cardiology standpoint. Past Medical History Past Medical History: Coronary Artery Disease (CAD), GERD/Reflux, Hyperlipidemia, Myocardial Infarction (ME), Osteoarthritis (OA), Pneumonia Additional Past Medical History / Comment(s): Diverticultis with previous bowel resection, L nephrolithiasis with mild hydronephrosis-pt states he passed stone on his own, occasional sinus headache. History of bladder cyst. History of Any Multi-Drug Resistant Organisms: None Reported Past Surgical History: Heart Catheterization, Heart Catheterization With Stent, Orthopedic Surgery Additional Past Surgical History / Comment(s): Colon resection d/t abscess/necrotic bowel, colonoscopy, L total knee replacement, bilateral inguinal hernia repairs. 4 stents Past Anesthesia/Blood Transfusion Reactions: Postoperative Nausea & Vomiting (PONV) Additional Past Anesthesia/Blood Transfusion Reaction / Comment(s): Pt received blood with bowel resection without reaction. Past Psychological History: No Psychological Hx Reported Past Alcohol Use History: Rare Past Drug Use History: None Reported - Past Family History Mother Family Medical History: Cancer, CVA/TIA Additional Family Medical History / Comment(s): Mother had skin cancer in her groin area and a pacemaker and had a cardiac valve replaced. She at the age of 98yrs. Father Family Medical History: Dementia Additional Family Medical History / Comment(s): Father at the age of 91 yrs from alzheimer's. Sister(s) Family Medical History: Cancer Medications and Allergies Home Medications Medication Instructions Recorded Confirmed Type Aspirin EC [Ecotrin Low Dose] 81 mg PO DAILY #30 tablet. 04/08/19 07/07/20 Rx Nitroglycerin Sl Tabs [Nitrostat] 0.4 mg SUBLINGUAL Q5M PRN #100 tab 04/08/19 07/07/20 Rx Ticagrelor [Brilinta] 90 mg PO BID #60 tab 04/08/19 07/07/20 Rx ALPRAZolam [Xanax] 0.5 mg PO HS 08/17/19 07/07/20 History Metoprolol Tartrate [Lopressor] 12.5 mg PO BID 08/17/19 07/07/20 History Ascorbic Acid [Vitamin C] 500 mg PO DAILY 07/07/20 07/07/20 History Beta-Carotene [Beta Carotene] 25,000 unit PO DAILY 07/07/20 07/07/20 History Cholecalciferol [Vitamin D3 (25 25 mcg PO DAILY 07/07/20 07/07/20 History Mcg = 1000 Iu)] Fluvastatin Sodium [Lescol] 40 mg PO DAILY 07/07/20 07/07/20 History Allergies Allergy/AdvReac Type Severity Reaction Status Date / Time Tetracyclines Allergy Rash/Hives Verified 07/07/20 07:52 erythromycin base AdvReac Nausea & Verified 07/07/20 07:52 Vomiting hydromorphone [From Dilaudid] AdvReac hallucinati Verified 07/07/20 07:52 on morphine AdvReac hallunicati Verified 07/07/20 07:52 on oxycodone AdvReac Nausea & Verified 07/07/20 07:52 Vomiting Physical Exam Vitals: Vital Signs Temp Pulse Resp BP Pulse Ox 07/07/20 13:06 76 20 132/86 99 07/07/20 10:35 68 20 116/77 99 07/07/20 08:48 56 L 18 119/78 07/07/20 04:09 97.7 F 81 22 127/87 98 Intake and Output 07/06/20 07/07/20 07/07/20 22:59 06:59 14:59 Other: Weight 79.379 kg Results 07/07/20 04:45 07/07/20 04:45 Cardiac Enzymes 07/07/20 07/07/20 07/07/20 Range/Units 04:45 04:45 09:19 AST 41 (17-59) U/L Troponin I <0.012 <0.012 (0.000-0.034) ng/mL 07/07/20 Range/Units 11:19 AST (17-59) U/L Troponin I <0.012 (0.000-0.034) ng/mL Coagulation 07/07/20 07/07/20 Range/Units 04:45 11:19 PT 9.8 (9.0-12.0) sec APTT 25.1 105.0 H* (22.0-30.0) sec CBC 07/07/20 Range/Units 04:45 WBC 5.6 (3.8-10.6) k/uL RBC 4.66 (4.30-5.90) m/uL Hgb 15.0 (13.0-17.5) gm/dL Hct 43.6 (39.0-53.0) % Plt Count 201 (150-450) k/uL Comprehensive Metabolic Panel 07/07/20 Range/Units 04:45 Sodium 136 L (137-145) mmol/L Potassium 4.0 (3.5-5.1) mmol/L Chloride 107 (98-107) mmol/L Carbon Dioxide 22 (22-30) mmol/L BUN 20 (9-20) mg/dL Creatinine 1.04 (0.66-1.25) mg/dL Glucose 101 H (74-99) mg/dL Calcium 9.1 (8.4-10.2) mg/dL AST 41 (17-59) U/L ALT 23 (4-49) U/L Alkaline Phosphatase 70 (38-126) U/L Total Protein 7.3 (6.3-8.2) g/dL Albumin 4.1 (3.5-5.0) g/dL Current Medications Generic Name Dose Route Start Last Admin Trade Name Freq PRN Reason Stop Dose Admin Aspirin 325 mg 07/08/20 09:00 Aspirin 325 Mg Tab PO DAILY NUNU Sodium Chloride 1,000 mls @ 20 mls/hr 07/07/20 07:00 07/07/20 07:29 Saline 0.9% IV 20 mls/hr .Q24H NUNU Administration Heparin Sodium/Sodium Chloride 250 mls @ 9.525 mls/hr 07/07/20 07:00 07/07/20 07:27 25,000 unit/ Sodium Chloride IV 12 units/kg/hr .Q24H NUNU 9.525 mls/hr Administration Protocol 12 UNITS/KG/HR Nitroglycerin 0.4 mg 07/07/20 06:51 Nitroglycerin Sl Tabs 0.4 Mg Tab SUBLINGUAL Q5M PRN Chest Pain Intake and Output 07/06/20 07/07/20 07/07/20 22:59 06:59 14:59 Other: Weight 79.379 kg 07/07/20 04:45 07/07/20 04:45
[2020-07-07 14:44] VITALS: BP 114/60; PULSE 65; TEMP 98.2
--- NOTE | 2020-07-07 19:35 | ECHOF ---
Referral Reason:Chest pain MEASUREMENTS -------- HEIGHT: 182.9 cm WEIGHT: 79.4 kg BP: 116/77 RVIDd: 3.7 cm (< 3.3) IVSd: 1.2 cm (0.6 - 1.1) LVIDd: 4.8 cm (3.9 - 5.3) LVPWd: 1.3 cm (0.6 - 1.1) IVSs: 1.5 cm LVIDs: 4.0 cm LVPWs: 1.4 cm LAESV Index (A-L): 25.35 ml/m Ao Diam: 2.7 cm (2.0 - 3.7) AV Cusp: 1.9 cm (1.5 - 2.6) LA Diam: 4.1 cm (2.7 - 3.8) MV EXCURSION: 15.488 mm (> 18.000) MV EF SLOPE: 148 mm/s (70 - 150) EPSS: 2.2 cm MV E Ovidio: 0.62 m/s MV DecT: 154 ms MV A Ovidio: 1.09 m/s MV E/A Ratio: 0.56 AR PHT: 347 ms RAP: 5.00 mmHg RVSP: 33.53 mmHg FINDINGS -------- Sinus rhythm. This was a technically difficult study with suboptimal apical views. The left ventricular size is normal. There is mild concentric left ventricular hypertrophy. Overa ll left ventricular systolic function is moderate-severely impaired with, an EF between 30 - 35 %. Mitral Doppler inflow pattern suggests diastolic filling abnormality {E/E'}. Apical anterior LV wal l motion is hypokinetic. Apical inferior LV wall motion is hypokinetic. Apical septum LV wall m otion is hypokinetic. [place] Hypokinesis. The right ventricle is mildly enlarged. Normal LA size by volume 22+/-6 ml/m2. The right atrial size is normal. 5.0mg of Lumason was utilized for enhancement of images Interatrial and interventricular septum intact. There is mild aortic regurgitation. There is no evidence of aortic stenosis. Mild mitral regurgitation is present. Mild tricuspid regurgitation present. There is borderline pulmonary artery hypertension. The righ t ventricular systolic pressure, as measured by Doppler, is 33.53mmHg. There is no pulmonic regurgitation present. The aortic root size is normal. IVC Not well visulized. There is no pericardial effusion. CONCLUSIONS -------- 1. The left ventricular size is normal. 2. There is mild concentric left ventricular hypertrophy. 3. Overall left ventricular systolic function is moderate-severely impaired with, an EF between 30 - 35 %. 4. Mitral Doppler inflow pattern suggest diastolic filling abnormality {E/E'}. 5. Apical anterior LV wall motion is hypokinetic. 6. Apical inferior LV wall motion is hypokinetic. 7. Apical septum LV wall motion is hypokinetic. 8. [place] Hypokinesis. 9. The right ventricle is mildly enlarged. 10. There is mild aortic regurgitation. 11. Mild mitral regurgitation is present. 12. Mild tricuspid regurgitation present. 13. There is borderline pulmonary artery hypertension. 14. The right ventricular systolic pressure, as measured by Doppler, is 33.53mmHg. GIS APPLICATION DEVELOPER: Rocio Manning RDCS
--- NOTE | 2020-07-08 01:04 | P.HPIM ---
History of Present Illness H&P Date: 07/07/20 Chief Complaint: Left Arm pain Patient is a 74-year-old male with a known history of coronary artery disease status post stent placement x4 in March 2019, ischemic cardiomyopathy status post AICD placement, hyperlipidemia, GERD, osteoarthritis and diverticulitis with previous bowel resection, nephrolithiasis and other medical problems presents to ER with the complaints of left arm pain. Patient states that he has been having left arm pain on and off for the past 3 weeks. Patient had similar pain today morning and concerned that he may have heart attack. Patient does have history of acute RI previously with substernal chest pain but is not similar to this current pain. Denied any worsening shortness of breath. No nausea vomiting or diaphoresis. No recent illnesses. No cough or sputum production. No fever no chills. Patient states that he has been trimming trees with Shrub rosaline. Recently. Denies any exertional dyspnea. Patient did take nitroglycerin which could not relieve his pain. Chest x-ray showed no radiographic evidence of acute cardiopulmonary process EKG showed normal sinus rhythm, left axis deviation. 2D echocardiogram showed mild concentric left ventricular hypertrophy, moderately severe impaired EF 30 to 35% apical hypokinesis and right ventricular systolic pressure 33.530 mmHg. Laboratory data showed WBC 5.6 hemoglobin 15.0 and platelets 201 Sodium 136 potassium 4.0 chloride 107 BUN 20 and creatinine 1.04 Blood sugar 104 magnesium 1.8 Troponin x3 - Review of Systems Constitutional: Patient denies any fever or chills . No generalized weakness or weight loss. Abdomen: Patient denied nausea vomiting and diarrhea and abdominal pain. Cardiovascular: Patient denies any chest pain or short of breath no palpitations. Respiratory: patient denied any cough or sputum production. No shortness of breath Neurologic: Patient denied any numbness or tingling headache. Musculoskeletal: Patient denies any complaints of joint swelling or deformity. Skin: Negative Psychiatric: Negative Endocrine: No heat or cold intolerance. No recent weight gain. Genitourinary: No dysuria or hematuria. All other 14 point ROS negative except the above Past Medical History Past Medical History: Coronary Artery Disease (CAD), GERD/Reflux, Hyperlipidemia, Myocardial Infarction (RI), Osteoarthritis (OA), Pneumonia Additional Past Medical History / Comment(s): Diverticultis with previous bowel resection, L nephrolithiasis with mild hydronephrosis-pt states he passed stone on his own, occasional sinus headache. History of bladder cyst. History of Any Multi-Drug Resistant Organisms: None Reported Past Surgical History: Heart Catheterization, Heart Catheterization With Stent, Orthopedic Surgery Additional Past Surgical History / Comment(s): Colon resection d/t abscess/ necrotic bowel, colonoscopy, L total knee replacement, bilateral inguinal hernia repairs. 4 stents Past Anesthesia/Blood Transfusion Reactions: Postoperative Nausea & Vomiting (PONV) Additional Past Anesthesia/Blood Transfusion Reaction / Comment(s): Pt received blood with bowel resection without reaction. Past Psychological History: No Psychological Hx Reported Past Alcohol Use History: Rare Past Drug Use History: None Reported - Past Family History Mother Family Medical History: Cancer, CVA/TIA Additional Family Medical History / Comment(s): Mother had skin cancer in her groin area and a pacemaker and had a cardiac valve replaced. She at the age of 98yrs. Father Family Medical History: Dementia Additional Family Medical History / Comment(s): Father at the age of 91 yrs from alzheimer's. Sister(s) Family Medical History: Cancer Medications and Allergies Home Medications Medication Instructions Recorded Confirmed Type Aspirin EC [Ecotrin Low Dose] 81 mg PO DAILY #30 tablet. 04/08/19 07/07/20 Rx Nitroglycerin Sl Tabs [Nitrostat] 0.4 mg SUBLINGUAL Q5M PRN #100 tab 04/08/19 07/07/20 Rx Ticagrelor [Brilinta] 90 mg PO BID #60 tab 04/08/19 07/07/20 Rx ALPRAZolam [Xanax] 0.5 mg PO HS 08/17/19 07/07/20 History Metoprolol Tartrate [Lopressor] 12.5 mg PO BID 08/17/19 07/07/20 History Ascorbic Acid [Vitamin C] 500 mg PO DAILY 07/07/20 07/07/20 History Beta-Carotene [Beta Carotene] 25,000 unit PO DAILY 07/07/20 07/07/20 History Cholecalciferol [Vitamin D3 (25 25 mcg PO DAILY 07/07/20 07/07/20 History Mcg = 1000 Iu)] Fluvastatin Sodium [Lescol] 40 mg PO DAILY 07/07/20 07/07/20 History Allergies Allergy/AdvReac Type Severity Reaction Status Date / Time Tetracyclines Allergy Rash/Hives Verified 07/07/20 07:52 erythromycin base AdvReac Nausea & Verified 07/07/20 07:52 Vomiting hydromorphone [From Dilaudid] AdvReac hallucinati Verified 07/07/20 07:52 on morphine AdvReac hallunicati Verified 07/07/20 07:52 on oxycodone AdvReac Nausea & Verified 07/07/20 07:52 Vomiting Physical Exam Vitals: Vital Signs Temp Pulse Resp BP Pulse Ox 07/07/20 10:35 68 20 116/77 99 07/07/20 08:48 56 L 18 119/78 07/07/20 04:09 97.7 F 81 22 127/87 98 Intake and Output 07/06/20 07/07/20 07/07/20 22:59 06:59 14:59 Other: Weight 79.379 kg PHYSICAL EXAMINATION: Patient is lying in the bed comfortably, no acute distress, awake alert and oriented.. HEENT: Normocephalic. Neck is supple. Pupils reactive. Nostrils clear. Oral cavity is moist. Ears reveal no drainage. Neck reveals no JVD, carotid bruits, or thyromegaly. CHEST EXAMINATION: Trachea is central. Symmetrical expansion. Lung castillo clear to auscultation and percussion. CARDIAC: Normal S1, S2 with no gallops. No murmurs ABDOMEN: Soft. Bowel sounds normal. No organomegaly. No abdominal bruits. Extremities: reveal no edema. No clubbing or cyanosis Neurologically awake, alert, oriented x3 with well-coordinated movements. No focal deficits noted Skin: No rash or skin lesions. Psychiatric: Coperative. Nonsuicidal Musculoskeletal: No joint swelling or deformity. Normal range of motion. Results CBC & Chem 7: 07/07/20 04:45 07/07/20 04:45 Labs: Abnormal Lab Results - Last 24 Hours (Table) 07/07/20 Range/Units 04:45 Sodium 136 L (137-145) mmol/L Glucose 101 H (74-99) mg/dL Thrombosis Risk Factor Assmnt - DVT/VTE Prophylaxis DVT/VTE Prophylaxis: Pharmacologic Prophylaxis ordered Assessment and Plan Assessment: Left arm pain, atypical chest pain. Possible musculoskeletal origin. Ruled out ACS. Coronary artery disease with history of stent placement in March 2019 Ischemic cardiomyopathy ejection fraction 20 to 25% status post AICD placement Chronic CHF with systolic dysfunction Hypertension Hyperlipidemia GERD Osteoarthritis History of diverticulitis with bowel resection DVT prophylaxis with heparin subcu Plan: Patient will be continued on telemetry monitoring. Was started on heparin drip. Serial troponin x3 -. Cardiology was consulted for evaluation. Continue with aspirin Plavix, statins and metoprolol as per his home regimen. Continue to follow closely. Time with Patient: Greater than 30
[2020-07-08] MEDS ORDERED: ASPIRIN 325 MG TAB PO SCH (09:00)
== END 2020-07-07 16:59 | disposition home or self-care (01) ==
LOC: EC 04:02 → 6NMEDSUR 06:51
PROVIDERS: ADMIT Hospitalist; ATTEND Hospitalist
DX: R07.89 Other chest pain (principal); R07.2 Precordial pain; M79.602 Pain in left arm; M25.511 Pain in right shoulder; R11.0 Nausea; R00.2 Palpitations; I25.10 Atherosclerotic heart disease of native coronary artery without angina pectoris; Z95.5 Presence of coronary angioplasty implant and graft; E78.5 Hyperlipidemia, unspecified; I25.5 Ischemic cardiomyopathy; K21.9 Gastro-esophageal reflux disease without esophagitis; M19.90 Unspecified osteoarthritis, unspecified site; I25.2 Old myocardial infarction; I11.0 Hypertensive heart disease with heart failure; I50.22 Chronic systolic (congestive) heart failure; I48.91 Unspecified atrial fibrillation; Z79.82 Long term (current) use of aspirin; Z79.899 Other long term (current) drug therapy; Z79.02 Long term (current) use of antithrombotics/antiplatelets; Z88.5 Allergy status to narcotic agent; Z88.1 Allergy status to other antibiotic agents; Z87.442 Personal history of urinary calculi; Z90.49 Acquired absence of other specified parts of digestive tract; Z95.810 Presence of automatic (implantable) cardiac defibrillator; Z87.19 Personal history of other diseases of the digestive system; Z87.01 Personal history of pneumonia (recurrent); Z96.652 Presence of left artificial knee joint; Z82.3 Family history of stroke; Z80.8 Family history of malignant neoplasm of other organs or systems; Z82.49 Family history of ischemic heart disease and other diseases of the circulatory system; Z81.8 Family history of other mental and behavioral disorders; Z82.0 Family history of epilepsy and other diseases of the nervous system
CPT/HCPCS: 96376; 96365; 96366; 99285; 36415; 93005; 80053; 83735; 84484; 85025; 85610; 85730; 71046; G0378; C8929; J1644 ×2; Q9950; 93306

== ENCOUNTER → 2020-11-29 | Outpatient (CLI) | payer MEDICARE, BC ==
[2020-11-30 17:32] LABS: African American GFR (CKD) 56.6 (60.0-200.0); BUN/Creat Ratio 25.71 Ratio (12.00-20.00); Non-African American GFR(CKD) 48.8 (60.0-200.0); Potassium 5.3 mmol/L (3.5-5.5)
== END | disposition home or self-care (01) ==
LOC: LABWHC1 15:59
PROVIDERS: ATTEND Internal Medicine Interventional Cardiology
DX: N18.9 Chronic kidney disease, unspecified (principal)
CPT/HCPCS: 36415; 80048

== ENCOUNTER 2021-03-23 14:37 | Observation (INO) | payer MEDICARE, BC ==
[2021-03-23] MEDS ORDERED: ASPIRIN 81 MG PO STA (15:06)
[2021-03-23] MEDS ORDERED: NITROGLYCERIN OINT 1 INCH/GM PACKET TOPICAL STA (15:06)
--- NOTE | 2021-03-23 15:15 | ED ---
General Adult HPI - General Chief complaint: Chest Pain Stated complaint: Chest Pain Time Seen by Provider: 03/23/21 14:50 Source: patient, RN notes reviewed Mode of arrival: ambulatory Limitations: no limitations - History of Present Illness Initial comments: Patient is a pleasant 75-year-old male presenting to the emergency department with chest discomfort. Onset of symptoms was 2 hours ago. Discomfort has improved following nitroglycerin. Patient did have similar symptoms 2 years ago associated with heart attack. Patient has mild discomfort of his chest described as numbness. There was some radiation towards shoulders. No dyspnea, nausea, or diaphoresis. - Related Data Home Medications Medication Instructions Recorded Confirmed ALPRAZolam [Xanax] 0.5 mg PO HS 08/17/19 07/07/20 Metoprolol Tartrate [Lopressor] 12.5 mg PO BID 08/17/19 07/07/20 Ascorbic Acid [Vitamin C] 500 mg PO DAILY 07/07/20 07/07/20 Beta-Carotene [Beta Carotene] 25,000 unit PO DAILY 07/07/20 07/07/20 Cholecalciferol [Vitamin D3 (25 25 mcg PO DAILY 07/07/20 07/07/20 Mcg = 1000 Iu)] Fluvastatin Sodium [Lescol] 40 mg PO DAILY 07/07/20 07/07/20 Previous Rx's Medication Instructions Recorded Aspirin EC [Ecotrin Low Dose] 81 mg PO DAILY #30 tablet. 04/08/19 Nitroglycerin Sl Tabs [Nitrostat] 0.4 mg SUBLINGUAL Q5M PRN #100 tab 04/08/19 Ticagrelor [Brilinta] 90 mg PO BID #60 tab 04/08/19 Allergies Allergy/AdvReac Type Severity Reaction Status Date / Time Tetracyclines Allergy Rash/Hives Verified 03/23/21 14:44 erythromycin base AdvReac Nausea & Verified 03/23/21 14:44 Vomiting hydromorphone [From Dilaudid] AdvReac hallucinati Verified 03/23/21 14:44 on morphine AdvReac hallunicati Verified 03/23/21 14:44 on oxycodone AdvReac Nausea & Verified 03/23/21 14:44 Vomiting Review of Systems ROS Statement: Those systems with pertinent positive or pertinent negative responses have been documented in the HPI. ROS Other: All systems not noted in ROS Statement are negative. Constitutional: Denies: fever Eyes: Denies: eye pain ENT: Denies: ear pain Respiratory: Denies: cough Cardiovascular: Reports: as per HPI Endocrine: Denies: fatigue Gastrointestinal: Denies: abdominal pain Genitourinary: Denies: dysuria Musculoskeletal: Denies: back pain Skin: Denies: rash Neurological: Denies: weakness Past Medical History Past Medical History: Coronary Artery Disease (CAD), GERD/Reflux, Hyperlipidemia, Myocardial Infarction ([place]), Osteoarthritis (OA), Pneumonia Additional Past Medical History / Comment(s): Diverticultis with previous bowel resection, L nephrolithiasis with mild hydronephrosis-pt states he passed stone on his own, occasional sinus headache. History of bladder cyst. History of Any Multi-Drug Resistant Organisms: None Reported Past Surgical History: Heart Catheterization, Heart Catheterization With Stent, Orthopedic Surgery Additional Past Surgical History / Comment(s): Colon resection d/t abscess/ necrotic bowel, colonoscopy, L total knee replacement, bilateral inguinal hernia repairs. 4 stents Past Anesthesia/Blood Transfusion Reactions: Postoperative Nausea & Vomiting (PONV) Additional Past Anesthesia/Blood Transfusion Reaction / Comment(s): Pt received blood with bowel resection without reaction. Past Psychological History: No Psychological Hx Reported Smoking Status: Never smoker Past Alcohol Use History: Rare Past Drug Use History: None Reported - Past Family History Mother Family Medical History: Cancer, CVA/TIA Additional Family Medical History / Comment(s): Mother had skin cancer in her groin area and a pacemaker and had a cardiac valve replaced. She at the age of 98yrs. Father Family Medical History: Dementia Additional Family Medical History / Comment(s): Father at the age of 91 yrs from alzheimer's. Sister(s) Family Medical History: Cancer General Exam Limitations: no limitations General appearance: alert, in no apparent distress Head exam: Present: normocephalic Eye exam: Present: normal appearance Neck exam: Present: normal inspection Respiratory exam: Present: normal lung sounds bilaterally. Absent: chest wall tenderness Cardiovascular Exam: Present: regular rate, normal rhythm Expanded Peripheral pulses: 2+: Radial (R), Radial (L), Posterior Tibialis (R), Posterior Tibialis (L) GI/Abdominal exam: Present: soft. Absent: tenderness Extremities exam: Present: normal inspection. Absent: pedal edema, calf tenderness Neurological exam: Present: alert Psychiatric exam: Present: normal affect, normal mood Skin exam: Present: normal color Course Vital Signs 03/23/21 03/23/21 14:41 16:49 Temperature 98.7 F Pulse Rate 63 Respiratory 20 18 Rate Blood Pressure 133/83 134/80 O2 Sat by Pulse 99 97 Oximetry EKG Findings - EKG Comments: EKG Findings:: Sinus rhythm with rate of 62. FL 16. QRS 80. QT 400. QTc 406. Left axis. Low QRS voltage. Septal and inferior Q waves. No acute ST change. Medical Decision Making - Medical Decision Making Patient reevaluated and updated. Case discussed with Dr. Zhong, who will admit his patient. Cardiology will be placed on consult - Lab Data Result diagrams: 03/23/21 15:31 03/23/21 15:31 Lab Results 03/23/21 03/23/21 03/23/21 Range/Units 15:31 15:31 15:31 WBC 7.2 (3.8-10.6) k/uL RBC 4.74 (4.30-5.90) m/uL Hgb 14.6 (13.0-17.5) gm/dL Hct 45.8 (39.0-53.0) % MCV 96.7 (80.0-100.0) fL MCH 30.8 (25.0-35.0) pg MCHC 31.8 (31.0-37.0) g/dL RDW 13.3 (11.5-15.5) % Plt Count 207 (150-450) k/uL MPV 7.3 Neutrophils % 64 % Lymphocytes % 24 % Monocytes % 6 % Eosinophils % 4 % Basophils % 1 % Neutrophils # 4.6 (1.3-7.7) k/uL Lymphocytes # 1.7 (1.0-4.8) k/uL Monocytes # 0.4 (0-1.0) k/uL Eosinophils # 0.3 (0-0.7) k/uL Basophils # 0.1 (0-0.2) k/uL PT 10.5 (9.0-12.0) sec INR 1.0 (<1.2) APTT 25.2 (22.0-30.0) sec D-Dimer 1.20 H (<0.60) mg/L FEU Sodium 137 (137-145) mmol/L Potassium 4.4 (3.5-5.1) mmol/L Chloride 109 H (98-107) mmol/L Carbon Dioxide 20 L (22-30) mmol/L Anion Gap 8 mmol/L BUN 25 H (9-20) mg/dL Creatinine 1.18 (0.66-1.25) mg/dL Est GFR (CKD-EPI)AfAm 69 (>60 ml/min/1.73 sqM) Est GFR (CKD-EPI)NonAf 60 (>60 ml/min/1.73 sqM) Glucose 103 H (74-99) mg/dL Calcium 9.4 (8.4-10.2) mg/dL Magnesium 2.1 (1.6-2.3) mg/dL Total Bilirubin 0.5 (0.2-1.3) mg/dL AST 27 (17-59) U/L ALT 15 (4-49) U/L Alkaline Phosphatase 62 (38-126) U/L Troponin I (0.000-0.034) ng/mL Total Protein 7.7 (6.3-8.2) g/dL Albumin 4.3 (3.5-5.0) g/dL 03/23/21 Range/Units 15:31 WBC (3.8-10.6) k/uL RBC (4.30-5.90) m/uL Hgb (13.0-17.5) gm/dL Hct (39.0-53.0) % MCV (80.0-100.0) fL MCH (25.0-35.0) pg MCHC (31.0-37.0) g/dL RDW (11.5-15.5) % Plt Count (150-450) k/uL MPV Neutrophils % % Lymphocytes % % Monocytes % % Eosinophils % % Basophils % % Neutrophils # (1.3-7.7) k/uL Lymphocytes # (1.0-4.8) k/uL Monocytes # (0-1.0) k/uL Eosinophils # (0-0.7) k/uL Basophils # (0-0.2) k/uL PT (9.0-12.0) sec INR (<1.2) APTT (22.0-30.0) sec D-Dimer (<0.60) mg/L FEU Sodium (137-145) mmol/L Potassium (3.5-5.1) mmol/L Chloride (98-107) mmol/L Carbon Dioxide (22-30) mmol/L Anion Gap mmol/L BUN (9-20) mg/dL Creatinine (0.66-1.25) mg/dL Est GFR (CKD-EPI)AfAm (>60 ml/min/1.73 sqM) Est GFR (CKD-EPI)NonAf (>60 ml/min/1.73 sqM) Glucose (74-99) mg/dL Calcium (8.4-10.2) mg/dL Magnesium (1.6-2.3) mg/dL Total Bilirubin (0.2-1.3) mg/dL AST (17-59) U/L ALT (4-49) U/L Alkaline Phosphatase (38-126) U/L Troponin I <0.012 (0.000-0.034) ng/mL Total Protein (6.3-8.2) g/dL Albumin (3.5-5.0) g/dL - Radiology Data Radiology results: report reviewed (ET chest shows no evidence of pulmonary embolism), image reviewed (Chest x-ray shows no acute process) Disposition Clinical Impression: Chest pain Disposition: ADMITTED IP TO THIS HOSP Is patient prescribed a controlled substance at d/c from ED?: No Referrals: Gucci Zhong MD [Primary Care Provider] - 1-2 days Decision Time: 17:41
[2021-03-23 15:39] LABS: Basophils # (A) 0.1 k/uL (0-0.2); Basophils % (A) 1 %; Eosinophils # (A) 0.3 k/uL (0-0.7); Eosinophils % (A) 4 %; HCT 45.8 % (39.0-53.0); HGB 14.6 gm/dL (13.0-17.5); Lymphocytes # (A) 1.7 k/uL (1.0-4.8); Lymphocytes % (A) 24 %; MCH 30.8 pg (25.0-35.0); MCHC 31.8 g/dL (31.0-37.0); MCV 96.7 fL (80.0-100.0); Mean Platelet Volume 7.3; Monocytes # (A) 0.4 k/uL (0-1.0); Monocytes % (A) 6 %; Neutrophils # (A) 4.6 k/uL (1.3-7.7); Neutrophils % (A) 64 %; Platelet Count 207 k/uL (150-450); RBC 4.74 m/uL (4.30-5.90); RDW 13.3 % (11.5-15.5); WBC 7.2 k/uL (3.8-10.6)
[2021-03-23 15:51] LABS: Albumin 4.3 g/dL (3.5-5.0); Calcium 9.4 mg/dL (8.4-10.2); Magnesium 2.1 mg/dL (1.6-2.3); Potassium 4.4 mmol/L (3.5-5.1); Total Bilirubin 0.5 mg/dL (0.2-1.3); Total Protein 7.7 g/dL (6.3-8.2)
[2021-03-23 15:52] LABS: Partial Thromboplastin Time 25.2 sec (22.0-30.0); Prothrombin Time 10.5 sec (9.0-12.0)
--- NOTE | 2021-03-23 16:42 | XR ---
EXAMINATION TYPE: XR chest 2V DATE OF EXAM: 03/23/2021 COMPARISON: 07/07/2020 HISTORY: Chest pain TECHNIQUE: FINDINGS: There is no heart failure nor confluent pneumonic infiltrate. Costophrenic angles are clear . There are no hilar masses. Heart and mediastinum are normal. There is left axillary pacemaker. Ther e is no pleural effusion. Bones are osteopenic. There is 20% wedging of 2 mid thoracic vertebra. IMPRESSION: No active cardiopulmonary disease. Normal heart. No change.
--- NOTE | 2021-03-23 17:20 | CT ---
EXAMINATION TYPE: CT angio chest DATE OF EXAM: 03/23/2021 COMPARISON: None HISTORY: Chest pain/numb feeling. Hx CAD. CT DLP: 340.4 mGycm Automated exposure control for dose reduction was used. CONTRAST: Performed with IV Contrast, patient injected with 80 mL of Isovue 370. Images obtained from the thoracic inlet to the diaphragm with IV contrast. There are Three-D postproc essed images. Heart is normal. There is no pericardial effusion. There are no hilar masses. There is no mediastinal adenopathy. There is mild pulmonary hyperinflation and flattening of the diaphragm. There is no pleu ral effusion. There is minimal scarring or subsegmental atelectasis at the right lung base. There is normal contrast opacification of the pulmonary arteries. There are no filling defects. There is anterior wedging of T7 vertebra 25% that appears old. IMPRESSION: No evidence of pulmonary embolism. There is probably some COPD. No suspicious pulmonary mass.
[2021-03-23] MEDS ORDERED: NITROGLYCERIN SL TABS 0.4 MG TAB SUBLINGUAL PRN (17:41)
[2021-03-23] MEDS: NITROGLYCERIN OINT 1 INCH/GM PACKET TOPICAL SCH (21:15)
[2021-03-23] MEDS ORDERED: HYDROCORTISONE 1% CREAM 30 GM TUBE TOPICAL PRN (23:00)
[2021-03-24] MEDS: NITROGLYCERIN OINT 1 INCH/GM PACKET TOPICAL SCH ×4 (04:28→21:27)
[2021-03-24] MEDS ORDERED: BETA CAROTENE 25000 UNIT PO SCH (09:00)
[2021-03-24] MEDS ORDERED: ASPIRIN 325 MG TAB PO SCH (09:00)
[2021-03-24] MEDS: CHOLECALCIFEROL 25 MCG (1000 IU) TABLET PO SCH (09:36)
[2021-03-24] MEDS: ASCORBIC ACID 500 MG TAB PO SCH (09:36)
[2021-03-24] MEDS: METOPROLOL SUCCINATE (ER) 25 MG TAB.ER.24H PO SCH (09:37)
[2021-03-24] MEDS: SPIRONOLACTONE 25 MG TAB PO SCH (09:37)
[2021-03-24] MEDS: ASPIRIN 81 MG PO SCH (09:37)
--- NOTE | 2021-03-24 11:12 | HP ---
HISTORY AND PHYSICAL This 75-year-old male came to the emergency room with atypical chest discomfort, improved with nitroglycerin. Similar symptoms 2 years ago in this patient with a heart attack, discomfort in the chest with some numbness, some radiation to his shoulders. No nauseas, dyspnea, diaphoresis. CPK and troponins are negative x3. Home medicines at night, Lopressor 12.5 b.i.d., vitamin C 500 daily, beta carotene 25,000 units p.o. daily, vitamin D3 25 mcg p.o. daily, Lescol 40 mg daily, aspirin 81 mg daily, nitroglycerin sublingually p.r.n., Brilinta 90 mg b.i.d. ALLERGIES: ERYTHROMYCIN, MORPHINE, OXYCODONE. REVIEW OF SYSTEMS: Fourteen-point review of systems negative except as in HPI. PAST MEDICAL HISTORY: Coronary artery disease, GERD, dyslipidemia, myocardial infarction, osteoarthritis, pneumonia, bilateral hydronephrosis, heart catheterization with stents, orthopedic surgery, knee replacements, inguinal hernia repairs, colonoscopies. FAMILY HISTORY: Mother with cancer and CVA, TIA. Father with dementia. Sister with cancer. PHYSICAL EXAMINATION: Vital signs stable. Afebrile. Cardiovascular S1, S2. Lungs clear. GI soft. ENT no significant adenopathy. Pupils equal, round, reactive on ophthalmologic exam. Psych fair mood and affect. Neurologic alert and oriented x3. Peripheral pulses 2+ and symmetric. Neurologic cranial nerves intact. Blood pressure 130s over 80s, O2 97 to 99, temperature 98.7, pulse 63, respirations 18 to 20. The patient had mildly elevated D-dimer. CT of the chest shows COPD but no pneumonia, no mass. EKG sinus rhythm. Atypical chest pain. Wait for Cardiology to clear him. Suspect he will be able to go home, as his troponins are negative and CT of the chest was negative. He had elevated BUN, so he probably has some dehydration contributing to some chest pain. TSH was normal. PROGNOSIS: Guarded. Possible discharge home when cleared by Cardiology. MMODL / IJN: [id number] /
[2021-03-24 11:26] LABS: LDL Cholesterol,Calculated 187.1 mg/dL (0.0-131.0)
--- NOTE | 2021-03-24 14:40 | P.CRDCN ---
History of Present Illness Consult date: 03/24/21 Consult reason: chest pain History of present illness: HISTORY OF PRESENT ILLNESS: 75-year-old male a of Dr. Gupta with past medical history of coronary artery disease, severe ischemic cardiomyopathy status post defibrillator implantation, atrial fibrillation, chronic systolic heart failure, paroxysmal atrial fibrillation, history of myocardial infarction March 2019 with coronary artery disease post stenting of the left main, LAD and OM, echocardiogram at that time revealed EF of 20-25%. Patient gives history that about a month ago he had a stomach bug which lasted for about 1 week and resolved. Yesterday he states he was sitting up and developed numbness across his upper chest and numbness across his forehead and these were the same symptoms he had when he had a myocardial infarction. He states he ignored them initially and now coming in the hospital after the third episode and he did not want to repeat that. He states this sensations lasted for 30-45 minutes and pain went away first and then the numbness but he still had a headache and numbness across his forehead. He denies having any sweats. He has been on statin in the past which caused him severe ankle pain and was unable to walk. He currently walks one to 2 miles per day. EKG sinus rhythm with no acute ST changes Chest x-ray shows no acute cardiopulmonary disease. CTA of the chest negative for pulmonary embolism. Probably some COPD. No suspicious primary mass. Laboratory studies: CBC unremarkable. D-dimer 1.2. Sodium 137, potassium 4.4, chloride 109, CO2 20, BUN 25 creatinine 1.18. Liver function tests were normal. Troponin negative 3. Triglycerides 123, cholesterol 274, LDL 187, HDL 62. TSH 3.080. Toure virus PCR not detected. Home cardiac medications: Lisinopril 2.5 mg daily, Aldactone 25 mg daily, Toprol-XL 25 mg daily, aspirin 81 mg daily REVIEW OF SYSTEMS: CONSTITUTIONAL: Denies fever or chills. HEENT: Denies blurred vision, vision changes, or eye pain. Denies hemoptysis CARDIOVASCULAR: Denies chest pain or pressure. RESPIRATORY: No shortness of breath. GASTROINTESTINAL: No abdominal pain, nausea, vomiting HEMATOLOGIC: Denies bleeding disorders. SKIN: Denies pruitis. Denies rash. PHYSICAL EXAM: Gen: This is a 75-year-old male, resting in bed and appears to be comfortable, no acute distress Vital signs: Afebrile, heart rate 63, blood pressure 113/73, pulse ox 96% on room air HEENT: Head is atraumatic, normocephalic. Pupils equal, round. Sclerae is anicteric. NECK: Supple. No JVD. No lymphadenopathy. No thyromegaly. LUNGS: Clear to auscultation. No wheezes or rhonchi. No intercostal retractions. HEART: Regular rate and rhythm. No murmur. ABDOMEN: Soft. Bowel sounds are present. No masses. No tenderness. EXTREMITIES: No pedal edema. No calf tenderness. NEUROLOGICAL: Patient is awake, alert and oriented x3. Cranial nerves 2 through 12 are grossly intact. ASSESSMENT: Chest pain History of coronary artery disease and acute anterior ST elevated myocardial infarction in March 2019, PCI left main, LAD, OM. Severe ischemic cardiomyopathy status post AICD Chronic systolic heart failure Paroxysmal atrial fibrillation Hyperlipidemia Hypertension PLAN: Exercise stress echo tomorrow Resume patient's home medications: Aspirin, lisinopril, Toprol-XL, Aldactone Further recommendations to follow based upon clinical course Nurse practitioner note has been reviewed, I agree with documented findings and plan of care. Patient was seen and examined. Past Medical History Past Medical History: Coronary Artery Disease (CAD), GERD/Reflux, Hyperlipidemia, Myocardial Infarction ([place]), Osteoarthritis (OA), Pneumonia Additional Past Medical History / Comment(s): Diverticultis with previous bowel resection, L nephrolithiasis with mild hydronephrosis-pt states he passed stone on his own, occasional sinus headache. History of bladder cyst. Last Myocardial Infarction Date:: march 31, 2019 History of Any Multi-Drug Resistant Organisms: None Reported Past Surgical History: Heart Catheterization, Heart Catheterization With Stent, Orthopedic Surgery Additional Past Surgical History / Comment(s): Colon resection d/t abscess/necrotic bowel, colonoscopy, L total knee replacement, bilateral inguinal hernia repairs. 4 stents Past Anesthesia/Blood Transfusion Reactions: Postoperative Nausea & Vomiting (PONV) Additional Past Anesthesia/Blood Transfusion Reaction / Comment(s): Pt received blood with bowel resection without reaction. Date of Last Stent Placement:: 03/31/2019 Past Psychological History: No Psychological Hx Reported Additional Psychological History / Comment(s): Pt resides with his spouse. He is independent. Smoking Status: Never smoker Past Alcohol Use History: Rare Past Drug Use History: None Reported - Past Family History Mother Family Medical History: Cancer, CVA/TIA Additional Family Medical History / Comment(s): Mother had skin cancer in her groin area and a pacemaker and had a cardiac valve replaced. She at the age of 98yrs. Father Family Medical History: Dementia Additional Family Medical History / Comment(s): Father at the age of 91 yrs from alzheimer's. Sister(s) Family Medical History: Cancer Medications and Allergies Home Medications Medication Instructions Recorded Confirmed Type Aspirin EC [Ecotrin Low Dose] 81 mg PO DAILY #30 tablet. 04/08/19 03/23/21 Rx ALPRAZolam [Xanax] 0.5 mg PO HS 08/17/19 03/23/21 History Beta-Carotene [Beta Carotene] 25,000 unit PO DAILY 07/07/20 03/23/21 History Cholecalciferol [Vitamin D3 (25 50 mcg PO DAILY 07/07/20 03/23/21 History Mcg = 1000 Iu)] Ascorbic Acid [Vitamin C with Sejal 500 mg PO DAILY 03/23/21 03/23/21 History Hips] Hydrocortisone Cream 1 applic TOPICAL BID PRN 03/23/21 03/23/21 History [Hydrocortisone 2.5% Cream] Metoprolol Succinate (ER) [Toprol 25 mg PO DAILY 03/23/21 03/23/21 History Xl] Spironolactone [Aldactone] 25 mg PO DAILY 03/23/21 03/23/21 History lisinopriL [Zestril] 2.5 mg PO DAILY 03/23/21 03/23/21 History Allergies Allergy/AdvReac Type Severity Reaction Status Date / Time Tetracyclines Allergy Rash/Hives Verified 03/23/21 14:44 erythromycin base AdvReac Nausea & Verified 03/23/21 14:44 Vomiting hydromorphone [From Dilaudid] AdvReac hallucinati Verified 03/23/21 14:44 on morphine AdvReac hallunicati Verified 03/23/21 14:44 on oxycodone AdvReac Nausea & Verified 03/23/21 14:44 Vomiting Physical Exam Vitals: Vital Signs Temp Pulse Pulse Resp BP BP Pulse Ox 03/24/21 07:00 97.7 F 76 18 116/67 97 03/24/21 00:47 97.8 F 99 17 95/59 99 03/23/21 18:40 97.5 F L 57 L 18 134/73 99 03/23/21 18:12 59 L 18 116/84 96 03/23/21 16:49 18 134/80 97 03/23/21 14:41 98.7 F 63 20 133/83 99 Intake and Output 03/23/21 03/24/21 03/24/21 22:59 06:59 14:59 Other: # Voids 2 2 Weight 79.832 kg Results 03/23/21 15:31 03/23/21 15:31 Cardiac Enzymes 03/23/21 03/23/21 03/23/21 Range/Units 15:31 15:31 18:41 AST 27 (17-59) U/L Troponin I <0.012 <0.012 (0.000-0.034) ng/mL 03/23/21 Range/Units 21:37 AST (17-59) U/L Troponin I <0.012 (0.000-0.034) ng/mL Coagulation 03/23/21 Range/Units 15:31 PT 10.5 (9.0-12.0) sec APTT 25.2 (22.0-30.0) sec Lipids 03/23/21 Range/Units 23:00 Triglycerides 123.00 (0.00-149.00) mg/dL Cholesterol 274.00 H (0.00-200.00) mg/dL HDL Cholesterol 62.30 H (40.00-60.00) mg/dL Cholesterol/HDL Ratio 4.40 Ratio CBC 03/23/21 Range/Units 15:31 WBC 7.2 (3.8-10.6) k/uL RBC 4.74 (4.30-5.90) m/uL Hgb 14.6 (13.0-17.5) gm/dL Hct 45.8 (39.0-53.0) % Plt Count 207 (150-450) k/uL Comprehensive Metabolic Panel 03/23/21 Range/Units 15:31 Sodium 137 (137-145) mmol/L Potassium 4.4 (3.5-5.1) mmol/L Chloride 109 H (98-107) mmol/L Carbon Dioxide 20 L (22-30) mmol/L BUN 25 H (9-20) mg/dL Creatinine 1.18 (0.66-1.25) mg/dL Glucose 103 H (74-99) mg/dL Calcium 9.4 (8.4-10.2) mg/dL AST 27 (17-59) U/L ALT 15 (4-49) U/L Alkaline Phosphatase 62 (38-126) U/L Total Protein 7.7 (6.3-8.2) g/dL Albumin 4.3 (3.5-5.0) g/dL Current Medications Generic Name Dose Route Start Last Admin Trade Name Freq PRN Reason Stop Dose Admin Alprazolam 0.5 mg 03/24/21 21:00 Alprazolam 0.5 Mg Tab PO HS [facility] Ascorbic Acid 500 mg 03/24/21 09:00 03/24/21 09:36 Ascorbic Acid 500 Mg Tab PO 500 mg DAILY [facility] Administration Aspirin 325 mg 03/24/21 09:00 03/24/21 09:37 Aspirin 325 Mg Tab PO 325 mg DAILY [facility] Administration Aspirin 81 mg 03/24/21 09:00 03/24/21 09:37 Aspirin 81 Mg PO Not Given DAILY [facility] Cholecalciferol 50 mcg 03/24/21 09:00 03/24/21 09:36 Cholecalciferol 25 Mcg (1000 Iu) Tablet PO 50 mcg DAILY [facility] Administration Hydrocortisone 1 applic 03/23/21 23:00 Hydrocortisone 1% Cream 30 Gm Tube TOPICAL BID PRN Skin Irritation Lisinopril 2.5 mg 03/24/21 09:00 03/24/21 09:37 Lisinopril 2.5 Mg Tab PO 2.5 mg DAILY [facility] Administration Metoprolol Succinate 25 mg 03/24/21 09:00 03/24/21 09:37 Metoprolol Succinate (Er) 25 Mg Tab.Er.24h PO 25 mg DAILY [facility] Administration Nitroglycerin 0.4 mg 03/23/21 17:41 Nitroglycerin Sl Tabs 0.4 Mg Tab SUBLINGUAL Q5M PRN Chest Pain Nitroglycerin 1 inch 03/23/21 22:00 03/24/21 04:28 Nitroglycerin Oint 1 Inch/Gm Packet TOPICAL Not Given Q6H [facility] Sodium Chloride 10 ml 03/23/21 21:00 03/24/21 09:38 Sodium Chloride 0.9% Flush 10 Ml Syringe IV 10 ml BID [facility] Administration Spironolactone 25 mg 03/24/21 09:00 03/24/21 09:37 Spironolactone 25 Mg Tab PO 25 mg DAILY [facility] Administration Intake and Output 03/23/21 03/24/21 03/24/21 22:59 06:59 14:59 Other: # Voids 2 2 Weight 79.832 kg 03/23/21 15:31 03/23/21 15:31
[2021-03-24] MEDS ORDERED: ALPRAZolam 0.5 MG TAB PO SCH (21:00)
[2021-03-25] MEDS: NITROGLYCERIN OINT 1 INCH/GM PACKET TOPICAL SCH ×3 (03:34→16:38)
[2021-03-25] MEDS: SPIRONOLACTONE 25 MG TAB PO SCH (08:24)
[2021-03-25] MEDS: ASPIRIN 81 MG PO SCH (08:24)
[2021-03-25] MEDS: CHOLECALCIFEROL 25 MCG (1000 IU) TABLET PO SCH (08:24)
[2021-03-25] MEDS: ASCORBIC ACID 500 MG TAB PO SCH (08:25)
[2021-03-25 08:35] VITALS: RESP 16
[2021-03-25] MEDS ORDERED: REGADENOSON 0.4 MG/5 ML SYRINGE IV PRN (09:43)
[2021-03-25] MEDS ORDERED: AMINOPHYLLINE 500 MG/20 ML VIAL IV PRN (09:43)
[2021-03-25] MEDS ORDERED: CAFFEINE CITRATE 60 MG/3 ML VIAL IV PRN (09:43)
--- NOTE | 2021-03-25 11:00 | ECHOF ---
Referral Reason:Chest pain MEASUREMENTS -------- HEIGHT: 182.9 cm WEIGHT: 79.4 kg BP: RVIDd: 3.0 cm (< 3.3) IVSd: 1.1 cm (0.6 - 1.1) LVIDd: 4.4 cm (3.9 - 5.3) LVPWd: 1.1 cm (0.6 - 1.1) IVSs: 1.3 cm LVIDs: 4.1 cm LVPWs: 1.5 cm LA Diam: 3.0 cm (2.7 - 3.8) LAESV Index (A-L): 19.74 ml/m Ao Diam: 3.3 cm (2.0 - 3.7) AV Cusp: 1.9 cm (1.5 - 2.6) MV EXCURSION: 15.271 mm (> 18.000) MV EF SLOPE: 68 mm/s (70 - 150) EPSS: 1.0 cm MV E Ovidio: 0.64 m/s MV DecT: 236 ms MV A Ovidio: 0.90 m/s MV E/A Ratio: 0.71 AR PHT: 491 ms RAP: 5.00 mmHg RVSP: 28.81 mmHg FINDINGS -------- Paced rhythm. This was a technically good study. The left ventricular size is normal. There is borderline concentric left ventricular hypertrophy. Overall left ventricular systolic function is severely impaired with, an EF between 20 - 25 %. Sep james wall motion is delayed, and consistent with ventricular pacing. The right ventricle is normal in size. Normal LA size by volume 22+/-6 ml/m2. The right atrium is normal in size. Aneurysmal Interatrial septum. There is mild aortic regurgitation. Mild mitral regurgitation is present. Mild tricuspid regurgitation present. Right ventricular systolic pressure is normal at < 35 mmHg. Trace/mild (physiologic) pulmonic regurgitation. The aortic root size is normal. Normal inferior vena cava with normal inspiratory collapse consistent with estimated right atrial pre ssure of 5 mmHg. There is no pericardial effusion. CONCLUSIONS -------- 1. The left ventricular size is normal. 2. There is borderline concentric left ventricular hypertrophy. 3. Overall left ventricular systolic function is severely impaired with, an EF between 20 - 25 %. 4. Septal wall motion is delayed, and consistent with ventricular pacing. 5. Aneurysmal Interatrial septum. 6. There is mild aortic regurgitation. 7. Mild mitral regurgitation is present. 8. Mild tricuspid regurgitation present. 9. Trace/mild (physiologic) pulmonic regurgitation. 10. There is no pericardial effusion. FAMILY NURSE PRACTITIONER: Maday Dotson RDCS
--- NOTE | 2021-03-25 11:56 | P.PN ---
Subjective Progress Note Date: 03/25/21 HISTORY OF PRESENT ILLNESS: 75-year-old male a of Dr. Gupta with past medical history of coronary artery disease, severe ischemic cardiomyopathy status post defibrillator i mplantation, atrial fibrillation, chronic systolic heart failure, paroxysmal atrial fibrillation, history of myocardial infarction March 2019 with coronary artery disease post stenting of the left main, LAD and OM, echocardiogram at that time revealed EF of 20-25%. Patient gives history that about a month ago he had a stomach bug which lasted for about 1 week and resolved. Yesterday he states he was sitting up and developed numbness across his upper chest and numbness across his forehead and these were the same symptoms he had when he had a myocardial infarction. He states he ignored them initially and now coming in the hospital after the third episode and he did not want to repeat that. He states this sensations lasted for 30-45 minutes and pain went away first and then the numbness but he still had a headache and numbness across his forehead. He denies having any sweats. He has been on statin in the past which caused him severe ankle pain and was unable to walk. He currently walks one to 2 miles per day. EKG sinus rhythm with no acute ST changes Chest x-ray shows no acute cardiopulmonary disease. CTA of the chest negative for pulmonary embolism. Probably some COPD. No suspicious primary mass. Laboratory studies: CBC unremarkable. D-dimer 1.2. Sodium 137, potassium 4.4, chloride 109, CO2 20, BUN 25 creatinine 1.18. Liver function tests were normal. Troponin negative 3. Triglycerides 123, cholesterol 274, LDL 187, HDL 62. TSH 3.080. Toure virus PCR not detected. Home cardiac medications: Lisinopril 2.5 mg daily, Aldactone 25 mg daily, Toprol-XL 25 mg daily, aspirin 81 mg daily 03/25/2021 Patient examined this morning at the bedside. No further chest pain or pressure. Denies SOB. Vital signs stable. Echocardiogram completed revealing ejection fraction 20-25%, mild aortic regurgitation, mild mitral regurgitation, mild tricuspid regurgitation. PHYSICAL EXAM: VITAL SIGNS: Reviewed. GENERAL: Well-developed in no acute distress. NECK: Supple. No JVD or thyromegaly LUNGS: Respirations even and unlabored. Lungs essentially clear to auscultation bilaterally. HEART: Regular rate and rhythm. S1 and S2 heard. EXTREMITIES: Normal range of motion. No clubbing or cyanosis. Peripheral pulses intact. No lower extremity edema ASSESSMENT: Chest pain History of coronary artery disease and acute anterior ST elevated myocardial infarction in March 2019, PCI left main, LAD, OM. Severe ischemic cardiomyopathy status post AICD Chronic systolic heart failure Paroxysmal atrial fibrillation Hyperlipidemia Hypertension PLAN: 2D echo obtained and reviewed Continue current cardiac medications Stress echo changed to joshua scan per Dr. Jordan. If stress test is negative, patient may be discharged home today Nurse practitioner note has been reviewed by physician. Signing provider agrees with the documented findings, assessment, and plan of care. Objective - Vital Signs Vital signs: Vital Signs Temp 97.4 F L 03/25/21 08:00 Pulse 89 03/25/21 08:00 Resp 16 03/25/21 08:00 BP 131/79 03/25/21 08:00 Pulse Ox 99 03/25/21 08:00 Intake & Output 03/24/21 03/25/21 03/25/21 18:59 06:59 18:59 Intake Total 480 Balance 480 Weight 79.83 kg Intake: Oral 480 Other: # Voids 1 2 - Labs CBC & Chem 7: 03/23/21 15:31 03/23/21 15:31
--- NOTE | 2021-03-25 12:04 | P.STRESS ---
- Stress Test Note Stress Test Results/Findings: Exam Performed: NM stress lexiscan cardiolite Exam Date: 03/25/21 Reason for Exam: CP Height: 6 ft Weight: 79.83 kg Protocol: LEXISCAN CARDIOLITE Stage: NA Duration of Exercise: NA Resting Heart Rate: 67 Resting Blood Pressure: 114/72 Maximum Achieved Heart Rate: 117 Maximum Achieved Blood Pressure: 114/72 85% PMHR: 122 100% PMHR: 144 METS: NA Technologist Comment: Stress Test Results/Findings: This is a 75-year-old gentleman with history of hypertension being evaluated for symptoms of chest pain. Patient also has history of cardiomyopathy. Stress data: Baseline EKG showed sinus rhythm with normal NM interval and QRS duration. There is poor R-wave progression in anterior leads. Blood pressure at rest is 114/72 with pulse rate of 67. A standard dose of Lexiscan was infused. EKGs taken during and after infusion did not reveal any significant changes from the baseline. Final impression: #1. Negative Lexiscan stress test #2. Report on the nuclear images to be given by the radiologist
--- NOTE | 2021-03-25 13:08 | NM ---
EXAMINATION TYPE: NM stress lexiscan cardiolite DATE OF EXAM: 03/25/2021 COMPARISON: CTA chest 2 days ago HISTORY: History of hypertension and hypercholesterolemia along with prior angioplasty and heart siddharth ck presents with recurrent chest pain TECHNIQUE: After the intravenous administration of 10.2 mCi Tc 99m Sestamibi - Cardiolite resting SP ECT images acquired 45 minutes post injection. The patient received 0.4mg Lexiscan, 26.9 mCi Tc 99m Sestamibi - Stress images obtained [address] injection FINDINGS: Review of stress and rest SPECT images demonstrates poor uptake on stress and rest images involving t he septal wall density into the anterior wall basilar level to the apex suggesting old infarct. No de finitive reversible ischemia. Gated analysis shows overall diminished ejection fraction of 39%. IMPRESSION: Significant old infarct with diminished ejection fraction. No convincing evidence for rev ersible ischemia.
--- NOTE | 2021-03-25 14:36 | ECHOS ---
Stress Test Results/Findings: Exam Performed: NM stress lexiscan cardiolite Exam Date: 03/25/21 Reason for Exam: CP Height: 6 ft Weight: 79.83 kg Protocol: LEXISCAN CARDIOLITE Stage: NA Duration of Exercise: NA Resting Heart Rate: 67 Resting Blood Pressure: 114/72 Maximum Achieved Heart Rate: 117 Maximum Achieved Blood Pressure: 114/72 85% PMHR: 122 100% PMHR: 144 METS: NA Technologist Comment: Stress Test Results/Findings: This is a 75-year-old gentleman with history of hypertension being evaluated for symptoms of chest pain. Patient also has history of cardiomyopathy. Stress data: Baseline EKG showed sinus rhythm with normal PA interval and QRS duration. There is poor R-wave progression in anterior leads. Blood pressure at rest is 114/72 with pulse rate of 67. A standard dose of Lexiscan was infused. EKGs taken during and after infusion did not reveal any significant changes from the baseline. Final impression: #1. Negative Lexiscan stress test #2. Report on the nuclear images to be given by the radiologist JAKOB
[2021-03-25 15:51] VITALS: BP 107/71; PULSE 84; TEMP 97.6
[2021-03-25] MEDS: METOPROLOL SUCCINATE (ER) 25 MG TAB.ER.24H PO SCH (16:00)
== END 2021-03-25 21:34 | disposition home or self-care (01) ==
LOC: EC 14:37 → 6NMEDSUR 17:41
PROVIDERS: ADMIT Family Medicine; ATTEND Family Medicine
DX: R07.89 Other chest pain (principal); I25.5 Ischemic cardiomyopathy; I48.20 Chronic atrial fibrillation, unspecified; I11.0 Hypertensive heart disease with heart failure; I50.22 Chronic systolic (congestive) heart failure; I25.10 Atherosclerotic heart disease of native coronary artery without angina pectoris; I25.2 Old myocardial infarction; R20.0 Anesthesia of skin; R51.9 Headache, unspecified; K21.9 Gastro-esophageal reflux disease without esophagitis; M19.90 Unspecified osteoarthritis, unspecified site; M85.80 Other specified disorders of bone density and structure, unspecified site; E78.5 Hyperlipidemia, unspecified; I08.3 Combined rheumatic disorders of mitral, aortic and tricuspid valves; E78.00 Pure hypercholesterolemia, unspecified; Z20.822 Contact with and (suspected) exposure to COVID-19; Z79.82 Long term (current) use of aspirin; Z79.02 Long term (current) use of antithrombotics/antiplatelets; Z79.899 Other long term (current) drug therapy; Z88.1 Allergy status to other antibiotic agents; Z88.5 Allergy status to narcotic agent; Z90.49 Acquired absence of other specified parts of digestive tract; Z96.652 Presence of left artificial knee joint; Z87.442 Personal history of urinary calculi; Z87.01 Personal history of pneumonia (recurrent); Z95.5 Presence of coronary angioplasty implant and graft; Z95.810 Presence of automatic (implantable) cardiac defibrillator; Z87.19 Personal history of other diseases of the digestive system; Z98.890 Other specified postprocedural states; Z80.8 Family history of malignant neoplasm of other organs or systems; Z82.49 Family history of ischemic heart disease and other diseases of the circulatory system; Z82.3 Family history of stroke; Z82.0 Family history of epilepsy and other diseases of the nervous system
CPT/HCPCS: 99285; 36415; 93005; 93017; 93306; 85379; 80061; 80053; 84443; 83735; 84484; 85025; 85610; 85730; 83036; 87635; 71046; 71275; 78452; G0378 ×3; A9500; J2785; Q9967

== ENCOUNTER 2022-09-09 05:09 | Observation (INO) | payer MEDICARE, BC ==
[2022-09-09 05:14] VITALS: RESP 16
--- NOTE | 2022-09-09 05:20 | ED ---
Chest Pain HPI - General Chief Complaint: Chest Pain Stated Complaint: Chest Pain Time Seen by Provider: 09/09/22 05:19 Source: patient, RN notes reviewed, old records reviewed Mode of arrival: wheelchair Limitations: no limitations - History of Present Illness Initial Comments: this is a 76-year-old male to the emergency department who presents today for evaluation of chest pain. Patient is history of heart disease and heart attack with stents. Patient comes in for cardiac evaluation. Patient had chest pain that woke him up from sleep today. Patient hadpatient heart attack and stents placed 3 years ago MD Complaint: chest pain -: hour(s) Onset: awoke with symptoms Pain Location: substernal, left chest Pain Radiation: none Severity: moderate Severity scale (1-10): 4 Quality: tightness, heaviness Consistency: constant Improves With: nothing Worsens With: nothing Context: other (0) Anginal Symptoms: diaphoresis, dyspnea, sense of impending doom Other Symptoms: palpitations Treatments Prior to Arrival: none - Related Data Home Medications Medication Instructions Recorded Confirmed ALPRAZolam [Xanax] 0.5 mg PO HS 08/17/19 03/23/21 Beta-Carotene [Beta Carotene] 25,000 unit PO DAILY 07/07/20 03/23/21 Cholecalciferol [Vitamin D3 (25 50 mcg PO DAILY 07/07/20 03/23/21 Mcg = 1000 Iu)] Ascorbic Acid [Vitamin C with Sejal 500 mg PO DAILY 03/23/21 03/23/21 Hips] Hydrocortisone Cream 1 applic TOPICAL BID PRN 03/23/21 03/23/21 [Hydrocortisone 2.5% Cream] Metoprolol Succinate (ER) [Toprol 25 mg PO DAILY 03/23/21 03/23/21 XL] Spironolactone [Aldactone] 25 mg PO DAILY 03/23/21 03/23/21 lisinopriL [Zestril] 2.5 mg PO DAILY 03/23/21 03/23/21 Previous Rx's Medication Instructions Recorded Aspirin EC [Ecotrin Low Dose] 81 mg PO DAILY #30 tablet. 04/08/19 Nitroglycerin Sl Tabs [Nitrostat] 0.4 mg SUBLINGUAL Q5M PRN 100 Days 03/25/21 #100 tab Allergies Allergy/AdvReac Type Severity Reaction Status Date / Time Tetracyclines Allergy Rash/Hives Verified 03/23/21 14:44 erythromycin base AdvReac Nausea & Verified 03/23/21 14:44 Vomiting hydromorphone [From Dilaudid] AdvReac hallucinati Verified 03/23/21 14:44 on morphine AdvReac hallunicati Verified 03/23/21 14:44 on oxycodone AdvReac Nausea & Verified 03/23/21 14:44 Vomiting Review of Systems ROS Statement: Those systems with pertinent positive or pertinent negative responses have been documented in the HPI. ROS Other: All systems not noted in ROS Statement are negative. EKG Findings - EKG Comments: EKG Findings:: EKG is sinus bradycardia 57 VA 142 QRS 89 QTc 419 - EKG Results: EKG: interpreted by LAURENT Past Medical History Past Medical History: Coronary Artery Disease (CAD), Chest Pain / Angina, GERD/Reflux, Hyperlipidemia, Myocardial Infarction ([place]), Osteoarthritis (OA), Pneumonia Additional Past Medical History / Comment(s): Diverticultis with previous bowel resection, L nephrolithiasis with mild hydronephrosis-pt states he passed stone on his own, occasional sinus headache. History of bladder cyst. Last Myocardial Infarction Date:: march 31, 2019 History of Any Multi-Drug Resistant Organisms: None Reported Past Surgical History: Heart Catheterization, Heart Catheterization With Stent, Orthopedic Surgery Additional Past Surgical History / Comment(s): Colon resection d/t abscess/necrotic bowel, colonoscopy, L total knee replacement, bilateral inguinal hernia repairs. 4 stents Past Anesthesia/Blood Transfusion Reactions: Postoperative Nausea & Vomiting (PONV) Additional Past Anesthesia/Blood Transfusion Reaction / Comment(s): Pt received blood with bowel resection without reaction. Date of Last Stent Placement:: 03/31/2019 Past Psychological History: No Psychological Hx Reported Smoking Status: Never smoker Past Alcohol Use History: Rare Past Drug Use History: None Reported - Past Family History Mother Family Medical History: Cancer, CVA/TIA Additional Family Medical History / Comment(s): Mother had skin cancer in her groin area and a pacemaker and had a cardiac valve replaced. She at the age of 98yrs. Father Family Medical History: Dementia Additional Family Medical History / Comment(s): Father at the age of 91 yrs from alzheimer's. Sister(s) Family Medical History: Cancer General Exam Limitations: no limitations General appearance: alert, in no apparent distress Head exam: Present: atraumatic, normocephalic, normal inspection Eye exam: Present: normal appearance, PERRL, EOMI. Absent: scleral icterus, conjunctival injection, periorbital swelling ENT exam: Present: normal exam, mucous membranes moist Neck exam: Present: normal inspection. Absent: tenderness, meningismus, lymphadenopathy Respiratory exam: Present: normal lung sounds bilaterally. Absent: respiratory distress, wheezes, rales, rhonchi, stridor Cardiovascular Exam: Present: regular rate, normal rhythm, normal heart sounds. Absent: systolic murmur, diastolic murmur, rubs, gallop, clicks GI/Abdominal exam: Present: soft, normal bowel sounds. Absent: distended, tenderness, guarding, rebound, rigid Extremities exam: Present: normal inspection, full ROM, normal capillary refill. Absent: tenderness, pedal edema, joint swelling, calf tenderness Back exam: Present: normal inspection Neurological exam: Present: alert, oriented X3, CN II-XII intact Psychiatric exam: Present: normal affect, normal mood Skin exam: Present: warm, dry, intact, normal color. Absent: rash Course Vital Signs 09/09/22 05:11 Temperature 98.1 F Pulse Rate 62 Respiratory 16 Rate Blood Pressure 126/68 O2 Sat by Pulse 99 Oximetry - Reevaluation(s) Reevaluation #1: 09/09/22 06:22 medical record is reviewed Reevaluation #2: 09/09/22 06:22 patient remains a chest pain here in the ER Reevaluation #3: 09/09/22 06:22 patient informed of results and questions answered Reevaluation #4: 09/09/22 06:23 Was pt. sent in by a medical professional or institution? @ -no Did you speak to anyone other than the patient for history? @ -no Did you review nursing and triage notes? @ -agree Were old charts reviewed? @ -no Differential Diagnosis? @ -prior EKG interpreted by me (3pts min.)? @ -yes X-rays interpreted by me (1pt min.)? @ -no CT interpreted by me (1pt min.)? @ -no U/S interpreted by me (1pt. min.)? @ -no What testing was considered but not performed? (CT, X-rays, U/S, labs)? Why? @ -no What meds were considered but not given? Why? @ -no Did you discuss the management of the patient with other professionals? @ -no Did you reconcile home meds? @ -no Was smoking cessation discussed for >3mins.? @ -no Was critical care preformed (if so, how long)? @ -no Were there social determinants of health that impacted care today? How? (Homelessness, low income, unemployed, alcoholism, drug addiction, transportation, low edu. Level, literacy, decrease access to med. care, snf, rehab)? @ -no Was there de-escalation of care discussed even if they declined? (Discuss DNR or withdrawal of care, Hospice)? @ -no What co-morbidities impacted this encounter? (DM, HTN, Smoking, COPD, CAD, Cancer, CVA, Hep., AIDS, mental health diagnosis, sleep apnea, morbid obesity)? @ -none Was patient admitted / discharged? @ - Undiagnosed new problem with uncertain prognosis? @ -no Drug Therapy requiring intensive monitoring for toxicity (Heparin, Nitro, Insulin, Cardizem)? @ -no Were any procedures done? @ -no Diagnosis/symptom? @ - Acute, or Chronic, or Acute on Chronic? @ -no Uncomplicated (without systemic symptoms) or Complicated (systemic symptoms)? @ -uncomplicated Side effects of treatment? @ -no Exacerbation, Progression, or Severe Exacerbation] @ -no Poses a threat to life or bodily function? @ -no Reevaluation #5: 09/09/22 06:23 Differential Chest Pain: Stable Angina, Unstable Angina, STEMI, NSTEMI Aortic Dissection, Pneumothorax, Musculoskeletal, Esophageal Spasm GERD, Cholecystitis, Pancreatitis, Zoster, this is not meant to be an all-inclusive list. - Consultations Consultation #1: spoke with Dr. Zhong who agrees to admit this patient Disposition Clinical Impression: Chest pain Disposition: ADMITTED IP TO THIS HOSP Condition: Undetermined Is patient prescribed a controlled substance at d/c from ED?: No Referrals: Gucci Zhong MD [Primary Care Provider] - 1-2 days Time of Disposition: 07:00
[2022-09-09 05:34] LABS: Basophils # (A) 0.1 k/uL (0-0.2); Basophils % (A) 1 %; Eosinophils # (A) 0.6 k/uL (0-0.7); Eosinophils % (A) 7 %; HCT 42.7 % (39.0-53.0); HGB 13.9 gm/dL (13.0-17.5); Lymphocytes # (A) 2.9 k/uL (1.0-4.8); Lymphocytes % (A) 38 %; MCH 31.5 pg (25.0-35.0); MCHC 32.7 g/dL (31.0-37.0); MCV 96.3 fL (80.0-100.0); Mean Platelet Volume 7.4; Monocytes # (A) 0.4 k/uL (0-1.0); Monocytes % (A) 5 %; Neutrophils # (A) 3.6 k/uL (1.3-7.7); Neutrophils % (A) 47 %; Platelet Count 231 k/uL (150-450); RBC 4.43 m/uL (4.30-5.90); RDW 13.4 % (11.5-15.5); WBC 7.7 k/uL (3.8-10.6)
[2022-09-09 05:49] LABS: Partial Thromboplastin Time 27.2 sec (22.0-30.0); Prothrombin Time 10.8 sec (9.0-12.0)
[2022-09-09 06:05] LABS: ALT 17 U/L (4-49); AST 49 U/L (17-59); African American GFR (CKD) 53 (>60 ml/min/1.73 sqM); Albumin 4.1 g/dL (3.5-5.0); Alkaline Phosphatase 62 U/L (38-126); Anion Gap 8 mmol/L; Blood Urea Nitrogen 37 mg/dL (9-20); Carbon Dioxide 22 mmol/L (22-30); Chloride 109 mmol/L (98-107); Glucose 97 mg/dL (74-99); Lipase 180 U/L (23-300); Magnesium 2.1 mg/dL (1.6-2.3); Non-African American GFR(CKD) 46 (>60 ml/min/1.73 sqM); Potassium 3.9 mmol/L (3.5-5.1); Sodium 139 mmol/L (137-145); Total Bilirubin 0.4 mg/dL (0.2-1.3); Total Protein 7.3 g/dL (6.3-8.2)
--- NOTE | 2022-09-09 06:09 | XR ---
EXAMINATION TYPE: XR chest 1V portable DATE OF EXAM: 09/09/2022 6:05 AM COMPARISON: Chest radiographs from 03/23/2021 TECHNIQUE: XR chest 1V portable Frontal view of the chest. CLINICAL INDICATION:Male, 76 years old with history of Chest Pain; FINDINGS: Lungs/Pleura: There is no evidence of pleural effusion, focal consolidation, or pneumothorax. Pulmonary vascularity: Unremarkable. Heart/mediastinum: Cardiomediastinal silhouette is unremarkable. Single-lead cardiac conduction devic e overlying the left hemithorax with lead projecting over the right ventricle. Musculoskeletal: No acute osseous pathology. IMPRESSION: No acute cardiopulmonary disease/process.
[2022-09-09] MEDS ORDERED: MORPHINE SULFATE 4 MG/ML SYRINGE IV PRN (06:21)
[2022-09-09] MEDS ORDERED: NALOXONE 0.4 MG/ML 1 ML VIAL IV PRN (06:21)
[2022-09-09] MEDS ORDERED: ONDANSETRON 4 MG/2 ML VIAL IVP PRN (06:21)
[2022-09-09] MEDS ORDERED: NITROGLYCERIN SL TABS 0.4 MG TAB SUBLINGUAL PRN (08:37)
[2022-09-09] MEDS ORDERED: METOPROLOL SUCCINATE (ER) 25 MG TAB.ER.24H PO SCH (09:00)
[2022-09-09] MEDS ORDERED: APIXABAN 5 MG TAB PO SCH (09:00)
[2022-09-09] MEDS ORDERED: ASPIRIN 81 MG PO SCH (09:00)
[2022-09-09] MEDS ORDERED: EZETIMIBE 10 MG TAB PO SCH (09:00)
[2022-09-09] MEDS ORDERED: SACUBITRIL/VALSARTAN 24 MG-26 MG TABLET PO SCH (09:00)
[2022-09-09] MEDS ORDERED: SODIUM CHLORIDE 0.9% 1,000 ML IV SCH (10:00)
--- NOTE | 2022-09-09 10:19 | P.CRDCN ---
History of Present Illness Consult date: 09/09/22 Consult reason: chest pain History of present illness: HISTORY OF PRESENT ILLNESS: This is a 75-year-old male patient of Dr. Gupta with past medical history of coronary artery disease, severe ischemic cardiomyopathy status post defibrillator implantation, paroxysmal atrial fibrillation, chronic systolic heart failure, history of myocardial infarction March 2019 with coronary artery disease post stenting of the left main, LAD and OM, echocardiogram at that time revealed EF of 20-25%. We have been asked to evaluate the patient for chest pain. Patient was last in the office on 08/25 at that time patient was complaining of feeling tired and fatigued with no energy. Pressure was marginal. Plan was to continue current medical regime. Patient states that he developed chest pain on the left side of his heart a stomachache and diarrhea. He states he does have more pain with a deep breath. Patient states that he was working outside 2 days ago. He is normally physically active and did not have chest pain at that time. EKG sinus rhythm with no acute ST changes Chest x-ray shows no acute cardiopulmonary disease. CBC unremarkable. Potassium 3.9, BUN 37 creatinine 1.47. Magnesium 2.1. Liver function tests normal. Troponin negative 1. ProBNP 241. Lipase 180. Home cardiac medications: Eliquis 5 mg twice daily, aspirin 81 mg daily, Zetia 10 mg daily, Nitrostat as needed, Toprol-XL 25 mg daily, Entresto 2426 milligrams twice daily, Aldactone 12.5 mg every 2 days. Cardiac catheterization PCI stent to the mid LAD and proximal LAD in 2019 Echocardiogram 03/2021 EF 25% Single-chamber ICD Lexiscan stress test 03/2021 normal REVIEW OF SYSTEMS: At the time of evaluation CONSTITUTIONAL: Denies fever or chills. HEENT: Denies blurred vision, vision changes, or eye pain. Denies hemoptysis CARDIOVASCULAR: Denies chest pain or pressure. RESPIRATORY: No shortness of breath. GASTROINTESTINAL: No abdominal pain, nausea, vomiting HEMATOLOGIC: Denies bleeding disorders. SKIN: Denies pruitis. Denies rash. PHYSICAL EXAM: Gen: This is a 76-year-old male, resting in bed and appears to be comfortable, no acute distress Vital signs: Afebrile, heart rate 58, blood pressure 118/74, pulse ox 98% on room air HEENT: Head is atraumatic, normocephalic. Pupils equal, round. Sclerae is anicteric. NECK: Supple. No JVD. No lymphadenopathy. LUNGS: Clear to auscultation. No wheezes or rhonchi. No intercostal retractions. HEART: Regular rate and rhythm. Systolic murmur. ABDOMEN: Soft. No tenderness. EXTREMITIES: No pedal edema. No calf tenderness. NEUROLOGICAL: Patient is awake, alert and oriented x3. Cranial nerves 2 through 12 are grossly intact. ASSESSMENT: Chest pain, atypical, acute coronary syndrome ruled out Acute kidney injury History of coronary artery disease and acute anterior ST elevated myocardial i nfarction in March 2019, PCI left main, LAD, OM. Severe ischemic cardiomyopathy status post AICD Chronic systolic heart failure Paroxysmal atrial fibrillation Hyperlipidemia Hypertension PLAN: Start patient on 0.9#75 mL per hour for 4-6 hours and KVO Ambulate patient this afternoon and if feeling okay, patient is cleared for disc harge home. Exercise stress echo tomorrow Resume patient's home cardiac medications at discharge (aldactone on hold in hospital) Patient follow-up Dr. Gupta in 1-2 weeks. Further recommendations to follow based upon clinical course Nurse practitioner note has been reviewed, I agree with documented findings and plan of care. Patient was seen and examined. Past Medical History Past Medical History: Coronary Artery Disease (CAD), Chest Pain / Angina, GERD/Reflux, Hyperlipidemia, Myocardial Infarction ([place]), Osteoarthritis (OA), Pneumonia Additional Past Medical History / Comment(s): Diverticultis with previous bowel resection, L nephrolithiasis with mild hydronephrosis-pt states he passed stone on his own, occasional sinus headache. History of bladder cyst. Last Myocardial Infarction Date:: march 31, 2019 History of Any Multi-Drug Resistant Organisms: None Reported Past Surgical History: Heart Catheterization, Heart Catheterization With Stent, Orthopedic Surgery Additional Past Surgical History / Comment(s): Colon resection d/t abscess/necrotic bowel, colonoscopy, L total knee replacement, bilateral inguinal hernia repairs. 4 stents Past Anesthesia/Blood Transfusion Reactions: Postoperative Nausea & Vomiting (PONV) Additional Past Anesthesia/Blood Transfusion Reaction / Comment(s): Pt received blood with bowel resection without reaction. Date of Last Stent Placement:: 03/31/2019 Past Psychological History: No Psychological Hx Reported Additional Psychological History / Comment(s): Pt resides with his spouse. He is independent. Smoking Status: Never smoker Past Alcohol Use History: Rare Past Drug Use History: None Reported - Past Family History Mother Family Medical History: Cancer, CVA/TIA Additional Family Medical History / Comment(s): Mother had skin cancer in her groin area and a pacemaker and had a cardiac valve replaced. She at the age of 98yrs. Father Family Medical History: Dementia Additional Family Medical History / Comment(s): Father at the age of 91 yrs from alzheimer's. Sister(s) Family Medical History: Cancer Medications and Allergies Home Medications Medication Instructions Recorded Confirmed Type Aspirin EC [Ecotrin Low Dose] 81 mg PO DAILY #30 tablet. 04/08/19 09/09/22 Rx Beta-Carotene [Beta Carotene] 25,000 unit PO DAILY 07/07/20 09/09/22 History Cholecalciferol [Vitamin D3 (25 50 mcg PO DAILY 07/07/20 09/09/22 History Mcg = 1000 Iu)] Metoprolol Succinate (ER) [Toprol 25 mg PO DAILY 03/23/21 09/09/22 History XL] Spironolactone [Aldactone] 12.5 mg PO Q2D 03/23/21 09/09/22 History Nitroglycerin Sl Tabs [Nitrostat] 0.4 mg SUBLINGUAL Q5M PRN 100 Days 03/25/21 09/09/22 Rx #100 tab ALPRAZolam [Xanax] 0.5 mg PO BID PRN 09/09/22 09/09/22 History Apixaban [Eliquis] 5 mg PO BID 09/09/22 09/09/22 History Ascorbic Acid [Vitamin C] 500 mg PO DAILY 09/09/22 09/09/22 History Ezetimibe [Zetia] 10 mg PO DAILY 09/09/22 09/09/22 History Sacubitril/Valsartan [Entresto 24 1 tab PO BID 09/09/22 09/09/22 History mg-26 mg Tablet] Allergies Allergy/AdvReac Type Severity Reaction Status Date / Time erythromycin base Allergy Rash/Hives Verified 09/09/22 06:59 Tetracyclines Allergy Rash/Hives Verified 09/09/22 06:59 hydromorphone [From Dilaudid] AdvReac "knocks Verified 09/09/22 06:59 him out, too strong" morphine AdvReac hallunicati Verified 09/09/22 06:59 on oxycodone AdvReac Nausea & Verified 09/09/22 06:59 Vomiting Physical Exam Vitals: Vital Signs Temp Pulse Pulse Resp BP BP Pulse Ox 09/09/22 08:03 97.7 F 58 L 16 118/74 98 09/09/22 06:50 55 L 16 101/73 97 09/09/22 05:11 98.1 F 62 16 126/68 99 Intake and Output 09/08/22 09/09/22 09/09/22 22:59 06:59 14:59 Other: Weight 81.647 kg 81.647 kg Results 09/09/22 05:25 09/09/22 05:25 Cardiac Enzymes 09/09/22 09/09/22 Range/Units 05:25 05:25 AST 49 (17-59) U/L Troponin I <0.012 (0.000-0.034) ng/mL Coagulation 09/09/22 Range/Units 05:25 PT 10.8 (9.0-12.0) sec APTT 27.2 (22.0-30.0) sec CBC 09/09/22 Range/Units 05:25 WBC 7.7 (3.8-10.6) k/uL RBC 4.43 (4.30-5.90) m/uL Hgb 13.9 (13.0-17.5) gm/dL Hct 42.7 (39.0-53.0) % Plt Count 231 (150-450) k/uL Comprehensive Metabolic Panel 09/09/22 Range/Units 05:25 Sodium 139 (137-145) mmol/L Potassium 3.9 (3.5-5.1) mmol/L Chloride 109 H (98-107) mmol/L Carbon Dioxide 22 (22-30) mmol/L BUN 37 H (9-20) mg/dL Creatinine 1.46 H (0.66-1.25) mg/dL Glucose 97 (74-99) mg/dL Calcium 9.0 (8.4-10.2) mg/dL AST 49 (17-59) U/L ALT 17 (4-49) U/L Alkaline Phosphatase 62 (38-126) U/L Total Protein 7.3 (6.3-8.2) g/dL Albumin 4.1 (3.5-5.0) g/dL Current Medications Generic Name Dose Route Start Last Admin Trade Name Freq PRN Reason Stop Dose Admin Morphine Sulfate 4 mg 09/09/22 06:21 Morphine Sulfate 4 Mg/Ml Syringe IV Q4HR PRN Severe Pain (Scale 7 to 10) Naloxone HCl 0.2 mg 09/09/22 06:21 Naloxone 0.4 Mg/Ml 1 Ml Vial IV Q2M PRN Opioid Reversal Ondansetron HCl 4 mg 09/09/22 06:21 Ondansetron 4 Mg/2 Ml Vial IVP Q8HR PRN Nausea And Vomiting Intake and Output 09/08/22 09/09/22 09/09/22 22:59 06:59 14:59 Other: Weight 81.647 kg 81.647 kg Patient Weight 09/10/22 06:59 Weight 81.647 kg 09/09/22 05:25 09/09/22 05:25
[2022-09-09 14:29] VITALS: BP 107/65; PULSE 53; TEMP 97.8
--- NOTE | 2022-09-09 21:39 | HP ---
HISTORY AND PHYSICAL HISTORY OF PRESENT ILLNESS: A 76-year-old came to emergency room with chest pain and history of heart disease and heart attacks, states that he woke up in the middle of the night with chest pain. He says it is more of pleuritic in nature, and it has gone now at this time. He had stents placed 3 years ago. He has negative troponins x3. He is requesting to go home. He has diaphoresis, dyspnea, sense of impending doom, palpitations, chest heaviness. HOME MEDICATIONS: 1. Xanax 0.5 at night. 2. Spironolactone 25 daily. 3. Zestril 2.5 daily. 4. Metoprolol XL 25 mg daily. 5. Hydrocortisone cream 2.5% daily. ALLERGIES: 1. Tetracycline. 2. Erythromycin. 3. Morphine. 4. Oxycodone. REVIEW OF SYSTEMS: Fourteen-point review of systems is otherwise negative. EKG, sinus bradycardia. PAST MEDICAL HISTORY: Coronary artery disease, chest pain, angina, GERD, dyslipidemia, myocardial infarction, osteoarthritis, pneumonia, mild hydronephrosis. PAST SURGICAL HISTORY: Heart catheterization with stents and orthopedic surgeries. FAMILY HISTORY: Mother, cancer, CVA, and TIA. Father, dementia. Sister, cancer. PHYSICAL EXAMINATION: VITAL SIGNS: Temperature 98.1, pulse 62, respiratory rate 12 to 14, blood pressure 126/68, O2 of 99%. GI: Soft and nontender. CARDIOVASCULAR: S1 and S2. Nontender chest wall. LUNGS: Mild wheeze x4. HEENT: Normocephalic and atraumatic. Pupils are equal, round, and reactive. NEUROLOGIC: Cranial nerves are intact. PSYCHIATRIC: Fair mood and affect. SKIN: Warm, dry, and intact. ASSESSMENT AND PLAN: Suspect pleurisy, costochondritis, chronic obstructive pulmonary disease exacerbation, atypical chest pain. He will do an outpatient stress echo. He does not want to stay overnight. Myocardial infarction has been ruled out. Prognosis is guarded. Sent home on Trelegy inhaler and Decadron steroid tablet. Please see further orders. MMODL / IJN: [id number] /
== END 2022-09-09 18:23 | disposition home or self-care (01) ==
LOC: EC 05:09 → 6NMEDSUR 06:21
PROVIDERS: ADMIT Family Medicine; ATTEND Family Medicine
DX: R07.89 Other chest pain (principal); N17.9 Acute kidney failure, unspecified; I25.5 Ischemic cardiomyopathy; I48.0 Paroxysmal atrial fibrillation; I11.0 Hypertensive heart disease with heart failure; I50.22 Chronic systolic (congestive) heart failure; I25.10 Atherosclerotic heart disease of native coronary artery without angina pectoris; E78.5 Hyperlipidemia, unspecified; K21.9 Gastro-esophageal reflux disease without esophagitis; M19.90 Unspecified osteoarthritis, unspecified site; R61 Generalized hyperhidrosis; R00.1 Bradycardia, unspecified; R45.89 Other symptoms and signs involving emotional state; I25.2 Old myocardial infarction; Z79.82 Long term (current) use of aspirin; Z79.01 Long term (current) use of anticoagulants; Z79.899 Other long term (current) drug therapy; Z95.5 Presence of coronary angioplasty implant and graft; Z88.1 Allergy status to other antibiotic agents; Z88.5 Allergy status to narcotic agent; Z87.01 Personal history of pneumonia (recurrent); Z95.810 Presence of automatic (implantable) cardiac defibrillator; Z90.49 Acquired absence of other specified parts of digestive tract; Z87.442 Personal history of urinary calculi; Z87.448 Personal history of other diseases of urinary system; Z96.652 Presence of left artificial knee joint; Z82.0 Family history of epilepsy and other diseases of the nervous system; Z82.3 Family history of stroke; Z80.8 Family history of malignant neoplasm of other organs or systems; Z82.49 Family history of ischemic heart disease and other diseases of the circulatory system
CPT/HCPCS: 99285; 36415; 93005; 85379; 83880; 80053; 83690; 83735; 84484; 85025; 85610; 85730; 71045; G0378

== ENCOUNTER → 2024-01-11 | Outpatient (CLI) | payer MEDICARE, BC ==
--- NOTE | 2024-01-11 18:21 | CT ---
EXAMINATION TYPE: CT abdomen pelvis wo con DATE OF EXAM: 01/11/2024 4:37 PM COMPARISON: 04/01/2019. CLINICAL INDICATION: Male, 78 years old with history of R10.84 Abdominal pain; Lower abdominal pain a nd excessive bowel movements x2 months.Hx of kidney stones TECHNIQUE: Axial CT abdomen pelvis wo con;Sagittal and coronal reformats were created on a separate workstation. Contrast used: mL of , (none if empty) Oral contrast used: without Oral Contrast (none if empty) CT DLP: 800 mGycm, Automated exposure control for dose reduction was used. FINDINGS: LOWER CHEST: Cardiac conduction leads remain in the right ventricle and right atrium. ABDOMEN LIVER: Unremarkable GALLBLADDER AND BILE DUCTS: Unremarkable. PANCREAS: Unremarkable. SPLEEN: Unremarkable. ADRENAL GLANDS: Unremarkable. KIDNEYS AND URETERS: No evidence of hydronephrosis or renal calculus. The ureters are unremarkable. PELVIS BLADDER: No evidence for wall thickening or mass given limitations of exam. REPRODUCTIVE: Unremarkable. ABDOMEN & PELVIS STOMACH AND BOWEL: No evidence of bowel obstruction. Scattered colonic diverticula. The appendix is n ot definitively visualized. Postsurgical changes sigmoid colon without evidence of obstruction or wal l thickening.. PERITONEUM/RETROPERITONEUM: No evidence of pneumoperitoneum or free fluid. VASCULATURE: No evidence of aortic aneurysm. MUSCULOSKELETAL: No acute osseous abnormalities LYMPH NODES: No gross evidence for lymphadenopathy. SOFT TISSUE/ABDOMINAL WALL: Fat-containing umbilical hernia. Postsurgical changes anterior abdominal wall. IMPRESSION: 1. No evidence for acute abdominal process. 2. Postsurgical changes to the sigmoid colon without evidence for obstruction or wall thickening. 3. Colonic diverticulosis. 4. No obstructive uropathy or renal calculi visualized. [facility], Workstation: [id number], 01/11/2024 6:19 PM
== END | disposition home or self-care (01) ==
LOC: RADCTMAIN 16:16
PROVIDERS: ATTEND Family Medicine
CPT/HCPCS: 74176

== ENCOUNTER 2024-02-17 03:48 | Emergency (ER) | payer MEDICARE, BC ==
--- NOTE | 2024-02-17 05:44 | ED ---
ENT HPI - General Chief complaint: ENT Stated complaint: Throat pain Time Seen by Provider: 02/17/24 04:00 Source: patient Mode of arrival: ambulatory Limitations: no limitations - History of Present Illness Initial comments: 78-year-old male who presents emergency department for throat pain. States that he awoke in the middle the night and had pain in his throat. He looked in the back of his throat and thought that there was blisters back there. He does admit to having chills. No recorded fevers. states that he did use a nebulizer treatment before going to bed which is new for him. He denies any ear pain. No difficulty swallowing or breathing. No cough. No dental pain. No other alleviating, precipitating or modifying factors - Related Data Home Medications Medication Instructions Recorded Confirmed Beta-Carotene [Beta Carotene] 25,000 unit PO DAILY 07/07/20 09/09/22 Cholecalciferol [Vitamin D3 (25 50 mcg PO DAILY 07/07/20 09/09/22 Mcg = 1000 Iu)] Metoprolol Succinate (ER) [Toprol 25 mg PO DAILY 03/23/21 09/09/22 XL] ALPRAZolam [Xanax] 0.5 mg PO BID PRN 09/09/22 09/09/22 Apixaban [Eliquis] 5 mg PO BID 09/09/22 09/09/22 Ascorbic Acid [Vitamin C] 500 mg PO DAILY 09/09/22 09/09/22 Ezetimibe [Zetia] 10 mg PO DAILY 09/09/22 09/09/22 Sacubitril/Valsartan [Entresto 24 1 tab PO BID 09/09/22 09/09/22 mg-26 mg Tablet] Previous Rx's Medication Instructions Recorded Aspirin EC [Ecotrin Low Dose] 81 mg PO DAILY #30 tablet. 04/08/19 Nitroglycerin Sl Tabs [Nitrostat] 0.4 mg SUBLINGUAL Q5M PRN 100 Days 03/25/21 #100 tab Allergies Allergy/AdvReac Type Severity Reaction Status Date / Time erythromycin base Allergy Rash/Hives Verified 02/17/24 03:54 Tetracyclines Allergy Rash/Hives Verified 02/17/24 03:54 hydromorphone [From Dilaudid] AdvReac "knocks Verified 02/17/24 03:54 him out, too strong" morphine AdvReac hallunicati Verified 02/17/24 03:54 on oxycodone AdvReac Nausea & Verified 02/17/24 03:54 Vomiting Review of Systems ROS Statement: Those systems with pertinent positive or pertinent negative responses have been documented in the HPI. ROS Other: All systems not noted in ROS Statement are negative. Past Medical History Past Medical History: Coronary Artery Disease (CAD), Chest Pain / Angina, GERD/Reflux, Hyperlipidemia, Myocardial Infarction ([place]), Osteoarthritis (OA), Pneumonia Additional Past Medical History / Comment(s): Diverticultis with previous bowel resection, L nephrolithiasis with mild hydronephrosis-pt states he passed stone on his own, occasional sinus headache. History of bladder cyst. Last Myocardial Infarction Date:: march 31, 2019 History of Any Multi-Drug Resistant Organisms: None Reported Past Surgical History: Heart Catheterization, Heart Catheterization With Stent, Orthopedic Surgery Additional Past Surgical History / Comment(s): Colon resection d/t abscess/necrotic bowel, colonoscopy, L total knee replacement, bilateral inguinal hernia repairs. 4 stents Past Anesthesia/Blood Transfusion Reactions: Postoperative Nausea & Vomiting (PONV) Additional Past Anesthesia/Blood Transfusion Reaction / Comment(s): Pt received blood with bowel resection without reaction. Date of Last Stent Placement:: 03/31/2019 Past Psychological History: No Psychological Hx Reported Smoking Status: Never smoker Past Alcohol Use History: Rare Past Drug Use History: None Reported - Past Family History Mother Family Medical History: Cancer, CVA/TIA Additional Family Medical History / Comment(s): Mother had skin cancer in her groin area and a pacemaker and had a cardiac valve replaced. She at the age of 98yrs. Father Family Medical History: Dementia Additional Family Medical History / Comment(s): Father at the age of 91 yrs from alzheimer's. Sister(s) Family Medical History: Cancer General Exam Limitations: no limitations General appearance: alert, in no apparent distress Head exam: Present: atraumatic, normocephalic, normal inspection Eye exam: Present: normal appearance, PERRL, EOMI. Absent: scleral icterus, conjunctival injection, periorbital swelling ENT exam: Present: normal exam, mucous membranes moist, other (I do not appreciate any blisters that the patient has visualized) Neck exam: Present: normal inspection. Absent: tenderness, meningismus, lymphadenopathy Respiratory exam: Present: normal lung sounds bilaterally. Absent: respiratory distress, wheezes, rales, rhonchi, stridor Cardiovascular Exam: Present: regular rate, normal rhythm, normal heart sounds. Absent: systolic murmur, diastolic murmur, rubs, gallop, clicks GI/Abdominal exam: Present: soft, normal bowel sounds. Absent: distended, tenderness, guarding, rebound, rigid Extremities exam: Present: normal inspection, full ROM, normal capillary refill. Absent: tenderness, pedal edema, joint swelling, calf tenderness Back exam: Present: normal inspection Neurological exam: Present: alert, oriented X3, CN II-XII intact Psychiatric exam: Present: normal affect, normal mood Skin exam: Present: warm, dry, intact, normal color. Absent: rash Course Vital Signs 02/17/24 02/17/24 03:54 06:15 Temperature 97.6 F 97.9 F Pulse Rate 68 74 Respiratory 16 18 Rate Blood Pressure 133/78 130/79 O2 Sat by Pulse 100 100 Oximetry Medical Decision Making - Medical Decision Making Was pt. sent in by a medical professional or institution (, PA, [facility], urgent care, hospital, or senior living...) When possible be specific @ -No Did you speak to anyone other than the patient for history (EMS, parent, family, police, friend...)? What history was obtained from this source @ -Spoke with for history Did you review nursing and triage notes (agree or disagree)? Why? @ -I reviewed and agree with nursing and triage notes Were old charts reviewed (outside hosp., previous admission, EMS record, old EKG, old radiological studies, urgent care reports/EKG's, senior living records)? Report findings @ -No old charts were reviewed Differential Diagnosis (chest pain, altered mental status, abdominal pain women, abdominal pain men, vaginal bleeding, weakness, fever, dyspnea, syncope, headache, dizziness, GI bleed, back pain, seizure, CVA, palpatations, mental health, musculoskeletal)? @ -Strep throat, COVID, influenza EKG interpreted by me (3pts min.). @ -Not done X-rays interpreted by me (1pt min.). @ -None done CT interpreted by me (1pt min.). @ -None done U/S interpreted by me (1pt. min.). @ -None done What testing was considered but not performed or refused? (CT, X-rays, U/S, labs)? Why? @ -None What meds were considered but not given or refused? Why? @ -None Did you discuss the management of the patient with other professionals (professionals i.e. , PA, [facility], lab, RT, psych nurse, clinical social work therapist, music video producer, teacher, intelligence officer basic, case aide)? Give summary @ -No Was smoking cessation discussed for >3mins.? @ -No Was critical care preformed (if so, how long)? @ -No Were there social determinants of health that impacted care today? How? (Homelessness, low income, unemployed, alcoholism, drug addiction, transportation, low edu. Level, literacy, decrease access to med. care, long-term, rehab)? @ -No Was there de-escalation of care discussed even if they declined (Discuss DNR or withdrawal of care, Hospice)? DNR status @ -No What co-morbidities impacted this encounter? (DM, HTN, Smoking, COPD, CAD, Cancer, CVA, ARF, Chemo, Hep., AIDS, mental health diagnosis, sleep apnea, morbid obesity)? @ -None Was patient admitted / discharged? Hospital course, mention meds given and route, prescriptions, significant lab abnormalities, going to OR and other pertinent info. @ -Upon arrival patient seen and evaluated in room 31. Thorough history and physical exam was performed. Physical exam is within normal limits. No drooling, trismus, hoarseness or stridor. I do not appreciate any blisters that the patient is seen. No crepitance. No signs of Jose's angina. No peritonsillar abscess. Patient was given a dose of Decadron and viscous lidocaine. He will be discharged home at this time. Instructed to follow-up with his doctor in 2 to 4 days for further management of his symptoms and return for any new or worsening symptoms. Patient was agreeable to plan was discharged home in stable condition Undiagnosed new problem with uncertain prognosis? @ -No Drug Therapy requiring intensive monitoring for toxicity (Heparin, Nitro, Insulin, Cardizem)? @ -No Were any procedures done? @ -No Diagnosis/symptom? @ -Acute pharyngitis Acute, or Chronic, or Acute on Chronic? @ -Acute Uncomplicated (without systemic symptoms) or Complicated (systemic symptoms)? @ -Uncomplicated Side effects of treatment? @ -No Exacerbation, Progression, or Severe Exacerbation? @ -No Poses a threat to life or bodily function? How? (Chest pain, [place], [place], pneumonia, PE, COPD, DKA, ARF, appy, cholecystitis, CVA, Diverticulitis, Homicidal, Suicidal, threat to staff... and all critical care pts) @ -No - Lab Data Lab Results 02/17/24 02/17/24 Range/Units 04:16 04:58 Influenza Type A (PCR) Not Detected (Not Detectd) Influenza Type B (PCR) Not Detected (Not Detectd) RSV (PCR) Not Detected (Not Detectd) SARS-CoV-2 (PCR) Not Detected (Not Detectd) Group A Strep (PCR) NOT DETECTED (Not Detectd) Disposition Clinical Impression: Pharyngitis Disposition: HOME SELF-CARE Condition: Stable Instructions (If sedation given, give patient instructions): Pharyngitis (ED) Additional Instructions: Please follow-up with your dentist for further evaluation of the lesions. Return for any new or worsening symptoms Is patient prescribed a controlled substance at d/c from ED?: No Referrals: Gucci Zhong MD [Primary Care Provider] - 1-2 days Time of Disposition: 05:44
[2024-02-17] MEDS: dexAMETHasone 2 MG TAB PO STA (05:58)
[2024-02-17] MEDS: LIDOCAINE VISCOUS 2% 15 ML CUP MUCOUS MEM ONE (05:59)
[2024-02-17 06:16] VITALS: BP 130/79; PULSE 74; RESP 18; TEMP 97.9
== END 2024-02-17 06:16 | disposition home or self-care (01) ==
LOC: EC 03:48
DX: J02.9 Acute pharyngitis, unspecified (principal); Z88.1 Allergy status to other antibiotic agents; Z88.5 Allergy status to narcotic agent
CPT/HCPCS: 87651; 87636; 99283; J8540

== ENCOUNTER 2024-06-15 14:33 | Emergency (ER) | payer MEDICARE, BC ==
[2024-06-15 15:50] LABS: Basophils # (A) 0.1 k/uL (0-0.2); Basophils % (A) 1 %; Eosinophils # (A) 0.4 k/uL (0-0.7); Eosinophils % (A) 5 %; HCT 44.8 % (39.0-53.0); HGB 14.3 gm/dL (13.0-17.5); Lymphocytes # (A) 1.7 k/uL (1.0-4.8); Lymphocytes % (A) 24 %; MCH 30.2 pg (25.0-35.0); MCHC 31.8 g/dL (31.0-37.0); MCV 94.9 fL (80.0-100.0); Mean Platelet Volume 7.9; Monocytes # (A) 0.4 k/uL (0-1.0); Monocytes % (A) 6 %; Neutrophils # (A) 4.4 k/uL (1.3-7.7); Neutrophils % (A) 62 %; Platelet Count 249 k/uL (150-450); RBC 4.72 m/uL (4.30-5.90); RDW 13.9 % (11.5-15.5); WBC 7.1 k/uL (3.8-10.6)
[2024-06-15 16:04] LABS: INR 1.1 (<1.2); Partial Thromboplastin Time 27.1 sec (22.0-30.0); Prothrombin Time 11.7 sec (10.0-12.5)
[2024-06-15 16:05] LABS: ALT 19 U/L (4-49); AST 28 U/L (17-59); African American GFR (CKD) 63 (>60 ml/min/1.73 sqM); Albumin 4.3 g/dL (3.5-5.0); Alkaline Phosphatase 67 U/L (38-126); Anion Gap 9 mmol/L; Blood Urea Nitrogen 28 mg/dL (9-20); Calcium 9.4 mg/dL (8.4-10.2); Carbon Dioxide 27 mmol/L (22-30); Chloride 103 mmol/L (98-107); Glucose 95 mg/dL (74-99); Non-African American GFR(CKD) 55 (>60 ml/min/1.73 sqM); Potassium 4.3 mmol/L (3.5-5.1); Sodium 139 mmol/L (137-145); Total Bilirubin 0.6 mg/dL (0.2-1.3); Total Protein 7.4 g/dL (6.3-8.2)
--- NOTE | 2024-06-15 16:24 | XR ---
EXAMINATION TYPE: XR chest 2V DATE OF EXAM: 06/15/2024 4:13 PM COMPARISON: Chest radiographs from 09/09/2022 CLINICAL INDICATION: Male, 78 years old with history of Chest Pain; [facility] TECHNIQUE: XR chest 2V Frontal and lateral views of the chest. FINDINGS: Lungs/Pleura: There is no evidence of pleural effusion, focal consolidation, or pneumothorax. Pulmonary vascularity: Unremarkable. Heart/mediastinum: Cardiomediastinal silhouette is unremarkable. Single-lead cardiac conduction devic e overlying the left hemithorax with lead projecting over the right ventricle. Musculoskeletal: No acute osseous pathology. IMPRESSION: No acute cardiopulmonary disease/process. [facility], , 06/15/2024 4:22 PM
--- NOTE | 2024-06-15 16:56 | ED ---
General Adult HPI - General Chief complaint: Recheck/Abnormal Lab/Rx Stated complaint: cardiac issue Time Seen by Provider: 06/15/24 14:40 Source: patient Mode of arrival: ambulatory Limitations: no limitations - History of Present Illness Initial comments: 78-year-old male presents to the emergency department with a vibrating sensation over the left portion of his chest. States that the symptoms started last night. The vibrations are located over his pacemaker. Patient concerned that his pacemaker is acting up. He was just interrogated a couple of weeks ago and had no abnormalities. He denies that he is painful. No associated shortness of breath. No fevers, chills or cough. He cannot reproduce his symptoms and states that they are sporadic and lasts a couple of seconds. He denies nausea or vomiting. No abdominal pain. No other alleviating, precipitating or modifying factors - Related Data Home Medications Medication Instructions Recorded Confirmed Metoprolol Succinate (ER) [Toprol 12.5 mg PO DAILY 03/23/21 06/15/24 XL] Apixaban [Eliquis] 5 mg PO BID 09/09/22 06/15/24 Ezetimibe [Zetia] 10 mg PO HS 09/09/22 06/15/24 Sacubitril/Valsartan [Entresto 24 1 tab PO BID 09/09/22 06/15/24 mg-26 mg Tablet] Ipratropium-Albuterol Nebulize 3 ml INHALATION RT-BID PRN 06/15/24 06/15/24 [Duoneb 0.5 mg-3 mg/3 ml Soln] Omeprazole 20 mg PO HS 06/15/24 06/15/24 Previous Rx's Medication Instructions Recorded Aspirin EC [Ecotrin Low Dose] 81 mg PO DAILY #30 tablet. 04/08/19 Allergies Allergy/AdvReac Type Severity Reaction Status Date / Time erythromycin base Allergy Rash/Hives Verified 06/15/24 15:35 Tetracyclines Allergy Rash/Hives Verified 06/15/24 15:35 hydromorphone [From Dilaudid] AdvReac "knocks Verified 06/15/24 15:35 him out, too strong" morphine AdvReac hallunicati Verified 06/15/24 15:35 on oxycodone AdvReac Nausea & Verified 06/15/24 15:35 Vomiting Review of Systems ROS Statement: Those systems with pertinent positive or pertinent negative responses have been documented in the HPI. ROS Other: All systems not noted in ROS Statement are negative. Past Medical History Past Medical History: Coronary Artery Disease (CAD), Chest Pain / Angina, GERD/Reflux, Hyperlipidemia, Myocardial Infarction (VA), Osteoarthritis (OA), Pneumonia Additional Past Medical History / Comment(s): Diverticultis with previous bowel resection, L nephrolithiasis with mild hydronephrosis-pt states he passed stone on his own, occasional sinus headache. History of bladder cyst. Last Myocardial Infarction Date:: march 31, 2019 History of Any Multi-Drug Resistant Organisms: None Reported Past Surgical History: Heart Catheterization, Heart Catheterization With Stent, Orthopedic Surgery Additional Past Surgical History / Comment(s): Colon resection d/t abscess/necrotic bowel, colonoscopy, L total knee replacement, bilateral inguinal hernia repairs. 4 stents Past Anesthesia/Blood Transfusion Reactions: Postoperative Nausea & Vomiting (PONV) Additional Past Anesthesia/Blood Transfusion Reaction / Comment(s): Pt received blood with bowel resection without reaction. Date of Last Stent Placement:: 03/31/2019 Past Psychological History: No Psychological Hx Reported Smoking Status: Never smoker Past Alcohol Use History: Rare Past Drug Use History: None Reported - Past Family History Mother Family Medical History: Cancer, CVA/TIA Additional Family Medical History / Comment(s): Mother had skin cancer in her groin area and a pacemaker and had a cardiac valve replaced. She at the age of 98yrs. Father Family Medical History: Dementia Additional Family Medical History / Comment(s): Father at the age of 91 yrs from alzheimer's. Sister(s) Family Medical History: Cancer General Exam Limitations: no limitations General appearance: alert, in no apparent distress Head exam: Present: atraumatic, normocephalic, normal inspection Eye exam: Present: normal appearance, PERRL, EOMI. Absent: scleral icterus, conjunctival injection, periorbital swelling ENT exam: Present: normal exam, mucous membranes moist Neck exam: Present: normal inspection. Absent: tenderness, meningismus, lymphadenopathy Respiratory exam: Present: normal lung sounds bilaterally. Absent: respiratory distress, wheezes, rales, rhonchi, stridor Cardiovascular Exam: Present: regular rate, normal rhythm, normal heart sounds. Absent: systolic murmur, diastolic murmur, rubs, gallop, clicks GI/Abdominal exam: Present: soft, normal bowel sounds. Absent: distended, tenderness, guarding, rebound, rigid Extremities exam: Present: normal inspection, full ROM, normal capillary refill. Absent: tenderness, pedal edema, joint swelling, calf tenderness Back exam: Present: normal inspection Neurological exam: Present: alert, oriented X3, CN II-XII intact Psychiatric exam: Present: normal affect, normal mood Skin exam: Present: warm, dry, intact, normal color. Absent: rash Course Vital Signs 06/15/24 06/15/24 06/15/24 14:38 16:00 17:36 Temperature 97.4 F L 98.0 F Pulse Rate 68 66 60 Respiratory 18 18 16 Rate Blood Pressure 106/64 110/66 115/68 O2 Sat by Pulse 97 99 96 Oximetry Medical Decision Making - Medical Decision Making Was pt. sent in by a medical professional or institution (, PA, COMPRESS[employer] STATION ENGINEER CHIEF, urgent care, hospital, or fci...) When possible be specific @ -No Did you speak to anyone other than the patient for history (EMS, parent, family, police, friend...)? What history was obtained from this source @ -Spoke with the patient's for history Did you review nursing and triage notes (agree or disagree)? Why? @ -I reviewed and agree with nursing and triage notes Were old charts reviewed (outside hosp., previous admission, EMS record, old EKG, old radiological studies, urgent care reports/EKG's, fci records)? Report findings @ -No old charts were reviewed Differential Diagnosis (chest pain, altered mental status, abdominal pain women, abdominal pain men, vaginal bleeding, weakness, fever, dyspnea, syncope, headache, dizziness, GI bleed, back pain, seizure, CVA, palpatations, mental health, musculoskeletal)? @ -Differential Chest Pain: Stable Angina, Unstable Angina, STEMI, NSTEMI Aortic Dissection, Pneumothorax, Musculoskeletal, Esophageal Spasm GERD, Cholecystitis, Pancreatitis, Zoster, this is not meant to be an all-inclusive list. EKG interpreted by me (3pts min.). @ -yes and demonstrates sinus rhythm with rate of 75. Parable 134. QRS 87. QTc of 395. No acute ST segment elevations or depressions X-rays interpreted by me (1pt min.). @ -Yes and demonstrates no acute process CT interpreted by me (1pt min.). @ -None done U/S interpreted by me (1pt. min.). @ -None done What testing was considered but not performed or refused? (CT, X-rays, U/S, labs)? Why? @ -None What meds were considered but not given or refused? Why? @ -None Did you discuss the management of the patient with other professionals (professionals i.e. DrJade, PA, COM[employer] ENGINEER CHIEF, lab, RT, psych nurse, manager social services, mast maker, teacher, revenue officer, continuous pillowcase cutter)? Give summary @ -Spoke with Dr. Lock who does not have any further recommendations Was smoking cessation discussed for >3mins.? @ -No Was critical care preformed (if so, how long)? @ -No Were there social determinants of health that impacted care today? How? (Homelessness, low income, unemployed, alcoholism, drug addiction, transportation, low edu. Level, literacy, decrease access to med. care, halfway, rehab)? @ -No Was there de-escalation of care discussed even if they declined (Discuss DNR or withdrawal of care, Hospice)? DNR status @ -No What co-morbidities impacted this encounter? (DM, HTN, Smoking, COPD, CAD, Cancer, CVA, ARF, Chemo, Hep., AIDS, mental health diagnosis, sleep apnea, morbid obesity)? @ -Cardiomyopathy with pacemaker defibrillator placement Was patient admitted / discharged? Hospital course, mention meds given and route, prescriptions, significant lab abnormalities, going to OR and other pertinent info. @ -Upon arrival patient seen and evaluated in room 1. Thorough history and physical exam was performed. Patient is hooked to continuous pulse ox and cardiac monitoring. Twelve-lead EKG is obtained. Laboratory studies are conducted and chest x-ray is performed. We did interrogate the patient's device which indicates that there has been no alerts. I did call and speak with Dr. Lock who is on-call for cardiology. He has no further recommendations regards the patient's workup and feels as if he can follow-up outpatient for his symptoms. I did discuss this with the patient he was agreeable. Patient be discharged home at this time. Instructed to return for any new or worsening symptoms. Patient agreeable to plan was discharged in stable condition Undiagnosed new problem with uncertain prognosis? @ -No Drug Therapy requiring intensive monitoring for toxicity (Heparin, Nitro, Insulin, Cardizem)? @ -No Were any procedures done? @ -No Diagnosis/symptom? @ -Acute left-sided chest discomfort, history of pacemaker ICD Acute, or Chronic, or Acute on Chronic? @ -Acute Uncomplicated (without systemic symptoms) or Complicated (systemic symptoms)? @ -Complicated Side effects of treatment? @ -No Exacerbation, Progression, or Severe Exacerbation? @ -No Poses a threat to life or bodily function? How? (Chest pain, [place], VA, pneumonia, PE, COPD, DKA, ARF, appy, cholecystitis, CVA, Diverticulitis, Homicidal, Suicidal, threat to staff... and all critical care pts) @ -No - Lab Data Result diagrams: 06/15/24 15:33 06/15/24 15:33 Lab Results 06/15/24 06/15/24 06/15/24 Range/Units 15:33 15:33 15:33 WBC 7.1 (3.8-10.6) k/uL RBC 4.72 (4.30-5.90) m/uL Hgb 14.3 (13.0-17.5) gm/dL Hct 44.8 (39.0-53.0) % MCV 94.9 (80.0-100.0) fL MCH 30.2 (25.0-35.0) pg MCHC 31.8 (31.0-37.0) g/dL RDW 13.9 (11.5-15.5) % Plt Count 249 (150-450) k/uL MPV 7.9 Neutrophils % 62 % Lymphocytes % 24 % Monocytes % 6 % Eosinophils % 5 % Basophils % 1 % Neutrophils # 4.4 (1.3-7.7) k/uL Lymphocytes # 1.7 (1.0-4.8) k/uL Monocytes # 0.4 (0-1.0) k/uL Eosinophils # 0.4 (0-0.7) k/uL Basophils # 0.1 (0-0.2) k/uL PT 11.7 (10.0-12.5) sec INR 1.1 (<1.2) APTT 27.1 (22.0-30.0) sec Sodium 139 (137-145) mmol/L Potassium 4.3 (3.5-5.1) mmol/L Chloride 103 (98-107) mmol/L Carbon Dioxide 27 (22-30) mmol/L Anion Gap 9 mmol/L BUN 28 H (9-20) mg/dL Creatinine 1.25 (0.66-1.25) mg/dL Est GFR (CKD-EPI)AfAm 63 (>60 ml/min/1.73 sqM) Est GFR (CKD-EPI)NonAf 55 (>60 ml/min/1.73 sqM) Glucose 95 (74-99) mg/dL Calcium 9.4 (8.4-10.2) mg/dL Magnesium 2.0 (1.6-2.3) mg/dL Total Bilirubin 0.6 (0.2-1.3) mg/dL AST 28 (17-59) U/L ALT 19 (4-49) U/L Alkaline Phosphatase 67 (38-126) U/L Troponin I (0.000-0.034) ng/mL Total Protein 7.4 (6.3-8.2) g/dL Albumin 4.3 (3.5-5.0) g/dL 06/15/24 Range/Units 15:33 WBC (3.8-10.6) k/uL RBC (4.30-5.90) m/uL Hgb (13.0-17.5) gm/dL Hct (39.0-53.0) % MCV (80.0-100.0) fL MCH (25.0-35.0) pg MCHC (31.0-37.0) g/dL RDW (11.5-15.5) % Plt Count (150-450) k/uL MPV Neutrophils % % Lymphocytes % % Monocytes % % Eosinophils % % Basophils % % Neutrophils # (1.3-7.7) k/uL Lymphocytes # (1.0-4.8) k/uL Monocytes # (0-1.0) k/uL Eosinophils # (0-0.7) k/uL Basophils # (0-0.2) k/uL PT (10.0-12.5) sec INR (<1.2) APTT (22.0-30.0) sec Sodium (137-145) mmol/L Potassium (3.5-5.1) mmol/L Chloride (98-107) mmol/L Carbon Dioxide (22-30) mmol/L Anion Gap mmol/L BUN (9-20) mg/dL Creatinine (0.66-1.25) mg/dL Est GFR (CKD-EPI)AfAm (>60 ml/min/1.73 sqM) Est GFR (CKD-EPI)NonAf (>60 ml/min/1.73 sqM) Glucose (74-99) mg/dL Calcium (8.4-10.2) mg/dL Magnesium (1.6-2.3) mg/dL Total Bilirubin (0.2-1.3) mg/dL AST (17-59) U/L ALT (4-49) U/L Alkaline Phosphatase (38-126) U/L Troponin I <0.012 (0.000-0.034) ng/mL Total Protein (6.3-8.2) g/dL Albumin (3.5-5.0) g/dL Disposition Clinical Impression: Atypical chest pain Disposition: HOME SELF-CARE Condition: Stable Instructions (If sedation given, give patient instructions): Noncardiac Chest Pain (ED) Additional Instructions: Please call your heart doctor in the morning to follow-up with them. Return to the emergency department should you have any new or worsening symptoms Is patient prescribed a controlled substance at d/c from ED?: No Referrals: Gucci Zhong MD [Primary Care Provider] - 1-2 days Time of Disposition: 17:25
[2024-06-15 17:37] VITALS: BP 115/68; PULSE 60; RESP 16; TEMP 98
== END 2024-06-15 17:39 | disposition home or self-care (01) ==
LOC: EC 14:33
DX: R07.89 Other chest pain (principal); Z95.810 Presence of automatic (implantable) cardiac defibrillator; Z88.1 Allergy status to other antibiotic agents; Z88.5 Allergy status to narcotic agent
CPT/HCPCS: 36415; 71046; 80053; 83735; 84484; 85025; 85610; 85730; 93005; 99285